=== PATIENT | male | born 1980 | race African-American/Black ===

== ENCOUNTER 2025-01-15 00:24 | Emergency (ER) | payer MEDICAID, SELFPAY ==
[2025-01-15 00:44] VITALS: BP 124/82; PULSE 100; RESP 18; TEMP 36.6; O2SAT 99; BMI 20.9
[2025-01-15 01:39] LABS: Basophils % (Auto) 0 % (0-2.5); Eosinophils # (Auto) 0.1 Thou/mm3 (0.0-0.5); Eosinophils % (Auto) 1 % (0-10); Hematocrit 41.4 % (41.0-53.0); Hemoglobin 13.4 g/dL (13.5-16.0); Immature Granulocytes % (Auto) 0 % (0-0); Immature Granulocytes Auto 0.01 Thou/mm3 (0.00-0.00); Lymphocytes # (Auto) 1.4 Thou/mm3 (1.0-4.8); Lymphocytes % (Auto) 20 % (10-50); Mean Corpuscular HGB Conc 32.4 g/dl (31.0-37.0); Mean Corpuscular Volume 83 fL (80-100); Monocytes # (Auto) 0.5 Thou/mm3 (0.0-0.8); Monocytes % (Auto) 8 % (0-12); Neutrophils % (Auto) 71 % (37-80); Nucleated Red Blood Cell % 0 /100 WBC (0); Platelet Count 203 Thou/mm3 (140-440); RDW Standard Deviation 45.8 fL (35.1-43.9); Red Blood Count 4.97 Miln/mm3 (4.50-5.90)
[2025-01-15 01:52] LABS: Alanine Aminotransferase 36 U/L (10-49); Albumin, Serum 4.1 gm/dL (3.5-5.0); Albumin/Globulin Ratio 1.4 (1.2-2.2); Alkaline Phosphatase 96 U/L (46-116); Anion Gap 6 (7-16); Aspartate Amino Transferase 84 U/L (0-34); BUN/Creatinine Ratio 6 Ratio (12-20); Bilirubin,Total 0.4 mg/dL (0.3-1.2); Blood Urea Nitrogen 7 mg/dL (9-23); Calcium 9.1 mg/dL (8.3-10.6); Calcium (Corrected) 9.1 mg/dL (8.5-10.1); Carbon Dioxide 28.6 mMol/L (20.0-31.0); Chloride 105 mMol/L (98-107); Creatinine (Component) 1.1 mg/dL (0.6-1.3); Estimated Creatinine Clearance 76.7 mL/min (>60); Globulin 2.9 gm/dL (2.3-3.5); Glucose 116 mg/dL (74-106); Osmolality,Calculated 278 (275-295); Potassium 3.6 mMol/L (3.4-5.1); Sodium 140 mMol/L (136-145); eGFR > 60 See Note
--- NOTE | 2025-01-15 05:37 | EDNOTE_ITS ---
ED GI Bleed RME/HPI General Chief complaint: GI Bleed Stated complaint: Abdominal Pain/ Bloody stools Time Seen by Provider: 01/15/25 00:55 Arrival date/time: 01/15/25 00:24 44M with history of seizures, drug use, and recently diagnosed stage 2 colon cancer 5 months ago here presents to ED with wanting to start treatment for his colon cancer. Patient didn't want treatment after initial diagnosis but now changed his mind due to wanting to live for his daughter. Limitations: no limitations Related Data Home Medications ?Medication ?Instructions ?Recorded ?Confirmed fluoxetine 20 mg capsule (Prozac) 10 mg PO QAM #0 caps 12/20/14 07/20/24 trazodone 50 mg tablet 50 mg PO HS PRN Sleep #0 tab s 12/20/14 07/20/24 levetiracetam 500 mg tablet 500 mg PO BID 07/20/24 (Keppra) Allergies Allergy/AdvReac Type Severity Reaction Status Date / Time coconut Allergy Severe Anaphylaxis Verified 07/20/24 21:10 Review of Systems Review of Systems Systems Reviewed: All systems reviewed, normal except as documented Constitutional Constitutional: Reports system reviewed and no additional complaints, except as documented, Denies fever(s) and Denies headache(s) ENT Ears, Nose, Mouth, and Throat: Denies disequilibrium and Denies headache(s) Cardiovascular Cardiovascular: Reports system reviewed and no additional complaints, except as documented, Denies chest pain and Denies dyspnea Respiratory Respiratory: Reports system reviewed and no additional complaints, except as documented, Denies cough and Denies dyspnea Gastrointestinal Gastrointestinal: Reports system reviewed and no additional complaints, except as documented, Denies abdominal pain, Denies nausea and Denies vomiting Neurologic Neurologic: Reports system reviewed and no additional complaints, except as documented, Denies confusion, Denies disequilibrium and Denies headache(s) Psychiatric Psychiatric: Denies confusion Past Medical History Past Medical History NEUROLOGIC: Positive Seizures (LAST SEIZURE 4 MONTHS AGO) and Epilepsy; Negative Neurological Disorders, Cerebrovascular Accident, Transient Ischemic Attacks (TIA), Dementia, Alzheimer's Disease, Parkinson's Disease, Brain Tumor, Meningitis, Multiple Sclerosis, Amyotrophic Lateral Sclerosis (ALS/Tabby Gehrig's), Guillain-[place] Syndrome, Spina Bifida, Paralysis, Peripheral Neuropathy, Bermudez's Palsy, Subdural Hematoma, Migraine, Head Trauma or Spinal Cord Injury CARDIAC: Negative Cardiac Disorders, Myocardial Infarction, Cardiac Arrhythmia, Atrial Fibrillation, Angina, Heart Murmur, Coronary Artery Disease, Atherosclerotic Heart Disease, Peripheral Vascular Disease, Hypercholesterolemia, Aneurysm, Congestive Heart Failure, Congenital Heart Disease, Valvular Heart Disease, Rheumatic Fever, Cardiomyopathy, Edema, Pericarditis, Cellulitis, Deep Vein Thrombosis, Hypertension, Hypotension or Varicose Veins RESPIRATORY: Positive Asthma; Negative Chronic Obstructive Pulmonary Disease (COPD), Emphysema, Pneumonia, Pulmonary Fibrosis, Cystic Fibrosis, Tuberculosis, Pulmonary Embolism, Pulmonary Edema or Sleep Apnea GASTROINTESTINAL: Positive Gastrointestinal Bleed; Negative Gastrointestinal Disorders, Hepatitis, Cirrhosis, Pancreatitis, Gall Bladder Disease, Esophageal Varices, Howard's Esophagus, Colitis, Ulcerative Colitis, Diverticulitis, Diverticulosis, Ulcer, Colorectal Cancer, Irritable Bowel, Crohn's Disease, Obstructive Bowel, Hiatal Hernia, Hemorrhoids or Gastroesophageal Reflux Disease GENITOURINARY: Negative Genitourinary Disorders, Renal Disease, Kidney Stones, Polycystic Kidney Disease, Neurogenic Bladder, Inguinal Hernia, Dialysis, Prostate Cancer or Benign Prostatic Hyperplasia REPRODUCTIVE: Positive Gonorrhea; Negative Breast Cancer, Fibroids, Genital Herpes, Syphilis or Testicular Cancer MUSCULOSKELETAL: Negative Musculoskeletal Disorders, Muscular Dystrophy, Myasthenia Gravis, Marfan's Syndrome, Bone Cancer, Arthritis, Rheumatoid Arthritis, Osteoporosis, Degenerative Disk Disease, Gout, Scoliosis, Carpal Tunnel Syndrome, Fibromyalgia, Fractures, Degenerative Joint Disease, Osteomyelitis or Poliovirus ENT: Negative Cataracts, Glaucoma, Blind, Retinal Detachment, Macular Degeneration, Ear Infection, Deafness, Head Trauma or Eye Prosthesis ENDOCRINE: Negative Endocrine Disorders, Diabetes Mellitus Type 1, Diabetes Mellitus Type 2, Hypoglycemia, Ismael's Syndrome, Tulio's Disease, Hyperthyroidism, Hypothyroidism, Parathyroid Disease, Pituitary Disease, Syndrome of Inappropriate Antidiuretic Hormone (SIADH) or Adrenal Disease HEMATOLOGIC: Negative Blood Disorders, Anemia, Leukemia, Hemophilia, Thalassemia, Sickle Cell Disease or Clotting Problems PSYCHO/SOCIAL: Positive Recreational Drug Use, Bipolar Disorder, Depression and Anxiety; Negative Psychiatric Problems, Schizophrenia, Behavior Problems, Self- Mutilation, Attention Deficit Disorder, Attention Deficit Hyperactivity Disorder, Depression, Post Traumatic Stress Disorder or Eating Disorder OTHER HISTORY: Negative Hospitalization, Autoimmune Disease, Down Syndrome, Autism, Developmental Delay, Shingles, Falls, Blood Transfusions, Blood Tra nsfusion Reaction, Anesthesia Reactions, Organ Transplant, Chemotherapy, Radiation Therapy, Hyperbaric Therapy, MRSA, VRSA, Vancomycin-Resistant Enterococci, Human Immunodeficiency Virus (HIV), Chicken Pox, Measles, Mumps, Rubella ([place]vian Measles), Pertussis, Clostridium Difficile, Cancer, Breast Cancer, Cervical Cancer, Colorectal Cancer, Lung Cancer, Ovarian Cancer, Prostate Cancer or Testicular Cancer Family History FAMILY HISTORY: Positive Family Psychiatric Problems and Family Respiratory Disorders; Negative Family Cardiac Disorders, Family Gastrointestinal Problems, Family Cancer, Family Surgery or Family Anesthesia Reaction Surgical History SURGICAL: Negative Cardiac Surgery, Open Heart Surgery, Coronary Artery Bypass Graft, Vascular Surgery, Coronary Stent, Cardiac Catheterization, Pacemaker, Angiogram, Auto Implanted Cardiovert Defib, Carotid Endarterectomy, Endocrine Surgery, Thyroidectomy, Ear Surgery, Tympanostomy Tube, Eye Surgery, Nose Surgery, Oral Surgery, Tonsillectomy, Adenoidectomy, Cochlear Implant, Corneal Transplant, Throat Surgery, Abdominal Surgery, Tracheostomy, Gastric Bypass Surgery, Gastrostomy, Bowel Surgery, Joint Replacement, Amputation, Open Reduction Internal Fixation, Arthroscopy, Neurologic Surgery, Brain Shunt, Mastectomy, Lumpectomy, Hysterectomy, Tubal Ligation, Section, Vasectomy or Organ Transplant Social History SMOKING STATUS: Never smoker SECOND HAND EXPOSURE: Yes ED Exam General Limitations: Present no limitations General appearance: Present alert and in no apparent distress Head Head exam: Present atraumatic Eye Eye exam: Present normal appearance, PERRL and EOMI ENT ENT exam: Present normal exam, normal oropharynx and mucous membranes moist Neck Neck exam: Present normal inspection, full ROM and trachea midline Chest Chest inspection: Present normal inspection and symmetric chest wall rise Respiratory Respiratory exam: Present normal lung sounds bilaterally Cardiovascular Cardiovascular exam: Present regular rate, normal rhythm and normal heart sounds Abdominal Exam Abdominal exam: Present soft and normal bowel sounds Extremities Exam Extremities exam: Present normal inspection and full ROM Back Exam Back exam: Present normal inspection and full ROM Neurological Exam Neurological exam: Present alert, oriented X3 and CN II-XII intact Psychiatric Psychiatric exam: Present normal affect and normal mood Skin Skin exam: Present warm, dry, intact and normal color Course Quality Measures none Orders Category Date Time Status CBC Stat Lab 01/15/25 01:15 Completed CMP [Comprehensive Metabolic Panel] Stat Lab 01/15/25 01:15 Completed Vital Signs Vital signs: Vital Signs Temperature 98 F 01/15/25 00:44 Pulse Rate 100 01/15/25 00:44 Respiratory Rate 18 01/15/25 00:44 Blood Pressure 124/82 01/15/25 00:44 Pulse Oximetry (%) 99 01/15/25 00:44 Oxygen Delivery Method Room Air 01/15/25 00:44 O2 at 99% on RA and WNLs GI Bleed MDM Narrative MDM Narrative:: 44M with history of seizures, drug use, and recently diagnosed stage 2 colon cancer 5 months ago here presents to ED with wanting to start treatment for his colon cancer. Patient didn't want treatment after initial diagnosis but now changed his mind due to wanting to live for his daughter. Physical exam reveals no ab tenderness. Patient is afebrile, calm, and alert. No anemia. CMP unremarkable. Dust Box Worker given including to call [facility] in AM. Patient data External records reviewed:: [facility] previous records Clinical information provided by:: patient Social determinants that could affect healthcare access:: substance use Patient has the following chronic illnesses:: seizures, drug use, and recently diagnosed stage 2 colon cancer How is presenting disease/condition affected by chronic disease/condition?: caused by Evaluation data The following diagnostics were reviewed and interpreted by me:: lab results Lab and/or radiology exams considered but not ordered:: ordered Interpretation Summary: above Medications / Prescriptions Medications or Prescriptions considered but not ordered:: not ordered Medication administrations:: n/a Consultations Consultation(s) initiated? (list below): No Diagnosis GI bleed differential diagnosis: hemorrhoids, infectious diarrhea, esophageal varices, gastritis, Ni-Bazan syndrome, Upper gastrointestinal hemorrhage, Lower gastrointestinal hemorrhage, hematochezia, melena, anal fissure and other (colon cancer) Most likely diagnosis given after review of the tests above:: colon cancer Admission Indicated Admission indicated?: not indicated Admission Request Was there a request for admission?: No Disposition Plan Disposition Plan: Discharge Discharge Attestation Discharge Attestation: The patient and all family members were given an opportunity to ask questions and understood the discharge instructions. Discharge instructions specifically effects, indications for sooner follow up or return to the emergency department, and the expected course of current diagnosis. Patient condition: Stable Discharge Plan Plan Patient Disposition: HOME (Self Care) Disposition Comment: Stable Prescriptions/Referrals Prescriptions/Med Rec: No Action trazodone 50 mg Tablet 50 mg PO HS PRN (Reason: Sleep) Qty: 0 fluoxetine [Prozac] 20 MG capsule 10 mg PO QAM Qty: 0 levetiracetam [Keppra] 500 mg Tablet 500 mg PO BID Referrals: [facility] [Outside] - In 1 week (call in AM) No Primary/Family,Physician [Primary Care Provider] - In 1 week Problem List Clinical Impression: Colon cancer Patient/Caregiver Discharge Instructions Education Materials: Colorectal Cancer Additional Instructions: Please follow-up with PCP within 24-48 hours and return immediately if symptoms worsen. Call Cancer Center in the morning! Print Language: Syriac Stand Alone Forms: Patient Portal Info Letter PA/BASE WAD OPERATOR ADJUSTER Supervising Physician BENITA/BASE WAD OPERATOR ADJUSTER Supervising Physician: Dr. Irvin
== END 2025-01-15 02:34 | disposition home or self-care (01) ==
PROVIDERS: Physician Assistant; Emergency Provider Emergency Medicine
DX: C18.9 Malignant neoplasm of colon, unspecified (principal)
CPT/HCPCS: 36415; 80053; 85025; 99283

== ENCOUNTER 2025-01-15 22:03 | Emergency (ER) | payer MEDICAID, SELFPAY ==
[2025-01-15 22:04] VITALS: BMI 21.1
--- NOTE | 2025-01-15 22:42 | PC.NURSE ---
CALLED FOR PT FROM [facility]/OUTSIDE, NO ANSWERx1@ [phone]
--- NOTE | 2025-01-15 22:57 | PC.NURSE ---
PT CALLED FROM [facility] NO ANSWER
--- NOTE | 2025-01-15 23:13 | PC.NURSE ---
NO ANSWER FOR VITALS
--- NOTE | 2025-01-15 23:14 | PC.NURSE ---
PT CALLED FROM [facility] NO ANSWER
== END 2025-01-15 23:14 | disposition left against medical advice (07) ==
LOC: SERX 23:22
PROVIDERS: Emergency Provider Emergency Medicine
DX: Z53.21 Procedure and treatment not carried out due to patient leaving prior to being seen by health care provider (principal)

== ENCOUNTER 2025-02-18 01:12 | Emergency (ER) | payer MEDICAID, SELFPAY ==
[2025-02-18 01:13] VITALS: BMI 21.9
[2025-02-18 01:22] VITALS: BP 122/77; PULSE 91; RESP 18; TEMP 36.6; O2SAT 98
[2025-02-18] MEDS: MORPHINE SULF INJ 10 MG/ML VIAL 5 MG IM (01:42)
--- NOTE | 2025-02-18 04:39 | PD.EDABDPN ---
ED Abdominal Pain RME/HPI General Chief Complaint: General Adult/Misc Complain Stated complaint: RECTAL BLOODING Time seen by provider: 02/18/25 01:31 Arrival date/time: 02/18/25 01:12 44M with history of seizures, drug use, and recently diagnosed stage 2 colon cancer 6 months ago here presents to ED with worsening ab pain. Patient still hasn't called Cancer Center because he doesn't want to start chemo. Patient states his neighbor told him there's some eye drop that can treat colon cancer, and wants to try it. Limitations: no limitations Related Data Home Medications ?Medication ?Instructions ?Recorded ?Confirmed fluoxetine 20 mg capsule (Prozac) 10 mg PO QAM #0 caps 12/20/14 07/20/24 trazodone 50 mg tablet 50 mg PO HS PRN Sleep #0 tabs 12/20/14 07/20/24 levetiracetam 500 mg tablet 500 mg PO BID 07/20/24 07/20/24 (Keppra) Allergies Allergy/AdvReac Type Severity Reaction Status Date / Time coconut Allergy Severe Anaphylaxis Verified 07/20/24 21:10 Review of Systems Review of Systems Systems Reviewed: All systems reviewed, normal except as documented Constitutional Constitutional: Reports system reviewed and no additional complaints, except as documented, Denies fever(s) and Denies headache(s) ENT Ears, Nose, Mouth, and Throat: Denies disequilibrium and Denies headache(s) Cardiovascular Cardiovascular: Reports system reviewed and no additional complaints, except as documented, Denies chest pain and Denies dyspnea Respiratory Respiratory: Reports system reviewed and no additional complaints, except as documented, Denies cough and Denies dyspnea Gastrointestinal Gastrointestinal: Reports system reviewed and no additional complaints, except as documented, Reports as per HPI, Reports abdominal pain, Denies nausea and Denies vomiting Neurologic Neurologic: Reports system reviewed and no additional complaints, except as documented, Denies confusion, Denies disequilibrium and Denies headache(s) Psychiatric Psychiatric: Denies confusion Past Medical History Past Medical History NEUROLOGIC: Positive Seizures (LAST SEIZURE 4 MONTHS AGO) and Epilepsy; Negative Neurological Disorders, Cerebrovascular Accident, Transient Ischemic Attacks (TIA), Dementia, Alzheimer's Disease, Parkinson's Disease, Brain Tumor, Meningitis, Multiple Sclerosis, Amyotrophic Lateral Sclerosis (ALS/Tabby Gehrig's), Guillain-[place] Syndrome, Spina Bifida, Paralysis, Peripheral Neuropathy, Bermudez's Palsy, Subdural Hematoma, Migraine, Head Trauma or Spinal Cord Injury CARDIAC: Negative Cardiac Disorders, Myocardial Infarction, Cardiac Arrhythmia, Atrial Fibrillation, Angina, Heart Murmur, Coronary Artery Disease, Atherosclerotic Heart Disease, Peripheral Vascular Disease, Hypercholesterolemia, Aneurysm, Congestive Heart Failure, Congenital Heart Disease, Valvular Heart Disease, Rheumatic Fever, Cardiomyopathy, Edema, Pericarditis, Cellulitis, Deep Vein Thrombosis, Hypertension, Hypotension or Varicose Veins RESPIRATORY: Positive Asthma; Negative Chronic Obstructive Pulmonary Disease (COPD), Emphysema, Pneumonia, Pulmonary Fibrosis, Cystic Fibrosis, Tuberculosis, Pulmonary Embolism, Pulmonary Edema or Sleep Apnea GASTROINTESTINAL: Positive Gastrointestinal Bleed; Negative Gastrointestinal Disorders, Hepatitis, Cirrhosis, Pancreatitis, Gall Bladder Disease, Esophageal Varices, Howard's Esophagus, Colitis, Ulcerative Colitis, Diverticulitis, Diverticulosis, Ulcer, Colorectal Cancer, Irritable Bowel, Crohn's Disease, Obstructive Bowel, Hiatal Hernia, Hemorrhoids or Gastroesophageal Reflux Disease GENITOURINARY: Negative Genitourinary Disorders, Renal Disease, Kidney Stones, Polycystic Kidney Disease, Neurogenic Bladder, Inguinal Hernia, Dialysis, Prostate Cancer or Benign Prostatic Hyperplasia REPRODUCTIVE: Positive Gonorrhea; Negative Breast Cancer, Fibroids, Genital Herpes, Syphilis or Testicular Cancer MUSCULOSKELETAL: Negative Musculoskeletal Disorders, Muscular Dystrophy, Myasthenia Gravis, Marfan's Syndrome, Bone Cancer, Arthritis, Rheumatoid Arthritis, Osteoporosis, Degenerative Disk Disease, Gout, Scoliosis, Carpal Tunnel Syndrome, Fibromyalgia, Fractures, Degenerative Joint Disease, Osteomyelitis or Poliovirus ENT: Negative Cataracts, Glaucoma, Blind, Retinal Detachment, Macular Degeneration, Ear Infection, Deafness, Head Trauma or Eye Prosthesis ENDOCRINE: Negative Endocrine Disorders, Diabetes Mellitus Type 1, Diabetes Mellitus Type 2, Hypoglycemia, Ismael's Syndrome, [place]'s Disease, Hyperthyroidism, Hypothyroidism, Parathyroid Disease, Pituitary Disease, Syndrome of Inappropriate Antidiuretic Hormone (SIADH) or Adrenal Disease HEMATOLOGIC: Negative Blood Disorders, Anemia, Leukemia, Hemophilia, Thalassemia, Sickle Cell Disease or Clotting Problems PSYCHO/SOCIAL: Positive Recreational Drug Use, Bipolar Disorder, Depression and Anxiety; Negative Psychiatric Problems, Schizophrenia, Behavior Problems, Self-Mutilation, Attention Deficit Disorder, Attention Deficit Hyperactivity Disorder, Depression, Post Traumatic Stress Disorder or Eating Disorder OTHER HISTORY: Negative Hospitalization, Autoimmune Disease, Down Syndrome, Autism, Developmental Delay, Shingles, Falls, Blood Transfusions, Blood Transfusion Reaction, Anesthesia Reactions, Organ Transplant, Chemotherapy, Radiation Therapy, Hyperbaric Therapy, MRSA, VRSA, Vancomycin-Resistant Enterococci, Human Immunodeficiency Virus (HIV), Chicken Pox, Measles, Mumps, Rubella (Ind[place]ian Measles), Pertussis, Clostridium Difficile, Cancer, Breast Cancer, Cervical Cancer, Colorectal Cancer, Lung Cancer, Ovarian Cancer, Prostate Cancer or Testicular Cancer Family History FAMILY HISTORY: Positive Family Psychiatric Problems and Family Respiratory Disorders; Negative Family Cardiac Disorders, Family Gastrointestinal Problems, Family Cancer, Family Surgery or Family Anesthesia Reaction Surgical History SURGICAL: Negative Cardiac Surgery, Open Heart Surgery, Coronary Artery Bypass Graft, Vascular Surgery, Coronary Stent, Cardiac Catheterization, Pacemaker, Angiogram, Auto Implanted Cardiovert Defib, Carotid Endarterectomy, Endocrine Surgery, Thyroidectomy, Ear Surgery, Tympanostomy Tube, Eye Surgery, Nose Surgery, Oral Surgery, Tonsillectomy, Adenoidectomy, Cochlear Implant, Corneal Transplant, Throat Surgery, Abdominal Surgery, Tracheostomy, Gastric Bypass Surgery, Gastrostomy, Bowel Surgery, Joint Replacement, Amputation, Open Reduction Internal Fixation, Arthroscopy, Neurologic Surgery, Brain Shunt, Mastectomy, Lumpectomy, Hysterectomy, Tubal Ligation, Section, Vasectomy or Organ Transplant Social History SMOKING STATUS: Never smoker SECOND HAND EXPOSURE: Yes ED Exam General Limitations: Present no limitations General appearance: Present alert and in no apparent distress Head Head exam: Present atraumatic Eye Eye exam: Present normal appearance, PERRL and EOMI ENT ENT exam: Present normal exam, normal oropharynx and mucous membranes moist Neck Neck exam: Present normal inspection, full ROM and trachea midline Chest Chest inspection: Present normal inspection and symmetric chest wall rise Respiratory Respiratory exam: Present normal lung sounds bilaterally Cardiovascular Cardiovascular exam: Present regular rate, normal rhythm and normal heart sounds Abdominal Exam Abdominal exam: Present soft and normal bowel sounds Extremities Exam Extremities exam: Present normal inspection and full ROM Back Exam Back exam: Present normal inspection and full ROM Neurological Exam Neurological exam: Present alert, oriented X3 and CN II-XII intact Psychiatric Psychiatric exam: Present normal affect and normal mood Skin Skin exam: Present warm, dry, intact and normal color Course Quality Measures none Orders Category Date Time Status Morphine Inj Med 02/18/25 01:32 Discontinued 5 mg IM X1 ONE Vital Signs Vital signs: Vital Signs Temperature 97.8 F 02/18/25 01:22 Pulse Rate 91 02/18/25 01:22 Respiratory Rate 18 02/18/25 01:22 Blood Pressure 122/77 05/29/25 01:22 Pulse Oximetry (%) 98 02/18/25 01:22 Oxygen Delivery Method Room Air 02/18/25 01:22 O2 at 98% on RA and WNLs Abdominal Pain MDM MDM Narrative MDM Narrative:: 44M with history of seizures, drug use, and recently diagnosed stage 2 colon cancer 6 months ago here presents to ED with worsening ab pain. Patient still hasn't called Cancer Center because he doesn't want to start chemo. Patient states his neighbor told him there's some eye drop that can treat colon cancer, and wants to try it. Physical exam reveals well-appearing male. Patient is afebrile, calm, and alert. Meds and crisis intervention counselor given, including to call [facility] in AM. Patient data External records reviewed:: [facility] previous records Clinical information provided by:: patient Social determinants that could affect healthcare access:: substance use Patient has the following chronic illnesses:: seizures, drug use, and recently diagnosed stage 2 colon cancer How is presenting disease/condition affected by chronic disease/condition?: caused by Evaluation data The following diagnostics were reviewed and interpreted by me:: other (specify) (none) Lab and/or radiology exams considered but not ordered:: not ordered Interpretation Summary: n/a Medications / Prescriptions Medications or Prescriptions considered but not ordered:: ordered Medication administrations:: Medication Administration History Discontinued Medications Morphine Sulfate (Morphine Sulf Inj 10 Mg/Ml Vial) 5 mg IM X1 ONE Stop: 02/18/25 01:33 Last Admin: 02/18/25 01:42 Dose: 5 mg Documented By: CB above Consultations Consultation(s) initiated? (list below): No Diagnosis Differential diagnosis abdominal pain: abdominal pain, acute appendicitis, calculus of kidney, constipation, diverticulitis, gastroenteritis, pancreatitis, small bowel obstruction and other (colon cancer) Most likely diagnosis given after review of the tests above:: colon cancer Admission Indicated Admission indicated?: not indicated Admission Request Was there a request for admission?: No Disposition Plan Disposition Plan: Discharge Discharge Attestation Discharge Attestation: The patient and all family members were given an opportunity to ask questions and understood the discharge instructions. Discharge instructions specifically effects, indications for sooner follow up or return to the emergency department, and the expected course of current diagnosis. Patient condition: Stable Discharge Plan Plan Patient Disposition: HOME (Self Care) Discharge Disposition comment: Stable Prescriptions/Referrals Prescriptions/Med Rec: No Action trazodone 50 mg Tablet 50 mg PO HS PRN (Reason: Sleep) Qty: 0 fluoxetine [Prozac] 20 MG capsule 10 mg PO QAM Qty: 0 levetiracetam [Keppra] 500 mg Tablet 500 mg PO BID Referrals: Temporary Provider,ED [Primary Care Provider] - In 1 week Problem List Clinical Impression: Colon cancer Patient/Caregiver Discharge Instructions Education Materials: Colorectal Cancer Additional Instructions: Please follow-up with PCP within 24-48 hours and return immediately if symptoms worsen. Call Cancer Center in the morning!! Print Language: Serbian Stand Alone Forms: Patient Portal Info Letter BENITA/JEFFERSON Supervising Physician CANID Supervising Physician: Dr. Damico
== END 2025-02-18 01:46 | disposition home or self-care (01) ==
LOC: SERX 06:26
PROVIDERS: Emergency Provider Emergency Medicine
DX: C18.9 Malignant neoplasm of colon, unspecified (principal)
CPT/HCPCS: 96372; 99283; J2270

== ENCOUNTER 2025-03-09 07:43 | Emergency (ER) | payer OTHER, SELFPAY ==
[2025-03-09 07:44] VITALS: BP 148/96; PULSE 107; RESP 18; TEMP 37.2; O2SAT 97
[2025-03-09 07:49] VITALS: PULSE 104; RESP 18; O2SAT 97; BMI 20.8
--- NOTE | 2025-03-09 08:12 | XR_ITS ---
Examination: AP chest single view Technique : AP portable upright chest single view Date and time: March 09, 2025 0832 hours INDICATIONS: Coughing today. FINDINGS: Normal heart size. Lungs are clear. Osseous structures are intact IMPRESSION: No active disease
--- NOTE | 2025-03-09 08:17 | EDNOTE_ITS ---
ED Seizures RME/HPI General Chief Complaint: Seizure Stated Complaint: SEIZURE Time Seen by Provider: 03/09/25 08:11 Arrival date/time: 03/09/25 07:43 Limitations: no limitations RME / HPI RME / HPI Narrative: 44 year old male with history of seizures x 13 years on Keppra, recently diagnosed stage 2 colon cancer presents to the ED [facility] from [facility] for evaluation of seizure today. Per medics, staff at the facility reported a tonic-clonic seizure lasting a few minutes. Patient does not recall event. No injuries or complaints reported. Patient mentioned he is compliant with his medications. Related Data Home Medications ?Medication ?Instructions ?Recorded ?Confirmed fluoxetine 20 mg capsule (Prozac) 10 mg PO QAM #0 caps 12/20/14 07/20/24 trazodone 50 mg tablet 50 mg PO HS PRN Sleep #0 tab s 12/20/14 07/20/24 levetiracetam 500 mg tablet 500 mg PO BID 07/20/24 (Keppra) Previous Rx's ?Medication ?Instructions ?Recorded levetiracetam 750 mg tablet 750 mg PO BID Seizures #60 tabs 03/09/25 (Keppra) Allergies Allergy/AdvReac Type Severity Reaction Status Date / Time coconut Allergy Severe Anaphylaxis Verified 03/09/25 08:08 Review of Systems Review of Systems Systems Reviewed: All systems reviewed, normal except as documented Past Medical History Past Medical History NEUROLOGIC: Positive Seizures and Epilepsy RESPIRATORY: Positive Asthma GASTROINTESTINAL: Positive Gastrointestinal Bleed and Colorectal Cancer REPRODUCTIVE: Positive Gonorrhea PSYCHO/SOCIAL: Positive Recreational Drug Use, Bipolar Disorder, Depression and Anxiety OTHER HISTORY: Positive Colorectal Cancer Family History FAMILY HISTORY: Positive Family Psychiatric Problems and Family Respiratory Disorders Social History SMOKING STATUS: Never smoker SECOND HAND EXPOSURE: Yes ED Exam General Limitations: Present no limitations General appearance: Present other (Patient is drowsy, able to answer all questions appropriately, facial tattoos noted ) Head Head exam: Present atraumatic Eye Eye exam: Present PERRL, EOMI and other (There is a form of palsy to the right eye and is turned abut 30 degrees ) ENT ENT exam: Present normal exam, normal oropharynx and mucous membranes moist Neck Neck exam: Present normal inspection, full ROM and trachea midline Chest Chest inspection: Present normal inspection and symmetric chest wall rise Respiratory Respiratory exam: Present normal lung sounds bilaterally Cardiovascular Cardiovascular exam: Present regular rate, normal rhythm and normal heart sounds Abdominal Exam Abdominal exam: Present soft and normal bowel sounds Extremities Exam Extremities exam: Present normal inspection and full ROM Back Exam Back exam: Present normal inspection and full ROM Neurological Exam Neurological exam: Present oriented X3, CN II-XII intact and other (Drowsy, answering all questions appropriately ) Psychiatric Psychiatric exam: Present normal affect and normal mood Skin Skin exam: Present warm, dry, intact and normal color Course Quality Measures none Orders Category Date Time Status Tire Maintenance Technician NOW Care 03/09/25 08:12 Active Continuous Pulse Oximetry NOW Care 03/09/25 08:12 Active Insert IV NOW Care 03/09/25 08:[address] head/brain wo con Stat Exams 03/09/25 08:19 Completed XR chest 1V portable Stat Exams 03/09/25 08:12 Completed CBC Stat Lab 03/09/25 08:25 Completed Comprehensive Metabolic Panel Stat Lab 03/09/25 08:25 Completed Magnesium Stat Lab 03/09/25 08:25 Completed Prothrombin Time with INR Stat Lab 03/09/25 08:25 Completed Sodium Chloride 0.9% 1000 ml [Ns] 1,000 ml Med 03/09/25 08:12 Discontinued IV 999 mls/hr levETIRAcetam INJ [Keppra Inj] Med 03/09/25 08:12 Discontinued 1,000 mg IVP X1 ONE Oxygen Delivery NOW RT 03/09/25 08:12 Active Vital Signs Vital signs: Vital Signs Temperature 98.9 F 03/09/25 07:44 Pulse Rate 107 H 03/09/25 07:44 Respiratory Rate 18 03/09/25 07:44 Blood Pressure 148/96 H 03/09/25 07:44 Pulse Oximetry (%) 97 03/09/25 07:44 Oxygen Delivery Method Room Air 03/09/25 07:44 Pulse ox is 97% on room air which is adequate. Seizure MDM Narrative MDM Narrative:: Lisbeth Donahue am scribing for and in the presence of Dr. Merlos. 44 year old male with a history of seizures for the past 13 years, currently on Keppra, and recently diagnosed with stage 2 colon cancer, presents to the ED from [facility] following a reported tonic-clonic seizure earlier today. Per [facility] staff, the seizure lasted a few minutes. The patient has no recollection of the event, which is consistent with his prior seizure episodes. The patient states he has been compliant with his Keppra regimen. Laboratory studies were unremarkable, and head CT was negative for acute intracranial pathology. The patient has remained hemodynamically stable and neurologically intact throughout the ED stay. Given the recurrence of seizure activity, patients Keppra was increased from 500 to 750mg BID. Patient data External records reviewed:: [facility] previous records (I reviewed ED Visit on 02/18/2025 ) and EMS form Clinical information provided by:: patient, EMS and law enforcement Social determinants that could affect healthcare access:: housing (Patient is currently incarcerated ) Patient has the following chronic illnesses:: seizures x 13 years on Keppra, recently diagnosed stage 2 colon cancer How is presenting disease/condition affected by chronic disease/condition?: exacerbated by Evaluation data The following diagnostics were reviewed and interpreted by me:: lab results, radiology exam(s) and EKG tracing(s) (03/09/2025 @ 08:02. Sinus tachycardia, rate 104, no STEMI. CO 124 ms, QRS 81 ms, QT/QTc 316/376 ms. ) Lab and/or radiology exams considered but not ordered:: None Interpretation Summary: Ordering Physician: Graham Merlos MD Date of Service: 03/09/25 Procedure(s): XR chest 1V portable Accession Number(s): [id number] cc: Graham Merlos MD; Tanvir Banks MD; NO PRIMARY/FAMILY,PHYSICIAN~ Examination: AP chest single view Technique : AP portable upright chest single view Date and time: March 09, 2025 0832 hours INDICATIONS: Coughing today. FINDINGS: Normal heart size. Lungs are clear. Osseous structures are intact IMPRESSION: No active disease Dictated By: Tanvir Banks MD Signed By: <Electronically signed by Tanvir Banks MD in OV> 03/09/25 1000 Ordering Physician: Graham Merlos MD Date of Service: 03/09/25 Procedure(s): CT head/brain wo con Accession Number(s): [id number] cc: Graham Merlos MD; Tanvir Banks MD; NO PRIMARY/FAMILY,PHYSICIAN~ Examination: CT brain head without contrast. 2-D sagittal coronal reconstructions Date and time of exam:March 09, 2025 0849 hours INDICATIONS: Onset seizures today CTDI: vol (mGy):56.3 DLP: (mGycm):1152 Technique: Multiple CT axial sections of the brain have been obtained, 5 mm slice thickness. Contrast has not been administered. 2-D sagittal, coronal reconstructions have been obtained Low dose protocols were performed. One or more of the following dose reduction techniques were used; automated exposure control, adjustment of the mA and/or KV according to patient size, use of iterative reconstruction technique. Findings: No significant ventricular enlargement. Intra-axial or extra-axial hemorrhage density is not seen. No mass effect or midline shift Basal cisterns are not remarkable. Fourth ventricle is midline. Cranial vault intact. Impression: Negative for acute hemorrhage, mass effect or midline shift Consider elective brain MRI follow-up pre and postcontrast, seizure protocol Dictated By: Tanvir Banks MD Signed By: <Electronically signed by Tanvir Banks MD in OV> 03/09/25 1000 Medications / Prescriptions Medications or Prescriptions considered but not ordered:: None Medication administrations:: Medication Administration History Discontinued Medications Sodium Chloride (Ns) 1,000 mls @ 999 mls/hr IV .Q1H1M ONE Stop: 03/09/25 09:12 Last Admin: 03/09/25 08:25 Dose: 999 mls/hr Documented By: MATHIEU Levetiracetam (Levetiracetam Inj 100 Mg/Ml Vial 5ml) 1,000 mg IVP X1 ONE Stop: 03/09/25 08:13 Last Admin: 03/09/25 08:26 Dose: 1,000 mg Documented By: MATHIEU See above Consultations Consultation(s) initiated? (list below): No Diagnosis Seizure Differential Diagnosis: intractable seizure disorder, focal seizure, generalized seizure and epileptic seizure Most likely diagnosis given after review of the tests above:: epileptic seizure Admission Indicated Admission indicated?: not indicated Admission Request Was there a request for admission?: No Disposition Plan Disposition Plan: Discharge (to [facility] ) Discharge Attestation Discharge Attestation: The patient and all family members were given an opportunity to ask questions and understood the discharge instructions. Discharge instructions specifically effects, indications for sooner follow up or return to the emergency department, and the expected course of current diagnosis. Patient condition: Stable Discharge Plan Plan Patient Disposition: Group Home/Court/Law Prescriptions/Referrals Prescriptions/Med Rec: New levetiracetam [Keppra] 750 mg tablet 750 mg PO BID MDD 2 Qty: 60 0RF No Action trazodone 50 mg Tablet 50 mg PO HS PRN (Reason: Sleep) Qty: 0 fluoxetine [Prozac] 20 MG capsule 10 mg PO QAM Qty: 0 levetiracetam [Keppra] 500 mg Tablet 500 mg PO BID Referrals: No Primary/Family,Physician [Primary Care Provider] - In 1 week Problem List Clinical Impression: Epileptic seizure Patient/Caregiver Discharge Instructions Education Materials: ED Seizure, Recurrent (Adult) Additional Instructions: Increase your medication Keppra to 750 mg twice a day. New prescription has been written. Please stop taking the Keppra 500 mg twice a day. Follow-up with your primary doctor and consider referral to neurology. Print Language: Guyanese Stand Alone Forms: Tere Award Info., Patient Portal Info Letter
[2025-03-09] MEDS: SODIUM CHLORIDE 0.9% 1000 ML 1,000 ML 999 ML IV (08:25)
[2025-03-09] MEDS: levETIRAcetam INJ 100 MG/ML VIAL 5ML 1000 MG IVP (08:26)
[2025-03-09 08:41] LABS: Basophils % (Auto) 0 % (0-2.5); Eosinophils # (Auto) 0.1 Thou/mm3 (0.0-0.5); Eosinophils % (Auto) 0 % (0-10); Hematocrit 39.8 % (41.0-53.0); Immature Granulocytes % (Auto) 0 % (0-0); Immature Granulocytes Auto 0.03 Thou/mm3 (0.00-0.00); Lymphocytes # (Auto) 0.7 Thou/mm3 (1.0-4.8); Lymphocytes % (Auto) 6 % (10-50); Mean Corpuscular HGB Conc 32.7 g/dl (31.0-37.0); Mean Corpuscular Hemoglobin 26.7 pg (25.0-35.0); Mean Corpuscular Volume 82 fL (80-100); Monocytes # (Auto) 0.7 Thou/mm3 (0.0-0.8); Monocytes % (Auto) 6 % (0-12); Neutrophils # (Auto) 10.1 Thou/mm3 (1.8-7.7); Neutrophils % (Auto) 87 % (37-80); Nucleated Red Blood Cell % 0 /100 WBC (0); Platelet Count 249 Thou/mm3 (140-440); RDW Standard Deviation 43.5 fL (35.1-43.9); Red Blood Count 4.86 Miln/mm3 (4.50-5.90); White Blood Count 11.7 Thou/mm3 (3.8-10.6)
[2025-03-09 08:48] LABS: INR 1.1 (0.9-1.3); Prothrombin Time 12.2 Seconds (9.0-12.2)
[2025-03-09 08:57] LABS: Alanine Aminotransferase 21 U/L (10-49); Albumin/Globulin Ratio 1.3 (1.2-2.2); Alkaline Phosphatase 75 U/L (46-116); Anion Gap 6 (7-16); Aspartate Amino Transferase 33 U/L (0-34); BUN/Creatinine Ratio 9 Ratio (12-20); Bilirubin,Total 0.6 mg/dL (0.3-1.2); Blood Urea Nitrogen 9 mg/dL (9-23); Calcium 9.1 mg/dL (8.3-10.6); Calcium (Corrected) 9.1 mg/dL (8.5-10.1); Carbon Dioxide 29.9 mMol/L (20.0-31.0); Chloride 102 mMol/L (98-107); Estimated Creatinine Clearance 83.7 mL/min (>60); Glucose 100 mg/dL (74-106); Magnesium 2.1 mg/dL (1.6-2.6); Osmolality,Calculated 274 (275-295); Potassium 4.3 mMol/L (3.4-5.1); Sodium 138 mMol/L (136-145); eGFR > 60 See Note
[2025-03-09 10:05] VITALS: BP 128/80; PULSE 99; RESP 17; TEMP 37.2; O2SAT 98
== END 2025-03-09 10:58 ==
PROVIDERS: Emergency Provider Family Medicine
DX: G40.909 Epilepsy, unspecified, not intractable, without status epilepticus (principal); R05.9 Cough, unspecified
CPT/HCPCS: 36415; 70450; 71045; 80053; 83735; 85025; 85610; 96361; 96374; 99284; J1953; J7030

== ENCOUNTER 2025-03-13 02:48 | Emergency (ER) | payer MEDICAID, SELFPAY ==
[2025-03-13 02:50] VITALS: BMI 21.9
[2025-03-13 03:01] VITALS: BP 102/71; PULSE 93; RESP 17; TEMP 36.9; O2SAT 97
[2025-03-13 03:59] LABS: Basophils % (Auto) 0 % (0-2.5); Eosinophils # (Auto) 0.2 Thou/mm3 (0.0-0.5); Eosinophils % (Auto) 2 % (0-10); Hematocrit 37.8 % (41.0-53.0); Hemoglobin 12.4 g/dL (13.5-16.0); Immature Granulocytes % (Auto) 0 % (0-0); Immature Granulocytes Auto 0.03 Thou/mm3 (0.00-0.00); Lymphocytes # (Auto) 1.8 Thou/mm3 (1.0-4.8); Lymphocytes % (Auto) 19 % (10-50); Mean Corpuscular HGB Conc 32.8 g/dl (31.0-37.0); Mean Corpuscular Hemoglobin 26.6 pg (25.0-35.0); Mean Corpuscular Volume 81 fL (80-100); Monocytes # (Auto) 1.1 Thou/mm3 (0.0-0.8); Monocytes % (Auto) 12 % (0-12); Neutrophils # (Auto) 6.4 Thou/mm3 (1.8-7.7); Neutrophils % (Auto) 67 % (37-80); Nucleated Red Blood Cell % 0 /100 WBC (0); Platelet Count 322 Thou/mm3 (140-440); RDW Standard Deviation 42.1 fL (35.1-43.9); Red Blood Count 4.67 Miln/mm3 (4.50-5.90); White Blood Count 9.6 Thou/mm3 (3.8-10.6)
[2025-03-13 04:22] LABS: Alanine Aminotransferase 34 U/L (10-49); Albumin, Serum 4.2 gm/dL (3.5-5.0); Albumin/Globulin Ratio 1.4 (1.2-2.2); Alcohol, Blood Medical < 3.0 mg/dL (0-10.0); Alkaline Phosphatase 96 U/L (46-116); Anion Gap 7 (7-16); Aspartate Amino Transferase 62 U/L (0-34); BUN/Creatinine Ratio 14 Ratio (12-20); Bilirubin,Total 0.3 mg/dL (0.3-1.2); Blood Urea Nitrogen 14 mg/dL (9-23); Calcium 9.6 mg/dL (8.3-10.6); Calcium (Corrected) 9.6 mg/dL (8.5-10.1); Carbon Dioxide 31.9 mMol/L (20.0-31.0); Chloride 101 mMol/L (98-107); Globulin 3.1 gm/dL (2.3-3.5); Glucose 88 mg/dL (74-106); Lipase 25 U/L (12-53); Osmolality,Calculated 278 (275-295); Potassium 5.4 mMol/L (3.4-5.1); Sodium 140 mMol/L (136-145); Total Protein 7.3 gm/dL (5.7-8.2); eGFR > 60 See Note
[2025-03-13 04:33] LABS: Collection Type, Urine Clean Catch; Squamous Epithelial Cell,Urine 0 /hpf (0-5); WBC,Urine 0 /hpf (0-5)
[2025-03-13 04:39] LABS: Amorphous Crystals,Urine Present (Absent); Bilirubin,Urine Negative (Negative); Blood,Urine Negative (Negative); Clarity,Urine Turbid (Clear/Hazy); Color,Urine Lt-Yellow (Lt Yel-Yel); Glucose, Urine Negative (Negative); Ketones,Urine Negative (Negative); Leukocyte Esterase,Urine Negative (Negative); Nitrite,Urine Negative (Negative); Protein,Urine Negative (Neg - Trace); RBC,Urine 3 /hpf (0-3); Urobilinogen,Urine Negative mg/dL (0.0-1.0)
[2025-03-13 04:59] LABS: Amphetamine/Methamp Scrn,U Negative (Negative); Barbiturate Screen,Urine Negative (Negative); Benzodiazepines Screen,Urine Negative (Negative); Benzoylecgonine Screen, Ur Negative (Negative); Fentanyl Screen,Urine Negative (Negative); Opiate Screen,Urine Negative (Negative); THC Screen,Urine Positive (Negative)
--- NOTE | 2025-03-13 05:38 | PD.EDRME ---
Rapid Medical Screening Exam RME Arrival date/time: 03/13/25 02:48 44M with history of seizures and stage 2 colon cancer presents to ED with several weeks of RLQ/pelvic pain. Chief Complaint: Abdominal Pain Time Seen by Provider: 03/13/25 03:33 Vital signs: Vital Signs Temperature 98.5 F 03/13/25 03:01 Pulse Rate 93 03/13/25 03:01 Respiratory Rate 17 03/13/25 03:01 Blood Pressure 102/71 03/13/25 03:01 Pulse Oximetry (%) 97 03/13/25 03:01 Oxygen Delivery Method Room Air 03/13/25 03:01
[2025-03-13 08:17] VITALS: BP 125/77; PULSE 87; RESP 16; TEMP 36.8; O2SAT 100
--- NOTE | 2025-03-13 08:58 | EDNOTE_ITS ---
ED General RME/HPI General Chief complaint: Abdominal Pain Stated complaint: ABD PAIN HX COLON CA Time Seen by Provider: 03/13/25 03:33 Arrival date/time: 03/13/25 02:48 RME / HPI RME / HPI narrative: 03/13/25 02:48 44M with history of seizures and stage 2 colon cancer presents to ED with several weeks of RLQ/pelvic pain. DR. COLE MAIN ED EVALUATION: 44 year old male with past medical history significant for seizures x 13 years on Keppra, recently diagnosed stage 2 colon cancer presents to the Emergency Department with complaint of abdominal pressure from belly button to spine onset 1 month. He also mentions he has blood in the stools. He states he just got out of care home yesterday. He states he never followed up with chemo. Information above provided by [facility]. Patient comes in with abdominal pain and states he has colon cancer that was diagnosed 7 months ago here at this hospital where he had colonoscopy. Review of those reports reveals adenocarcinoma by biopsy. Patient was referred to the cancer center but evidently was unable to secure an appointment and no further follow-up was done. He was recently in care home for 10 days and just got out yesterday and at the care home they were unable to get an appointment during that time and he comes the emergency room because he is having more belly pain symptoms. He is passing stool is bloody. He also complains of some urinary symptoms as if he cannot pee. Despite this he is still urinating. He has no other injury medical problem no fever vomiting. He thinks he is losing weight but does not have any objective weight measurements to compare to. He is able to eat and swallow without difficulty. He has no shortness of breath no chest pain and no other complaints at this time. Related Data Home Medications ?Medication ?Instructions ?Recorded ?Confirmed fluoxetine 20 mg capsule (Prozac) 10 mg PO QAM #0 caps 12/20/14 07/20/24 trazodone 50 mg tablet 50 mg PO HS PRN Sleep #0 tab s 12/20/14 07/20/24 levetiracetam 500 mg tablet 500 mg PO BID 07/20/24 (Keppra) Previous Rx's ?Medication ?Instructions ?Recorded levetiracetam 750 mg tablet 750 mg PO BID Seizures #60 tabs 03/09/25 ([facility]) Allergies Allergy/AdvReac Type Severity Reaction Status Date / Time coconut Allergy Severe Anaphylaxis Verified 03/13/25 02:58 Review of Systems Review of Systems Systems Reviewed: All systems reviewed, normal except as documented Past Medical History Past Medical History NEUROLOGIC: Positive Seizures and Epilepsy RESPIRATORY: Positive Asthma GASTROINTESTINAL: Positive Gastrointestinal Disorders (colon cancer), Gastrointestinal Bleed and Colorectal Cancer REPRODUCTIVE: Positive Gonorrhea PSYCHO/SOCIAL: Positive Recreational Drug Use, Bipolar Disorder, Depression and Anxiety OTHER HISTORY: Positive Colorectal Cancer Family History FAMILY HISTORY: Positive Family Psychiatric Problems and Family Respiratory Disorders Social History SMOKING STATUS: Never smoker SECOND HAND EXPOSURE: Yes SUBSTANCE USE: marijuana ALCOHOL: Never ED Exam Narrative Physical exam: Physical Exam: General: The vital signs were reviewed. The patient is non-toxic, in no apparent distress and appears healthy with a patent airway, no respiratory distress and has no apparent circulatory problems. Head & Scalp: Normocephalic, atraumatic. Face: Appears normal and is without lesions, deformity. Ears: Left external pinna appears normal. Right external pinna appears normal. Eyes: The sclera is anicteric. No obvious photophobia. The Left and Right Orbit/Lid/Conjunctiva appears normal without swelling, discoloration or injection. Nose: The nose is without deformity, discharge or tenderness; Throat: Appears normal. The mucous membranes are pink and moist without exudates, redness or mass seen. The tongue appears normal. Neck: The neck is supple and no apparent mass or adenopathy. Chest: The chest wall is normal in size and symmetry and has no chest wall tenderne ss or crepitus. The patient displays normal ventilator effort without retractions, accessory muscle use and has adequate air movement bilaterally with no wheezes and no rales. Cardiovascular: Regular rate and rhythm; No murmurs, rubs, or gallops; Gastrointestinal: The abdomen appears flat muscular no adipose tissue. No obvious hernias or mass. The abdomen has some vague discomfort in the right lower area. Is soft and benign, non-distended, with no pain, no guarding and no rebound tenderness. Bowel sounds are present and normal sounding. No CVA tenderness. Genitourinary: Testicles are nontender. Normal inspection of . Rectal exam was done with a firm mass at the tip of my finger I cannot feel the whole mass prostate seems to be normal. It is nontender there is bloody stool on my finger after the rectal exam. Back/Spine: Normal inspection Extremities/Musculoskeletal/lymphatic: The bilateral upper and lower extremities are warm. There is no evidence of arterial insufficiency. There is no evidence of venous insufficiency/edema. The patient spontaneously moves bilateral upper and lower extremities with no pain and no limitation of movement. There is no apparent, injury or trauma. Skin: The skin is warm, dry and intact. No rashes. No petechia. No purpura. No abnormal bruising. The color is appropriate with no cyanosis. Mental status/Psychiatric: Mental status is appropriate for age. The patient has no apparent delusions, visual hallucinations, no apparent audible hallucinations. The patient has no apparent suicidal thoughts/ideation and no apparent homicidal thoughts/ideation. Neurological: The patient is awake, alert, interactive, cordial, cooperative and is oriented to name and situation. The patient follows commands and answers historical question with no impairment. There is no visual disturbance apparent. The pupils are equal and reactive bilaterally with normal eye movements and no diplopia The bilateral upper and lower extremities have normal strength, normal range of motion and normal functioning. The gait, station and balance appear to be baseline with no acute change Course Quality Measures none Orders Category Date Time Status CT Screening NOW Care 03/13/25 09:[address] chest abdomen pelvis w Stat Exams 03/13/25 09:39 Completed Alcohol, Blood Medical Stat Lab 03/13/25 03:40 Completed BMP [Basic Metabolic Panel] Stat Lab 03/13/25 11:15 Completed CBC Stat Lab 03/13/25 03:40 Completed CMP [Comprehensive Metabolic Panel] Stat Lab 03/13/25 03:40 Completed Drug Screen,Urine Stat Lab 03/13/25 04:12 Completed Lipase Stat Lab 03/13/25 03:40 Completed UA [Urinalysis] Stat Lab 03/13/25 04:12 Completed Urine Culture Stat Lab 03/13/25 04:12 Received Sodium Chloride 0.9% 1000 ml [Ns] 1,000 ml Med 03/13/25 09:39 Active IV 150 mls/hr Sodium Chloride 0.9% 1000 ml [Ns] 1,000 ml Med 03/13/25 09:39 Discontinued IV 999 mls/hr Vital Signs Vital signs: Vital Signs Temperature 98.5 F 03/13/25 03:01 Pulse Rate 93 03/13/25 03:01 Respiratory Rate 17 03/13/25 03:01 Blood Pressure 102/71 03/13/25 03:01 Pulse Oximetry (%) 97 03/13/25 03:01 Oxygen Delivery Method Room Air 03/13/25 03:01 Discharge Plan Plan Patient Disposition: HOME (Self Care) Prescriptions/Referrals Prescriptions/Med Rec: No Action trazodone 50 mg Tablet 50 mg PO HS PRN (Reason: Sleep) Qty: 0 fluoxetine [Prozac] 20 MG capsule 10 mg PO QAM Qty: 0 levetiracetam [Keppra] 500 mg Tablet 500 mg PO BID levetiracetam [Keppra] 750 mg tablet 750 mg PO BID MDD 2 Qty: 60 0RF Referrals: [facility] [Outside] - 03/15/25 (Inform them you have colon cancer with mets to the lungs and liver that you need immediate referral.) No Primary/Family,Physician [Primary Care Provider] - In 1 week Problem List Clinical Impression: Adenocarcinoma of rectum, Liver mass, Pulmonary nodule, Hematochezia Impression comment: 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 Patient/Caregiver Discharge Instructions Additional Instructions: The blood coming from your rectum is related to the cancer. Your blood counts were good today. If you are bleeding excessively please return for reevaluation. It is most important that you ingest the tumor in your rectum with your cancer doctors as soon as possible. As we discussed your colon cancer that was diagnosed 7 months ago was biopsied and found to be adenocarcinoma. CT scan of your chest abdomen pelvis today reveal mass in your liver and nodules in your lungs concerning for metastatic cancer. As we discussed call the cancer center this Saturday and get seen as soon as possible. See your primary care doctor in case they need to refer you. Please do not delay. Print Language: Setswana MDM Narrative MDM hospital course: Patient has an interval worsening of his recently diagnosed evidently stage II rectal cancer. Biopsy report reveals adenocarcinoma and unfortunate patient has unable to secure oncology services since he was referred. Since patient is worse in the interval and when to scan his chest and pelvis to look for any mets in help staging further. Dr. Hines was in the department and he and I both agree there is no obvious clinical obstruction that would require admission or surgery at this time. But the CT hopefully refine things and also rule out acute appendicitis or some other process. White count 9.6 hemoglobin 12.4 last hemoglobin 7 months ago was 13.0. Electrolytes show sodium 140 potassium 5.4 chloride 101 CO2 31.9 BUN 14 creatinine 1.0. Transaminases are 62 and 34 with a total bilirubin of 0.3. Urinalysis came back specific gravity of 1020 with 3 red cells and 0 white cells. Urine drug screen is positive for marijuana. There is no alcohol in the system Patient is fairly comfortable he understands he needs to follow-up with the cancer center. CT is pending at 0940 hrs. Also his potassium is 5.4 uncertain if that a false positive since his renal function is good. We will just recheck that and we will give him's after some fluids. Nadia Donaheu, am scribing for and in the presence of Dr. Cole. Clinical Information Provided by patient Medical Records Reviewed [facility] Meds/Rx Considered, not Ordered None Labs/Rad/Tests considered, not Ordered None Chronic Illness/Social Conditions Add or document further as needed: seizures x 13 years on Keppra, recently diagnosed stage 2 colon cancer EKG EKG not done Lab Interpretation Labs: see narrative above Imaging Imaging interpretation: none Radiology reports / interpretation(s): Procedure(s): CT chest abdomen pelvis w Accession Number(s): [id number] cc: Mark Cole MD; Tanvir Banks MD; NO PRIMARY/FAMILY,PHYSICIAN~ Examination: CT chest with intravenous contrast CT abdomen with intravenous contrast CT pelvis with intravenous contrast 2-D coronal and sagittal reconstructions Time of exam: March 13, 2025, 1005 hrs. Indications: Diagnosis malignant neoplasm colon, chest abdominal pain blood in the stool one month CTDI: vol (mGy) : 10.7 DLP: (mGycm): 518 Technique: Multiple axial images of the chest, abdomen and pelvis with intravenous contrast, 3.0 mm slice thickness. Images obtained post intravenous injection Isovue 370 60 cc. 2-D sagittal and coronal reconstructions. Low dose protocols were performed. One or more of the following dose reduction techniques were used; automated exposure control, adjustment of the mA and/or KV according to patient size, use of iterative reconstruction technique. Findings: No thoracic aortic aneurysmal dilatation No pulmonary artery filling defects on this non-CTA study No paratracheal tracheobronchial or bronchopulmonary adenopathy No pulmonary edema or lobar pneumonia 10 mm soft pulmonary nodule right lower lobe axial image 263 6 mm pulmonary nodule lingular segment left upper lobe axial image 267 16 mm right lobe liver lesion with nodular peripheral enhancement likely meningioma axial image 160 Anterior right lobe liver lesion more suspicious, 27 mm, consistent with hepatic metastasis No gallstones Spleen not enlarged No pancreatic mass No hydronephrosis Aorta is not enlarged Moderate stool throughout the colon No bowel obstruction Abnormal thickening of the kate of the sigmoid colon, 273, wall thickness on the right side laterally measuring up to 19 mm, which may represent tumor Urinary bladder wall thickening up to 14 mm Moderate osteopenia Impression: No mediastinal lymphadenopathy Soft pulmonary nodules as above suspicious for pulmonary nodular metastatic disease Anterior right lobe liver lesion 27 mm, suspicious for hepatic metastasis, recommend elective MRI abdomen follow-up pre and post intravenous contrast Markedly abnormal sigmoid colon, marked wall thickening over a proximal distal distance of at least 6 cm consistent with malignant neoplasm of the colon Cystitis pattern Dictated By: Tanvir Banks MD Medication Administration(s) Medication Administration History Sodium Chloride (Ns) 1,000 mls @ 150 mls/hr IV .Q6H40M ONE Stop: 03/13/25 16:18 Discontinued Medications Sodium Chloride (Ns) 1,000 mls @ 999 mls/hr IV .Q1H1M ONE Stop: 03/13/25 10:39 Last Infusion: 03/13/25 11:08 Dose: Infused Documented By: Admin: 03/13/25 10:22 Dose: 999 mls/hr Documented By: ROCHELLE Diagnosis Differential diagnosis: cancer, appendicitis, gastritis, diverticulitis Most likely dx, and/or detailed dx discussion: Adenocarcinoma of rectum Liver mass Pulmonary nodule Hematochezia Dispositon Disposition: Discharge Home
--- NOTE | 2025-03-13 09:39 | XR_ITS ---
Examination: CT chest with intravenous contrast CT abdomen with intravenous contrast CT pelvis with intravenous contrast 2-D coronal and sagittal reconstructions Time of exam: March 13, 2025, 1005 hrs. Indications: Diagnosis malignant neoplasm colon, chest abdominal pain blood in the stool one month CTDI: vol (mGy) : 10.7 DLP: (mGycm): 518 Technique: Multiple axial images of the chest, abdomen and pelvis with intravenous contrast, 3.0 mm slice thickness. Images obtained post intravenous injection Isovue 370 60 cc. 2-D sagittal and coronal reconstructions. Low dose protocols were performed. One or more of the following dose reduction techniques were used; automated exposure control, adjustment of the mA and/or KV according to patient size, use of iterative reconstruction technique. Findings: No thoracic aortic aneurysmal dilatation No pulmonary artery filling defects on this non-CTA study No paratracheal tracheobronchial or bronchopulmonary adenopathy No pulmonary edema or lobar pneumonia 10 mm soft pulmonary nodule right lower lobe axial image 263 6 mm pulmonary nodule lingular segment left upper lobe axial image 267 16 mm right lobe liver lesion with nodular peripheral enhancement likely meningioma axial image 160 Anterior right lobe liver lesion more suspicious, 27 mm, consistent with hepatic metastasis No gallstones Spleen not enlarged No pancreatic mass No hydronephrosis Aorta is not enlarged Moderate stool throughout the colon No bowel obstruction Abnormal thickening of the kate of the sigmoid colon, 273, wall thickness on the right side laterally measuring up to 19 mm, which may represent tumor Urinary bladder wall thickening up to 14 mm Moderate osteopenia Impression: No mediastinal lymphadenopathy Soft pulmonary nodules as above suspicious for pulmonary nodular metastatic disease Anterior right lobe liver lesion 27 mm, suspicious for hepatic metastasis, recommend elective MRI abdomen follow-up pre and post intravenous contrast Markedly abnormal sigmoid colon, marked wall thickening over a proximal distal distance of at least 6 cm consistent with malignant neoplasm of the colon Cystitis pattern
--- NOTE | 2025-03-13 09:56 | PC.NURSE ---
Patient in to ED for abdominal pain. [facility] Patient has history of colon cancer and has not followed up with oncology due to being incarcerated. Patient alert and oriented X4; vital signs are stable. Patient states his abdominal pain has been getting worse over the last couple of days. Per Dr. Cole patient to have CT of abdomen/pelvis with contrast, 1Liter fluids given then recheck CMP to recheck patient's potassium. Patient in agreement with plan. Patient taken to CT by tech ed teacher Hodan. Plan of care ongoing.
[2025-03-13 10:10] VITALS: BP 115/70; PULSE 80; RESP 15; TEMP 36.6; O2SAT 100
[2025-03-13] MEDS: SODIUM CHLORIDE 0.9% 1000 ML 1,000 ML 999 ML IV (10:22)
--- NOTE | 2025-03-13 11:15 | PC.NURSE ---
Called lab to have patient's BMP redrawn.
[2025-03-13 11:40] LABS: Anion Gap 7 (7-16); BUN/Creatinine Ratio 18 Ratio (12-20); Blood Urea Nitrogen 14 mg/dL (9-23); Calcium 8.7 mg/dL (8.3-10.6); Carbon Dioxide 29.1 mMol/L (20.0-31.0); Chloride 104 mMol/L (98-107); Creatinine (Component) 0.8 mg/dL (0.6-1.3); Glucose 87 mg/dL (74-106); Osmolality,Calculated 278 (275-295); Potassium 5.2 mMol/L (3.4-5.1); Sodium 140 mMol/L (136-145); eGFR > 60 See Note
--- NOTE | 2025-03-13 11:42 | PC.NURSE ---
Informed Dr. Cole all results are back for CT and lab redraw.
[2025-03-13 11:50] VITALS: BP 111/76; PULSE 81; RESP 16; TEMP 36.7; O2SAT 98
--- NOTE | 2025-03-13 12:59 | PC.NURSE ---
Patient ambulated to restroom independently.
[2025-03-13 14:55] VITALS: BP 120/78; PULSE 67; RESP 19; TEMP 36.9; O2SAT 98
== END 2025-03-13 14:58 | disposition home or self-care (01) ==
PROVIDERS: Physician Assistant; Emergency Provider Emergency Medicine
DX: C20 Malignant neoplasm of rectum (principal); R91.8 Other nonspecific abnormal finding of lung field; K76.9 Liver disease, unspecified
CPT/HCPCS: 36415; 71260; 74177; 80048; 80053; 80307; 80320; 81001; 83690; 85025; 87086; 96360; 99285; A4649; J7030; Q9967; G0480

== ENCOUNTER 2025-08-19 05:13 | Inpatient (IN) | payer MEDICAID, SELFPAY ==
[2025-08-19] VITALS (8 sets, daily range): BP systolic 97–119; BP diastolic 64–79; PULSE 85–106; RESP 14–17; TEMP 36.4–37; O2SAT 97–100; BMI 25.0; BMI 17.4
--- NOTE | 2025-08-19 | XR_ITS ---
Examination: Abdomen AP single view Technique: AP portable supine abdomen, single view Exam date and time: August 19, 2025, 1842 hours, comparison August 19, 2025 1427 hours INDICATIONS: 4-hour delayed film for small bowel series. FINDINGS: Much of the contrast currently is in the colon IMPRESSION: Negative for small bowel obstruction. No further films are needed
--- NOTE | 2025-08-19 | XR_ITS ---
EXAMINATION: MRI brain with intravenous contrast TECHNIQUE: Axial sagittal coronal brain MRI images post intravenous administration 15 cc gadolinium INDICATIONS: Rectal carcinoma diagnosis, staging for brain metastases FINDINGS: Ventricles are normal in size and configuration. No mass effect upon the ventricular system. No effacement cortical sulcal markings Mild enhancement anterior cerebral falx, sagittal image 11, axial image 19, coronal image 8 No enhancing cerebellar or cerebral lesions IMPRESSION: No mass effect or midline shift No enhancing cerebellar or cerebral lesions There is mild enhancement 2 mm in thickness anterior cerebral falx, sagittal image 11 axial image 19, coronal image 8, this appearance can be seen with early extra-axial tumor, recommend 3-month follow-up brain MRI postcontrast
--- NOTE | 2025-08-19 05:44 | EKG_ITS ---
[facility] Test Date: 2025-08-19 Pat Name: CAIT ARMANDO Department: Room: - Gender: Male Polysomnography Technologist: : 1980 Requested By: Deondre Varma Order Number: [id number] Reading MD: Deondre Varma Measurements Intervals [place] Rate: 96 P: 64 NH: 100 QRS: 75 QRSD: 81 T: 63 QT: 339 QTc: 430 Interpretive Statements SINUS RHYTHM WITH SHORT NH INTERVAL Compared to ECG 07/20/2024 18:45:44 Short NH interval now present /store/S0/[id number].pdf
--- NOTE | 2025-08-19 05:47 | XR_ITS ---
Examination: CT brain head without contrast. 2-D sagittal coronal reconstructions Date and time of exam: August 19, 2025, 0733 hours, comparison March 09, 2025 INDICATIONS: Onset seizure today CTDI: vol (mGy): 47.7 DLP: (mGycm): 921 Technique: Multiple CT axial sections of the brain have been obtained, 5 mm slice thickness. Contrast has not been administered. 2-D sagittal, coronal reconstructions have been obtained Low dose protocols were performed. One or more of the following dose reduction techniques were used; automated exposure control, adjustment of the mA and/or KV according to patient size, use of iterative reconstruction technique. Findings: No significant ventricular enlargement. Intra-axial or extra-axial hemorrhage density is not seen. No mass effect or midline shift Basal cisterns are not remarkable. Fourth ventricle is midline. Cranial vault intact. Impression: Negative for acute hemorrhage, mass effect or midline shift Consider elective brain MRI follow-up, pre and post contrast, seizure protocol
--- NOTE | 2025-08-19 05:48 | XR_ITS ---
EXAMINATION: AP chest single view TECHNIQUE: AP portable upright chest single view Date and time: August 19, 2025, 0551 hours, comparison March 09, 2025 INDICATIONS: Shortness of breath today. FINDINGS: Normal heart size Jono structures are intact Lungs are clear IMPRESSION: No active disease
[2025-08-19] MEDS: SODIUM CHLORIDE 0.9% 1000 ML 1,000 ML 999 ML IV (05:51)
[2025-08-19] MEDS: ONDANSETRON INJ 2 MG/ML INJ 2 ML 4 MG IVP ×3 (05:52→11:38)
[2025-08-19] MEDS: levETIRAcetam INJ 100 MG/ML VIAL 5ML 1000 MG IVP (05:52)
[2025-08-19 06:14] LABS: Basophils # (Auto) 0.0 Thou/mm3 (0.0-0.2); Basophils % (Auto) 0 % (0-2.5); Eosinophils # (Auto) 0.1 Thou/mm3 (0.0-0.5); Eosinophils % (Auto) 1 % (0-10); Hematocrit 29.8 % (41.0-53.0); Hemoglobin 9.3 g/dL (13.5-16.0); Immature Granulocytes Auto 0.07 Thou/mm3 (0.00-0.00); Lymphocytes # (Auto) 1.2 Thou/mm3 (1.0-4.8); Lymphocytes % (Auto) 9 % (10-50); Mean Corpuscular HGB Conc 31.2 g/dl (31.0-37.0); Mean Corpuscular Hemoglobin 22.6 pg (25.0-35.0); Mean Corpuscular Volume 72 fL (80-100); Monocytes # (Auto) 1.7 Thou/mm3 (0.0-0.8); Monocytes % (Auto) 12 % (0-12); Neutrophils # (Auto) 10.6 Thou/mm3 (1.8-7.7); Neutrophils % (Auto) 77 % (37-80); Nucleated Red Blood Cell # 0.00 Thou/mm3 (0.00-0.00); Nucleated Red Blood Cell % 0 /100 WBC (0); Platelet Count 430 Thou/mm3 (140-440); RDW Standard Deviation 42.5 fL (35.1-43.9); Red Blood Count 4.12 Miln/mm3 (4.50-5.90); White Blood Count 13.7 Thou/mm3 (3.8-10.6)
[2025-08-19 06:39] LABS: Alanine Aminotransferase 18 U/L (10-49); Albumin, Serum 3.4 gm/dL (3.5-5.0); Albumin/Globulin Ratio 0.9 (1.2-2.2); Alcohol, Blood Medical < 3.0 mg/dL (0-10.0); Alkaline Phosphatase 83 U/L (46-116); Anion Gap 10 (7-16); Aspartate Amino Transferase 24 U/L (0-34); BUN/Creatinine Ratio 14 Ratio (12-20); Bilirubin,Direct < 0.1 mg/dL (0.0-0.3); Bilirubin,Total 0.2 mg/dL (0.3-1.2); Blood Urea Nitrogen 10 mg/dL (9-23); Calcium 8.3 mg/dL (8.3-10.6); Calcium (Corrected) 8.8 mg/dL (8.5-10.1); Carbon Dioxide 25.5 mMol/L (20.0-31.0); Chloride 100 mMol/L (98-107); Creatinine (Component) 0.7 mg/dL (0.6-1.3); Estimated Creatinine Clearance 130.3 mL/min (>60); Globulin 3.6 gm/dL (2.3-3.5); Glucose 97 mg/dL (74-106); Magnesium 2.1 mg/dL (1.6-2.6); Osmolality,Calculated 269 (275-295); Potassium 3.9 mMol/L (3.4-5.1); Sodium 135 mMol/L (136-145); Thyroid Stimulating Hormone 2.47 uIU/mL (0.55-4.78); Total Protein 7.0 gm/dL (5.7-8.2); Troponin I < 0.002 ng/mL (0.0-0.045); eGFR > 60 See Note
[2025-08-19 06:48] LABS: Base Excess, Venous 3 (-3-3); O2 Saturation, Venous 43 % (96-97); PCO2, Venous 42 mmHg (36-56); PO2, Venous 26 mmHg (15-58); pH, Venous 7.42 (7.33-7.66)
--- NOTE | 2025-08-19 06:52 | XR_ITS ---
Examination: CT abdomen and pelvis without contrast. Coronal 3-D reconstructions. Sagittal 2-D reconstructions. Date and time of exam: August 19, 2025, 0734 hours, comparison March 13, 2025 INDICATIONS: Diagnosis malignant neoplasm of the colon, abdominal pain several days CTDI: vol (mGy): 4.49 DLP: (mGycm): 244 Technique: Axial images of the abdomen have been obtained, 3 mm slice thickness Intravenous contrast material has not been administered. Low dose protocols were performed. One or more of the following dose reduction techniques were used; automated exposure control, adjustment of the mA and/or KV according to patient size, use of iterative reconstruction technique. Findings: No liver lesions on this noncontrast study Contracted gallbladder No pancreatic or splenic mass No renal or ureteral calculi. No hydronephrosis Large amounts of stool throughout the colon Huge mass in the pelvis on this noncontrast study, 8 x 7.6 by at least 10 cm which may all be malignant neoplasm of the rectosigmoid Intact urinary bladder Moderate osteopenia IMPRESSION: Colonic obstruction secondary to 8 x 7.6 x 10 cm mass in the pelvis which may all be malignant neoplasm of the rectosigmoid colon on this limited noncontrast study, recommend surgical consultation Consider repeat CT scan abdomen pelvis post intravenous and oral Gastrografin follow-up
--- NOTE | 2025-08-19 07:24 | PC.NURSE ---
PT TAKEN TO CT.
[2025-08-19] MEDS: MORPHINE SULF INJ 4 MG/ML VIAL IVP (07:53)
[2025-08-19 08:22] LABS: Collection Type, Urine Clean Catch; Squamous Epithelial Cell,Urine 0 /hpf (0-5)
[2025-08-19 08:47] LABS: Amphetamine/Methamp Scrn,U Negative (Negative); Barbiturate Screen,Urine Negative (Negative); Benzodiazepines Screen,Urine Negative (Negative); Benzoylecgonine Screen, Ur Negative (Negative); Fentanyl Screen,Urine Negative (Negative); Opiate Screen,Urine Positive (Negative); THC Screen,Urine Positive (Negative)
[2025-08-19 08:50] LABS: Amorphous Crystals,Urine Present (Absent); Bilirubin,Urine Negative (Negative); Blood,Urine Negative (Negative); Clarity,Urine Turbid (Clear/Hazy); Color,Urine Yellow (Lt Yel-Yel); Culture Indicated,Urine Not Indicated; Glucose, Urine Negative (Negative); Ketones,Urine Negative (Negative); Leukocyte Esterase,Urine Negative (Negative); Nitrite,Urine Negative (Negative); PH,Urine 6.5 (5.0-7.0); Protein,Urine Negative (Neg - Trace); RBC,Urine < 1 /hpf (0-3); Specific Gravity,Urine 1.015 (1.001-1.035); Urobilinogen,Urine Negative mg/dL (0.0-1.0); WBC,Urine 1 /hpf (0-5)
--- NOTE | 2025-08-19 10:02 | PD.EDSEIZ ---
ED Seizures RME/HPI General Chief Complaint: Seizure Stated Complaint: SEIZURE Time Seen by Provider: 08/19/25 06:25 Arrival date/time: 08/19/25 05:13 Limitations: no limitations RME / HPI RME / HPI Narrative: 45 year old male with history of seizures on Keppra, stage 2 colon cancer presents to the ED BIBA from [facility] for evaluation after seizure today. Per medics, alf staff witnessed the patient having a full body seizure, lasting 10 minutes. State the staff did not medicate the patient due to tracking with his eyes . On their arrival, patient found sitting upright, awake, alert, answering questions. On arrival to ED, the patient complains of his bowels feeling blocked up . No other associated symptoms or complaints. Denies fevers, chills, sweats, chest pain, cough, shortness of breath. Related Data Home Medications ?Medication ?Instructions ?Recorded ?Confirmed fluoxetine 20 mg capsule (Prozac) 10 mg PO QAM #0 caps 12/20/14 07/20/24 trazodone 50 mg tablet 50 mg PO HS PRN Sleep #0 tabs 12/20/14 07/20/24 levetiracetam 500 mg tablet 500 mg PO BID 07/20/24 07/20/24 (Keppra) Previous Rx's ?Medication ?Instructions ?Recorded levetiracetam 750 mg tablet 750 mg PO BID Seizures #60 tabs 03/09/25 (Keppra) Allergies Allergy/AdvReac Type Severity Reaction Status Date / Time coconut Allergy Severe Anaphylaxis Verified 03/13/25 02:58 Review of Systems Review of Systems Systems Reviewed: All systems reviewed, normal except as documented Past Medical History Past Medical History NEUROLOGIC: Positive Seizures and Epilepsy RESPIRATORY: Positive Asthma GASTROINTESTINAL: Positive Gastrointestinal Disorders, Gastrointestinal Bleed and Colorectal Cancer REPRODUCTIVE: Positive Gonorrhea PSYCHO/SOCIAL: Positive Recreational Drug Use, Bipolar Disorder, Depression and Anxiety OTHER HISTORY: Positive Colorectal Cancer Family History FAMILY HISTORY: Positive Family Psychiatric Problems and Family Respiratory Disorders Social History SMOKING STATUS: Unknown if ever smoked SECOND HAND EXPOSURE: Yes SUBSTANCE USE: marijuana ED Exam General Limitations: Present no limitations General appearance: Present alert and in no apparent distress Head Head exam: Present atraumatic, normocephalic and normal inspection Eye Eye exam: Present normal appearance, PERRL and EOMI ENT ENT exam: Present normal exam, normal oropharynx and mucous membranes moist Neck Neck exam: Present normal inspection, full ROM and trachea midline Chest Chest inspection: Present normal inspection and symmetric chest wall rise Respiratory Respiratory exam: Present normal lung sounds bilaterally Cardiovascular Cardiovascular exam: Present regular rate, normal rhythm and normal heart sounds Abdominal Exam Abdominal exam: Present soft, tenderness (very mild tenderness to the mid abdomen) and normal bowel sounds; Absent distention, guarding, rebound or rigidity Extremities Exam Extremities exam: Present normal inspection and full ROM Back Exam Back exam: Present normal inspection and full ROM Neurological Exam Neurological exam: Present alert, oriented X3 and CN II-XII intact Psychiatric Psychiatric exam: Present normal affect and normal mood Skin Skin exam: Present warm, dry, intact and normal color Course Quality Measures none Orders Category Date Time Status Admit to Inpatient Status Routine Admission 08/19/25 12:17 Active Patient Condition Routine Admission 08/19/25 12:17 Ordered Activity as Tolerated Routine Care 08/19/25 12:21 Ordered COVID-19 Screening Questionnaire NOW Care 08/19/25 11:[address] Screening NOW Care 08/19/25 12:33 Active Decision to Admit X1 Care 08/19/25 11:34 Completed EKG (ED ONLY) *Do not use* NOW Care 08/19/25 05:44 Completed MRI Screening NOW Care 08/19/25 12:30 Active May take PO meds w/sips of H2O NEEDED Care 08/19/25 12:37 Active Miscellaneous Nursing Order X1 Care 08/19/25 12:36 Active Miscellaneous Nursing Order X1 Care 08/19/25 12:36 Active NPO NOW Care 08/19/25 12:22 Active Notify provider NEEDED Care 08/19/25 12:17 Active Saline [Insert IV] NOW Care 08/19/25 05:47 Active Seizure precautions NOW Care 08/19/25 05:44 Active Urinary Catheter QS Care 08/19/25 12:17 Active Consult to General Surgery Routine Cons 08/19/25 12:40 Ordered Diet NPO (NOW) Diet 08/19/25 12:[address] abdomen pelvis wo con Stat Exams 08/19/25 06:[address] chest abdomen pelvis w Routine Exams 08/19/25 12:[address] head/brain wo con Stat Exams 08/19/25 05:47 Completed EKG (ED Only) Stat Exams 08/19/25 05:44 Draft MR head/brain w con Routine Exams 08/19/25 Taken XR chest 1V portable Stat Exams 08/19/25 05:48 Completed XR small bowel single contrast Routine Exams 08/19/25 12:35 Ordered Alcohol, Blood Medical Stat Lab 08/19/25 06:05 Completed Bilirubin,Direct Stat Lab 08/19/25 06:05 Completed CBC AM DRAW Lab 08/20/25 05:00 Ordered CBC AM DRAW Lab 08/21/25 05:00 Ordered CBC AM DRAW Lab 08/22/25 05:00 Ordered CBC AM DRAW Lab 08/23/25 05:00 Ordered CBC AM DRAW Lab 08/24/25 05:00 Ordered CBC AM DRAW Lab 08/25/25 05:00 Ordered CBC AM DRAW Lab 08/26/25 05:00 Ordered CBC AM DRAW Lab 08/27/25 05:00 Ordered CBC AM DRAW Lab 08/28/25 05:00 Ordered CBC AM DRAW Lab 08/29/25 05:00 Ordered CBC Stat Lab 08/19/25 06:05 Completed CMP [Comprehensive Metabolic Panel] Stat Lab 08/19/25 06:05 Completed Comprehensive Metabolic Panel AM DRAW Lab 08/20/25 05:00 Ordered Comprehensive Metabolic Panel AM DRAW Lab 08/21/25 05:00 Ordered Comprehensive Metabolic Panel AM DRAW Lab 08/22/25 05:00 Ordered Comprehensive Metabolic Panel AM DRAW Lab 08/23/25 05:00 Ordered Comprehensive Metabolic Panel AM DRAW Lab 08/24/25 05:00 Ordered Comprehensive Metabolic Panel AM DRAW Lab 08/25/25 05:00 Ordered Comprehensive Metabolic Panel AM DRAW Lab 08/26/25 05:00 Ordered Comprehensive Metabolic Panel AM DRAW Lab 08/27/25 05:00 Ordered Comprehensive Metabolic Panel AM DRAW Lab 08/28/25 05:00 Ordered Comprehensive Metabolic Panel AM DRAW Lab 08/29/25 05:00 Ordered Drug Screen,Urine Stat Lab 08/19/25 08:15 Completed Magnesium AM DRAW Lab 08/20/25 05:00 Ordered Magnesium Stat Lab 08/19/25 06:05 Completed Phosphorous AM DRAW Lab 08/20/25 05:00 Ordered TSH [Thyroid Stimulating Hormone] Stat Lab 08/19/25 06:05 Completed Troponin I Stat Lab 08/19/25 06:05 Completed UA, C/S IF [Urinalysis, C/S if Indicated] Stat Lab 08/19/25 08:15 Completed VBG [Venous Blood Gas] Stat Lab 08/19/25 06:05 Completed Fluoxetine HCl [PROzac] Med 08/19/25 12:45 Active 10 mg PO QDAY HYDROmorphone INJ [Dilaudid Inj] Med 08/19/25 12:22 Active 0.5 mg IVP Q4HR PRN HYDROmorphone INJ [Dilaudid Inj] Med 08/19/25 11:25 Discontinued 0.5 mg IVP X1 ONE Heparin Inj Med 08/19/25 21:00 Active 5,000 unit SC Q12HR Morphine* Inj Med 08/19/25 06:52 Discontinued 4 mg IVP X1 ONE Ondansetron Inj [Zofran Inj] Med 08/19/25 12:22 Active 4 mg IVP Q6H PRN Ondansetron Inj [Zofran Inj] Med 08/19/25 05:47 Discontinued 4 mg IVP X1 ONE Ondansetron Inj [Zofran Inj] Med 08/19/25 06:52 Discontinued 4 mg IVP X1 ONE Ondansetron Inj [Zofran Inj] Med 08/19/25 11:25 Discontinued 4 mg IVP X1 ONE Sodium Chloride 0.9% 1000 ml [Ns] 1,000 ml Med 08/19/25 05:47 Discontinued IV 999 mls/hr levETIRAcetam INJ [Keppra Inj] Med 08/19/25 05:47 Discontinued 1,000 mg IVP X1 ONE levETIRAcetam INJ [Keppra Inj] Med 08/19/25 18:00 Active 750 mg IVP BID traZODone HCL [Desyrel] Med 08/19/25 12:37 Active 50 mg PO HS PRN Code Status Routine Oth 08/19/25 12:17 Ordered Vital Signs Vital signs: Vital Signs Temperature 98.6 F 08/19/25 05:14 Pulse Rate 98 08/19/25 05:14 Respiratory Rate 17 08/19/25 05:14 Blood Pressure 107/75 08/19/25 05:14 Pulse Oximetry (%) 98 08/19/25 05:14 Oxygen Delivery Method Room Air 08/19/25 05:14 Pulse ox is 98% on room air which is adequate. Seizure MDM Narrative MDM Narrative:: I, Lisbeth Mcclure, am scribing for and in the presence of Dr. Merlos. I spoke with our general surgeon Dr. Hines. Discussed patients PMHx, HPI, ED course, exam findings, labs, and radiology results. He agrees to consult. I spoke with our hospitalist team for admission. Discussed patients PMHx, HPI, ED course, exam findings, labs, and radiology results. The hospitalist agree to accept the patient for admission. Patient data External records reviewed:: [facility] [place] previous records and EMS form Clinical information provided by:: patient, EMS and law enforcement Social determinants that could affect healthcare access:: housing (Patient is currently incarcerated ) Patient has the following chronic illnesses:: Seizures, colon cancer How is presenting disease/condition affected by chronic disease/condition?: exacerbated by Evaluation data The following diagnostics were reviewed and interpreted by me:: lab results, radiology exam(s) and EKG tracing(s) (EKG @ 05:44 AM, interpreted by me, normal sinus rhythm with short UT inverval, rate 96, no STEMI. ) Lab and/or radiology exams considered but not ordered:: None Interpretation Summary: Ordering Physician: Deondre Damico MD Date of Service: 08/19/25 Procedure(s): CT head/brain wo con Accession Number(s): [id number] cc: Deondre Damico MD; Tanvir Banks MD; NO PRIMARY/FAMILY,PHYSICIAN~ Examination: CT brain head without contrast. 2-D sagittal coronal reconstructions Date and time of exam: August 19, 2025, 0733 hours, comparison March 09, 2025 INDICATIONS: Onset seizure today CTDI: vol (mGy): 47.7 DLP: (mGycm): 921 Technique: Multiple CT axial sections of the brain have been obtained, 5 mm slice thickness. Contrast has not been administered. 2-D sagittal, coronal reconstructions have been obtained Low dose protocols were performed. One or more of the following dose reduction techniques were used; automated exposure control, adjustment of the mA and/or KV according to patient size, use of iterative reconstruction technique. Findings: No significant ventricular enlargement. Intra-axial or extra-axial hemorrhage density is not seen. No mass effect or midline shift Basal cisterns are not remarkable. Fourth ventricle is midline. Cranial vault intact. Impression: Negative for acute hemorrhage, mass effect or midline shift Consider elective brain MRI follow-up, pre and post contrast, seizure protocol Dictated By: Tanvir Banks MD Signed By: <Electronically signed by Tanvir Banks MD in OV> 08/19/25 0814 Ordering Physician: Deondre Damico MD Date of Service: 08/19/25 Procedure(s): XR chest 1V portable Accession Number(s): [id number] cc: Deondre Damico MD; Tanvir Banks MD~ EXAMINATION: AP chest single view TECHNIQUE: AP portable upright chest single view Date and time: August 19, 2025, 0551 hours, comparison March 09, 2025 INDICATIONS: Shortness of breath today. FINDINGS: Normal heart size Jono structures are intact Lungs are clear IMPRESSION: No active disease Dictated By: Tanvir Banks MD Signed By: <Electronically signed by Tanvir Banks MD in OV> 08/19/25 0734 Ordering Physician: Graham Merlos MD Date of Service: 08/19/25 Procedure(s): CT abdomen pelvis wo con Accession Number(s): [id number] cc: Graham Merlos MD; Tanvir Banks MD; NO PRIMARY/FAMILY,PHYSICIAN~ Examination: CT abdomen and pelvis without contrast. Coronal 3-D reconstructions. Sagittal 2-D reconstructions. Date and time of exam: August 19, 2025, 0734 hours, comparison March 13, 2025 INDICATIONS: Diagnosis malignant neoplasm of the colon, abdominal pain several days CTDI: vol (mGy): 4.49 DLP: (mGycm): 244 Technique: Axial images of the abdomen have been obtained, 3 mm slice thickness Intravenous contrast material has not been administered. Low dose protocols were performed. One or more of the following dose reduction techniques were used; automated exposure control, adjustment of the mA and/or KV according to patient size, use of iterative reconstruction technique. Findings: No liver lesions on this noncontrast study Contracted gallbladder No pancreatic or splenic mass No renal or ureteral calculi. No hydronephrosis Large amounts of stool throughout the colon Huge mass in the pelvis on this noncontrast study, 8 x 7.6 by at least 10 cm which may all be malignant neoplasm of the rectosigmoid Intact urinary bladder Moderate osteopenia IMPRESSION: Colonic obstruction secondary to 8 x 7.6 x 10 cm mass in the pelvis which may all be malignant neoplasm of the rectosigmoid colon on this limited noncontrast study, recommend surgical consultation Consider repeat CT scan abdomen pelvis post intravenous and oral Gastrografin follow-up Dictated By: Tanvir Banks MD Signed By: <Electronically signed by Tanvir Banks MD in OV> 08/19/25 0812 Medications / Prescriptions Medications or Prescriptions considered but not ordered:: None Medication administrations:: Medication Administration History Fluoxetine HCl (Fluoxetine Hcl 10 Mg Capsule) 10 mg PO QDAY [facility] Stop: 09/18/25 12:44 Last Admin: 08/19/25 13:56 Dose: 10 mg Documented By: VG Heparin Sodium (Porcine) (Heparin Sod Inj 5000 Unit/Ml Vial) 5,000 unit SC Q12HR [facility] Stop: 09/02/25 20:59 Hydromorphone HCl (Hydromorphone Inj 2 Mg/Ml Vial) 0.5 mg IVP Q4HR PRN PRN Reason: Severe Pain (7-10) Stop: 08/24/25 12:21 Levetiracetam (Levetiracetam Inj 100 Mg/Ml Vial 5ml) 750 mg IVP BID [facility] Stop: 09/18/25 17:59 Ondansetron HCl (Ondansetron Inj 2 Mg/Ml Inj 2 Ml) 4 mg IVP Q6H PRN; Protocol PRN Reason: NAUSEA OR VOMITING Stop: 09/18/25 12:21 Trazodone HCl (Trazodone Hcl 50 Mg Tablet) 50 mg PO HS PRN PRN Reason: Insomnia Stop: 09/18/25 20:59 Discontinued Medications Hydromorphone HCl (Hydromorphone Inj 2 Mg/Ml Vial) 0.5 mg IVP X1 ONE Stop: 08/19/25 11:26 Last Admin: 08/19/25 11:38 Dose: 0.5 mg Documented By: MATHIEU Sodium Chloride (Ns) 1,000 mls @ 999 mls/hr IV .Q1H1M ONE Stop: 08/19/25 06:47 Last Infusion: 08/19/25 08:04 Dose: Infused Documented By: Admin: 08/19/25 05:51 Dose: 999 mls/hr Documented By: HUMBERTO Levetiracetam (Levetiracetam Inj 100 Mg/Ml Vial 5ml) 1,000 mg IVP X1 ONE Stop: 08/19/25 05:48 Last Admin: 08/19/25 05:52 Dose: 1,000 mg Documented By: HUMBERTO Morphine Sulfate (Morphine Sulf Inj 4 Mg/Ml Vial) 4 mg IVP X1 ONE Stop: 08/19/25 06:53 Last Admin: 08/19/25 07:53 Dose: 4 mg Documented By: MATHIEU Ondansetron HCl (Ondansetron Inj 2 Mg/Ml Inj 2 Ml) 4 mg IVP X1 ONE; Protocol Stop: 08/19/25 05:48 Last Admin: 08/19/25 05:52 Dose: 4 mg Documented By: HUMBERTO Ondansetron HCl (Ondansetron Inj 2 Mg/Ml Inj 2 Ml) 4 mg IVP X1 ONE; Protocol Stop: 08/19/25 06:53 Last Admin: 08/19/25 07:53 Dose: 4 mg Documented By: MATHIEU Ondansetron HCl (Ondansetron Inj 2 Mg/Ml Inj 2 Ml) 4 mg IVP X1 ONE; Protocol Stop: 08/19/25 11:26 Last Admin: 08/19/25 11:38 Dose: 4 mg Documented By: MATHIEU See above Consultations Consultation(s) initiated? (list below): Yes Consultation #1 (Physician, Specialty, Details): See MDM Diagnosis Seizure Differential Diagnosis: intractable seizure disorder, focal seizure, generalized seizure and epileptic seizure Most likely diagnosis given after review of the tests above:: Breakthrough seizure Colon Cancer Large bowel obstruction Obstipation Admission Indicated Admission indicated?: indicated Admission Request Was there a request for admission?: Yes Admission Attestation Admission request attestation: Discussed case with [] from Hospitalist service regarding admission. Discussed patients ED course, exam findings, labs, and radiology results. The Hospitalist [agrees,declines] to accept the patient for admission. Disposition Plan Disposition Plan: Admit Discharge Plan Plan Patient Disposition: Admit Acute Care w/in Hospital Prescriptions/Referrals Prescriptions/Med Rec: No Action trazodone 50 mg Tablet 50 mg PO HS PRN (Reason: Sleep) Qty: 0 fluoxetine [Prozac] 20 MG capsule 10 mg PO QAM Qty: 0 levetiracetam [Keppra] 500 mg Tablet 500 mg PO BID levetiracetam [Keppra] 750 mg tablet 750 mg PO BID MDD 2 Qty: 60 0RF Referrals: No Primary/Family,Physician [Primary Care Provider] - In 1 week Problem List Clinical Impression: Breakthrough seizure, Colon cancer, Large bowel obstruction, Obstipation Patient/Caregiver Discharge Instructions Print Language: Tamazight Stand Alone Forms: Tere Award Info., Patient Portal Info Letter
[2025-08-19] MEDS: HYDROmorphone INJ 2 MG/ML VIAL 0.5 MG IVP (11:38)
--- NOTE | 2025-08-19 11:56 | PD.SURCONS ---
HPI Consult details Consult date: 08/19/25 Reason for consultation narrative: The patient was seen in consultation for large bowel obstruction History of present illness: History of present was revealed that the patient was treated in the emergency room for seizures and he was complaining of abdominal pain and a CT scan was obtained. It showed the entire large bowel with full of stools and dilated. Therefore surgical consultation was obtained. Patient states that he has not had a BM for more than 3 weeks but he is eating he is not vomiting Meds Home Medications and Allergies Home Medications ?Medication ?Instructions ?Recorded ?Confirmed ?Type fluoxetine 20 mg capsule (Prozac) 10 mg PO QAM #0 caps 12/20/14 07/20/24 History trazodone 50 mg tablet 50 mg PO HS PRN Sleep #0 tabs 12/20/14 07/20/24 History levetiracetam 500 mg tablet 500 mg PO BID 07/20/24 07/20/24 History (Ketraceyra) Allergies Allergy/AdvReac Type Severity Reaction Status Date / Time coconut Allergy Severe Anaphylaxis Verified 03/13/25 02:58 Exam Vital Signs Temp Pulse Resp BP Pulse Ox O2 Del Method 98.5 F 98 16 105/76 97 Room Air 08/19/25 10:21 08/19/25 10:21 08/19/25 10:21 08/19/25 10:21 08/19/25 10:21 08/19/25 10:21 Narrative Exam Sickle examination revealed a thin built white male who is 5 foot 8 inches tall weighing 165 pounds. 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 I would admit him and give him some laxative including GoLytely to see if can clean it up and induce bowel movement. If not he will require a diverting colostomy.
--- NOTE | 2025-08-19 12:33 | XR_ITS ---
Examination: CT chest with intravenous contrast CT abdomen with intravenous contrast CT pelvis with intravenous contrast 2-D coronal and sagittal reconstructions Time of exam: August 19, 2025, 1829 hours, August 19, 2024, noncontrast CT abdomen pelvis August 19, 2025 INDICATIONS: Colorectal diagnosis of carcinoma 1 year ago, abdominal pain 1 day, 8 x 7.6 x 10.0 cm mass in the pelvis on CT abdomen pelvis August 19, 2025 CTDI: vol (mGy) : 4.63 DLP: (mGycm): 333 Technique: Multiple axial images of the chest, abdomen and pelvis with intravenous contrast, 3.0 mm slice thickness. Images obtained post intravenous injection Isovue 370 60 cc. 2-D sagittal and coronal reconstructions. Low dose protocols were performed. One or more of the following dose reduction techniques were used; automated exposure control, adjustment of the mA and/or KV according to patient size, use of iterative reconstruction technique. Findings: No thoracic aortic aneurysm dilatation No pulmonary artery emboli No paratracheal tracheobronchial or bronchopulmonary adenopathy No pneumonia or pulmonary edema or pleural disease Minor bullous change in the right upper lobe Numerous hepatic metastases, the largest in the right lobe of the liver 6.7 cm Spleen is not enlarged No pancreatic mass No hydronephrosis Abundant stool throughout the entire colon Larger tumor mass in the pelvis in the rectosigmoid, 9.1 x 8.5 cm., This tumor mass compresses the urinary bladder Moderate osteopenia IMPRESSION: No mediastinal lymphadenopathy No pulmonary metastatic nodules No pneumonia or pulmonary edema Numerous hepatic metastases Large tumor mass in the pelvis, rectosigmoid, 9.1 x 8.5 cm producing colonic obstruction, recommend surgical consultation
--- NOTE | 2025-08-19 12:35 | XR_ITS ---
EXAMINATION: Small bowel series AP abdomen supine 3 views Date and time: August 19, 2025, 1427 hours INDICATIONS: Abdominal pain and distention this week TECHNIQUE AND FINDINGS: Patient received 120 cc Gastrografin, AP semiupright immediate, 1 hour, 2-hour films obtained Contrast in mildly distended small bowel loops No contrast in the colon IMPRESSION: Mildly fluid contrast distended small bowel loops, recommend follow-up abdomen films 6:00 p.m. 8:00 p.m.
--- NOTE | 2025-08-19 15:47 | PD.RESHP ---
Documentation for date of: 08/19/25 HPI History of Present Illness History of present illness: Patient is a 45-year-old male with a PMH of invasive, well-differentiated rectal adenocarcinoma first discovered by [facility] via colonoscopy on 07/20/24 (and confirmed by Pathology on 07/22/24), epilepsy on Keppra and Depakote, bipolar disorder type I on Depakote, and methamphetamine use disorder who presented on 08/19/25 after being brought in for witnessed seizure-like activity from the local [facility]. He reports that he did not remember the episode of seizure but had been told about it after the fact. He apparently had been at the [facility] for about 1 week and 2 days after he violated his probation before suffering an earlier seizure event 2 days ago due to not being able to receive his Keppra for some unclear reason. He had been started on his home Keppra from that point onwards but had another seizure which brought him into the ED today. Patient's recount seemed to suggest that his non-compliance with his seizure medications was due to difficulties imposed by his incarceration but later in the interview he endorsed not being on Keppra for about a month now. At the time of interview, patient did not have any additional witnessed episodes of seizure nor did he seem to be in any post-ictal confusion. Patient also complained of abdominal pain and constipation, saying that he hadn't had a BM in over 6 weeks . Some associated symptoms he endorsed at the time included a sensation of pressure from his belly button to his spine, non-stop hematochezia that soaked through his pants which has forced him to wear a diaper, and the inability to pass any flatus since arriving in the ED. He also endorsed fatigue, urinary retention, and nausea but not vomiting. Patient states that he was aware that he had been diagnosed with colorectal cancer last year but denied making attempts to follow-up in the outpatient setting with an oncologist or other specialist (Dr. Damico apparently tried multiple times to contact him on 07/31/24 but had been unsuccessful in reaching him). Of note, previous 03/13/25 CT CAP also showed findings suspicious for metastatic pulmonary nodules and hepatic metastasis. PMH: As above PSH: None Medications: Pending medication reconciliation but possibly includes Keppra, Depakote, Prozac, and Trazodone Allergies: NKDA but has an anaphylactic reaction to coconuts FH: Unknown SH: Been at the [facility] for 1 week and 2 days after he violated his probation, lived at his home in [place] with 2 roommates prior to his recent incarceration, social drinker (3 shots of alcohol per month when he went out to nightclubs), smokes weed but not cigarettes In the ED, vitals showed: BP 107/75 HR 98 RR 17 Temp 98.6 SpO2 98% on room air CBC showed WBC 13.7, Hgb 9.3, otherwise WNL. VBG was unremarkable. CMP WNL. TSH WNL at 2.47. UA bland. UDS positive for opiates (received morphine IV in the ED) and marijuana only. Imagin/27 brain MRI showed mild 2 mm thick enhancement in anterior falx cerebri possibly suggestive of early extra-axial tumor. 08/19 EKG showed sinus rhythm 96 with shortened IA 100 and normal QTc 430. 08/[address] w/o contrast unremarkable. 08/19 CXR unremarkable. 08/19 CTAP w/o contrast showed colonic obstruction by 8 x 7.6 x 10 cm mass in the pelvis by likely malignant neoplasm of the rectosigmoid colon. In the ED, patient was given Keppra IV, Zofran IV, Morphine IV, Dilaudid IV, and 1 L NS fluid bolus. Patient was admitted for the work-up and management of breakthrough seizure-like activity and obstipation + abdominal pain concerning for possible SBO 2/2 obstructing rectal adenocarcinoma. General Surgery (Dr. Hines) was consulted and is closely following the case. Review of Systems Review of Systems Systems Reviewed: All systems reviewed, normal except as documented Exam Vital Signs Temp Pulse Resp BP Pulse Ox O2 Del Method 97.5 F 87 16 97/73 100 Room Air 08/19/25 15:19 08/19/25 15:19 08/19/25 15:19 08/19/25 15:19 08/19/25 15:19 08/19/25 15:19 Narrative Exam General: Thin, -Cambodian, tattooed male in handcuffs and in NAD. Skin: Heavily tattooed. Warm, dry, intact, no obvious rash. Head: Normocephalic, atraumatic. Eyes: Right eye esotropia with deficient leftward movement of right eye. Left eye EOMI. Anicteric, vision grossly intact. Ears: No ear pain, no ear discharge, Hearing grossly intact. Nose: No nasal discharge. Mouth/Throat: Small wound noted at the lower lip. Edentulous. Oral mucosa moist. No obvious lesions in oropharynx. Cardiovascular: Regular rate and normal rhythm, no murmur, no JVD or carotid bruits. +S1/S2. Respiratory: Bilateral lungs are clear to auscultation, respirations unlabored, no crackles, no wheezing. No accessory muscle use. Gastrointestinal: Tense, distended abdomen with generalized TTP, but especially tender at the umbilicus. Guarding. Hypoactive bowel sounds. No palpable masses. No rebound tenderness. Extremities: Symmetrical, no significant deformities. No edema, no cyanosis, no clubbing. 2+ radial pulse bilaterally, 2+ posterior tibial pulse bilaterally. Neuro: A&O x 3. No focal deficits observed. Conversant, moving all extremities. No overt cerebellar signs/incoordination. Psychiatric: Cooperative, appropriate affect. Results: Labs 08/20/25 05:00 08/20/25 05:00 Labs: Short CBC 08/19/25 Range/Units 06:05 WBC 13.7 H (3.8-10.6) Thou/mm3 Hgb 9.3 L (13.5-16.0) g/dL Hct 29.8 L (41.0-53.0) % Plt Count 430 (140-440) Thou/mm3 [facility] 08/19/25 06:05 Sodium 135 L Potassium 3.9 Chloride 100 Carbon Dioxide 25.5 BUN 10 Creatinine 0.7 Glucose 97 Calcium 8.3 Cardiac Enzymes 08/19/25 Range/Units 06:05 Troponin I < 0.002 (0.0-0.045) ng/mL Liver Function 08/19/25 Range/Units 06:05 Total Bilirubin 0.2 L (0.3-1.2) mg/dL Direct Bilirubin < 0.1 (0.0-0.3) mg/dL AST 24 (0-34) U/L ALT 18 (10-49) U/L Alkaline Phosphatase 83 (46-116) U/L Albumin 3.4 L (3.5-5.0) gm/dL Urine 08/19/25 Range/Units 08:15 Urine Color Yellow (Lt Yel-Yel) Urine Clarity Turbid A (Clear/Hazy) Urine pH 6.5 (5.0-7.0) Ur Specific [place] 1.015 (1.001-1.035) Urine Protein Negative (Neg - Trace) Urine Glucose (UA) Negative (Negative) ABG Interpretation ABG results: 08/19/25 06:05 VBG pH 7.42 VBG pCO2 42 VBG pO2 26 VBG Base Excess 3 Quality Measures Quality Measures none Medications Home Medications and Allergies Home Medications ?Medication ?Instructions ?Recorded ?Confirmed ?Type fluoxetine 20 mg capsule (Prozac) 10 mg PO QAM #0 caps 12/20/14 08/19/25 History trazodone 50 mg tablet 50 mg PO HS PRN Sleep #0 tabs 12/20/14 08/19/25 History levetiracetam 500 mg tablet 500 mg PO BID 07/20/24 08/19/25 History (Keppra) Allergies Allergy/AdvReac Type Severity Reaction Status Date / Time coconut Allergy Severe Anaphylaxis Verified 03/13/25 02:58 Visit Medications Fluoxetine HCl (Fluoxetine Hcl 10 Mg Capsule) 10 mg PO QDAY [facility] Stop: 09/18/25 12:44 Last Admin: 08/19/25 13:56 Dose: 10 mg Heparin Sodium (Porcine) (Heparin Sod Inj 5000 Unit/Ml Vial) 5,000 unit SC Q12HR [facility] Stop: 09/02/25 20:59 Hydromorphone HCl (Hydromorphone Inj 2 Mg/Ml Vial) 0.5 mg IVP Q4HR PRN PRN Reason: Severe Pain (7-10) Stop: 08/24/25 12:21 Levetiracetam (Levetiracetam Inj 100 Mg/Ml Vial 5ml) 750 mg IVP BID [facility] Stop: 09/18/25 17:59 Ondansetron HCl (Ondansetron Inj 2 Mg/Ml Inj 2 Ml) 4 mg IVP Q6H PRN; Protocol PRN Reason: NAUSEA OR VOMITING Stop: 09/18/25 12:21 Trazodone HCl (Trazodone Hcl 50 Mg Tablet) 50 mg PO HS PRN PRN Reason: Insomnia Stop: 09/18/25 20:59 Discontinued Medications Hydromorphone HCl (Hydromorphone Inj 2 Mg/Ml Vial) 0.5 mg IVP X1 ONE Stop: 08/19/25 11:26 Last Admin: 08/19/25 11:38 Dose: 0.5 mg Sodium Chloride (Ns) 1,000 mls @ 999 mls/hr IV .Q1H1M ONE Stop: 08/19/25 06:47 Last Infusion: 08/19/25 08:04 Dose: Infused Levetiracetam (Levetiracetam Inj 100 Mg/Ml Vial 5ml) 1,000 mg IVP X1 ONE Stop: 08/19/25 05:48 Last Admin: 08/19/25 05:52 Dose: 1,000 mg Morphine Sulfate (Morphine Sulf Inj 4 Mg/Ml Vial) 4 mg IVP X1 ONE Stop: 08/19/25 06:53 Last Admin: 08/19/25 07:53 Dose: 4 mg Ondansetron HCl (Ondansetron Inj 2 Mg/Ml Inj 2 Ml) 4 mg IVP X1 ONE; Protocol Stop: 08/19/25 05:48 Last Admin: 08/19/25 05:52 Dose: 4 mg Ondansetron HCl (Ondansetron Inj 2 Mg/Ml Inj 2 Ml) 4 mg IVP X1 ONE; Protocol Stop: 08/19/25 06:53 Last Admin: 08/19/25 07:53 Dose: 4 mg Ondansetron HCl (Ondansetron Inj 2 Mg/Ml Inj 2 Ml) 4 mg IVP X1 ONE; Protocol Stop: 08/19/25 11:26 Last Admin: 08/19/25 11:38 Dose: 4 mg Assessment & Plan Plan Patient is a 45-year-old male with a PMH of invasive, well-differentiated rectal adenocarcinoma first discovered by [facility] via colonoscopy on 07/20/24 (and confirmed by Pathology on 07/22/24), epilepsy on Keppra and Depakote, bipolar disorder type I on Depakote, and methamphetamine use disorder who presented on 08/19/25 after being brought in for witnessed seizure-like activity from the local [facility]. Patient was admitted for the work-up and management of breakthrough seizure-like activity and obstipation + abdominal pain concerning for possible SBO 2/2 obstructing rectal adenocarcinoma. #Obstipation, concerning for small bowel obstruction, likely 2/2 #Obstructing rectal adenocarcinoma, invasive and well-differentiated, likely stage IVb and metastatic #Hematochezia Initial 08/19 presentation: complaints of nausea, abdominal pain, lack of BMs in over 6 weeks , pressure from belly button to spine, non-stop hematochezia (admission Hgb 9.3), and inability to pass flatus Physical exam notable at that time for tense, distended abdomen with abdominal TTP especially at the umbilicus, abdominal guarding, and hypoactive bowel sounds 08/19 CTAP w/o contrast showed colonic obstruction by 8 x 7.6 x 10 cm mass in the pelvis by likely malignant neoplasm of the rectosigmoid colon. Was found to have invasive, well-differentiated rectal adenocarcinoma by [facility] via colonoscopy on 07/20/24 (and confirmed by Pathology on 07/22/24) Patient states that he was aware that he had been diagnosed with colorectal cancer last year but denied making attempts to follow-up in the outpatient setting with an oncologist or other specialist (Dr. Damico apparently tried multiple times to contact him on 07/31/24 but had been unsuccessful in reaching him). Of note, previous 03/13/25 CT CAP also showed findings suspicious for metastatic pulmonary nodules and hepatic metastasis. Dx: -08/19 small bowel XR series ordered, showed ___ -08/19 CT CAP w/ contrast ordered, showed ___ Rx: -Small bowel XR series (diagnostic and therapeutic) -Avoiding laxatives until SBO is ruled out -NPO -Supportive treatment of pain and nausea as needed: Dilaudid 0.5 mg IV Q4HR PRN for severe pain 7-10 + Zofran 4 mg IV Q6HR PRN for nausea/vomiting -General Surgery (Dr. Hines) consulted, recommended a diverting colostomy should patient be confirmed to have non-resolving SBO -Radiation Oncology (Dr. Damico) consulted, appreciate recommendations #Seizure-like episodes, likely 2/2 medication non-compliance #Hx of epilepsy, reportedly on Keppra and Depakote Brought in on 08/19 for witnessed seizure-like activity from the local [facility] with an earlier event occurring 2 days before that but no further events witnessed in the ED by time of intake interview Reported difficulties adhering to his home regimen of Keppra and Depakote due to his incarceration that had been ongoing for 1 week and 2 days but later endorsed that the last time he took Keppra was about a month before his admission Rx: -Keppra 750 mg IV BID -Pending medication reconciliation #Depression/anxiety #Insomnia Assumed based on home medications Rx: -Fluoxetine 10 mg PO QD -Trazodone 50 mg PO HS prn Hospital Management: Disposition: Med Tele Diet: NPO GI Prophylaxis: Not Indicated Bowel Prophylaxis: Contraindicated (until SBO r/o) DVT Prophylaxis: Heparin CODE STATUS: Full Code I have examined the patient and conferred with my attending, Dr. Doshi, and my senior resident, Dr. Baez, regarding them. Calderon Christian, DO PGY-1 Internal Medicine Attending Provider Attestation/Addendum I have examined the patient, reviewed labs and imaging findings, discussed the case with the resident(s), and reviewed entered orders. I agree with the plan of care as outlined in this note, with these additional summaries/recommendations: After examination of the patient and review of the clinical data, I feel that this patient needs admission to the hospital for further treatment and evaluation. Patient is a 45-year-old male with a medical history of asthma, bipolar disorder, and well-differentiated invasive adenocarcinoma of the colon presents to [facility] emergency department on 08/19/2025 with chief complaint of seizure. Patient seen at bedside. Per chart review, patient apparently had approximately 10-minute seizure [facility] at the prison facility. Seizure reportedly terminated before IV medicine was given. CT head in the emergency room was negative for acute hemorrhage, mass effect or midline shift. Resume home antiepileptics. As needed IV Ativan for breakthrough seizure. Order EEG and seizure precautions. Consult in-house neurology, recommendations appreciated. Patient endorsed severe abdominal pain in the emergency room and reports he has not had a bowel movement for weeks. Patient underwent CT scan of abdomen pelvis which revealed a colonic obstruction secondary to 8X7.6X 10 cm mass in the colon. Patient was diagnosed with well-differentiated adenocarcinoma on 07/20/2024. Multiple attempts were made by oncology for follow-up although patient was not available. General surgery was consulted in the emergency room who recommends laxative including GoLytely and monitor for BM. If patient is unable to have bowel movement he may require diverting colostomy. FOBT was positive likely related to colon cancer and hemoglobin relatively stable at 9.3. Avoid chemical anticoagulation. Patient updated on the plan and in agreement. All questions answered to satisfaction. Please see residents note for additional details and management. Dr. Tico MD
--- NOTE | 2025-08-19 16:09 | PC.NURSE ---
Addendum entered by Skylar Hare RN 08/19/25 16:15: correction of typo: Patient arrived @ 1500 Original Note: Pt arrived to unit via gurney @ 1550 with officer at bedside. A&Ox4 orientation provided regarding room, unit, staff and plan of care. Patient verbalized usn
--- NOTE | 2025-08-19 16:11 | PC.NURSE ---
Pt arrived on unit @ 1550 via gurney with officer at bedside. A&O x4. Orientation provided regarding room, unit, staff and plan of care. Verbalized understanding. Patient remains in [facility] clothing per officer request.
--- NOTE | 2025-08-19 16:34 | PC.NURSE ---
Dr. Hines in to see patient
--- NOTE | 2025-08-19 17:10 | PC.NURSE ---
Pt does not recall names/dose of home meds
[2025-08-19] MEDS: levETIRAcetam INJ 100 MG/ML VIAL 5ML 750 MG IVP (21:01)
[2025-08-20] VITALS: BP 115/71; PULSE 92; PULSE 99; RESP 16; TEMP 36.9; O2SAT 97
[2025-08-20 04:00] VITALS: BP 104/69; PULSE 105; PULSE 97; RESP 17; TEMP 36.8; O2SAT 93
[2025-08-20 05:56] LABS: Basophils # (Auto) 0.0 Thou/mm3 (0.0-0.2); Basophils % (Auto) 0 % (0-2.5); Eosinophils # (Auto) 0.0 Thou/mm3 (0.0-0.5); Eosinophils % (Auto) 0 % (0-10); Hematocrit 31.9 % (41.0-53.0); Hemoglobin 9.9 g/dL (13.5-16.0); Immature Granulocytes Auto 0.05 Thou/mm3 (0.00-0.00); Lymphocytes # (Auto) 1.0 Thou/mm3 (1.0-4.8); Lymphocytes % (Auto) 8 % (10-50); Mean Corpuscular HGB Conc 31.0 g/dl (31.0-37.0); Mean Corpuscular Hemoglobin 22.3 pg (25.0-35.0); Mean Corpuscular Volume 72 fL (80-100); Monocytes # (Auto) 1.3 Thou/mm3 (0.0-0.8); Monocytes % (Auto) 10 % (0-12); Neutrophils # (Auto) 11.0 Thou/mm3 (1.8-7.7); Neutrophils % (Auto) 82 % (37-80); Nucleated Red Blood Cell # 0.00 Thou/mm3 (0.00-0.00); Nucleated Red Blood Cell % 0 /100 WBC (0); Platelet Count 500 Thou/mm3 (140-440); RDW Standard Deviation 42.2 fL (35.1-43.9); Red Blood Count 4.44 Miln/mm3 (4.50-5.90); White Blood Count 13.5 Thou/mm3 (3.8-10.6)
[2025-08-20 06:21] LABS: Alanine Aminotransferase 15 U/L (10-49); Albumin, Serum 3.5 gm/dL (3.5-5.0); Albumin/Globulin Ratio 0.9 (1.2-2.2); Alkaline Phosphatase 85 U/L (46-116); Anion Gap 8 (7-16); Aspartate Amino Transferase 20 U/L (0-34); BUN/Creatinine Ratio 13 Ratio (12-20); Bilirubin,Total 0.4 mg/dL (0.3-1.2); Blood Urea Nitrogen 10 mg/dL (9-23); Calcium 8.7 mg/dL (8.3-10.6); Calcium (Corrected) 9.1 mg/dL (8.5-10.1); Carbon Dioxide 28.5 mMol/L (20.0-31.0); Chloride 100 mMol/L (98-107); Creatinine (Component) 0.8 mg/dL (0.6-1.3); Estimated Creatinine Clearance 89.3 mL/min (>60); Globulin 3.9 gm/dL (2.3-3.5); Glucose 82 mg/dL (74-106); Magnesium 2.2 mg/dL (1.6-2.6); Osmolality,Calculated 269 (275-295); Phosphorous 4.1 mg/dL (2.4-5.1); Potassium 4.5 mMol/L (3.4-5.1); Sodium 136 mMol/L (136-145); Total Protein 7.4 gm/dL (5.7-8.2); eGFR > 60 See Note
[2025-08-20 08:00] VITALS: BP 122/74; PULSE 87; PULSE 94; RESP 18; TEMP 36.4; O2SAT 95
[2025-08-20] MEDS: levETIRAcetam INJ 100 MG/ML VIAL 5ML 750 MG IVP ×2 (08:30→21:49)
[2025-08-20] MEDS: MAGNESIUM CITRATE 300 ML BTL PO (08:30)
[2025-08-20] MEDS: NA SU/NAHCO3/KC/PEG (Golytely) 4,000 ML BTL 4000 ML PO (09:09)
--- NOTE | 2025-08-20 09:15 | PC.SS ---
Patient Roman Avery is a 45 Year old male admitted for Seizure. SS met with patient at bedside. [facility] from [facility] at bedside at well. [facility] informed SS patient is under their custody. Patient reports his surrogate decision maker is his daughter, Benjamin Avery who he reports is his surrogate decision maker, [phone]. Patient reports he is able to perform all ADL's independently and does not utilize any source of DME. [facility] informed SS patient will be returning back to [facility]. Discharge plan: [facility]
--- NOTE | 2025-08-20 11:04 | PC.SS ---
SS follow up note; Patient had Small bowl series. Patient will discharge back to [facility] when medically cleared.
[2025-08-20] MEDS: ONDANSETRON INJ 2 MG/ML INJ 2 ML 4 MG IVP ×2 (11:06→18:34)
[2025-08-20 11:36] VITALS: BMI 17.4
[2025-08-20 12:00] VITALS: BP 94/59; PULSE 100; PULSE 104; RESP 17; TEMP 37.2; O2SAT 98
[2025-08-20] MEDS: HYDROmorphone INJ 2 MG/ML VIAL 0.5 MG IVP (13:15)
--- NOTE | 2025-08-20 13:49 | ESPR_ITS ---
Documentation for date of: 08/20/25 Subjective Subjective Interval history: No overnight events. Patient was examined at bedside; they appear A&Ox3 and in NAD. Vitals/labs today significant for WBC 13.5, RBC 9.3->9.9. Physical exam notable for continued abdominal tenseness and distention. 08/19 small bowel XR series came back negative for SBO/LBO. 08/19 CT CAP w/ contrast came back showing large tumor mass in the rectosigmoid pelvis compressing the urinary bladder and abundant stool throughout the entire colon and numerous hepatic metastases. Patient was started on magnesium citrate, GoLytely, and Senna and was eventually able to have a bloody bowel movement later in the day. Will follow up with General Surgery regarding their recommendations. Exam Vital Signs Temp Pulse Resp BP Pulse Ox O2 Del Method 97.5 F 87 18 122/74 95 Room Air 08/20/25 08:00 08/20/25 08:00 08/20/25 08:00 08/20/25 08:00 08/20/25 08:00 08/20/25 08:00 Narrative Exam General: Thin, -Malagasy, tattooed male in handcuffs and in NAD. Skin: Heavily tattooed. Warm, dry, intact, no obvious rash. Head: Normocephalic, atraumatic. Eyes: Right eye esotropia with deficient leftward movement of right eye. Left eye EOMI. Anicteric, vision grossly intact. Ears: No ear pain, no ear discharge, Hearing grossly intact. Nose: No nasal discharge. Mouth/Throat: Small wound noted at the lower lip. Edentulous. Oral mucosa moist. No obvious lesions in oropharynx. Cardiovascular: Regular rate and normal rhythm, no murmur, no JVD or carotid bruits. +S1/S2. Respiratory: Bilateral lungs are clear to auscultation, respirations unlabored, no crackles, no wheezing. No accessory muscle use. Gastrointestinal: Tense, distended abdomen with generalized TTP, but especially tender at the umbilicus. Guarding. Hypoactive bowel sounds. No palpable masses. No rebound tenderness. Extremities: Symmetrical, no significant deformities. No edema, no cyanosis, no clubbing. 2+ radial pulse bilaterally, 2+ posterior tibial pulse bilaterally. Neuro: A&O x 3. No focal deficits observed. Conversant, moving all extremities. No overt cerebellar signs/incoordination. Psychiatric: Cooperative, appropriate affect. Objective Labs 08/21/25 04:46 08/21/25 04:46 Labs: Laboratory Results - last 24 hr 08/20/25 05:00 WBC 13.5 H RBC 4.44 L Hgb 9.9 L Hct 31.9 L MCV 72 L MCH 22.3 L MCHC 31.0 RDW Std Deviation 42.2 Plt Count 500 H D Neut % (Auto) 82 H Lymph % (Auto) 8 L [place] % (Auto) 10 Eos % (Auto) 0 Baso % (Auto) 0 Neut # (Auto) 11.0 H Lymph # (Auto) 1.0 [place] # (Auto) 1.3 H Eos # (Auto) 0.0 Baso # (Auto) 0.0 Immature Gran # (Auto) 0.05 H Absolute Nucleated RBC 0.00 Immature Gran % 0 Nucleated RBC % 0 Sodium 136 Potassium 4.5 D Chloride 100 Carbon Dioxide 28.5 Anion Gap 8 BUN 10 Creatinine 0.8 Estim Creat Clear Calc 89.3 eGFR > 60 BUN/Creatinine Ratio 13 Glucose 82 Calculated Osmolality 269 L Calcium 8.7 Corrected Calcium 9.1 Phosphorus 4.1 Magnesium 2.2 Total Bilirubin 0.4 AST 20 ALT 15 Alkaline Phosphatase 85 Total Protein 7.4 Albumin 3.5 Globulin 3.9 H Albumin/Globulin Ratio 0.9 L ABG Interpretation ABG results: 08/19/25 06:05 VBG pH 7.42 VBG pCO2 42 VBG pO2 26 VBG Base Excess 3 Quality Measures Quality Measures none Assessment & Plan Assessment Current Active Medications: Generic Name Dose Route Start Last Admin Trade Name Mae PRN Reason Stop Dose Admin Fluoxetine HCl 10 mg 08/19/25 12:45 08/20/25 08:39 Fluoxetine Hcl 10 Mg Capsule PO 09/18/25 12:44 10 mg QDAY DEEPA Administration Heparin Sodium (Porcine) 5,000 unit 08/19/25 21:00 08/20/25 08:40 Heparin Sod Inj 5000 Unit/Ml Vial SC 09/02/25 20:59 Not Given Q12HR DEEPA Hydromorphone HCl 0.5 mg 08/19/25 12:22 08/20/25 13:15 Hydromorphone Inj 2 Mg/Ml Vial IVP 08/24/25 12:21 0.5 mg Q4HR PRN Administration Severe Pain (7-10) Levetiracetam 750 mg 08/19/25 18:00 08/20/25 08:30 Levetiracetam Inj 100 Mg/Ml Vial 5ml IVP 09/18/25 17:59 750 mg BID DEEPA Administration Ondansetron HCl 4 mg 08/19/25 12:22 08/20/25 11:06 Ondansetron Inj 2 Mg/Ml Inj 2 Ml IVP 09/18/25 12:21 4 mg Q6H PRN Administration NAUSEA OR VOMITING Protocol Sennosides 1 tab 08/20/25 09:00 08/20/25 08:32 Senna Tablet PO 09/19/25 08:59 1 tab QDAY DEEPA Administration Protocol Trazodone HCl 50 mg 08/19/25 12:37 08/19/25 21:09 Trazodone Hcl 50 Mg Tablet PO 09/18/25 20:59 50 mg HS PRN Administration Insomnia Plan Patient is a 45-year-old male with a PMH of invasive, well-differentiated rectal adenocarcinoma first discovered by [facility] via colonoscopy on 07/20/24 (and confirmed by Pathology on 07/22/24), epilepsy on Keppra and Depakote, bipolar disorder type I on Depakote, and methamphetamine use disorder who presented on 08/19/25 after being brought in for witnessed seizure-like activity from the local [facility] senior care. Patient was admitted for the work-up and management of breakthrough seizure-like activity and obstipation + abdominal pain concerning for possible SBO 2/2 obstructing rectal adenocarcinoma. #Obstipation, concerning for small bowel obstruction, likely 2/2 #Obstructing rectal adenocarcinoma, invasive and well-differentiated, likely stage IVb and metastatic #Hematochezia Initial 08/19 presentation: complaints of nausea, abdominal pain, lack of BMs in over 6 weeks , pressure from belly button to spine, non-stop hematochezia (admission Hgb 9.3), and inability to pass flatus Physical exam notable at that time for tense, distended abdomen with abdominal TTP especially at the umbilicus, abdominal guarding, and hypoactive bowel sounds 08/19 CTAP w/o contrast showed colonic obstruction by 8 x 7.6 x 10 cm mass in the pelvis by likely malignant neoplasm of the rectosigmoid colon. Was found to have invasive, well-differentiated rectal adenocarcinoma by [facility] via colonoscopy on 07/20/24 (and confirmed by Pathology on 07/22/24) Patient states that he was aware that he had been diagnosed with colorectal cancer last year but denied making attempts to follow-up in the outpatient setting with an oncologist or other specialist (Dr. Damico apparently tried multiple times to contact him on 07/31/24 but had been unsuccessful in reaching him). Of note, previous 03/13/25 CT CAP also showed findings suspicious for metastatic pulmonary nodules and hepatic metastasis. Dx: -08/19 small bowel XR series ordered, negative for SBO/LBO. -08/19 CT CAP w/ contrast ordered, showed large tumor mass in the rectosigmoid pelvis compressing the urinary bladder and abundant stool throughout the entire colon and numerous hepatic metastases. Rx: -Bowel regimen: magnesium citrate 300 mL PO x 1, GoLytely 4,000 mL PO x 1, Senna 1 tab PO QD -Supportive treatment of pain and nausea as needed: Morphine 4 mg IV Q4HR PRN for severe pain 7-10 + Zofran 4 mg IV Q6HR PRN for nausea/vomiting -General Surgery (Dr. Hines) consulted, appreciate recommendations -Radiation Oncology (Dr. Damico) consulted, appreciate recommendations #Seizure-like episodes, likely 2/2 medication non-compliance, resolved #Hx of epilepsy, on Keppra Brought in on 08/19 for witnessed seizure-like activity from the [facility] senior care with an earlier event occurring 2 days before that but no further events witnessed in the ED by time of intake interview Reported difficulties adhering to his home regimen of Keppra and Depakote due to his incarceration that had been ongoing for 1 week and 2 days but later endorsed that the last time he took Keppra was about a month before his admission Rx: -Keppra 750 mg IV BID #Depression/anxiety #Insomnia Assumed based on home medications Rx: -Fluoxetine 10 mg PO QD -Trazodone 50 mg PO HS prn Hospital Management: Disposition: Med Tele Diet: Clear Liquids GI Prophylaxis: Not Indicated Bowel Prophylaxis: Senna DVT Prophylaxis: Heparin CODE STATUS: Full Code I have examined the patient and conferred with my attending, Dr. Doshi, and my senior resident, Dr. Baez, regarding them. Calderon Christian, DO PGY-1 Internal Medicine Attending Provider Attestation/Addendum I have examined the patient, reviewed labs and imaging findings, discussed the case with the resident(s), and reviewed entered orders. I agree with the plan of care as outlined in this note, with these additional summaries/recommendations: Patient is a 45-year-old male with a medical history of asthma, bipolar disorder, and well-differentiated invasive adenocarcinoma of the colon presents to [facility] emergency department on 08/19/2025 with chief complaint of seizure and abdominal pain. Patient seen at bedside. No acute overnight events. Patient seen drinking GoLytely and reports she had a small bowel movement. He is still endorsing significant abdominal pain, distention, and poor oral intake. Patient underwent CT scan of abdomen pelvis which revealed a colonic obstruction secondary to 8X7.6X 10 cm mass in the colon. Patient was diagnosed with well-differentiated adenocarcinoma on 07/20/2024. Multiple attempts were made by oncology for follow-up although patient was not available. Consult in-house oncology, recommendations appreciated. Patient was seen by general surgery and given patient's intractable symptoms, he will go for diverting loop colostomy tomorrow with general surgery. N.p.o. after midnight. Patient was also found to have a breakthrough seizure prior to admission although no further seizure-like activity noted. Continue seizure precautions and home antiepileptics. Patient updated on the plan and in agreement. All questions answered to satisfaction. Please see residents note for additional details and management. Dr. Tico MD
--- NOTE | 2025-08-20 15:33 | PD.SURCONS ---
HPI Consult details History of present illness: 45M with seizures disorder, anxiety and known rectal CA who initially presented to ER with a seizure, additionally noted to have abdominal distention with radiographic signs of large bowel obstruction. Pt states he hadn't had a BM for 3 weeks before admission, and for the last 2 months had noticed decreased appetite as well as unintentional weight loss of >20 lbs. Pt had been diagnosed with rectal CA last year but was unable to follow up. Unfortunately on this admission he underwent CT AP showing the rectal mass as well as liver lesions. Since admission pt has taken golytely and Mag Citrate, and has had three BMs however is having severe cramps which are not relieved with medications. He is still feeling very bloated and unable to eat much PMH: Seizures, anxiety, bipolar disorder PSHx: None Meds: Keppra, depakote, trazodone, prozac Allergies: NKDA Family hx: No known CRC Review of Systems Review of Systems ROS Unobtainable: All systems reviewed & no additional complaints except as documented Meds Home Medications and Allergies Home Medications ?Medication ?Instructions ?Recorded ?Confirmed ?Type fluoxetine 20 mg capsule (Prozac) 10 mg PO QAM #0 caps 12/20/14 08/19/25 History trazodone 50 mg tablet 50 mg PO HS PRN Sleep #0 tabs 12/20/14 08/19/25 History levetiracetam 500 mg tablet 500 mg PO BID 07/20/24 08/19/25 History (Keppra) Allergies Allergy/AdvReac Type Severity Reaction Status Date / Time coconut Allergy Severe Anaphylaxis Verified 03/13/25 02:58 Exam Vital Signs Temp Pulse Resp BP Pulse Ox O2 Del Method 98.9 F 100 17 94/59 L 98 Room Air 08/20/25 12:00 08/20/25 12:00 08/20/25 12:00 08/20/25 12:00 08/20/25 12:00 08/20/25 12:00 Constitutional Constitutional: thin and chronically ill appearing Routine Respiratory Exam Respiratory: Present no resp distress Routine Abdominal Exam Abdominal: Present distended and firm; Absent rebound Results Results: Laboratory Laboratory results: results reviewed Results: Imaging CT scan - abdomen: report reviewed and image reviewed Assessment & Plan Plan 45M with seizures, metastatic rectal IV with radiographic and clinical signs of large bowel obstruction. Although pt was able to have multiple BMs with golytely he is still feeling very bloated and is very distended on exam. I explained that while I unfortunately cannot perform a curative surgery, a diverting colostomy can at least relieve his bloating and hopefully allow him to eat more easily. I explained benefits/risks including ongoing pain from the rectal mass itself as well as from the incision, and risks of wound infection and colostomy pouching difficulties. All questions were answered and pt is agreeable to proceeding NPO after MN for diverting loop colostomy tomorrow 08/21
[2025-08-20] MEDS: ACETAMINOPHEN IVPB 1,000 MG/100 ML VIAL 250 MG IV ×2 (15:56→21:50)
[2025-08-20 16:00] VITALS: BP 115/69; PULSE 86; PULSE 98; RESP 18; TEMP 37.1; O2SAT 98
[2025-08-20] MEDS: MORPHINE SULF INJ 4 MG/ML VIAL IVP (16:50)
[2025-08-20 20:00] VITALS: BP 139/83; PULSE 76; PULSE 91; RESP 17; TEMP 36.2; O2SAT 96
[2025-08-20] MEDS: METOCLOPRAMIDE INJ 5 MG/ML VIAL 2 ML 10 MG IVP (20:59)
[2025-08-21] VITALS (14 sets, daily range): BP systolic 109–140; BP diastolic 74–95; PULSE 70–89; RESP 12–20; TEMP 36.1–36.6; O2SAT 96–100
[2025-08-21] MEDS: RINGERS LACTATED 1000 ML 1,000 ML 125 ML IV ×3 (01:00→16:11)
[2025-08-21] MEDS: MORPHINE SULF INJ 4 MG/ML VIAL IVP ×4 (01:55→16:09)
[2025-08-21] MEDS: ACETAMINOPHEN IVPB 1,000 MG/100 ML VIAL 250 MG IV ×3 (03:55→19:58)
--- NOTE | 2025-08-21 03:58 | PC.NURSE ---
MD Dr. becker notified regarding patient's request to have a higher dose of his morphine. Patient is currently receiving 4mg of morphine. Patient is also become more agitated and anxious.
[2025-08-21 06:27] LABS: Basophils # (Auto) 0.0 Thou/mm3 (0.0-0.2); Basophils % (Auto) 0 % (0-2.5); Eosinophils # (Auto) 0.0 Thou/mm3 (0.0-0.5); Eosinophils % (Auto) 0 % (0-10); Hematocrit 31.4 % (41.0-53.0); Hemoglobin 9.7 g/dL (13.5-16.0); Immature Granulocytes Auto 0.08 Thou/mm3 (0.00-0.00); Lymphocytes # (Auto) 0.9 Thou/mm3 (1.0-4.8); Lymphocytes % (Auto) 6 % (10-50); Mean Corpuscular HGB Conc 30.9 g/dl (31.0-37.0); Mean Corpuscular Hemoglobin 22.1 pg (25.0-35.0); Mean Corpuscular Volume 72 fL (80-100); Monocytes # (Auto) 1.1 Thou/mm3 (0.0-0.8); Monocytes % (Auto) 8 % (0-12); Neutrophils # (Auto) 12.4 Thou/mm3 (1.8-7.7); Neutrophils % (Auto) 85 % (37-80); Nucleated Red Blood Cell # 0.00 Thou/mm3 (0.00-0.00); Nucleated Red Blood Cell % 0 /100 WBC (0); Platelet Count 497 Thou/mm3 (140-440); RDW Standard Deviation 41.4 fL (35.1-43.9); Red Blood Count 4.38 Miln/mm3 (4.50-5.90); White Blood Count 14.5 Thou/mm3 (3.8-10.6)
[2025-08-21 06:54] LABS: Alanine Aminotransferase 10 U/L (10-49); Albumin, Serum 3.3 gm/dL (3.5-5.0); Albumin/Globulin Ratio 1.0 (1.2-2.2); Alkaline Phosphatase 81 U/L (46-116); Anion Gap 10 (7-16); Aspartate Amino Transferase 17 U/L (0-34); BUN/Creatinine Ratio 10 Ratio (12-20); Bilirubin,Total 0.2 mg/dL (0.3-1.2); Blood Urea Nitrogen 7 mg/dL (9-23); Calcium 8.9 mg/dL (8.3-10.6); Calcium (Corrected) 9.5 mg/dL (8.5-10.1); Carbon Dioxide 31.6 mMol/L (20.0-31.0); Chloride 93 mMol/L (98-107); Creatinine (Component) 0.7 mg/dL (0.6-1.3); Estimated Creatinine Clearance 102.1 mL/min (>60); Globulin 3.4 gm/dL (2.3-3.5); Glucose 108 mg/dL (74-106); Osmolality,Calculated 269 (275-295); Potassium 3.4 mMol/L (3.4-5.1); Sodium 135 mMol/L (136-145); Total Protein 6.7 gm/dL (5.7-8.2); eGFR > 60 See Note
[2025-08-21] MEDS: levETIRAcetam INJ 100 MG/ML VIAL 5ML 750 MG IVP ×2 (09:17→21:55)
[2025-08-21] MEDS: POTASSIUM CHLORIDE 10% 20 MEQ/15 ML UDC 40 MEQ PO (11:03)
[2025-08-21] MEDS: KETOROLAC INJ 30 MG/ML VIAL IVP (13:34)
[2025-08-21] MEDS: ONDANSETRON INJ 2 MG/ML INJ 2 ML 4 MG IVP (13:36)
--- NOTE | 2025-08-21 14:44 | PD.RESPRO ---
Documentation for date of: 08/21/25 Subjective Subjective Interval history: No overnight events. Patient was examined at bedside; they appear A&Ox3 and in NAD. Vitals/labs today significant for WBC 13.5->14.5, potassium 3.4, bicarbonate 31.6. Physical exam was non-contributory. Today, patient complains of 10/10 abdominal pain despite being on morphine 4 mg IV Q4HR PRN (was given Toradol 30 mg IV x 1 today). He continues to have bloody bowel movements but seems to not be completely obstructed. He is scheduled to undergo diverting colostomy with General Surgery (Dr. Weldon) today. Exam Vital Signs Temp Pulse Resp BP Pulse Ox O2 Del Method 96.9 F 78 14 109/79 98 Room Air 08/21/25 12:00 08/21/25 12:00 08/21/25 12:00 08/21/25 12:00 08/21/25 12:00 08/21/25 12:00 Narrative Exam General: Thin, -[place], tattooed male in handcuffs and in NAD. Skin: Heavily tattooed. Warm, dry, intact, no obvious rash. Head: Normocephalic, atraumatic. Eyes: Right eye esotropia with deficient leftward movement of right eye. Left eye EOMI. Anicteric, vision grossly intact. Ears: No ear pain, no ear discharge, Hearing grossly intact. Nose: No nasal discharge. Mouth/Throat: Small wound noted at the lower lip. Edentulous. Oral mucosa moist. No obvious lesions in oropharynx. Cardiovascular: Regular rate and normal rhythm, no murmur, no JVD or carotid bruits. +S1/S2. Respiratory: Bilateral lungs are clear to auscultation, respirations unlabored, no crackles, no wheezing. No accessory muscle use. Gastrointestinal: Tense, distended abdomen with generalized TTP, but especially tender at the umbilicus (improving). Guarding. Hypoactive bowel sounds. No palpable masses. No rebound tenderness. Extremities: Symmetrical, no significant deformities. No edema, no cyanosis, no clubbing. 2+ radial pulse bilaterally, 2+ posterior tibial pulse bilaterally. Neuro: A&O x 3. No focal deficits observed. Conversant, moving all extremities. No overt cerebellar signs/incoordination. Psychiatric: Cooperative, appropriate affect. Objective Labs 08/22/25 04:30 08/22/25 04:30 Labs: Laboratory Results - last 24 hr 08/21/25 04:46 WBC 14.5 H RBC 4.38 L Hgb 9.7 L Hct 31.4 L MCV 72 L MCH 22.1 L MCHC 30.9 L RDW Std Deviation 41.4 Plt Count 497 H Neut % (Auto) 85 H Lymph % (Auto) 6 L [place] % (Auto) 8 Eos % (Auto) 0 Baso % (Auto) 0 Neut # (Auto) 12.4 H Lymph # (Auto) 0.9 L [place] # (Auto) 1.1 H Eos # (Auto) 0.0 Baso # (Auto) 0.0 Immature Gran # (Auto) 0.08 H Absolute Nucleated RBC 0.00 Immature Gran % 1 H Nucleated RBC % 0 Sodium 135 L Potassium 3.4 D Chloride 93 L Carbon Dioxide 31.6 H Anion Gap 10 BUN 7 L Creatinine 0.7 Estim Creat Clear Calc 102.1 eGFR > 60 BUN/Creatinine Ratio 10 L Glucose 108 H Calculated Osmolality 269 L Calcium 8.9 Corrected Calcium 9.5 Total Bilirubin 0.2 L AST 17 ALT 10 Alkaline Phosphatase 81 Total Protein 6.7 Albumin 3.3 L Globulin 3.4 Albumin/Globulin Ratio 1.0 L ABG Interpretation ABG results: 08/19/25 06:05 VBG pH 7.42 VBG pCO2 42 VBG pO2 26 VBG Base Excess 3 Quality Measures Quality Measures none Assessment & Plan Assessment Current Active Medications: Generic Name Dose Route Start Last Admin Trade Name Freq PRN Reason Stop Dose Admin Fluoxetine HCl 10 mg 08/19/25 12:45 08/21/25 09:10 Fluoxetine Hcl 10 Mg Capsule PO 09/18/25 12:44 10 mg QDAY DEEPA Administration Heparin Sodium (Porcine) 5,000 unit 08/19/25 21:00 08/21/25 09:22 Heparin Sod Inj 5000 Unit/Ml Vial SC 09/02/25 20:59 Not Given Q12HR DEEPA Lactated Ringer's 1,000 mls @ 125 mls/hr 08/21/25 00:05 08/21/25 09:16 Lactated Ringers IV 09/20/25 00:04 125 mls/hr .Q8H DEEPA Administration Levetiracetam 750 mg 08/19/25 18:00 08/21/25 09:17 Levetiracetam Inj 100 Mg/Ml Vial 5ml IVP 09/18/25 17:59 750 mg BID DEEPA Administration Morphine Sulfate 4 mg 08/20/25 14:25 08/21/25 11:05 Morphine Sulf Inj 4 Mg/Ml Vial IVP 08/25/25 14:24 4 mg Q4HR PRN Administration PAIN SCALE 7-10 (Severe Ondansetron HCl 4 mg 08/19/25 12:22 08/21/25 13:36 Ondansetron Inj 2 Mg/Ml Inj 2 Ml IVP 09/18/25 12:21 4 mg Q6H PRN Administration NAUSEA OR VOMITING Protocol Sennosides 1 tab 08/20/25 09:00 08/21/25 09:10 Senna Tablet PO 09/19/25 08:59 1 tab QDAY DEEPA Administration Protocol Trazodone HCl 50 mg 08/19/25 12:37 08/19/25 21:09 Trazodone Hcl 50 Mg Tablet PO 09/18/25 20:59 50 mg HS PRN Administration Insomnia Plan Patient is a 45-year-old male with a PMH of invasive, well-differentiated rectal adenocarcinoma first discovered by [facility] via colonoscopy on 07/20/24 (and confirmed by Pathology on 07/22/24), epilepsy on Keppra and Depakote, bipolar disorder type I on Depakote, and methamphetamine use disorder who presented on 08/19/25 after being brought in for witnessed seizure-like activity from the local [facility]. Patient was admitted for the work-up and management of breakthrough seizure-like activity and obstipation + abdominal pain concerning for possible SBO 2/2 obstructing rectal adenocarcinoma. #Obstipation, concerning for small bowel obstruction, likely 2/2 #Obstructing rectal adenocarcinoma, invasive and well-differentiated, likely stage IVb and metastatic #Hematochezia Initial 08/19 presentation: complaints of nausea, abdominal pain, lack of BMs in over 6 weeks , pressure from belly button to spine, non-stop hematochezia (admission Hgb 9.3), and inability to pass flatus Physical exam notable at that time for tense, distended abdomen with abdominal TTP especially at the umbilicus, abdominal guarding, and hypoactive bowel sounds 08/19 CTAP w/o contrast showed colonic obstruction by 8 x 7.6 x 10 cm mass in the pelvis by likely malignant neoplasm of the rectosigmoid colon. Was found to have invasive, well-differentiated rectal adenocarcinoma by [facility] via colonoscopy on 07/20/24 (and confirmed by Pathology on 07/22/24) Patient states that he was aware that he had been diagnosed with colorectal cancer last year but denied making attempts to follow-up in the outpatient setting with an oncologist or other specialist (Dr. Damico apparently tried multiple times to contact him on 07/31/24 but had been unsuccessful in reaching him). Of note, previous 03/13/25 CT CAP also showed findings suspicious for metastatic pulmonary nodules and hepatic metastasis. Dx: -08/19 small bowel XR series ordered, negative for SBO/LBO. -08/19 CT CAP w/ contrast ordered, showed large tumor mass in the rectosigmoid pelvis compressing the urinary bladder and abundant stool throughout the entire colon and numerous hepatic metastases. Rx: -Planned for 08/21 diverting colostomy by General Surgery (Dr. Weldon) -Bowel regimen: Senna 1 tab PO QD -Supportive treatment of pain and nausea as needed: Morphine 4 mg IV Q4HR PRN for severe pain 7-10 + Zofran 4 mg IV Q6HR PRN for nausea/vomiting -General Surgery (Dr. Hines) consulted, appreciate recommendations -Radiation Oncology (Dr. Damico) consulted, appreciate recommendations #Seizure-like episodes, likely 2/2 medication non-compliance, resolved #Hx of epilepsy, on Keppra Brought in on 08/19 for witnessed seizure-like activity from the local [facility] with an earlier event occurring 2 days before that but no further events witnessed in the ED by time of intake interview Reported difficulties adhering to his home regimen of Keppra and Depakote due to his incarceration that had been ongoing for 1 week and 2 days but later endorsed that the last time he took Keppra was about a month before his admission Rx: -Keppra 750 mg IV BID #Depression/anxiety #Insomnia Assumed based on home medications Rx: -Fluoxetine 10 mg PO QD -Trazodone 50 mg PO HS prn Hospital Management: Disposition: Med Tele Diet: NPO GI Prophylaxis: Not Indicated Bowel Prophylaxis: Senna DVT Prophylaxis: Heparin CODE STATUS: Full Code I have examined the patient and conferred with my attending, Dr. Doshi, and my senior resident, Dr. Ontiveros, regarding them. Calderon Christian DO PGY-1 Internal Medicine Attending Provider Attestation/Addendum I have examined the patient, reviewed labs and imaging findings, discussed the case with the resident(s), and reviewed entered orders. I agree with the plan of care as outlined in this note, with these additional summaries/recommendations: Patient is a 45-year-old male with a medical history of asthma, bipolar disorder, and well-differentiated invasive adenocarcinoma of the colon presents to [facility] emergency department on 08/19/2025 with chief complaint of seizure and abdominal pain. Patient seen at bedside. No acute overnight events. Patient continues to endorse abdominal pain, discomfort, distention, and nausea. Patient underwent CT scan of abdomen pelvis which revealed a colonic obstruction secondary to 8X7.6X 10 cm mass in the colon. Patient was diagnosed with well-differentiated adenocarcinoma on 07/20/2024. Multiple attempts were made by oncology for follow-up although patient was not available. Consult in-house oncology, recommendations appreciated. Patient was seen by general surgery and given patient's intractable symptoms, he will go for diverting loop colostomy today 08/21/25. Continue NPO. Patient was also found to have a breakthrough seizure prior to admission although no further seizure-like activity noted. Continue seizure precautions and home antiepileptics. Patient updated on the plan and in agreement. All questions answered to satisfaction. Please see residents note for additional details and management. Dr. Tico MD
--- NOTE | 2025-08-21 17:51 | SUR.OPER ---
Pt to OR holding area with Deputy Arnold at bedside with pt. Pt was taken into OR-1 accompanied by . Once pt was asleep, ankle cuffs were removed by the [place].
--- NOTE | 2025-08-21 19:15 | PD.SUROPNT ---
Date of Procedure 08/21/25 Pre Op Diagnosis Obstructing rectal cancer Post Op Diagnosis Same Procedure Exploratory laparotomy, decompression of colon and diverting loop sigmoid colostomy Findings Large rectal tumor causing significant dilation of colon, >1L of stool suctioned for decompression Procedure Description After discussion of risks and benefits, patient was brought to the operating room, SCDs were placed and general anesthesia was induced. A Vargas was placed and he received preoperative antibiotics. He was prepped and draped in usual sterile fashion. After timeout a midline incision was made with a #10 blade. The tissues were dissected with electrocautery until the peritoneum was reached. The peritoneum was then elevated with tonsil clamps and incised with Metzenbaum scissors. Upon entering the abdomen the transverse colon was noted to be significantly dilated. The descending colon was mobilized by dividing the white line of Toldt and the sigmoid was noted to be somewhat redundant. The planned colostomy site was chosen as a portion of the sigmoid colon that would reach the marked ostomy site. The stoma site was created by incising the pre-marked area of skin overlying the rectus muscle, lateral to the umbilicus, with electrocautery. The subcutaneous tissues were divided with electrocautery until the rectus muscle was reached. The muscle was then split with a Garcia clamp and the peritoneum was incised with electrocautery until the opening could accommodate 2 fingers. Because the colon was so significantly dilated, it could not be introduced through the new stoma opening until it was decompressed. At the site of the planned colostomy on the sigmoid colon I placed a pursestring suture with a 2-0 Vicryl and then made a colotomy in the center of this pursestring with a #15 blade. Using a pool suction the colon proximal to the planned colostomy site was decompressed, which took a significant amount of time and returned greater than 1 L of green liquidy stool. The colon distal to the colotomy site was also decompressed. The pursestring suture was then tied and to prevent spillage until stoma maturation it was oversewn with a running 2-0 Vicryl. A rent was made in the mesocolon at the planned colostomy site and a red rubber was placed through it to act as a colostomy bridge. A Adiel was placed through the stoma opening at the skin and the red rubber was grasped with the Babock so that the sigmoid colon could be brought up through the ostomy site. It was noted to reach this area easily with no tension and was noted to be in proper orientation with no twisting. We took care to change gloves and remove all dirty instruments from the field. The abdomen was irrigated with warm saline. A TAP block was performed for a total of 20 cc of half percent Marcaine and an additional 10 cc of half percent Marcaine was injected into the subcutaneous tissues. Counts were confirmed correct. The fascia was closed with #1 PDS and the wound was irrigated before the skin was reapproximated with camilo. The midline incision was covered with Telfa, gauze and Tegaderm. This incision was covered with a blue towel while the colostomy was matured in a loop fashion using 2-0 chromic sutures. The red rubber catheter was sutured to itself using a 2-0 nylon and cut to length. A colostomy appliance was placed over the stoma. Patient was extubated and brought to PACU in stable condition Pathology / specimen None Estimated Blood Loss 50 Surgeon Letha Weldon MD Surgical Staff Operation Date: 08/21/25 10:00 Case Staff APARTMENT COORDINATOR: Davey Ulrich RN First Assistant: Ajay Lawler
--- NOTE | 2025-08-21 19:19 | SUR.PHASEI ---
pt received from OR in recovery bay 1. pt obtunded, breathing unlabored on oxymask 8l, oral airway in place. v/s stable. pt dressing to abd cdi. report received from Efraín DIAMOND and Davey FUCHS.
[2025-08-21] MEDS: HYDROmorphone INJ 2 MG/ML VIAL 0.5 MG IVP (19:52)
[2025-08-21] MEDS: fentaNYL CIT INJ 50 mCg/ML AMP 2ML IVP (20:02)
--- NOTE | 2025-08-21 20:19 | SUR.PHASEI ---
pt awake and alert, breathing unlabored on room air. v/s stable. pt dressing to abd cdi. colostomy and hurst cath in place. report called to Nya DIAMOND. pt will be transferred to room at this time.
[2025-08-21] MEDS: CEFOXITIN 2 GM in SODIUM CHLORIDE 0.9% (Popper) 50 ML IV (21:55)
[2025-08-22] VITALS: BP 101/65; PULSE 91; PULSE 96; RESP 20; TEMP 36.3; O2SAT 97
[2025-08-22] MEDS: ACETAMINOPHEN IVPB 1,000 MG/100 ML VIAL 250 MG IV ×3 (00:06→11:54)
[2025-08-22] MEDS: oxyCODONE HCL 5 MG IR TAB PO ×3 (02:39→16:03)
[2025-08-22] MEDS: MORPHINE SULF INJ 4 MG/ML VIAL IVP ×4 (03:23→19:18)
[2025-08-22 04:00] VITALS: BP 99/63; PULSE 84; PULSE 94; RESP 18; TEMP 36.2; O2SAT 98
[2025-08-22 05:40] LABS: Basophils # (Auto) 0.0 Thou/mm3 (0.0-0.2); Basophils % (Auto) 0 % (0-2.5); Eosinophils # (Auto) 0.0 Thou/mm3 (0.0-0.5); Eosinophils % (Auto) 0 % (0-10); Hematocrit 31.5 % (41.0-53.0); Hemoglobin 9.8 g/dL (13.5-16.0); Immature Granulocytes Auto 0.04 Thou/mm3 (0.00-0.00); Lymphocytes # (Auto) 0.3 Thou/mm3 (1.0-4.8); Lymphocytes % (Auto) 4 % (10-50); Mean Corpuscular HGB Conc 31.1 g/dl (31.0-37.0); Mean Corpuscular Hemoglobin 22.5 pg (25.0-35.0); Mean Corpuscular Volume 72 fL (80-100); Monocytes # (Auto) 0.4 Thou/mm3 (0.0-0.8); Monocytes % (Auto) 4 % (0-12); Neutrophils # (Auto) 8.7 Thou/mm3 (1.8-7.7); Neutrophils % (Auto) 92 % (37-80); Nucleated Red Blood Cell # 0.00 Thou/mm3 (0.00-0.00); Nucleated Red Blood Cell % 0 /100 WBC (0); Platelet Count 492 Thou/mm3 (140-440); RDW Standard Deviation 42.1 fL (35.1-43.9); Red Blood Count 4.36 Miln/mm3 (4.50-5.90); White Blood Count 9.4 Thou/mm3 (3.8-10.6)
[2025-08-22] MEDS: CEFOXITIN 2 GM in SODIUM CHLORIDE 0.9% (Popper) 50 ML IV ×3 (05:46→21:15)
[2025-08-22 06:02] LABS: Alanine Aminotransferase 10 U/L (10-49); Albumin, Serum 2.7 gm/dL (3.5-5.0); Albumin/Globulin Ratio 1.0 (1.2-2.2); Alkaline Phosphatase 58 U/L (46-116); Anion Gap 8 (7-16); Aspartate Amino Transferase 22 U/L (0-34); BUN/Creatinine Ratio 20 Ratio (12-20); Bilirubin,Total 0.2 mg/dL (0.3-1.2); Blood Urea Nitrogen 14 mg/dL (9-23); Calcium 8.2 mg/dL (8.3-10.6); Calcium (Corrected) 9.2 mg/dL (8.5-10.1); Carbon Dioxide 30.2 mMol/L (20.0-31.0); Chloride 98 mMol/L (98-107); Creatinine (Component) 0.7 mg/dL (0.6-1.3); Estimated Creatinine Clearance 102.1 mL/min (>60); Globulin 2.8 gm/dL (2.3-3.5); Glucose 113 mg/dL (74-106); Osmolality,Calculated 273 (275-295); Potassium 4.6 mMol/L (3.4-5.1); Sodium 136 mMol/L (136-145); Total Protein 5.5 gm/dL (5.7-8.2); eGFR > 60 See Note
[2025-08-22 08:00] VITALS: BP 93/64; PULSE 84; PULSE 94; RESP 18; TEMP 36.2; O2SAT 95
[2025-08-22] MEDS: levETIRAcetam INJ 100 MG/ML VIAL 5ML 750 MG IVP ×2 (09:13→21:15)
--- NOTE | 2025-08-22 09:30 | PC.NURSE ---
pt refusing heparin subq injection, Md Baez made aware
[2025-08-22 12:00] VITALS: BP 105/54; PULSE 80; PULSE 88; RESP 16; TEMP 36.1; O2SAT 96
--- NOTE | 2025-08-22 14:34 | PD.RESPRO ---
Documentation for date of: 08/22/25 Subjective Subjective Interval history: No acute events overnight.?Patient seen and examined at bedside this AM.?Patient is post-op day #1 after diverting colostomy placed by Dr. Weldon. Patient reports significant pain in the lower abdomen post-op. He states that he wishes he could be sedated and finds the pain makes it difficult to sleep. He does however report it is a different type of pain and he feels relieved of the obstructive and bloated pain that he had previously. Per nursing, colostomy is having output although there is some leakage from the gauze. Patient is tolerating clear liquids well, pending Dr. Weldon's assessment to advance diet later. Labs and vitals were reviewed.?No further complaints at this time. Of note the patient is refusing heparin prophylaxis despite education. Will try to switch to Lovenox once a day injection, if patient continues to refuse could consider Xarelto for DVT prophylaxis. Review of systems otherwise negative except what is mentioned above. Exam Vital Signs Temp Pulse Resp BP Pulse Ox O2 Del Method O2 Flow Rate 97.0 F 88 16 105/54 L 96 Room Air 4 08/22/25 12:00 08/22/25 12:00 08/22/25 12:00 08/22/25 12:00 08/22/25 12:00 08/22/25 12:00 08/21/25 19:35 Narrative Exam General: Thin, -Slovak, tattooed male in handcuffs and in NAD. Skin: Heavily tattooed. Warm, dry, intact, no obvious rash. Head: Normocephalic, atraumatic. Eyes: Right eye esotropia with deficient leftward movement of right eye. Left eye EOMI. Anicteric, vision grossly intact. Ears: No ear pain, no ear discharge, Hearing grossly intact. Nose: No nasal discharge. Mouth/Throat: Small wound noted at the lower lip. Edentulous. Oral mucosa moist. No obvious lesions in oropharynx. Cardiovascular: Regular rate and normal rhythm, no murmur, no JVD or carotid bruits. +S1/S2. Respiratory: Bilateral lungs are clear to auscultation, respirations unlabored, no crackles, no wheezing. No accessory muscle use. Gastrointestinal: Tense, distended abdomen with generalized TTP, but especially tender at the umbilicus (improving). Guarding. Hypoactive bowel sounds. No palpable masses. No rebound tenderness. Extremities: Symmetrical, no significant deformities. No edema, no cyanosis, no clubbing. 2+ radial pulse bilaterally, 2+ posterior tibial pulse bilaterally. Neuro: A&O x 3. No focal deficits observed. Conversant, moving all extremities. No overt cerebellar signs/incoordination. Psychiatric: Cooperative, appropriate affect. Objective Labs 08/23/25 04:46 08/23/25 04:46 Labs: Laboratory Results - last 24 hr 08/22/25 04:30 WBC 9.4 D RBC 4.36 L Hgb 9.8 L Hct 31.5 L MCV 72 L MCH 22.5 L MCHC 31.1 RDW Std Deviation 42.1 Plt Count 492 H Neut % (Auto) 92 H Lymph % (Auto) 4 L Tarrant % (Auto) 4 Eos % (Auto) 0 Baso % (Auto) 0 Neut # (Auto) 8.7 H Lymph # (Auto) 0.3 L Tarrant # (Auto) 0.4 Eos # (Auto) 0.0 Baso # (Auto) 0.0 Immature Gran # (Auto) 0.04 H Absolute Nucleated RBC 0.00 Immature Gran % 0 Nucleated RBC % 0 Sodium 136 Potassium 4.6 D Chloride 98 Carbon Dioxide 30.2 Anion Gap 8 BUN 14 Creatinine 0.7 Estim Creat Clear Calc 102.1 eGFR > 60 BUN/Creatinine Ratio 20 Glucose 113 H Calculated Osmolality 273 L Calcium 8.2 L Corrected Calcium 9.2 Total Bilirubin 0.2 L AST 22 ALT 10 Alkaline Phosphatase 58 D Total Protein 5.5 L Albumin 2.7 L D Globulin 2.8 Albumin/Globulin Ratio 1.0 L ABG Interpretation ABG results: 08/19/25 06:05 VBG pH 7.42 VBG pCO2 42 VBG pO2 26 VBG Base Excess 3 Quality Measures Quality Measures none Assessment & Plan Assessment Current Active Medications: Generic Name Dose Route Start Last Admin Trade Name Freq PRN Reason Stop Dose Admin Fluoxetine HCl 10 mg 08/19/25 12:45 08/22/25 09:13 Fluoxetine Hcl 10 Mg Capsule PO 09/18/25 12:44 10 mg QDAY DEEPA Administration Heparin Sodium (Porcine) 5,000 unit 08/19/25 21:00 08/22/25 09:22 Heparin Sod Inj 5000 Unit/Ml Vial SC 09/02/25 20:59 Not Given Q12HR DEEPA Cefoxitin Sodium 2 gm/ Sodium 50 mls @ 100 mls/hr 08/21/25 22:00 08/22/25 05:46 Chloride IV 08/22/25 23:00 100 mls/hr Q8HR DEEPA Administration Levetiracetam 750 mg 08/19/25 18:00 08/22/25 09:13 Levetiracetam Inj 100 Mg/Ml Vial 5ml IVP 09/18/25 17:59 750 mg BID DEEPA Administration Morphine Sulfate 4 mg 08/21/25 23:01 08/22/25 10:38 Morphine Sulf Inj 4 Mg/Ml Vial IVP 08/25/25 14:24 4 mg Q4HR PRN Administration breakthrough pain Protocol Ondansetron HCl 4 mg 08/19/25 12:22 08/21/25 13:36 Ondansetron Inj 2 Mg/Ml Inj 2 Ml IVP 09/18/25 12:21 4 mg Q6H PRN Administration NAUSEA OR VOMITING Protocol Oxycodone HCl 5 mg 08/21/25 19:43 08/22/25 09:13 Oxycodone Hcl 5 Mg Ir Tab PO 08/26/25 19:42 5 mg Q6HR PRN Administration PAIN SCALE 4-10(Mod-Sev Sennosides 1 tab 08/20/25 09:00 08/22/25 09:13 Senna Tablet PO 09/19/25 08:59 1 tab QDAY DEEPA Administration Protocol Trazodone HCl 50 mg 08/19/25 12:37 08/19/25 21:09 Trazodone Hcl 50 Mg Tablet PO 09/18/25 20:59 50 mg HS PRN Administration Insomnia Plan Patient is a 45-year-old male with a PMH of invasive, well-differentiated rectal adenocarcinoma first discovered by [facility] via colonoscopy on 07/20/24 (and confirmed by Pathology on 07/22/24), epilepsy on Keppra and Depakote, bipolar disorder type I on Depakote, and methamphetamine use disorder who presented on 08/19/25 after being brought in for witnessed seizure-like activity from the local [facility] long-term. Patient was admitted for the work-up and management of breakthrough seizure-like activity and obstipation + abdominal pain concerning for possible SBO 2/2 obstructing rectal adenocarcinoma. #Obstructing rectal adenocarcinoma, invasive and well-differentiated, likely stage IVb and metastatic #S/p diverting colostomy 08/21/2025 #Hematochezia #Obstipation, resolved Initial 08/19 presentation: complaints of nausea, abdominal pain, lack of BMs in over 6 weeks , pressure from belly button to spine, non-stop hematochezia (admission Hgb 9.3), and inability to pass flatus Physical exam notable at that time for tense, distended abdomen with abdominal TTP especially at the umbilicus, abdominal guarding, and hypoactive bowel sounds 08/19 CTAP w/o contrast showed colonic obstruction by 8 x 7.6 x 10 cm mass in the pelvis by likely malignant neoplasm of the rectosigmoid colon. Was found to have invasive, well-differentiated rectal adenocarcinoma by [facility] via colonoscopy on 07/20/24 (and confirmed by Pathology on 07/22/24) Patient states that he was aware that he had been diagnosed with colorectal cancer last year but denied making attempts to follow-up in the outpatient setting with an oncologist or other specialist (Dr. Damico apparently tried multiple times to contact him on 07/31/24 but had been unsuccessful in reaching him). Of note, previous 03/13/25 CT CAP also showed findings suspicious for metastatic pulmonary nodules and hepatic metastasis. Dx: -08/19 small bowel XR series ordered, negative for SBO/LBO. -08/19 CT CAP w/ contrast ordered, showed large tumor mass in the rectosigmoid pelvis compressing the urinary bladder and abundant stool throughout the entire colon and numerous hepatic metastases. -08/21 diverting colostomy completed by General Surgery (Dr. Weldon) Rx: -Discontinued bowel regimen: Senna 1 tab PO QD -Advance diet per surgery and as tolerated -Continue cefoxitin 2 gm IV q8h per general surgery for prophylaxis 08/21-08/22 -Supportive treatment of pain and nausea as needed -Morphine 4 mg IV q4h prn for breakthrough pain -Oxycodone IR 5 mg q6h prn moderate to severe pain -Zofran 4 mg IV q6h prn for nausea/vomiting -General Surgery (Dr. Hines) initially consulted, was then covered by Dr. Weldon -Radiation Oncology (Dr. Damico) consulted, appreciate recommendations #Seizure-like episodes, likely 2/2 medication non-compliance, resolved #Hx of epilepsy, on Keppra Brought in on 08/19 for witnessed seizure-like activity from the local [facility] long-term with an earlier event occurring 2 days before that but no further events witnessed in the ED by time of intake interview Reported difficulties adhering to his home regimen of Keppra and Depakote due to his incarceration that had been ongoing for 1 week and 2 days but later endorsed that the last time he took Keppra was about a month before his admission Rx: -Keppra 750 mg IV BID #Depression/anxiety #Insomnia Assumed based on home medications Rx: -Fluoxetine 10 mg PO QD -Trazodone 50 mg PO HS prn Hospital Management: Disposition: Med Tele Diet: NPO GI Prophylaxis: Not Indicated Bowel Prophylaxis: Senna DVT Prophylaxis: Lovenox CODE STATUS: Full Code Patient plan of care was discussed with the attending physician, Dr. Doshi. Kassandra Baez, PGY-3 Attending Provider Attestation/Addendum I have examined the patient, reviewed labs and imaging findings, discussed the case with the resident(s), and reviewed entered orders. I agree with the plan of care as outlined in this note, with these additional summaries/recommendations: Patient is a 45-year-old male with a medical history of asthma, bipolar disorder, and well-differentiated invasive adenocarcinoma of the colon presents to [facility] emergency department on 08/19/2025 with chief complaint of seizure and abdominal pain. Patient seen at bedside. No acute overnight events. Today patient is endorsing some abdominal pain but overall reports significant improvement in symptoms. Patient underwent CT scan of abdomen pelvis which revealed a colonic obstruction secondary to 8X7.6X 10 cm mass in the colon. Patient was diagnosed with well-differentiated adenocarcinoma on 07/20/2024. Multiple attempts were made by oncology for follow-up although patient was not available. Consult in-house oncology, recommendations appreciated. Patient was seen by general surgery and is POD #1 status post exploratory laparotomy with decompression of colon and diverting loop sigmoid colostomy. During ex lap colon was noted to be significantly dilated and over 1 L of stool was suctioned. Continue pain management and IV fluids. General surgery advancing diet. Patient was also found to have a breakthrough seizure prior to admission although no further seizure-like activity noted. Continue seizure precautions and home antiepileptics. Patient updated on the plan and in agreement. All questions answered to satisfaction. Please see residents note for additional details and management. Dr. Tico MD
[2025-08-22 16:00] VITALS: BP 100/57; PULSE 80; PULSE 84; RESP 16; TEMP 36.1; O2SAT 95
--- NOTE | 2025-08-22 16:27 | PD.ONCCONS ---
HPI Data of Consult Requesting Physician: Leonel Doshi MD Primary Care Provider: Physician No Primary/Family Consult Narrative Reason for consult: Colorectal cancer status post surgery performed for obstruction History of present illness: Patient was initially seen after being diagnosed with colorectal cancer a year ago, 07/20/2024, when he had lower GI bleeding and colonoscopy revealed rectal mass with biopsy revealing invasive adenocarcinoma. He was lost to follow-up and have learned since then he has been incarcerated. Admitted abdominal distention and seizures with lower GI bleeding and obstructive symptoms and CT scan 08/19/2025 revealed large tumor in the pelvis rectosigmoid 9.1 x 8.5 cm causing colonic obstruction. On 08/21/2025 patient underwent explorative laparotomy decompression of colon and diverting loop sigmoid colostomy performed by Dr. Weldon. 1 day postop patient is recovering from his surgery. A.m. labs 9.4 WBC 9.8 hemoglobin platelets 4 92,000. LFTs are RFTs not elevated. CEA 1 year ago 1 07/21/2024 was not elevated at 1.5. Patient referred for oncological consultation. cc:: cc: Leonel Doshi MD Past Medical History Past Medical History Comments PMH COMMENT: History of epilepsy bipolar disorder. History of methamphetamine use disorder. Meds Home Medications and Allergies Home Medications ?Medication ?Instructions ?Recorded ?Confirmed ?Type fluoxetine 20 mg capsule (Prozac) 10 mg PO QAM #0 caps 12/20/14 08/19/25 History trazodone 50 mg tablet 50 mg PO HS PRN Sleep #0 tabs 12/20/14 08/19/25 History levetiracetam 500 mg tablet 500 mg PO BID 07/20/24 08/19/25 History (Keppra) Allergies Allergy/AdvReac Type Severity Reaction Status Date / Time coconut Allergy Severe Anaphylaxis Verified 03/13/25 02:58 Exam Vital Signs Temp Pulse Resp BP Pulse Ox O2 Del Method O2 Flow Rate 97.0 F 80 16 105/54 L 96 Room Air 4 08/22/25 12:00 08/22/25 16:00 08/22/25 12:00 08/22/25 12:00 08/22/25 12:00 08/22/25 12:00 08/21/25 19:35 Narrative Exam Appearing comfortable postop day 1 with colostomy functioning well. Results Labs 08/22/25 04:30 08/22/25 04:30 Labs: Short CBC 08/22/25 Range/Units 04:30 WBC 9.4 D (3.8-10.6) Thou/mm3 Hgb 9.8 L (13.5-16.0) g/dL Hct 31.5 L (41.0-53.0) % Plt Count 492 H (140-440) Thou/mm3 BMP 08/22/25 04:30 Sodium 136 Potassium 4.6 D Chloride 98 Carbon Dioxide 30.2 BUN 14 Creatinine 0.7 Glucose 113 H Calcium 8.2 L Liver Function 08/22/25 Range/Units 04:30 Total Bilirubin 0.2 L (0.3-1.2) mg/dL AST 22 (0-34) U/L ALT 10 (10-49) U/L Alkaline Phosphatase 58 D (46-116) U/L Albumin 2.7 L D (3.5-5.0) gm/dL ABG Interpretation ABG results: 08/19/25 06:05 VBG pH 7.42 VBG pCO2 42 VBG pO2 26 VBG Base Excess 3 Assessment and Plan Additional Assessment & Plan Additional Plan: 1. Colorectal cancer diagnosed a year ago but lost to follow-up due to noncompliance and being incarcerated 2. Diverting loop colostomy performed due to obstruction Dr. Weldon 08/21/2025. 3. Suspected liver mets noted on CT. 4. Recommend serum CEA ( was normal 1 year ago) and liver biopsy prior to discharge as this may change treatment options. 5. Spoke with patient and officer present regarding the need for adjuvant therapy. Being an incarcerated, patient may need to be treated at a place which has the contract. [facility] is not contracted to treat incarcerated patients, other than [facility] according to my understanding. I will check.
--- NOTE | 2025-08-22 16:34 | PD.SURPROG ---
Documentation for date of: 08/22/25 Subjective Subjective Brief History: 45M with seizures disorder, anxiety and known rectal CA who initially presented to ER with a seizure, additionally noted to have abdominal distention with radiographic signs of large bowel obstruction. Pt states he hadn't had a BM for 3 weeks before admission, and for the last 2 months had noticed decreased appetite as well as unintentional weight loss of >20 lbs. Pt had been diagnosed with rectal CA last year but was unable to follow up. Unfortunately on this admission he underwent CT AP showing the rectal mass as well as liver lesions. Since admission pt has taken golytely and Mag Citrate, and has had three BMs however is having severe cramps which are not relieved with medications. He is still feeling very bloated and unable to eat much PMH: Seizures, anxiety, bipolar disorder PSHx: None Meds: Keppra, depakote, trazodone, prozac Allergies: NKDA Family hx: No known CRC Narrative: Pt was having severe pain this morning but after IV was fixed he feels much better, no nausea, tolerating clears and as of this afternoon is having stool output from the colostomy Exam Vital Signs Temp Pulse Resp BP Pulse Ox O2 Del Method O2 Flow Rate 97.0 F 80 16 105/54 L 96 Room Air 4 08/22/25 12:00 08/22/25 16:00 08/22/25 12:00 08/22/25 12:00 08/22/25 12:00 08/22/25 12:00 08/21/25 19:35 Constitutional Constitutional: no acute distress Routine Respiratory Exam Respiratory: Present no resp distress Routine Abdominal Exam Abdominal: Present soft and ostomy (pink with brown liquid stool in appliance); Absent tenderness or distended Results Results: Laboratory Laboratory results: results reviewed Assessment & Plan Plan 45M with seizures, metastatic rectal CA with radiographic and clinical signs of large bowel obstruction now s/p diverting loop colostomy 08/21, recovering well Advance to regular diet Pain control prn Will book for chemoport insertion Tu08/24 PROCEDURES: Procedures Exploratory laparotomy, decompression of colon and diverting loop sigmoid colostomy
[2025-08-22 20:00] VITALS: BP 116/72; PULSE 87; PULSE 98; RESP 16; TEMP 36.5; O2SAT 98
[2025-08-22] MEDS: MELATONIN 3 MG TABLET PO (21:15)
[2025-08-23] VITALS: BP 95/67; PULSE 109; PULSE 94; RESP 18; TEMP 37.1; O2SAT 95
[2025-08-23] MEDS: oxyCODONE HCL 5 MG IR TAB PO ×3 (00:27→15:51)
[2025-08-23] MEDS: MORPHINE SULF INJ 4 MG/ML VIAL IVP ×5 (01:14→22:40)
[2025-08-23 04:00] VITALS: BP 112/68; PULSE 106; PULSE 107; RESP 17; TEMP 36.8; O2SAT 96
[2025-08-23 05:57] LABS: Basophils # (Auto) 0.0 Thou/mm3 (0.0-0.2); Basophils % (Auto) 0 % (0-2.5); Eosinophils # (Auto) 0.0 Thou/mm3 (0.0-0.5); Eosinophils % (Auto) 0 % (0-10); Hematocrit 26.1 % (41.0-53.0); Immature Granulocytes Auto 0.07 Thou/mm3 (0.00-0.00); Lymphocytes # (Auto) 0.6 Thou/mm3 (1.0-4.8); Lymphocytes % (Auto) 4 % (10-50); Mean Corpuscular HGB Conc 31.4 g/dl (31.0-37.0); Mean Corpuscular Hemoglobin 22.2 pg (25.0-35.0); Mean Corpuscular Volume 71 fL (80-100); Monocytes # (Auto) 0.6 Thou/mm3 (0.0-0.8); Monocytes % (Auto) 4 % (0-12); Neutrophils # (Auto) 12.7 Thou/mm3 (1.8-7.7); Neutrophils % (Auto) 91 % (37-80); Nucleated Red Blood Cell # 0.00 Thou/mm3 (0.00-0.00); Nucleated Red Blood Cell % 0 /100 WBC (0); Platelet Count 446 Thou/mm3 (140-440); RDW Standard Deviation 41.5 fL (35.1-43.9); Red Blood Count 3.70 Miln/mm3 (4.50-5.90); White Blood Count 14.1 Thou/mm3 (3.8-10.6)
[2025-08-23 06:06] LABS: Hemoglobin 8.2 g/dL (13.5-16.0)
[2025-08-23 06:29] LABS: Alanine Aminotransferase 17 U/L (10-49); Albumin, Serum 2.8 gm/dL (3.5-5.0); Albumin/Globulin Ratio 0.9 (1.2-2.2); Alkaline Phosphatase 75 U/L (46-116); Anion Gap 8 (7-16); Aspartate Amino Transferase 39 U/L (0-34); BUN/Creatinine Ratio 20 Ratio (12-20); Bilirubin,Total 0.2 mg/dL (0.3-1.2); Blood Urea Nitrogen 14 mg/dL (9-23); Calcium 8.3 mg/dL (8.3-10.6); Calcium (Corrected) 9.3 mg/dL (8.5-10.1); Carbon Dioxide 29.5 mMol/L (20.0-31.0); Chloride 96 mMol/L (98-107); Creatinine (Component) 0.7 mg/dL (0.6-1.3); Estimated Creatinine Clearance 102.1 mL/min (>60); Globulin 3.0 gm/dL (2.3-3.5); Glucose 100 mg/dL (74-106); Osmolality,Calculated 266 (275-295); Potassium 4.2 mMol/L (3.4-5.1); Sodium 133 mMol/L (136-145); Total Protein 5.8 gm/dL (5.7-8.2); eGFR > 60 See Note
[2025-08-23 08:00] VITALS: BP 99/58; PULSE 110; PULSE 113; RESP 18; TEMP 37.1; O2SAT 95
[2025-08-23] MEDS: levETIRAcetam INJ 100 MG/ML VIAL 5ML 750 MG IVP ×2 (08:48→20:31)
--- NOTE | 2025-08-23 10:31 | PC.SS ---
Rounding: Plan to increase diet, pt will DC back to [facility] upon medical clearance.
[2025-08-23 11:29] LABS: Carcinoembryonic Antigen 36.7 ng/mL (0.0-5.0)
--- NOTE | 2025-08-23 11:50 | XR_ITS ---
EXAMINATION: AP chest single view TECHNIQUE: AP portable semiupright chest single view Date and time: August 23, 2025, 1234 hours, comparison August 19, 2025 INDICATIONS: Choking shortness of breath today. FINDINGS: Normal heart size Lungs are clear. The osseous structures are intact IMPRESSION: No active disease
[2025-08-23 12:00] VITALS: BP 101/55; PULSE 100; PULSE 111; RESP 19; TEMP 36.4; O2SAT 94
--- NOTE | 2025-08-23 13:01 | ESPR_ITS ---
<Statement entered by Vlad Mina MD - 08/23/25 14:50> Patient was examined and case was reviewed with team including attending physician. Note reviewed, I agree with most of its contents and agree with the patient's care. Patient seen today at the bedside found awake, alert, orientedx3. No overnight events reported. Vital signs stable at this time. No new episodes of seizures likely seizure activity was secondary to medication non-compliance. Pending Liver biopsy and port-a-cath placement. Ordered CEA per Oncology reccommendations will follow up. Anticipate discharge in the next 24-48 hours. Case discussed with my attending Dr. Tico Mina MD PGY-2 Documentation for date of: 08/23/25 Subjective Subjective Interval history: No overnight events reported. Patient was seen at the bedside this morning. Patient is post-op day #2 after diverting colostomy placed by Dr. Weldon. Patient is advancing diet as tolerated with appropriate colostomy output. Patient reports a worsening of hiccups since his abdominal surgery. Patient endorsed hiccups prior to the surgery but notes that they have intensified postoperatively, causing shortness of breath and abdominal pain. Oxygen saturation was measured and is 97% on room air. Baclofen 10 mg three times a day was initially started for the hiccups, which resolved but then returned. Chlorpromazine 25 mg three times a day was added, and the Baclofen dose was reduced to 5 mg three times a day. Plan to be NPO after midnight for chemoport placement tomorrow (08/24). Radiology oncology was consulted regarding suspected liver metastases noted on the CT scan. Per oncology recommendations, serum CEA testing and a liver biopsy have been ordered. Exam Vital Signs Temp Pulse Resp BP Pulse Ox O2 Del Method O2 Flow Rate 97.6 F 111 H 19 101/55 L 94 L Room Air 4 08/23/25 12:00 08/23/25 12:00 08/23/25 12:00 08/23/25 12:08/23/25 12:08/23/25 12:08/21/25 19:35 Narrative Exam Physical Exam General: Awake and in no acute distress. Conversational and non-toxic appearing. Thin habitus. HEENT: Normocephalic, atraumatic, mucous membranes moist. Right eye esotropia with deficient leftward movement of right eye. Left eye EOMI. Anicteric, vision grossly intact. Heart: Regular rate and rhythm, no murmurs. Non-labored respirations, symmetric chest rise, no use of accessory muscles. Lungs: Clear to auscultation with no wheezing or crackles. No accessory muscle use. Respiration unlabored. Abdomen: Colostomy (pink with brown liquid stool in appliance), clean bandage in place. Neurologic: Alert and oriented x3, no gross neurological deficit, and patient able to move all 4 extremities. Extremities: No edema. Handcuffs present on lower extremities. Skin: No rash or ecchymoses. Tattoos. Psychiatric: Cooperative, appropriate mood and affect. Objective Labs 08/25/25 05:28 08/25/25 05:28 Labs: Laboratory Results - last 24 hr 08/23/25 04:46 WBC 14.1 H D RBC 3.70 L Hgb 8.2 L Hct 26.1 L MCV 71 L MCH 22.2 L MCHC 31.4 RDW Std Deviation 41.5 Plt Count 446 H D Neut % (Auto) 91 H Lymph % (Auto) 4 L [place] % (Auto) 4 Eos % (Auto) 0 Baso % (Auto) 0 Neut # (Auto) 12.7 H Lymph # (Auto) 0.6 L [place] # (Auto) 0.6 Eos # (Auto) 0.0 Baso # (Auto) 0.0 Immature Gran # (Auto) 0.07 H Absolute Nucleated RBC 0.00 Immature Gran % 1 H Nucleated RBC % 0 Sodium 133 L Potassium 4.2 Chloride 96 L Carbon Dioxide 29.5 Anion Gap 8 BUN 14 Creatinine 0.7 Estim Creat Clear Calc 102.1 eGFR > 60 BUN/Creatinine Ratio 20 Glucose 100 Calculated Osmolality 266 L Calcium 8.3 Corrected Calcium 9.3 Total Bilirubin 0.2 L AST 39 H ALT 17 Alkaline Phosphatase 75 D Total Protein 5.8 Albumin 2.8 L Globulin 3.0 Albumin/Globulin Ratio 0.9 L Carcinoembryonic Ag 36.7 H ABG Interpretation ABG results: 08/19/25 06:05 VBG pH 7.42 VBG pCO2 42 VBG pO2 26 VBG Base Excess 3 Quality Measures Quality Measures none Assessment & Plan Assessment Current Active Medications: Generic Name Dose Route Start Last Admin Trade Name Freq PRN Reason Stop Dose Admin Baclofen 10 mg 12/01/25 14:00 Baclofen 10 Mg Tablet PO 09/22/25 13:59 TID DEEPA Enoxaparin Sodium 40 mg 08/23/25 09:00 08/23/25 08:56 Enoxaparin Sod Inj 40 Mg/0.4 Ml Syringe SC 09/06/25 08:59 Not Given QDAY DEEPA Fluoxetine HCl 10 mg 08/19/25 12:45 08/23/25 08:49 Fluoxetine Hcl 10 Mg Capsule PO 09/18/25 12:44 10 mg QDAY DEEPA Administration Levetiracetam 750 mg 08/19/25 18:00 08/23/25 08:48 Levetiracetam Inj 100 Mg/Ml Vial 5ml IVP 09/18/25 17:59 750 mg BID DEEPA Administration Melatonin 3 mg 08/22/25 21:00 08/22/25 21:15 Melatonin 3 Mg Tablet PO 09/21/25 20:59 3 mg HS DEEPA Administration Morphine Sulfate 4 mg 08/21/25 23:01 08/23/25 12:05 Morphine Sulf Inj 4 Mg/Ml Vial IVP 08/25/25 14:24 4 mg Q4HR PRN Administration breakthrough pain Protocol Ondansetron HCl 4 mg 08/19/25 12:22 08/21/25 13:36 Ondansetron Inj 2 Mg/Ml Inj 2 Ml IVP 09/18/25 12:21 4 mg Q6H PRN Administration NAUSEA OR VOMITING Protocol Oxycodone HCl 5 mg 08/21/25 19:43 08/23/25 08:50 Oxycodone Hcl 5 Mg Ir Tab PO 08/26/25 19:42 5 mg Q6HR PRN Administration PAIN SCALE 4-10(Mod-Sev Trazodone HCl 50 mg 08/19/25 12:37 08/19/25 21:09 Trazodone Hcl 50 Mg Tablet PO 09/18/25 20:59 50 mg HS PRN Administration Insomnia Plan 45-year-old male with invasive, well-differentiated rectal adenocarcinoma, epilepsy, and bipolar disorder admitted for breakthrough seizures, obstipation, and abdominal pain, found to have a large bowel obstruction from rectosigmoid mass, now status post diverting loop sigmoid colostomy, now post op day 2. #Obstructing rectal adenocarcinoma, invasive and well-differentiated, likely stage IVb and metastatic #S/p diverting colostomy 08/21/2025 #Hematochezia (resolved) #Obstipation (resolved) Initial 08/19 presentation: complaints of nausea, abdominal pain, lack of BMs in over 6 weeks , pressure from belly button to spine, non-stop hematochezia (admission Hgb 9.3), and inability to pass flatus. Physical exam notable at that time for tense, distended abdomen with abdominal TTP especially at the umbilicus, abdominal guarding, and hypoactive bowel sounds. 08/19 CTAP w/o contrast showed colonic obstruction by 8 x 7.6 x 10 cm mass in the pelvis by likely malignant neoplasm of the rectosigmoid colon. Was found to have invasive, well-differentiated rectal adenocarcinoma by [facility] via colonoscopy on 07/20/24 (and confirmed by Pathology on 07/22/24). Patient states that he was aware that he had been diagnosed with colorectal cancer last year but denied making attempts to follow-up in the outpatient setting with an oncologist or other specialist (Dr. Damico apparently tried multiple times to contact him on 07/31/24 but had been unsuccessful in reaching him). Of note, previous 03/13/25 CT CAP also showed findings suspicious for metastatic pulmonary nodules and hepatic metastasis. 08/19 small bowel XR series ordered, negative for SBO/LBO. 08/19 CT CAP w/ contrast ordered, showed large tumor mass in the rectosigmoid pelvis compressing the urinary bladder and abundant stool throughout the entire colon and numerous hepatic metastases. 08/21 diverting colostomy completed by General Surgery (Dr. Weldon). Completed Cefoxitin 2 gm IV q8h per general surgery for prophylaxis 08/21-08/22. Plan: * Supportive treatment of pain and nausea as needed. * Morphine 4 mg IV q4h prn for breakthrough pain. * Oxycodone IR 5 mg q6h prn moderate to severe pain. * Zofran 4 mg IV q6h prn for nausea/vomiting. * Radiation Oncology (Dr. Damico) consulted, appreciate recommendations: check serum CEA and liver biopsy prior to discharge for suspected liver mets noted on CT. * Plan for chemo port placement on 08/24. #Singultus (Hiccups), worsening post-abdominal surgery Patient reports that while he had hiccups prior to surgery, they have become more intense postoperatively, contributing to shortness of breath and abdominal discomfort. CXR ordered on 08/23 for shortness of breath - negative. Initial treatment with Baclofen 10mg led to temporary resolution, but the hiccups recurred. Plan: * Add Chlorpromazine 25 mg three times a day. * Decrease Baclofen 10mg to 5mg three times a day. * Monitor for further resolution of hiccups and reassess if symptoms persist or worsen. #Seizure-like episodes, likely 2/2 medication non-compliance (resolved) #History of epilepsy, on Keppra Brought in on 08/19 for witnessed seizure-like activity from the [facility] with an earlier event occurring 2 days before that but no further events witnessed in the ED by time of intake interview. Reported difficulties adhering to medication and last took Keppra about a month before admission. Plan: * Keppra 750 mg IV BID. #Bipolar disorder type I Per chart review, patient has a documented history of taking Depakote for bipolar disorder. Contacted nurse at the fdc for a current medication list and it appears the patient is no longer taking Depakote. #Depression/anxiety - Resume home Fluoxetine 10 mg PO QD. #Insomnia - Resume home Trazodone 50 mg PO HS PRN. Hospital Management: Disposition: Med Tele Diet: NPO GI Prophylaxis: Not Indicated DVT Prophylaxis: Lovenox CODE STATUS: Full Code Patient plan of care was discussed with the senior resident, Dr. Jim Mina, and attending physician, Dr. Tico Conklin, PGY-1 Attending Provider Attestation/Addendum I have examined the patient, reviewed labs and imaging findings, discussed the case with the resident(s), and reviewed entered orders. I agree with the plan of care as outlined in this note, with these additional summaries/recommendations: Patient is a 45-year-old male with a medical history of asthma, bipolar disorder, and well-differentiated invasive adenocarcinoma of the colon presents to [facility] emergency department on 08/19/2025 with chief complaint of seizure and abdominal pain. Patient seen at bedside. No acute overnight events. This morning patient developed intractable hiccups that are distressing. We will start Rx and monitor for improvement. On admission patient underwent CT scan of abdomen pelvis which revealed a colonic obstruction secondary to 8X7.6X 10 cm mass in the colon. Patient was diagnosed with well-differentiated adenocarcinoma on 07/20/2024. Patient was seen by general surgery and is POD #2 status post exploratory laparotomy with decompression of colon and diverting loop sigmoid colostomy. During ex lap colon was noted to be significantly dilated and over 1 L of stool was suctioned. Continue pain management and IV fluids. General surgery advancing diet. Patient was seen by oncology who recommends liver biopsy prior to discharge given suspected liver mets noted on CT and obtaining CEA level which was ordered. Oncology will help arrange outpatient adjuvant therapy. No seizure-like activity noted since admission. Continue seizure precautions and home antiepileptics. Patient updated on the plan and in agreement. All questions answered to satisfaction. Please see residents note for additional details and management. Dr. Tico MD
--- NOTE | 2025-08-23 13:15 | PC.NURSE ---
Update given to DARA Arreola at [facility].
[2025-08-23] MEDS: BACLOFEN 10 MG TABLET PO (13:30)
[2025-08-23 13:56] LABS: INR 1.3 (0.9-1.3); Partial Thromboplastin Time 40.5 Seconds (22.0-36.0); Prothrombin Time 13.8 Seconds (9.0-12.2)
--- NOTE | 2025-08-23 15:57 | PC.NURSE ---
Call and spoke to DARA Arreola at [facility] to request medication records be faxed at the request of DR. Conklin and Natali Joshi, fax number provided and Elba agreed to fax over requested documents.
[2025-08-23 16:00] VITALS: BP 107/63; PULSE 103; PULSE 105; RESP 18; TEMP 36.6; O2SAT 96
--- NOTE | 2025-08-23 16:00 | ESPR_ITS ---
Documentation for date of: 08/23/25 Subjective Subjective Brief History: 45M with seizures disorder, anxiety and known rectal CA who initially presented to ER with a seizure, additionally noted to have abdominal distention with radiographic signs of large bowel obstruction. Pt states he hadn't had a BM for 3 weeks before admission, and for the last 2 months had noticed decreased appetite as well as unintentional weight loss of >20 lbs. Pt had been diagnosed with rectal CA last year but was unable to follow up. Unfortunately on this admission he underwent CT AP showing the rectal mass as well as liver lesions. Since admission pt has taken golytely and Mag Citrate, and has had three BMs however is having severe cramps which are not relieved with medications. He is still feeling very bloated and unable to eat much PMH: Seizures, anxiety, bipolar disorder PSHx: None Meds: Keppra, depakote, trazodone, prozac Allergies: NKDA Family hx: No known CRC Narrative: Pt having bothersome hiccups today as well as shortness of breath, but he denies any nausea and is tolerating diet with appropriate colostomy output Exam Vital Signs Temp Pulse Resp BP Pulse Ox O2 Del Method O2 Flow Rate 97.6 F 111 H 19 101/55 L 94 L Room Air 4 08/23/25 12:00 08/23/25 12:00 08/23/25 12:00 08/23/25 12:00 08/23/25 12:00 08/23/25 12:00 08/21/25 19:35 Constitutional Constitutional: no acute distress Routine Respiratory Exam Respiratory: Present no resp distress Routine Abdominal Exam Abdominal: Present soft, distended (mild distention) and ostomy (colostomy pink with brown stool in appliance); Absent tenderness Results Results: Laboratory Laboratory results: results reviewed Assessment & Plan Plan 45M with seizures, metastatic rectal CA with radiographic and clinical signs of large bowel obstruction now s/p diverting loop colostomy 08/21, recovering well overall. I explained benefits/risks of chemoport insertion including infection, pneumothorax, and difficulty placing the catheter potentially requiring IR intervention. All questions were answered and pt is agreeable to proceeding NPO after MN for chemoport placement tomorrow around noon Spoke to Dr Rosenbaum from [facility] where pt is incarcerated, confirmed that pain medications can be sent to [facility] pharmacy in [place] and that they will be prepared with colostomy supplies. She requested a callback before pt is dc at [phone] PROCEDURES: Procedures Exploratory laparotomy, decompression of colon and diverting loop sigmoid colostomy
[2025-08-23 20:00] VITALS: BP 105/69; PULSE 104; PULSE 107; RESP 20; TEMP 36.6; O2SAT 96
[2025-08-23] MEDS: MELATONIN 3 MG TABLET PO (20:30)
[2025-08-23] MEDS: BACLOFEN 10 MG TABLET 5 MG PO (21:17)
[2025-08-24] VITALS (17 sets, daily range): BP systolic 99–138; BP diastolic 57–94; PULSE 90–110; RESP 13–20; TEMP 36–37.1; O2SAT 95–100; BMI 17.4
[2025-08-24] MEDS: oxyCODONE HCL 5 MG IR TAB PO ×3 (00:33→22:22)
--- NOTE | 2025-08-24 04:00 | PC.NURSE ---
pt hiccups on and off all night. Pt complain of cannot breathe. 96% O2 sat on room air- Applied O2 inh on at 1L/min/nc for comfort.
[2025-08-24] MEDS: MORPHINE SULF INJ 4 MG/ML VIAL IVP ×3 (04:01→20:01)
[2025-08-24 06:28] LABS: Basophils # (Auto) 0.0 Thou/mm3 (0.0-0.2); Basophils % (Auto) 0 % (0-2.5); Eosinophils # (Auto) 0.1 Thou/mm3 (0.0-0.5); Eosinophils % (Auto) 1 % (0-10); Hematocrit 27.0 % (41.0-53.0); Immature Granulocytes Auto 0.10 Thou/mm3 (0.00-0.00); Lymphocytes # (Auto) 0.8 Thou/mm3 (1.0-4.8); Lymphocytes % (Auto) 6 % (10-50); Mean Corpuscular HGB Conc 31.1 g/dl (31.0-37.0); Mean Corpuscular Hemoglobin 22.8 pg (25.0-35.0); Mean Corpuscular Volume 73 fL (80-100); Monocytes # (Auto) 0.5 Thou/mm3 (0.0-0.8); Monocytes % (Auto) 4 % (0-12); Neutrophils # (Auto) 10.8 Thou/mm3 (1.8-7.7); Neutrophils % (Auto) 88 % (37-80); Nucleated Red Blood Cell # 0.00 Thou/mm3 (0.00-0.00); Nucleated Red Blood Cell % 0 /100 WBC (0); Platelet Count 392 Thou/mm3 (140-440); RDW Standard Deviation 44.2 fL (35.1-43.9); Red Blood Count 3.69 Miln/mm3 (4.50-5.90); White Blood Count 12.2 Thou/mm3 (3.8-10.6)
[2025-08-24 07:47] LABS: Alanine Aminotransferase 14 U/L (10-49); Albumin, Serum 2.9 gm/dL (3.5-5.0); Alkaline Phosphatase 84 U/L (46-116); Anion Gap 8 (7-16); Aspartate Amino Transferase 29 U/L (0-34); BUN/Creatinine Ratio 14 Ratio (12-20); Bilirubin,Total < 0.2 mg/dL (0.3-1.2); Blood Urea Nitrogen 10 mg/dL (9-23); Calcium 8.3 mg/dL (8.3-10.6); Calcium (Corrected) 9.2 mg/dL (8.5-10.1); Carbon Dioxide 30.3 mMol/L (20.0-31.0); Chloride 96 mMol/L (98-107); Creatinine (Component) 0.7 mg/dL (0.6-1.3); Estimated Creatinine Clearance 102.1 mL/min (>60); Glucose 89 mg/dL (74-106); Magnesium 1.8 mg/dL (1.6-2.6); Osmolality,Calculated 266 (275-295); Potassium 3.9 mMol/L (3.4-5.1); Sodium 134 mMol/L (136-145); eGFR > 60 See Note
[2025-08-24 08:00] LABS: Hemoglobin 8.4 g/dL (13.5-16.0)
[2025-08-24] MEDS: levETIRAcetam INJ 100 MG/ML VIAL 5ML 750 MG IVP ×2 (08:09→20:23)
[2025-08-24] MEDS: Magnesium Sulfate 2 GM Ivpb 2 GM/50 ML BAG IV (09:27)
--- NOTE | 2025-08-24 10:46 | PC.NURSE ---
Notified Dr Fernandez and Beata RN patient liver biopsy to be done tomorrow due to scheduled port placement.
--- NOTE | 2025-08-24 11:30 | XR_ITS ---
EXAMINATION: AP chest single view TECHNIQUE: AP portable supine chest single view Date and time: August 24, 2025, 12:53 p.m. INDICATION: Port-A-Cath placement FINDINGS: Right internal jugular Port-A-Cath tip SVC No pneumothorax Normal heart size IMPRESSION: Right internal jugular Port-A-Cath tip satisfactory position
--- NOTE | 2025-08-24 11:54 | ESPR_ITS ---
<Statement entered by Emani Gilmore MD - 09/06/25 09:16> I reviewed above note and agree with findings and plans. I have also personally examined the patient with medicine team and went over assessment and plan with medical team including biology intern and resident physician. <Statement entered by Vlad Mina MD - 08/24/25 16:45> Patient was examined and case was reviewed with team including attending physician. Note reviewed, I agree with most of its contents and agree with the patient's care as documented by Dr. Conklin Patient seen today at the bedside found awake, alert, orientedx3. No overnight events reported. Vital signs and labs reviewed. Patient pending Liver biopsy and port-cath placement likely in the am. Possible discharge within the next 24-48 hours. Case discussed with my attending Dr. Deirdre Mina MD PGY-2 Disclaimer: Despite multiple revisions, due to the dictation software being used, the document bellow may not be free of grammatical errors including phonetic/typographic errors. However, this does not deter from our commitment to providing health care in the patient's best interest in mind. Documentation for date of: 08/24/25 Subjective Subjective Interval history: No overnight events reported. Patient was seen at the bedside this morning. Patient is post-op day #3 after diverting colostomy placed by Dr. Weldon. Patient is advancing diet as tolerated with appropriate colostomy output. Patient was placed on NPO after midnight by Dr. Win for chemoport placement today. Liver biopsy with Dr. Cleaning (IR) scheduled for tomorrow. Patient may resume regular diet until midnight, then liquid diet until 6AM tomorrow (08/25) morning then NPO for liver biospy. May continue Chlorpromazine 25 mg three times a day and Baclofen 10 mg three times a day for hiccups. Exam Vital Signs Temp Pulse Resp BP Pulse Ox O2 Del Method O2 Flow Rate 97.6 F 100 17 106/84 96 Room Air 4 08/24/25 07:59 08/24/25 07:59 08/24/25 07:59 08/24/25 07:59 08/24/25 07:59 08/24/25 07:59 08/21/25 19:35 Narrative Exam Physical Exam General: Awake and in no acute distress. Conversational and non-toxic appearing. Thin habitus. HEENT: Normocephalic, atraumatic, mucous membranes moist. Right eye esotropia with deficient leftward movement of right eye. Left eye EOMI. Anicteric, vision grossly intact. Heart: Regular rate and rhythm, no murmurs. Non-labored respirations, symmetric chest rise, no use of accessory muscles. Lungs: Clear to auscultation with no wheezing or crackles. No accessory muscle use. Respiration unlabored. Abdomen: Colostomy (pink with brown liquid stool in appliance), clean bandage in place. Neurologic: Alert and oriented x3, no gross neurological deficit, and patient able to move all 4 extremities. Extremities: No edema. Handcuffs present on lower extremities. Skin: No rash or ecchymoses. Tattoos. Psychiatric: Cooperative, appropriate mood and affect. Objective Labs 08/24/25 05:34 08/24/25 05:34 Labs: Laboratory Results - last 24 hr 08/23/25 08/24/25 04:40 05:34 WBC 12.2 H RBC 3.69 L Hgb 8.4 L Hct 27.0 L MCV 73 L MCH 22.8 L MCHC 31.1 RDW Std Deviation 44.2 H Plt Count 392 D Neut % (Auto) 88 H Lymph % (Auto) 6 L York % (Auto) 4 Eos % (Auto) 1 Baso % (Auto) 0 Neut # (Auto) 10.8 H Lymph # (Auto) 0.8 L York # (Auto) 0.5 Eos # (Auto) 0.1 Baso # (Auto) 0.0 Immature Gran # (Auto) 0.10 H Absolute Nucleated RBC 0.00 Immature Gran % 1 H Nucleated RBC % 0 PT 13.8 H INR 1.3 APTT 40.5 H Sodium 134 L Potassium 3.9 Chloride 96 L Carbon Dioxide 30.3 Anion Gap 8 BUN 10 Creatinine 0.7 Estim Creat Clear Calc 102.1 eGFR > 60 BUN/Creatinine Ratio 14 Glucose 89 Calculated Osmolality 266 L Calcium 8.3 Corrected Calcium 9.2 Magnesium 1.8 Total Bilirubin < 0.2 L AST 29 ALT 14 Alkaline Phosphatase 84 Albumin 2.9 L ABG Interpretation ABG results: 08/19/25 06:05 VBG pH 7.42 VBG pCO2 42 VBG pO2 26 VBG Base Excess 3 Quality Measures Quality Measures none Assessment & Plan Assessment Current Active Medications: Generic Name Dose Route Start Last Admin Trade Name Freq PRN Reason Stop Dose Admin Baclofen 5 mg 08/23/25 22:00 08/24/25 05:55 Baclofen 10 Mg Tablet PO 09/22/25 21:59 Not Given TID DEEPA Chlorpromazine HCl 25 mg 08/24/25 06:00 08/24/25 05:55 Chlorpromazine 25 Mg Tablet PO 09/23/25 05:59 Not Given TID DEEPA Enoxaparin Sodium 40 mg 08/23/25 09:00 08/24/25 08:12 Enoxaparin Sod Inj 40 Mg/0.4 Ml Syringe SC 09/06/25 08:59 Not Given QDAY DEEPA Fluoxetine HCl 10 mg 08/19/25 12:45 08/24/25 09:26 Fluoxetine Hcl 10 Mg Capsule PO 09/18/25 12:44 10 mg QDAY DEEPA Administration Levetiracetam 750 mg 08/19/25 18:00 08/24/25 08:09 Levetiracetam Inj 100 Mg/Ml Vial 5ml IVP 09/18/25 17:59 750 mg BID DEEPA Administration Melatonin 3 mg 08/22/25 21:00 08/23/25 20:30 Melatonin 3 Mg Tablet PO 09/21/25 20:59 3 mg HS DEEPA Administration Morphine Sulfate 4 mg 08/21/25 23:01 08/24/25 08:10 Morphine Sulf Inj 4 Mg/Ml Vial IVP 08/25/25 14:24 4 mg Q4HR PRN Administration breakthrough pain Protocol Ondansetron HCl 4 mg 08/19/25 12:22 08/21/25 13:36 Ondansetron Inj 2 Mg/Ml Inj 2 Ml IVP 09/18/25 12:21 4 mg Q6H PRN Administration NAUSEA OR VOMITING Protocol Oxycodone HCl 5 mg 08/21/25 19:43 08/24/25 09:26 Oxycodone Hcl 5 Mg Ir Tab PO 08/26/25 19:42 5 mg Q6HR PRN Administration PAIN SCALE 4-10(Mod-Sev Trazodone HCl 50 mg 08/19/25 12:37 08/19/25 21:09 Trazodone Hcl 50 Mg Tablet PO 09/18/25 20:59 50 mg HS PRN Administration Insomnia Plan 45-year-old male with invasive, well-differentiated rectal adenocarcinoma, epilepsy, and bipolar disorder admitted for breakthrough seizures, obstipation, and abdominal pain, found to have a large bowel obstruction from rectosigmoid mass, now status post diverting loop sigmoid colostomy, now post op day 3. #Obstructing rectal adenocarcinoma, invasive and well-differentiated, likely stage IVb and metastatic #S/p diverting colostomy 08/21/2025 #Hematochezia (resolved) #Obstipation (resolved) Initial 08/19 presentation: complaints of nausea, abdominal pain, lack of BMs in over 6 weeks , pressure from belly button to spine, non-stop hematochezia (admission Hgb 9.3), and inability to pass flatus. Physical exam notable at that time for tense, distended abdomen with abdominal TTP especially at the umbilicus, abdominal guarding, and hypoactive bowel sounds. 08/19 CTAP w/o contrast showed colonic obstruction by 8 x 7.6 x 10 cm mass in the pelvis by likely malignant neoplasm of the rectosigmoid colon. Was found to have invasive, well-differentiated rectal adenocarcinoma by [facility] via colonoscopy on 07/20/24 (and confirmed by Pathology on 07/22/24). Patient states that he was aware that he had been diagnosed with colorectal cancer last year but denied making attempts to follow-up in the outpatient setting with an oncologist or other specialist (Dr. Damico apparently tried multiple times to contact him on 07/31/24 but had been unsuccessful in reaching him). Of note, previous 03/13/25 CT CAP also showed findings suspicious for metastatic pulmonary nodules and hepatic metastasis. 08/19 small bowel XR series ordered, negative for SBO/LBO. 08/19 CT CAP w/ contrast ordered, showed large tumor mass in the rectosigmoid pelvis compressing the urinary bladder and abundant stool throughout the entire colon and numerous hepatic metastases. 08/21 diverting colostomy completed by General Surgery (Dr. Weldon). Completed Cefoxitin 2 gm IV q8h per general surgery for prophylaxis 08/21-08/22. Serum CEA 08/23: 36.7. S/p chemo port placement on 08/24. Plan: * Supportive treatment of pain and nausea as needed. * Morphine 4 mg IV q4h prn for breakthrough pain. * Oxycodone IR 5 mg q6h prn moderate to severe pain. * Zofran 4 mg IV q6h prn for nausea/vomiting. * Plan for liver biospy with IR on 08/25. #Singultus (Hiccups), worsening post-abdominal surgery Patient reports that while he had hiccups prior to surgery, they have become more intense postoperatively, contributing to shortness of breath and abdominal discomfort. CXR ordered on 08/23 for shortness of breath - negative. Initial treatment with Baclofen 10mg led to temporary resolution, but the hiccups recurred. Plan: * Chlorpromazine 25 mg three times a day. * Decrease Baclofen 10mg to 5mg three times a day. * Monitor for further resolution of hiccups and reassess if symptoms persist or worsen. #Seizure-like episodes, likely 2/2 medication non-compliance (resolved) #History of epilepsy, on Keppra Brought in on 08/19 for witnessed seizure-like activity from the [facility] senior living with an earlier event occurring 2 days before that but no further events witnessed in the ED by time of intake interview. Reported difficulties adhering to medication and last took Keppra about a month before admission. Plan: * Keppra 750 mg IV BID. #Bipolar disorder type I Per chart review, patient has a documented history of taking Depakote for bipolar disorder. Contacted nurse at the senior living for a current medication list and it appears the patient is no longer taking Depakote. #Depression/anxiety - Resume home Fluoxetine 10 mg PO QD. #Insomnia - Resume home Trazodone 50 mg PO HS PRN. Hospital Management: Disposition: Med Tele Diet: Regular diet until midnight on 08/25, then transition to liquid diet until 6AM, then NPO for liver biopsy GI Prophylaxis: Not Indicated DVT Prophylaxis: Lovenox CODE STATUS: Full Code Patient plan of care was discussed with the senior resident, Dr. Jim Mina, and attending physician, . Tuan Conklin, PGY-1
--- NOTE | 2025-08-24 13:13 | PD.SUROPNT ---
Date of Procedure 08/24/25 Pre Op Diagnosis Metastatic rectal cancer Post Op Diagnosis Same Procedure Exploratory laparotomy, decompression of colon and diverting loop sigmoid colostomy Findings Chemoport inserted into right internal jugular vein under ultrasound guidance Procedure Description After discussion of risks and benefits, pt was brought to OR, SCDs were placed and general anesthesia with LMA was induced. Pt received antibiotics and was prepped and draped in the usual sterile fashion. After timeout the right internal jugular vein was visualized using the ultrasound. The skin overlying the vein was infiltrated with half percent Marcaine and then the right IJ was accessed with the access needle. Appropriate blood return was observed and the wire was placed through the needle. No PVCs were observed. Proper positioning of the wire was confirmed with x-ray. I then made a subcutaneous pocket approximately 3 fingerbreadths inferior to the clavicle. The skin was infiltrated with half percent Marcaine and then incised with a #15 blade. The subcutaneous tissue was divided with electrocautery and a pocket was made with a hemostat, making sure that it was large enough to accommodate the port while keeping it snug. A dermatotomy was made on the neck at the site of the wire insertion site so that the catheter could be accommodated. The skin overlying the tunnel between the port and the wire insertion site was infiltrated with half percent Marcaine and then the catheter was tunneled from the port site to the wire insertion site. The dilator with the sheath was placed over the wire, taking care to keep a hold of the wire at all times. The wire and sheath were both removed. The catheter was inserted into the dilator and the dilator was removed. Proper positioning of the catheter was confirmed again on x-ray. The distal end of the catheter was then cut to length and attached to the port itself. The port was aspirated with proper blood return and flushed easily. The port was secured into the pocket using two interrupted 3-0 Prolene sutures. The port was again accessed showing proper blood return and flushing. The port pocket was irrigated and closed in 2 layers, with 2-0 Vicryl interrupted sutures followed by 4-0 running Monocryl. The small incision at the neck was closed with a single 4-0 Monocryl buried suture. Both incisions were cleaned and reinforced with Dermabond. Patient was extubated and brought to PACU in stable condition Pathology / specimen None Estimated Blood Loss 10 Surgeon Letha Weldon MD Surgical Staff Operation Date: 08/24/25 11:45 <No data on this case meets the specified criteria>
[2025-08-24 13:19] LABS: Albumin/Globulin Ratio 0.9 (1.2-2.2); Globulin 3.4 gm/dL (2.3-3.5); Total Protein 6.3 gm/dL (5.7-8.2)
--- NOTE | 2025-08-24 13:23 | SUR.PHASEI ---
1326 Patient arrived to recovery resting comfortably on oxygen 8L via oxy mask with an airway in place, breathing unlabored, vital signs stable, dressing intact to upper right chest; dermabond, no bleeding noted, report received from Adalid FUCHS and Ronal DIAMOND
--- NOTE | 2025-08-24 14:33 | SUR.PHASEI ---
1433 patient transported via gurney to room 377 without incident
[2025-08-24] MEDS: MELATONIN 3 MG TABLET PO (20:23)
[2025-08-24] MEDS: BACLOFEN 10 MG TABLET 5 MG PO (22:03)
[2025-08-25] VITALS (10 sets, daily range): BP systolic 100–127; BP diastolic 55–74; PULSE 90–108; RESP 16–25; TEMP 36.2–36.8; O2SAT 96–100; BMI 17.4
[2025-08-25] MEDS: MORPHINE SULF INJ 4 MG/ML VIAL IVP ×5 (03:35→22:09)
--- NOTE | 2025-08-25 04:02 | PC.NURSE ---
[facility] 08[facility]/25 from 02:00am to 03:48am.
[2025-08-25 06:40] LABS: Basophils # (Auto) 0.0 Thou/mm3 (0.0-0.2); Basophils % (Auto) 0 % (0-2.5); Eosinophils # (Auto) 0.0 Thou/mm3 (0.0-0.5); Eosinophils % (Auto) 0 % (0-10); Hematocrit 24.2 % (41.0-53.0); Immature Granulocytes Auto 0.10 Thou/mm3 (0.00-0.00); Lymphocytes # (Auto) 0.6 Thou/mm3 (1.0-4.8); Lymphocytes % (Auto) 7 % (10-50); Mean Corpuscular HGB Conc 31.8 g/dl (31.0-37.0); Mean Corpuscular Hemoglobin 22.7 pg (25.0-35.0); Mean Corpuscular Volume 71 fL (80-100); Monocytes # (Auto) 0.7 Thou/mm3 (0.0-0.8); Monocytes % (Auto) 8 % (0-12); Neutrophils # (Auto) 7.9 Thou/mm3 (1.8-7.7); Neutrophils % (Auto) 84 % (37-80); Nucleated Red Blood Cell # 0.00 Thou/mm3 (0.00-0.00); Nucleated Red Blood Cell % 0 /100 WBC (0); Platelet Count 286 Thou/mm3 (140-440); RDW Standard Deviation 43.1 fL (35.1-43.9); Red Blood Count 3.39 Miln/mm3 (4.50-5.90); White Blood Count 9.4 Thou/mm3 (3.8-10.6)
[2025-08-25 06:48] LABS: Hemoglobin 7.7 g/dL (13.5-16.0)
[2025-08-25 07:12] LABS: Alanine Aminotransferase 9 U/L (10-49); Albumin, Serum 2.7 gm/dL (3.5-5.0); Albumin/Globulin Ratio 0.8 (1.2-2.2); Alkaline Phosphatase 74 U/L (46-116); Anion Gap 10 (7-16); Aspartate Amino Transferase 19 U/L (0-34); BUN/Creatinine Ratio 13 Ratio (12-20); Bilirubin,Total 0.2 mg/dL (0.3-1.2); Blood Urea Nitrogen 8 mg/dL (9-23); Calcium 7.9 mg/dL (8.3-10.6); Calcium (Corrected) 8.9 mg/dL (8.5-10.1); Carbon Dioxide 28.4 mMol/L (20.0-31.0); Chloride 99 mMol/L (98-107); Creatinine (Component) 0.6 mg/dL (0.6-1.3); Estimated Creatinine Clearance 119.1 mL/min (>60); Globulin 3.2 gm/dL (2.3-3.5); Glucose 145 mg/dL (74-106); Magnesium 1.8 mg/dL (1.6-2.6); Osmolality,Calculated 275 (275-295); Phosphorous 2.9 mg/dL (2.4-5.1); Potassium 3.9 mMol/L (3.4-5.1); Sodium 137 mMol/L (136-145); Total Protein 5.9 gm/dL (5.7-8.2); eGFR > 60 See Note
[2025-08-25] MEDS: levETIRAcetam INJ 100 MG/ML VIAL 5ML 750 MG IVP ×2 (08:42→21:32)
--- NOTE | 2025-08-25 09:14 | XR_ITS ---
EXAMINATION: AP chest single view TECHNIQUE: AP portable supine chest single view Date and time: August 25, 2025, 0928 hours, comparison August 24, 2025 INDICATIONS: Dyspnea today. FINDINGS: Left apical pleural-parenchymal disease right Right lung clear Normal heart size Right internal jugular Port-A-Cath tip satisfactory position IMPRESSION: Recommend AP lordotic chest follow-up to exclude parenchymal disease left apex
--- NOTE | 2025-08-25 09:16 | PD.SURPROG ---
Documentation for date of: 08/25/25 Subjective Subjective Brief History: 45M with seizures disorder, anxiety and known rectal CA who initially presented to ER with a seizure, additionally noted to have abdominal distention with radiographic signs of large bowel obstruction. Pt states he hadn't had a BM for 3 weeks before admission, and for the last 2 months had noticed decreased appetite as well as unintentional weight loss of >20 lbs. Pt had been diagnosed with rectal CA last year but was unable to follow up. Unfortunately on this admission he underwent CT AP showing the rectal mass as well as liver lesions. Since admission pt has taken golytely and Mag Citrate, and has had three BMs however is having severe cramps which are not relieved with medications. He is still feeling very bloated and unable to eat much PMH: Seizures, anxiety, bipolar disorder PSHx: None Meds: Keppra, depakote, trazodone, prozac Allergies: NKDA Family hx: No known CRC Narrative: Pain controlled, colostomy functioning, NPO for liver biopsy today Exam Vital Signs Temp Pulse Resp BP Pulse Ox O2 Del Method O2 Flow Rate 97.2 F 91 18 103/69 98 Room Air 3 08/25/25 08:00 08/25/25 08:00 08/25/25 08:00 08/25/25 08:00 08/25/25 08:00 08/25/25 08:00 08/25/25 04:00 Constitutional Constitutional: no acute distress Routine Respiratory Exam Respiratory: Absent respiratory distress Routine Abdominal Exam Abdominal: Present soft and ostomy (colostomy pink with brown stool in appliance); Absent tenderness or distended Results Results: Laboratory Laboratory results: results reviewed Assessment & Plan Plan 45M with seizures, metastatic rectal CA with radiographic and clinical signs of large bowel obstruction now s/p diverting loop colostomy 08/21, and chemoport insertion 08/24 recovering well overall Fu CXR as pt is on nasal cannula OK for dc from my standpoint, red rubber catheter removed PROCEDURES: Procedures Exploratory laparotomy, decompression of colon and diverting loop sigmoid colostomy
--- NOTE | 2025-08-25 09:48 | PC.SS ---
Rounding: Pending Liver BX today, DC plan [facility]
--- NOTE | 2025-08-25 11:31 | ESPR_ITS ---
<Statement entered by Emani Gilmore MD - 09/06/25 09:17> I reviewed above note and agree with findings and plans. I have also personally examined the patient with medicine team and went over assessment and plan with medical team including manager internal and resident physician. Documentation for date of: 08/25/25 Subjective Subjective Interval history: In summary, 45-year-old male with invasive, well-differentiated rectal adenocarcinoma, epilepsy and bipolar disorder who was admitted for breakthrough seizure which have resolved, obstipation, and abdominal pain and underwent decompression of colon and diverging loop sigmoid colostomy. Currently doing well postop. Pending liver biopsy for possible metastatic mass seen on CT. I?ve reviewed the note and agree with this assessment and plan, with the exceptions outlined above. I personally went over the labs, imaging, home medications, and prior records, and examined the patient. The case was also reviewed with the attending physician. Please note: this document was transcribed using voice recognition technology; minor inaccuracies may be present. Teetee Bassett DO PGY II No overnight events were reported. Patient was seen at the bedside this morning and is post-op day 4 following a diverting colostomy placement performed by Dr. Weldon. Chemoport was successfully inserted into the right internal jugular vein on 08/[address] Weldon. General surgery has cleared the patient for discharge. A liver biopsy was performed today by IR, and the pathology report is pending. Exam Vital Signs Temp Pulse Resp BP Pulse Ox O2 Del Method O2 Flow Rate 97.2 F 91 18 103/69 98 Room Air 3 08/25/25 08:00 08/25/25 08:00 08/25/25 08:00 08/25/25 08:00 08/25/25 08:00 08/25/25 08:00 08/25/25 04:00 Narrative Exam Physical Exam General: Awake and in no acute distress. Conversational and non-toxic appearing. Thin habitus. HEENT: Normocephalic, atraumatic, mucous membranes moist. Right eye esotropia with deficient leftward movement of right eye. Left eye EOMI. Anicteric, vision grossly intact. Heart: Regular rate and rhythm, no murmurs. Non-labored respirations, symmetric chest rise, no use of accessory muscles. Lungs: Clear to auscultation with no wheezing or crackles. No accessory muscle use. Respiration unlabored. Abdomen: Colostomy (pink with brown liquid stool in appliance), clean bandage in place. Neurologic: Alert and oriented x3, no gross neurological deficit, and patient able to move all 4 extremities. Extremities: No edema. Handcuffs present on lower extremities. Skin: No rash or ecchymoses. Tattoos. Psychiatric: Cooperative, appropriate mood and affect. Objective Labs 08/25/25 05:28 08/25/25 05:28 Labs: Laboratory Results - last 24 hr 08/24/25 08/25/25 05:34 05:28 WBC 9.4 RBC 3.39 L Hgb 7.7 L Hct 24.2 L MCV 71 L MCH 22.7 L MCHC 31.8 RDW Std Deviation 43.1 Plt Count 286 D Neut % (Auto) 84 H Lymph % (Auto) 7 L [place] % (Auto) 8 Eos % (Auto) 0 Baso % (Auto) 0 Neut # (Auto) 7.9 H Lymph # (Auto) 0.6 L [place] # (Auto) 0.7 Eos # (Auto) 0.0 Baso # (Auto) 0.0 Immature Gran # (Auto) 0.10 H Absolute Nucleated RBC 0.00 Immature Gran % 1 H Nucleated RBC % 0 Sodium 137 Potassium 3.9 Chloride 99 Carbon Dioxide 28.4 Anion Gap 10 BUN 8 L Creatinine 0.6 Estim Creat Clear Calc 119.1 eGFR > 60 BUN/Creatinine Ratio 13 Glucose 145 H D Calculated Osmolality 275 Calcium 7.9 L Corrected Calcium 8.9 Phosphorus 2.9 Magnesium 1.8 Total Bilirubin 0.2 L AST 19 ALT 9 L Alkaline Phosphatase 74 Total Protein 6.3 5.9 Albumin 2.7 L Globulin 3.4 3.2 Albumin/Globulin Ratio 0.9 L 0.8 L ABG Interpretation ABG results: 08/19/25 06:05 VBG pH 7.42 VBG pCO2 42 VBG pO2 26 VBG Base Excess 3 Quality Measures Quality Measures none Assessment & Plan Assessment Current Active Medications: Generic Name Dose Route Start Last Admin Trade Name Freq PRN Reason Stop Dose Admin Baclofen 5 mg 08/23/25 22:00 08/25/25 05:23 Baclofen 10 Mg Tablet PO 09/22/25 21:59 Not Given TID DEEPA Chlorpromazine HCl 25 mg 08/24/25 06:00 08/25/25 05:23 Chlorpromazine 25 Mg Tablet PO 09/23/25 05:59 Not Given TID DEEPA Enoxaparin Sodium 40 mg 08/23/25 09:00 08/25/25 07:41 Enoxaparin Sod Inj 40 Mg/0.4 Ml Syringe SC 09/06/25 08:59 Not Given QDAY DEEPA Fluoxetine HCl 10 mg 08/19/25 12:45 08/25/25 08:45 Fluoxetine Hcl 10 Mg Capsule PO 09/18/25 12:44 Not Given QDAY DEEPA Levetiracetam 750 mg 08/19/25 18:00 08/25/25 08:42 Levetiracetam Inj 100 Mg/Ml Vial 5ml IVP 09/18/25 17:59 750 mg BID DEEPA Administration Melatonin 3 mg 08/22/25 21:00 08/24/25 20:23 Melatonin 3 Mg Tablet PO 09/21/25 20:59 3 mg HS DEEPA Administration Morphine Sulfate 4 mg 08/21/25 23:01 08/25/25 11:06 Morphine Sulf Inj 4 Mg/Ml Vial IVP 08/25/25 14:24 4 mg Q4HR PRN Administration breakthrough pain Protocol Ondansetron HCl 4 mg 08/19/25 12:22 08/21/25 13:36 Ondansetron Inj 2 Mg/Ml Inj 2 Ml IVP 09/18/25 12:21 4 mg Q6H PRN Administration NAUSEA OR VOMITING Protocol Oxycodone HCl 5 mg 08/21/25 19:43 08/24/25 22:22 Oxycodone Hcl 5 Mg Ir Tab PO 08/26/25 19:42 5 mg Q6HR PRN Administration PAIN SCALE 4-10(Mod-Sev Trazodone HCl 50 mg 08/19/25 12:37 08/19/25 21:09 Trazodone Hcl 50 Mg Tablet PO 09/18/25 20:59 50 mg HS PRN Administration Insomnia Plan 45-year-old male with invasive, well-differentiated rectal adenocarcinoma, epilepsy, and bipolar disorder admitted for breakthrough seizures, obstipation, and abdominal pain, found to have a large bowel obstruction from rectosigmoid mass, now status post diverting loop sigmoid colostomy, now post op day 4. #Obstructing rectal adenocarcinoma, invasive and well-differentiated, likely stage IVb and metastatic #S/p diverting colostomy 08/21/2025 #Hematochezia (resolved) #Obstipation (resolved) - Initial 08/19 presentation: complaints of nausea, abdominal pain, lack of BMs in over 6 weeks , pressure from belly button to spine, non-stop hematochezia (admission Hgb 9.3), and inability to pass flatus. - Physical exam notable at that time for tense, distended abdomen with abdominal TTP especially at the umbilicus, abdominal guarding, and hypoactive bowel sounds. - Invasive, well-differentiated rectal adenocarcinoma by [facility] via colonoscopy on 07/20/24 (and confirmed by Pathology on 07/22/24). - Patient states that he was aware that he had been diagnosed with colorectal cancer last year but denied making attempts to follow-up in the outpatient setting with an oncologist or other specialist (Dr. Damico apparently tried multiple times to contact him on 07/31/24 but had been unsuccessful in reaching him). - Of note, previous 03/13/25 CT CAP also showed findings suspicious for metastatic pulmonary nodules and hepatic metastasis. - 08/19 small bowel XR series ordered, negative for SBO/LBO. - 08/19 CT CAP w/ contrast ordered, showed large tumor mass in the rectosigmoid pelvis compressing the urinary bladder and abundant stool throughout the entire colon and numerous hepatic metastases. - 08/21 diverting colostomy completed by General Surgery (Dr. Weldon). - Completed Cefoxitin 2 gm IV q8h per general surgery for prophylaxis 08/21- 08/22. - Serum CEA 08/23: 36.7. - Chemo port placement on 08/24. - Liver biopsy done on 08/25, pathology report pending. Plan: * Supportive treatment of pain and nausea as needed. * Morphine 4 mg IV q4h prn for breakthrough pain. * Oxycodone IR 5 mg q6h prn moderate to severe pain. * Zofran 4 mg IV q6h prn for nausea/vomiting. #Singultus (Hiccups), worsening post-abdominal surgery - Patient reports that while he had hiccups prior to surgery, they have become more intense postoperatively, contributing to shortness of breath and abdominal discomfort. CXR ordered on 08/23 for shortness of breath - negative. - Initial treatment with Baclofen 10mg led to temporary resolution, but the hiccups recurred. Plan: * Chlorpromazine 25 mg three times a day. * Baclofen 5mg three times a day. * Monitor for further resolution of hiccups and reassess if symptoms persist or worsen. #Seizure-like episodes, likely 2/2 medication non-compliance (resolved) #History of epilepsy, on Keppra Brought in on 08/19 for witnessed seizure-like activity from the [facility] long-term with an earlier event occurring 2 days before that but no further events witnessed in the ED by time of intake interview. Reported difficulties adhering to medication and last took Keppra about a month before admission. Plan: * Keppra 750 mg IV BID. #Bipolar disorder type I Per chart review, patient has a documented history of taking Depakote for bipolar disorder. Contacted nurse at the long-term for a current medication list and it appears the patient is no longer taking Depakote. #Depression/anxiety - Resume home Fluoxetine 10 mg PO QD. #Insomnia - Resume home Trazodone 50 mg PO HS PRN. Hospital Management: Disposition: Med Tele Diet: Regular diet until midnight on 08/25, then transition to liquid diet until 6AM, then NPO for liver biopsy GI Prophylaxis: Not Indicated DVT Prophylaxis: Lovenox CODE STATUS: Full Code Patient plan of care was discussed with the senior resident, Dr. Bassett, and attending physician, . Tuan Conklin, PGY-1
[2025-08-25] MEDS: ONDANSETRON INJ 2 MG/ML INJ 2 ML 4 MG IVP (12:26)
--- NOTE | 2025-08-25 13:41 | XR_ITS ---
Examination: CT guided percutaneous biopsy right lobe liver lesion CT abdomen without intravenous contrast Date and time of procedure: August 25, 2025, 1423 hours INDICATIONS: Multiple right lobe liver lesions on CT examination abdomen August 19, 2025 Informed consent provided. A timeout was completed verifying correct patient, procedure, site and positioning. Technique: Axial 3 mm sections were obtained for localization of a right lobe liver lesion. Appropriate area is marked. The patient's site was prepped and draped in sterile fashion Maximal sterile barrier technique utilized, including hand hygiene Local anesthesia was obtained with 1% lidocaine. Low dose protocols were performed. One or more of the following dose reduction techniques were used; automated exposure control, adjustment of the mA and/or KV according to patient size, use of iterative reconstruction technique. Utilizing CT fluoroscopic guidance 2 core biopsies obtained of a right lobe liver lesion Patient appears in stable condition during this procedure. At completion of the procedure, the patient is in satisfactory condition. Estimated blood loss 0 cc Complete pathology report to follow. Impression: Successful CT-guided percutaneous biopsy right lobe liver lesion
[2025-08-25] MEDS: fentaNYL CIT INJ 50 mCg/ML AMP 2ML IVP (14:39)
--- NOTE | 2025-08-25 15:30 | PC.NURSE ---
Patient returned from procedure at this time. Biopsy site CDI. Patient is complaining of generalized pain.
[2025-08-25] MEDS: oxyCODONE HCL 5 MG IR TAB PO (19:33)
[2025-08-25] MEDS: BACLOFEN 10 MG TABLET 5 MG PO (21:29)
[2025-08-25] MEDS: MELATONIN 3 MG TABLET PO (22:09)
[2025-08-26] VITALS: BP 111/69; PULSE 110; PULSE 116; RESP 18; TEMP 37.2; O2SAT 94
[2025-08-26] MEDS: MORPHINE SULF INJ 4 MG/ML VIAL IVP ×2 (02:29→08:38)
[2025-08-26 04:00] VITALS: BP 112/61; PULSE 118; PULSE 126; RESP 17; TEMP 37.6; O2SAT 94
[2025-08-26] MEDS: oxyCODONE HCL 5 MG IR TAB PO (04:02)
[2025-08-26] MEDS: BACLOFEN 10 MG TABLET 5 MG PO (05:02)
[2025-08-26 06:00] VITALS: BMI 17.7
[2025-08-26 06:01] LABS: Basophils # (Auto) 0.0 Thou/mm3 (0.0-0.2); Basophils % (Auto) 0 % (0-2.5); Eosinophils # (Auto) 0.0 Thou/mm3 (0.0-0.5); Eosinophils % (Auto) 0 % (0-10); Hematocrit 24.7 % (41.0-53.0); Immature Granulocytes Auto 0.07 Thou/mm3 (0.00-0.00); Lymphocytes # (Auto) 0.9 Thou/mm3 (1.0-4.8); Lymphocytes % (Auto) 9 % (10-50); Mean Corpuscular HGB Conc 31.2 g/dl (31.0-37.0); Mean Corpuscular Hemoglobin 22.4 pg (25.0-35.0); Mean Corpuscular Volume 72 fL (80-100); Monocytes # (Auto) 1.0 Thou/mm3 (0.0-0.8); Monocytes % (Auto) 11 % (0-12); Neutrophils # (Auto) 7.8 Thou/mm3 (1.8-7.7); Neutrophils % (Auto) 79 % (37-80); Nucleated Red Blood Cell # 0.02 Thou/mm3 (0.00-0.00); Nucleated Red Blood Cell % 0 /100 WBC (0); Platelet Count 430 Thou/mm3 (140-440); RDW Standard Deviation 42.6 fL (35.1-43.9); Red Blood Count 3.43 Miln/mm3 (4.50-5.90); White Blood Count 9.8 Thou/mm3 (3.8-10.6)
[2025-08-26 06:41] LABS: Alanine Aminotransferase 8 U/L (10-49); Albumin, Serum 2.8 gm/dL (3.5-5.0); Albumin/Globulin Ratio 0.9 (1.2-2.2); Alkaline Phosphatase 87 U/L (46-116); Anion Gap 8 (7-16); Aspartate Amino Transferase 18 U/L (0-34); BUN/Creatinine Ratio 12 Ratio (12-20); Bilirubin,Total 0.2 mg/dL (0.3-1.2); Blood Urea Nitrogen 7 mg/dL (9-23); Calcium 8.1 mg/dL (8.3-10.6); Calcium (Corrected) 9.1 mg/dL (8.5-10.1); Carbon Dioxide 27.9 mMol/L (20.0-31.0); Chloride 99 mMol/L (98-107); Creatinine (Component) 0.6 mg/dL (0.6-1.3); Estimated Creatinine Clearance 121.0 mL/min (>60); Globulin 3.2 gm/dL (2.3-3.5); Glucose 113 mg/dL (74-106); Magnesium 1.7 mg/dL (1.6-2.6); Osmolality,Calculated 269 (275-295); Phosphorous 3.0 mg/dL (2.4-5.1); Potassium 4.2 mMol/L (3.4-5.1); Sodium 135 mMol/L (136-145); Total Protein 6.0 gm/dL (5.7-8.2); eGFR > 60 See Note
[2025-08-26 07:54] LABS: Hemoglobin 7.7 g/dL (13.5-16.0)
[2025-08-26 08:00] VITALS: BP 92/65; PULSE 122; RESP 17; TEMP 36.1; O2SAT 92
[2025-08-26] MEDS: levETIRAcetam INJ 100 MG/ML VIAL 5ML 750 MG IVP (08:07)
[2025-08-26] MEDS: ENOXAPARIN SOD INJ 40 MG/0.4 ML SYRINGE SC (08:07)
[2025-08-26 12:00] VITALS: BP 119/67; PULSE 116; RESP 18; TEMP 36.4; O2SAT 94
--- NOTE | 2025-08-26 13:06 | PC.SS ---
SS gave RN, Cheryl number to call report [place] [employer] ? [phone]
--- NOTE | 2025-08-26 18:30 | ESDS_ITS ---
<Statement entered by Emani Gilmore MD - 09/06/25 09:18> I reviewed above note and agree with findings and plans. I have also personally examined the patient with medicine team and went over assessment and plan with medical team including university intern and resident physician. Planned Discharge Date 08/26/25 DS: Providers Provider Date of admission: 08/19/25 14:45 Primary care physician: Physician No Primary/Family Admitting Provider: Leonel Doshi MD Attending Provider on Admission: Nagi Brody DO Consults: 08/19/25 12:40 Consult to General Surgery Routine Comment: c/f SBO 2/2 obstructive rectal adenocarcinoma Consulting Provider: Sindy Amaya 08/19/25 15:31 Health Equity Referral - Nutrition Routine Comment: Positive screening for nutrition needs. Health Equity Referral - Transportation Routine Comment: Positive screening for transportation needs. Health Equity Referral - Utilities Routine Comment: Positive screening for utility assistance needs. 08/19/25 18:01 Consult to Oncology Routine Comment: obstructing rectal adenocarcinoma, likely stage IV Consulting Provider: Marquis Damico 08/23/25 13:09 Referral Nutritional Services Routine Comment: New colostomy Referral Wound Care Routine Comment: New colostomy care Attending Provider on DC: Emani Gilmore MD Discharging Provider: Tuan Conlkin DO DS: Diagnosis Problem List Completed Was Problem List Reviewed/Reconciled?: Yes Hospital Course Hospital Course Hospital course: 45-year-old male with invasive, well-differentiated rectal adenocarcinoma, was admitted on 08/19/2025 for the evaluation and management of breakthrough seizure-like activity, abdominal pain, and obstipation. He presented with a history of ongoing issues including constipation, and abdominal pain, along with a lack of bowel movements. Imaging on 08/19 revealed a significant 8 x 7.6 x 10 cm mass in the pelvis likely representing obstructing rectosigmoid carcinoma, which was causing a colonic obstruction. Additionally, the patient had a history of known colorectal cancer diagnosed in June 2024, but he had not followed up with oncology for ongoing care, and a CT scan in February 2025 showed findings suggestive of metastatic pulmonary and hepatic lesions. Upon admission, the patient was started on IV Keppra to manage breakthrough seizures, and was managed conservatively for the obstipation. He was made NPO, and a bowel regimen was initiated, including magnesium citrate, GoLytely, and Senna. After some delay, the patient was able to pass a bloody bowel movement. However, his obstructive symptoms were not resolving, and the patient underwent a diverting colostomy performed by General Surgery on 08/21/2025. This procedure was done to relieve the obstruction caused by the malignant neoplasm and to prevent further bowel perforation or complications. The patient had worsening hiccups (singultus) after surgery, causing significant discomfort. Baclofen was initially prescribed, but the hiccups recurred, and chlorpromazine was added to his regimen for better control. The patient also experienced breakthrough pain, which was managed with morphine and oxycodone, as needed. On 08/24/2025, a chemoport was successfully placed by Dr. Weldon to facilitate chemotherapy. The patient tolerated the procedure well. A liver biopsy was performed on 08/25/2025 to assess for metastatic disease to the liver, as indicated by prior imaging findings. The pathology results for the liver biopsy are still pending. Throughout his hospitalization, the patient was closely monitored by the oncology and general surgery teams. His colostomy was functioning appropriately, and he was managed for any post-operative complications, including hiccups and pain. His seizure-like episodes, initially attributed to medication non- compliance, resolved with the re-initiation of Keppra. The patient's psychiatric symptoms, including depression and anxiety, were managed with his home medications, fluoxetine and trazodone. His hospitalization included ongoing supportive care for pain management, nausea control, and colostomy care. The patient was cleared for discharge by General Surgery, with follow-up appointments scheduled for oncology and general surgery. The liver biopsy results will help guide further treatment decisions. Diagnosis during admission: #Obstructing rectal adenocarcinoma, invasive and well-differentiated, likely stage IVb and metastatic #S/p diverting colostomy 08/21/2025 #Hematochezia (resolved) #Obstipation (resolved) #Singultus (Hiccups), worsening post-abdominal surgery #Seizure-like episodes, likely 2/2 medication non-compliance (resolved) #History of epilepsy, on Keppra #Bipolar disorder type I #Depression/anxiety #Insomnia DC instructions: Follow up with primary care physician within 1 week of discharge Follow up with Dr. Damico who is radiation/oncology in regards to your cancer Should your symptoms recur or worsen patient is instructed to return to the ED. Patient plan of care was discussed with attending physician, . Tuan Conklin DO PGY-1 Time Spent with Patient Time attestation: Total time spent providing and/or coordinating discharge services: Time spent: Greater than 30 minutes Exam Vital Signs Temp Pulse Resp BP Pulse Ox O2 Del Method O2 Flow Rate 97.6 F 116 H 18 119/67 94 L Room Air 2 08/26/25 12:00 08/26/25 12:08/26/25 12:08/26/25 12:08/26/25 12:08/26/25 12:08/25/25 15:06 Narrative Exam Physical Exam General: Awake and in no acute distress. Conversational and non-toxic appearing. Thin habitus. HEENT: Normocephalic, atraumatic, mucous membranes moist. Right eye esotropia with deficient leftward movement of right eye. Left eye EOMI. Anicteric, vision grossly intact. Heart: Regular rate and rhythm, no murmurs. Non-labored respirations, symmetric chest rise, no use of accessory muscles. Lungs: Clear to auscultation with no wheezing or crackles. No accessory muscle use. Respiration unlabored. Abdomen: Colostomy (pink with brown liquid stool in appliance), clean bandage in place. Neurologic: Alert and oriented x3, no gross neurological deficit, and patient able to move all 4 extremities. Extremities: No edema. Handcuffs present on lower extremities. Skin: No rash or ecchymoses. Tattoos. Psychiatric: Cooperative, appropriate mood and affect. Discharge Plan Plan Patient Disposition: Usp/Court/Law Care Plan Goals: Follow up with primary care physician within 1 week of discharge Follow up with Dr. Damico who is radiation/oncology in regards to your cancer Should your symptoms recur or worsen patient is instructed to return to the ED. Prescriptions/Referrals Prescriptions/Med Rec: New hydrocodone-acetaminophen 7.5-325 mg tablet 1 tab PO Q8H MDD 3 PRN (Reason: pain) Qty: 10 0RF Continued trazodone 50 mg Tablet 50 mg PO HS PRN (Reason: Sleep) Qty: 0 fluoxetine [Prozac] 20 MG capsule 10 mg PO QAM Qty: 0 levetiracetam [Keppra] 500 mg Tablet 500 mg PO BID levetiracetam [Keppra] 750 mg tablet 750 mg PO BID MDD 2 Qty: 60 0RF Referrals: Letha Weldon MD [Physician, General Surgery] No Primary/Family,Physician [Primary Care Provider] Patient/Caregiver Discharge Instructions Other Discharge Activity Instructions:: Avoid lifting objects >10lbs for 6 weeks Your camilo may be removed as early as 09/04/25 Colostomy/Stoma care: Change every 3-5 days or any time wafer appears soiled Have towel at hand Measure out put Peel off the wafer and discard Clean stoma with warm water and mild soap, pat dry Assess skin around stoma for skin breakdown Cut wafer to fit stoma Prepare skin by applying skin barrier and paste Apply wafer by removing backing from wafer and attaching to skin, smooth down to skin and make sure it?s firmly adhere to skin Snap on bag and make sure the bag is sealed Education Materials: Preventing Surgical Site Infections Print Language: Gu[place]ese Discharge Order Discharge Orders: Discharge (Routine); Ordered 08/26/25 Ordered By: Vlad Mina Quality Discharge Quality Measures VTE prophylaxis
== END 2025-08-26 13:47 | DRG 231 ==
LOC: SERX 14:43 → SERHOLD 14:47 → S3SX 15:08
PROVIDERS: Emergency Medicine; Internal Medicine; Radiology Diagnostic Radiology; Surgery; Admitting Provider Student in an Organized Health Care Education/Training Program; Emergency Provider Family Medicine; Visit Provider Student in an Organized Health Care Education/Training Program
PROC: (CPT 44320; principal; 2025-08-21 10:00)
PROC: (CPT 49000; 2025-08-21 10:00)
DX: C19 Malignant neoplasm of rectosigmoid junction (principal); C78.7 Secondary malignant neoplasm of liver and intrahepatic bile duct; K56.609 Unspecified intestinal obstruction, unspecified as to partial versus complete obstruction; K92.1 Melena; G40.909 Epilepsy, unspecified, not intractable, without status epilepticus; F31.9 Bipolar disorder, unspecified; Z91.148 Patient's other noncompliance with medication regimen for other reason; G47.00 Insomnia, unspecified; F41.9 Anxiety disorder, unspecified; Z79.899 Other long term (current) drug therapy
CPT/HCPCS: 36415; 70450; 70552; 71045; 71046; 71260; 74018; 74176; 74177; 74250; 77012; 80053; 80307; 80320; 81001; 82248; 82378; 82803; 83735; 84100; 84443; 84484; 85025; 85610; 85730; 93005; 93225; 96361; 96374; 96375; 96376; 99284; A4649; A9577; C1788; J0131; J0690; J0694; J1100; J1171; J1200; J1644; J1650; J1885; J1953; J2250; J2270; J2405; J2704; J2765; J3010; J3475; J3490; J7030; J7050; J7120; Q0161; Q9963; Q9967; A9270; G0480; J1596

== ENCOUNTER 2025-09-02 19:46 | Inpatient (IN) | payer MEDICAID, SELFPAY ==
--- NOTE | 2025-09-02 19:51 | PD.EDAMS ---
Altered Mental Status RME/HPI General Chief Complaint: Altered Mental Status Stated Complaint: AMS Time Seen by Provider: 09/02/25 19:55 Arrival date/time: 09/02/25 19:46 RME / HPI RME / HPI narrative: See [facility] for Dr. Damico's HPI documentation. Related Data Home Medications ?Medication ?Instructions ?Recorded ?Confirmed fluoxetine 20 mg capsule (Prozac) 10 mg PO QAM #0 caps 12/20/14 08/19/25 trazodone 50 mg tablet 50 mg PO HS PRN Sleep #0 tabs 12/20/14 08/19/25 levetiracetam 500 mg tablet 500 mg PO BID 07/20/24 08/19/25 (Keppra) Previous Rx's ?Medication ?Instructions ?Recorded levetiracetam 750 mg tablet 750 mg PO BID Seizures #60 tabs 03/09/25 (Keppra) hydrocodone 7.5 mg-acetaminophen 1 tab PO Q8H PRN pain #10 tabs 08/26/25 325 mg tablet Allergies Allergy/AdvReac Type Severity Reaction Status Date / Time coconut Allergy Severe Anaphylaxis Verified 09/02/25 20:15 Review of Systems Review of Systems ROS Unobtainable: unobtainable due to mental status ED Exam Narrative Physical exam: See MDM for Dr. Damico's physical exam documentation. Course Course Course Narrative: 1954: Stroke alert initiated. TNK not given due to the patient's active GI malignancy with recent GI bleeding. Quality Measures none Orders Category Date Time Status 4 HR Behavioral Restraints Q15M Care 09/02/25 21:58 Completed Bedside Blood Glucose NOW Care 09/02/25 19:56 Active Bedside COVID-19 Antigen Test NOW Care 09/02/25 19:57 Active Bedside Influenza A&B Antigen Test NOW Care 09/02/25 19:57 Completed COVID-19 Screening Questionnaire NOW Care 09/02/25 22:27 Active COVID-19 Screening Questionnaire NOW Care 09/02/25 22:28 Active COVID-19 Screening Questionnaire NOW Care 09/02/25 23:10 Active Termite Control Service Representative NOW Care 09/02/25 19:56 Active Continuous Pulse Oximetry NOW Care 09/02/25 19:56 Completed Decision to Admit X1 Care 09/02/25 23:10 Completed EKG (ED ONLY) *Do not use* NOW Care 09/02/25 19:56 Completed Insert IV NOW Care 09/02/25 19:56 Active NIH Stroke Scale now Care 09/02/25 19:56 Active NPO NOW Care 09/02/25 19:56 Active Nurse Swallow Screen x1 Care 09/02/25 19:56 Active Straight [In and Out Catheter] X1 Care 09/02/25 19:57 Completed Consult to Neurology / Tele-Neurology Routine Cons 09/02/25 19:[address] angio stroke protocol Stat Exams 09/02/25 19:[address] chest abdomen pelvis w Stat Exams 09/02/25 19:[address] stroke protocol Stat Exams 09/02/25 19:56 Completed EKG (ED Only) Stat Exams 09/02/25 19:56 Draft XR chest 1V portable Stat Exams 09/02/25 19:56 Completed Alcohol, Blood Medical Stat Lab 09/02/25 21:36 Completed Ammonia Stat Lab 09/02/25 20:01 Completed Arterial Blood Gas Stat Lab 09/02/25 19:56 Ordered B-Type Natriuretic Peptide Stat Lab 09/02/25 21:36 Completed Beta Hydroxybutyrate Stat Lab 09/02/25 21:36 Completed Bilirubin,Direct Stat Lab 09/02/25 21:36 Completed Blood Culture (Lab) Stat Lab 09/02/25 21:36 Received CBC Stat Lab 09/02/25 21:36 Completed CK [Creatine Kinase] Stat Lab 09/02/25 21:36 Completed CRP [C-Reactive Protein] Stat Lab 09/02/25 21:36 Completed Comprehensive Metabolic Panel Stat Lab 09/02/25 21:36 Completed Drug Screen,Urine Stat Lab 09/02/25 20:44 Completed ESR [Sed Rate (ESR)] Stat Lab 09/02/25 21:36 Completed Hemoglobin A1C [Glycohemoglobin w (eAG)] Stat Lab 09/02/25 20:01 Completed Lactate (Lactic Acid) Stat Lab 09/02/25 20:01 Completed Lipase Stat Lab 09/02/25 21:36 Completed Magnesium Stat Lab 09/02/25 21:36 Completed Partial Thromboplastin Time Stat Lab 09/02/25 21:36 Completed Procalcitonin Stat Lab 09/02/25 21:36 Completed Prothrombin Time with INR Stat Lab 09/02/25 21:36 Completed TSH [Thyroid Stimulating Hormone] Stat Lab 09/02/25 21:36 Completed Troponin I Stat Lab 09/02/25 21:36 Completed Urinalysis, C/S if Indicated Stat Lab 09/02/25 20:44 Completed DiphenhydrAMINE INJ [Benadryl Inj] Med 09/02/25 21:50 Discontinued 50 mg IVP X1 STA Haloperidol Lactate [Haldol Inj] Med 09/02/25 21:50 Discontinued 7.5 mg IV X1 ONE Midazolam Inj [Versed Inj] Med 09/02/25 20:46 Discontinued 2 mg IVP X1 ONE NALOXONE INJ (Vial) [Narcan Inj (Vial)] Med 09/02/25 20:01 Discontinued 2 mg IV X1 ONE Ondansetron Inj [Zofran Inj] Med 09/02/25 19:57 Discontinued 4 mg IVP X1 ONE Ringers Lactated 1000 ml [Lactated Ringers] 1,000 ml Med 09/02/25 19:57 Discontinued IV 1,000 mls/hr levETIRAcetam INJ [Keppra Inj] Med 09/02/25 20:46 Discontinued 3,000 mg IVP X1 ONE Oxygen Delivery NOW RT 09/02/25 19:56 Active Vital Signs Vital signs: Vital Signs Pulse Rate 102 H 09/02/25 20:37 Respiratory Rate 17 09/02/25 20:37 Blood Pressure 118/74 09/02/25 20:37 Pulse Oximetry (%) 98 09/02/25 20:37 Oxygen Delivery Method Room Air 09/02/25 20:37 Altered Mental Status MDM Narrative MDM Narrative:: This section includes all my notes and documentations, including HPI, PE, and ED course. 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 EMS noted GCS of 3 and complete unresponsiveness. No obvious seizure activity noted. Unable to obtain history from the patient due to current clinical condition. He was admitted here recently with metastatic rectal cancer. Dr. Weldon, our surgeon, performed exploratory laparotomy with colostomy. ROS: Unable to obtain due from the patient due to current clinical condition. Physical Exam: General: Patient is unresponsive, even with inducing severe pain. Eyes: Conjunctivae and lids clear. EOMI. PERRL. ENT: No signs of head trauma. Neck: Supple. Heart: RRR. Lungs: No respiratory distress. Decreased air movement. No severe rhonchi, wheezing, rales. Abdomen: Soft with colostomy. Legs: No clubbing, cyanosis, edema. Skin: Warm and dry. Neuro: GCS 3. I reviewed EMS notes. I reviewed all diagnostic test results. My interpretation of the EKG is sinus rhythm with nonspecific ST-T changes. My interpretation of the chest x-ray is NAD. My review of the CT head report is NAD. My review of the CTA head/neck is NAD. My review of the CT chest abdomen pelvis report is NAD. Blood/urine tests unremarkable except UDS positive for methamphetamine and marijuana. COVID/Influenza negative. At this point, diagnoses include: AMS possibly due to seizure Methamphetamine use Treatment here included: Narcan 2 mg IV given prior to diagnostic tests (no improvement noted) IVF Versed 2 mg IV Keppra 3 g IV Benadryl 50 mg IV Haldol 7.5 mg IV I discussed the case with our telehealth neurologist. About the presentation and exam and diagnostics and treatments here. Suspects seizure. Recommended Versed 2 mg IV and Keppra 3 g IV. If improvement noted, recommended admission for further care. If no improvement noted, recommended transfer for stat EEG. With Versed 2 mg IV and Keppra 3 g IV, significant improvement noted. He got out of bed on his own and became agitated and aggressive. Benadryl 50 mg IV and Haldol 7.5 mg IV given (significant improvement noted, patient back in bed resting). I discussed the case with our hospitalist.? About the presentation and exam and diagnostics and treatments here.? And need of further care in the hospital.? Agreed to accept the patient. Deondre Damico MD Patient data External records reviewed:: [facility] previous records (Per chart review, patient was admitted here on 08/19/25 for breakthrough seizure. Patient had a colostomy placed by Dr. Weldon on 08/21/25 and a chemoport placed on 08/24/25.) and EMS form Clinical information provided by:: EMS Social determinants that could affect healthcare access:: none Patient has the following chronic illnesses:: invasive, well-differentiated rectal adenocarcinoma How is presenting disease/condition affected by chronic disease/condition?: exacerbated by Evaluation data The following diagnostics were reviewed and interpreted by me:: lab results, radiology exam(s) and EKG tracing(s) (My interpretation of the EKG is: Sinus rhythm (104 bpm) with nonspecific ST-T changes. Deondre Damico MD) Lab and/or radiology exams considered but not ordered:: none Interpretation Summary: I reviewed all diagnostic test results. My interpretation of the EKG is sinus rhythm with nonspecific ST-T changes. My interpretation of the chest x-ray is NAD. My review of the CT head report is NAD. My review of the CTA head/neck is NAD. My review of the CT chest abdomen pelvis report is NAD. Blood/urine tests unremarkable except UDS positive for methamphetamine and marijuana. COVID/Influenza negative. Medications / Prescriptions Medications or Prescriptions considered but not ordered:: none Medication administrations:: Medication Administration History Acetaminophen (Acetaminophen 325 Mg Tablet) 650 mg PO Q6H PRN PRN Reason: Fever >101.5 or pain 1-3 Stop: 10/02/25 23:24 Heparin Sodium (Porcine) (Heparin Sod Inj 5000 Unit/Ml Vial) 5,000 unit SC Q12H DEEPA Stop: 09/16/25 23:29 Levetiracetam (Levetiracetam Inj 100 Mg/Ml Vial 5ml) 750 mg IVP Q12HR DEEPA Stop: 10/03/25 08:59 Lorazepam (Lorazepam 2 Mg/Ml Vial) 2 mg IVP Q4H PRN PRN Reason: AGITATION Stop: 09/07/25 23:29 Morphine Sulfate (Morphine Sulf Inj 4 Mg/Ml Vial) 4 mg IVP Q4HR PRN PRN Reason: BREAKTHROUGH PAIN Stop: 09/07/25 23:29 Ondansetron HCl (Ondansetron Inj 2 Mg/Ml Inj 2 Ml) 4 mg IVP Q6H PRN; Protocol PRN Reason: NAUSEA OR VOMITING Stop: 10/02/25 23:24 Discontinued Medications Diphenhydramine HCl (Diphenhydramine Inj 50 Mg/Ml Vial) 50 mg IVP X1 STA Stop: 09/02/25 21:51 Last Admin: 09/02/25 22:05 Dose: 50 mg Documented By: SR Haloperidol Lactate (Haloperidol Lact Inj 5 Mg/Ml Vial) 7.5 mg IV X1 ONE Stop: 09/02/25 21:51 Last Admin: 09/02/25 22:04 Dose: 7.5 mg Documented By: SR Comments: 2 Lactated Ringer's (Lactated Ringers) 1,000 mls @ 1,000 mls/hr IV .Q1H ONE Stop: 09/02/25 20:56 Last Infusion: 09/02/25 22:56 Dose: Infused Documented By: Admin: 09/02/25 20:32 Dose: 1,000 mls/hr Documented By: VIKAS Levetiracetam (Levetiracetam Inj 100 Mg/Ml Vial 5ml) 3,000 mg IVP X1 ONE Stop: 09/02/25 20:47 Last Admin: 09/02/25 21:01 Dose: 3,000 mg Documented By: Midazolam HCl (Midazolam Inj 1 Mg/Ml Vial 2 Ml) 2 mg IVP X1 ONE Stop: 09/02/25 20:47 Last Admin: 09/02/25 21:05 Dose: 2 mg Documented By: Naloxone HCl (Naloxone Inj 0.4 Mg/Ml Vial) 2 mg IV X1 ONE Stop: 09/02/25 20:02 Last Admin: 09/02/25 20:32 Dose: 2 mg Documented By: VIKAS Co-signed By: Ondansetron HCl (Ondansetron Inj 2 Mg/Ml Inj 2 Ml) 4 mg IVP X1 ONE; Protocol Stop: 09/02/25 19:58 Last Admin: 09/02/25 21:25 Dose: Not Given Documented By: Non-Admin Reason: Held for Procedure Treatment here FROM ME included: Narcan 2 mg IV given prior to diagnostic tests (no improvement noted) IVF Versed 2 mg IV Keppra 3 g IV Benadryl 50 mg IV Haldol 7.5 mg IV Consultations Consultation(s) initiated? (list below): Yes Consultation #1 (Physician, Specialty, Details): I discussed the case with our telehealth neurologist. About the presentation and exam and diagnostics and treatments here. Suspects seizure. Recommended Versed 2 mg IV and Keppra 3 g IV. If improvement noted, recommended admission for further care. If no improvement noted, recommended transfer for stat EEG. With Versed 2 mg IV and Keppra 3 g IV, significant improvement noted. He got out of bed on his own and became agitated and aggressive. Benadryl 50 mg IV and Haldol 7.5 mg IV given (significant improvement noted, patient back in bed resting). I discussed the case with our hospitalist.? About the presentation and exam and diagnostics and treatments here.? And need of further care in the hospital.? Agreed to accept the patient. Diagnosis Differential diagnosis altered mental status: alcoholic intoxication, altered mental status, delirium, dementia, hypoglycemia, hyponatremia, subarachnoid hemorrhage and sepsis Most likely diagnosis given after review of the tests above:: AMS possibly due to seizure Methamphetamine use Admission Indicated Admission indicated?: indicated Explain why admission is indicated or not indicated:: AMS possibly due to seizure Methamphetamine use Admission Request Was there a request for admission?: Yes Admission Attestation Admission request attestation: Discussed case with Hospitalist service regarding admission. Discussed patients ED course, exam findings, labs, and radiology results. Agreed to accept the patient for admission. Disposition Plan Disposition Plan: Admit Critical Care Time Critical Care Time Critical Care Time: Yes Total Critical Care Time (min.): 40 Attestation: Due to a high probability of clinically significant, life threatening deterioration, the patient required my highest level of preparedness to intervene emergently and I personally spent this critical care time directly and personally managing the patient. This critical care time included obtaining a history; examining the patient; ordering and review of studies; arranging urgent treatment with development of a management plan; evaluation of patient's response to treatment; frequent reassessment; and discussions with family and other providers. It was exclusive of separately billable procedures and treating other patients and teaching time. Deondre Damico MD Discharge Plan Plan Patient Disposition: Admit Acute Care w/in Hospital Problem List Clinical Impression: AMS (altered mental status)
--- NOTE | 2025-09-02 19:56 | XR_ITS ---
Examination: CTA carotids with intravenous contrast CTA brain, head with intravenous contrast. 2-D sagittal, coronal reconstructions. 3-D reconstructions. Exam date and time: September 02, 20252007 hours INDICATIONS: Stroke alert, onset focal neurologic deficit today CTDI: vol (mGy) 33.18 DLP: (mGycm) 516 Technique: Multiple CTA axial brain, head carotid images post intravenous contrast injection 100 cc, Isovue-370. 2-D sagittal, coronal reconstructions. 3-D reconstructions, 3-D post processing including vascular maximum intensity projection images. Low dose protocols were performed. One or more of the following dose reduction techniques were used; automated exposure control, adjustment of the mA and/or KV according to patient size, use of iterative reconstruction technique. Findings: No significant common carotid carotid bifurcation or internal carotid artery stenoses Dominant right vertebral artery in the neck with no critical stenoses Intracranial vertebral arteries basilar artery posterior cerebral arteries fill with no large vessel occlusions Petrous juxtasellar portions internal carotid arteries, M1 segments middle cerebral arteries middle cerebral artery trifurcation vessels anterior cerebral arteries fill with no large vessel occlusions IMPRESSION: No significant neck arterial stenoses No cerebral large vessel arterial occlusions or thrombus
--- NOTE | 2025-09-02 19:56 | XR_ITS ---
Examination: CT brain head without contrast. 2-D sagittal coronal reconstructions Date and time of exam: September 02, 20252007 hours INDICATIONS: Stroke alert, onset focal neurologic deficit today CTDI: vol (mGy): 47.8 DLP: (mGycm): 950 Technique: Multiple CT axial sections of the brain have been obtained, 5 mm slice thickness. Contrast has not been administered. 2-D sagittal, coronal reconstructions have been obtained Low dose protocols were performed. One or more of the following dose reduction techniques were used; automated exposure control, adjustment of the mA and/or KV according to patient size, use of iterative reconstruction technique. Findings: No significant ventricular enlargement. Intra-axial or extra-axial hemorrhage density is not seen. No mass effect or midline shift Basal cisterns are not remarkable. Fourth ventricle is midline. Cranial vault intact. Impression: Negative for acute hemorrhage, mass effect or midline shift
--- NOTE | 2025-09-02 19:56 | XR_ITS ---
EXAMINATION: AP chest single view TECHNIQUE: AP portable semiupright chest single view Date and time: September 02, 2025, 2112 hours, comparison August 25, 2025 INDICATIONS: Stroke alert today FINDINGS: Normal heart size No aspiration pneumonia Right internal jugular Port-A-Cath tip satisfactory position Mild osteopenia IMPRESSION: Negative for aspiration pneumonia
--- NOTE | 2025-09-02 19:56 | EKG_ITS ---
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
--- NOTE | 2025-09-02 19:57 | XR_ITS ---
Examination: CT chest with intravenous contrast CT abdomen with intravenous contrast CT pelvis with intravenous contrast 2-D coronal and sagittal reconstructions Time of exam: September 02, 2025, 2022 hours INDICATIONS: Onset chest and abdominal pain today CTDI: vol (mGy) : 7.29 DLP: (mGycm): 531 Technique: Multiple axial images of the chest, abdomen and pelvis with intravenous contrast, 3.0 mm slice thickness. Images obtained post intravenous injection Isovue 370 60 cc. 2-D sagittal and coronal reconstructions. Low dose protocols were performed. One or more of the following dose reduction techniques were used; automated exposure control, adjustment of the mA and/or KV according to patient size, use of iterative reconstruction technique. Findings: No thoracic aortic aneurysmal dilatation No pulmonary artery filling defects on this 9 CTA study No paratracheal tracheobronchial or bronchopulmonary adenopathy. Small blebs in the right upper lobe No pneumonia, pulmonary edema or pleural disease 5.4 cm and adjacent 2.0 cm right lobe liver lesions Contracted gallbladder Absence of retroperitoneal fat which severely limits this study Spleen is not enlarged No hydronephrosis Abdominal aorta is normal in size No hydronephrosis No bowel obstruction Large mass in the pelvis, at least 12 x 10 cm which may be colonic in origin The rectal wall is thickened The bladder is contracted Moderate osteopenia IMPRESSION: Lack of intravenous fat severely limits the study 5.4 cm, 2.0 cm right lobe liver lesions, differential would include primary hepatocellular carcinoma, hepatic metastases Very large mass in the pelvis, at least 12 x 10 cm which may be colonic in origin Recommend MRI abdomen liver pelvis follow-up pre and postcontrast for further assessment and staging
[2025-09-02 20:12] LABS: Lactate (Lactic Acid) 1.9 mMol/L (0.4-2.0)
[2025-09-02 20:31] LABS: Ammonia 13 uMol/L (11-32)
[2025-09-02] MEDS: RINGERS LACTATED 1000 ML 1,000 ML IV (20:32)
[2025-09-02 20:37] VITALS: BP 118/74; PULSE 102; RESP 17; O2SAT 98
[2025-09-02 20:40] VITALS: PULSE 95; RESP 20; RESP 87; O2SAT 98
--- NOTE | 2025-09-02 20:40 | PRELIM_ITS ---
CT scan of the head without intravenous contrast (axial sections with sagittal and coronal reformats) September 02, 2025 2008 hours Clinical History: Focal neuro deficit, stroke suspected No prior examination is available for comparison. Findings: No evidence of intracranial hemorrhage, mass effect or midline shift. The ventricles and CSF spaces are unremarkable. The calvarium is unremarkable. The mastoid air cells and the visualized paranasal sinuses are clear. Impression: No evidence of intracranial hemorrhage, mass effect or midline shift. Discussion Details: Results verbally communicated to : Dr. Damico at 08:24 PM 09/02/2025 Report Electronically Signed By: Aidan Coe 09/02/2025 8:40:14 PM [EST]
--- NOTE | 2025-09-02 20:48 | PD.TNEURO ---
Tele Neuro Consultation Consultation Date 09/02/25 Most Recent Vital Signs Last Vital Signs Pulse 95 09/02/25 20:40 Resp 20 09/02/25 20:40 BP 118/74 09/02/25 20:37 Pulse Ox 98 09/02/25 20:40 O2 Del Method Room Air 09/02/25 20:37 O2 Flow Rate 10 09/02/25 20:40 Consultation Narrative [facility] Tele[facility]urology Consult [facility] Patient Name:???joann mead Date of :???1980 Identification Number:??? Date of Service:???09/02/2025 19:58:00 Diagnosis:?R41.89 - Unresponsive Impression: ?45yo man with history of metastatic rectal adenocarcinoma, ?epilepsy presenting with confusion. Not a candidate for thrombolytics due to active GI malignancy with recent GI bleeding seen within the past 3 weeks. He may have had unwitnessed seizure versus encephalopathy from metabolic derangements. CTA pending, if no LVO recommend broad toxic metabolic screening, admission for further work up with MRI brain w/wo, can give 60mg/kg keppra IV now and do benzodiazepine trial. If no explanation on CTA or labs and no improvement with medications he may require stat EEG tonight. Our recommendations are outlined below. Recommendations: ? Stroke/Telemetry Floor ? Neuro Checks (Q2) ? Bedside Swallow Eval ? DVT Prophylaxis ? IV Fluids, Normal Saline ? Head of Bed 30 Degrees ? Euglycemia and Avoid Hyperthermia (PRN Acetaminophen) ?no antiplatelet due to GI bleeding history with active malignancy ?keppra 60mg/kg ?benzodiazepine trial ?May need stat EEG if CTA negative, labs do not explain encephalopathy, and not improving in the ED. Sign Out: ? Discussed with Emergency Department Provider Advanced Imaging: Advanced imaging has been ordered. Results pending. Metrics: Last Known Well: 09/02/2025 15:00:00 Arrival Time: 09/02/2025 19:46:00 Activation Time: 09/02/2025 19:58:00 Initial Response Time: 09/02/2025 20:09:41Symptoms: confusion. Initial patient interaction: 09/02/2025 20:28:23 NIHSS Assessment Completed: 09/02/2025 20:32:55Patient is not a candidate for Thrombolytic. Thrombolytic Medical Decision: 09/02/2025 20:32:56Patient was not deemed candidate for Thrombolytic because of following reasons: Recent gastrointestinal or urinary tract hemorrhage (within previous 21 days) . GI malignancy . CT Head: I personally reviewed all the CT images that were available to me and it showed: no ICH or acute core infarct Primary Provider Notified of Diagnostic Impression and Management Plan on: 09/02/2025 20:43:21 History of Present Illness:Patient is a 45 year old Male. Patient was brought by EMS for symptoms of confusion. 45yo man with history of metastatic rectal adenocarcinoma, ?epilepsy, mood d/o, methamphetamine abuse presenting with confusion. His roommates reportedly found him confused after they left to go to the store and returned with last known well between 4 to 5 hours prior to presentation to the ED for EMS but is unclear when exactly- I do not have contact information for the roommates at this time. Patient on my evaluation is mute and does not follow any commands, slightly dysconjugate gaze, essentially stuporous appearing. He was admitted then for large obstructing sigmoid mass, passed a bloody bowel movement and required resection and colostomy placement. This mass had originally been diagnosed a year ago without follow-up since then per records. He has pulmonary and liver metastases per chart from this, but no brain mets on recent MRI brain w/wo done 2 weeks ago. Per chart unrelated history of epilepsy on keppra- unknown if compliant with keppra supposed to be on 750mg BID. He did have seizure-like episodes on that prior admission that were not described in detail. Past Medical History: Other PMH:? metastatic rectal adenocarcinoma, ?epilepsy, mood d/o, methamphetamine abuse Medications: No Anticoagulant use? No Antiplatelet use Reviewed EMR for current medications Allergies:? Reviewed Social History: Unable To Obtain Due To Patient Status :?Patient Cannot Speak Family History: There is no family history of premature cerebrovascular disease pertinent to this consultation ROS :?ROS Cannot Be Obtained Because:? Patient Cannot Speak Past Surgical History: There Is No Surgical History Contributory To Today?s Visit Examination: BP(118/74),?Pulse(104), 1A: Level of Consciousness - Postures or Unresponsive?+ 3 1B: Ask Month and Age - Could Not Answer Either Question Correctly?+ 2 1C: Blink Eyes & Squeeze Hands - Performs 0 Tasks?+ 2 2: Test Horizontal Extraocular Movements - Partial Gaze Palsy: Can Be Overcome?+ 1 3: Test Visual Mata - No Visual Loss?+ 0 4: Test Facial Palsy (Use Grimace if Obtunded) - Normal symmetry?+ 0 5A: Test Left Arm Motor Drift - No Movement?+ 4 5B: Test Right Arm Motor Drift - No Movement?+ 4 6A: Test Left Leg Motor Drift - No Movement?+ 4 6B: Test Right Leg Motor Drift - No Movement?+ 4 7: Test Limb Ataxia (FNF/Heel-Billingsley) - Does Not Understand?+ 0 8: Test Sensation - Normal; No sensory loss?+ 0 9: Test Language/Aphasia - Mute/Global Aphasia: No Usable Speech/Auditory Comprehension?+ 3 10: Test Dysarthria - Mute/Anarthric?+ 2 11: Test Extinction/Inattention - No abnormality?+ 0 NIHSS Score:?29 NIHSS Free Text :?mute, eyes open with dysconjugate gaze, minimal eye movement with occulocephalics suggests some degree of wakefulness, blinks to threat bilaterally, does not follow any commands, no movement in extremities including no movement to pain, no improvement with narcan Pre-Morbid Modified Charles Scale: Unable to assess Spoke with :?Dr. Damico Consent could not be obtained due to patient status and family not available. Patient is being evaluated for possible acute neurologic impairment and high probability of imminent or life-threatening deterioration. I spent total of 40 minutes providing care to this patient, including time for face to face visit via telemedicine, review of medical records, imaging studies and discussion of findings with providers, the patient and/or family. Dr Kem Lopez [facility] For Inpatient follow-up with [facility] physician please call [facility] at . As we are not an outpatient service for any post hospital discharge needs please contact the hospital for assistance. If you have any questions for the [facility] physicians or need to reconsult for clinical or diagnostic changes please contact us via [facility] at . Non-radiologist review of imaging performed to assist with emergent clinical decision-making. Remote physician workstations do not possess the same resolution, calibration, or diagnostic capabilities as hospital-based radiology reading stations, and formal radiologist read is necessary. Signature :Tariq Lopez
[2025-09-02] MEDS: levETIRAcetam INJ 100 MG/ML VIAL 5ML 3000 MG IVP (21:01)
[2025-09-02] MEDS: MIDAZOLAM INJ 1 MG/ML VIAL 2 ML 2 MG IVP (21:05)
[2025-09-02 21:07] LABS: Collection Type, Urine Clean Catch
[2025-09-02 21:16] LABS: Bacteria,Urine Rare; Bilirubin,Urine Negative (Negative); Blood,Urine Negative (Negative); Budding Yeast,Urine Present; Clarity,Urine Clear (Clear/Hazy); Color,Urine Yellow (Lt Yel-Yel); Culture Indicated,Urine Not Indicated; Glucose, Urine Negative (Negative); Hyaline Casts,Urine < 1 /hpf (0-1); Ketones,Urine Negative (Negative); Leukocyte Esterase,Urine Negative (Negative); Nitrite,Urine Negative (Negative); PH,Urine 6.5 (5.0-7.0); Protein,Urine Trace (Neg - Trace); RBC,Urine 6 /hpf (0-3); Specific Gravity,Urine 1.023 (1.001-1.035); Squamous Epithelial Cell,Urine 1 /hpf (0-5); Urobilinogen,Urine 4.0 mg/dL (0.0-1.0); WBC,Urine 8 /hpf (0-5)
[2025-09-02 21:26] VITALS: BP 118/73; PULSE 112; RESP 17; TEMP 37.5; O2SAT 100
[2025-09-02 22:01] LABS: Sed Rate (ESR) 82 mm/hr (0-15)
[2025-09-02 22:04] LABS: Basophils # (Auto) 0.0 Thou/mm3 (0.0-0.2); Basophils % (Auto) 0 % (0-2.5); Eosinophils # (Auto) 0.0 Thou/mm3 (0.0-0.5); Eosinophils % (Auto) 0 % (0-10); Hematocrit 26.5 % (41.0-53.0); Immature Granulocytes Auto 0.07 Thou/mm3 (0.00-0.00); Lymphocytes # (Auto) 0.7 Thou/mm3 (1.0-4.8); Lymphocytes % (Auto) 7 % (10-50); Mean Corpuscular HGB Conc 30.9 g/dl (31.0-37.0); Mean Corpuscular Hemoglobin 22.0 pg (25.0-35.0); Mean Corpuscular Volume 71 fL (80-100); Monocytes # (Auto) 0.6 Thou/mm3 (0.0-0.8); Monocytes % (Auto) 5 % (0-12); Neutrophils # (Auto) 8.9 Thou/mm3 (1.8-7.7); Neutrophils % (Auto) 87 % (37-80); Nucleated Red Blood Cell # 0.00 Thou/mm3 (0.00-0.00); Nucleated Red Blood Cell % 0 /100 WBC (0); Platelet Count 669 Thou/mm3 (140-440); RDW Standard Deviation 43.2 fL (35.1-43.9); Red Blood Count 3.72 Miln/mm3 (4.50-5.90); White Blood Count 10.3 Thou/mm3 (3.8-10.6)
[2025-09-02] MEDS: HALOPERIDOL LACT INJ 5 MG/ML VIAL 7.5 MG IV (22:04)
[2025-09-02 22:07] LABS: Amphetamine/Methamp Scrn,U Positive (Negative); Barbiturate Screen,Urine Negative (Negative); Benzodiazepines Screen,Urine Negative (Negative); Benzoylecgonine Screen, Ur Negative (Negative); Fentanyl Screen,Urine Negative (Negative); Opiate Screen,Urine Negative (Negative); THC Screen,Urine Positive (Negative)
[2025-09-02 22:10] LABS: Hemoglobin 8.2 g/dL (13.5-16.0)
[2025-09-02 22:16] LABS: B-Type Natriuretic Peptide 25 pg/mL (0-100); INR 1.1 (0.9-1.3); Partial Thromboplastin Time 32.6 Seconds (22.0-36.0); Prothrombin Time 12.0 Seconds (9.0-12.2)
[2025-09-02 22:19] VITALS: BP 122/88; PULSE 98; RESP 18; TEMP 37.3; O2SAT 99
[2025-09-02 22:22] LABS: Alanine Aminotransferase 15 U/L (10-49); Albumin, Serum 3.2 gm/dL (3.5-5.0); Albumin/Globulin Ratio 0.8 (1.2-2.2); Alkaline Phosphatase 86 U/L (46-116); Anion Gap 10 (7-16); Aspartate Amino Transferase 20 U/L (0-34); BUN/Creatinine Ratio 9 Ratio (12-20); Bilirubin,Direct 0.1 mg/dL (0.0-0.3); Bilirubin,Total 0.3 mg/dL (0.3-1.2); Blood Urea Nitrogen 6 mg/dL (9-23); Calcium 8.3 mg/dL (8.3-10.6); Calcium (Corrected) 8.9 mg/dL (8.5-10.1); Carbon Dioxide 24.2 mMol/L (20.0-31.0); Chloride 98 mMol/L (98-107); Creatinine (Component) 0.7 mg/dL (0.6-1.3); Globulin 3.9 gm/dL (2.3-3.5); Glucose 90 mg/dL (74-106); Lipase 31 U/L (12-53); Magnesium 2.0 mg/dL (1.6-2.6); Osmolality,Calculated 262 (275-295); Potassium 3.6 mMol/L (3.4-5.1); Sodium 132 mMol/L (136-145); Thyroid Stimulating Hormone 1.05 uIU/mL (0.55-4.78); Total Protein 7.1 gm/dL (5.7-8.2); Troponin I < 0.002 ng/mL (0.0-0.045); eGFR > 60 See Note
[2025-09-02 22:23] LABS: Alcohol, Blood Medical < 3.0 mg/dL (0-10.0)
[2025-09-02 22:24] LABS: Beta Hydroxybutyrate 0.2 mmol/L (<0.6)
[2025-09-02 22:47] LABS: Procalcitonin 0.19 ng/ml (0.0-0.49)
--- NOTE | 2025-09-02 22:59 | PC.NURSE ---
CT screening discontinued as patient already had CT scan of the head done secondary to code stroke initiated for patient.
[2025-09-02 23:00] VITALS: BP 116/80; PULSE 94; RESP 20; O2SAT 96
[2025-09-02 23:04] LABS: C-Reactive Protein > 10.0 mg/dL (0.0-0.9); Creatine Kinase 99 U/L (34-171)
[2025-09-02 23:10] LABS: Glucose Estimated Average 123 mg/dL (80-131); Hemoglobin A1C 5.9 % Hgb (4.8-6.0)
--- NOTE | 2025-09-02 23:36 | PD.RESHP ---
Documentation for date of: 09/02/25 HPI History of Present Illness Chief complaint: Altered mental status History of present illness: This patient is a 45-year-old male with history of metastatic rectal carcinoma (known spread to liver) status post diverting colostomy (08/21/2025), depression, anxiety, bipolar disorder type I, and seizure-like activity who presented to [facility] ED on 09/02 for altered mental status. The patient was admitted for management of acute encephalopathy. No significant history could be obtained from the patient as the patient was unresponsive to questioning. The patient was able to react to voice, but did not respond after repeated questioning. The patient was brought by ambulance from home due to sudden onset of altered mental status, however no further history was obtainable for the patient. Per chart review, EMS arrival found the patient to have a GCS of 7, and when the patient was brought to the ED, the patient was protecting his airways but completely unresponsive to all forms of stimuli, including noxious stimuli. Patient was given naloxone in the ED, which was unsuccessful at reversing the patient's altered mental status. Stroke alert was called, with CT head and CTA head/neck largely unremarkable. Teleneurology consult recommended a loading dose of Keppra and a trial of a benzodiazepine, both of which were given to the patient. Shortly thereafter, the patient became significantly alert, became significantly agitated, stood up and tore off his gown. At this point, [facility] was called and security had to restrain the patient as he started to lr towards security personnel. The patient was given diphenhydramine 50 mg and haloperidol 0.5 mg, which calmed the patient down, but patient was found to be uncooperative to interview afterwards. The patient's daughter Benjamin, who is the patient's person to notify on the EMR, was called several times without success. Considering that the patient was just recently discharged on 08/26/25, this is highly unlikely that this is the patient's baseline. During that visit, the patient had placement of a Chemo-Port to facilitate chemotherapy for his metastatic rectal carcinoma as well as a diverting colostomy. Will resume the patient's home Keppra 750 mg twice daily as the patient was recently discharged on that and admit the patient for further workup of his acute encephalopathy. CODE STATUS was also taken from this hospitalization as the patient did not cooperate with identified CODE STATUS and the patient's family member could not be reached. Per chart review: SH: Local [facility] residential for 1 week and 2 days after he violated his probation, lived at his home in [place] with 2 roommates prior to his recent incarceration, social drinker (3 shots of alcohol per month when he went out to nightclubs), smokes weed but not cigarettes Review of Systems Review of Systems ROS Unobtainable: unobtainable due to mental status Exam Vital Signs Temp Pulse Resp BP Pulse Ox O2 Del Method O2 Flow Rate 99.1 F 94 20 116/80 96 Room Air 2 09/02/25 22:19 09/02/25 23:00 09/02/25 23:00 09/02/25 23:00 09/02/25 23:00 09/02/25 23:00 09/02/25 22:19 Narrative Exam Physical Exam: General: Alert, no acute distress. Uncooperative with interview. Significantly cachectic. Skin: Warm, dry, intact. Head: Normocephalic, atraumatic. Eye: Normal conjunctiva, PERRL. Cardiovascular: Tachycardic rate and regular rhythm, no murmur, +S1/S2. Respiratory: Lungs are clear to auscultation, respirations unlabored, no crackles, no wheezing. Gastrointestinal: Concaved. Colostomy present with visible camilo midline of colostomy. Extremities: No edema, no cyanosis, no clubbing. Neuro: No focal deficits observed. No overt cerebellar signs/incoordination. Psychiatric: Unable to assess Results: Labs 09/04/25 06:22 09/04/25 06:22 Labs: Short CBC 09/02/25 Range/Units 21:36 WBC 10.3 (3.8-10.6) Thou/mm3 Hgb 8.2 L (13.5-16.0) g/dL Hct 26.5 L (41.0-53.0) % Plt Count 669 H D (140-440) Thou/mm3 BMP 09/02/25 21:36 Sodium 132 L Potassium 3.6 Chloride 98 Carbon Dioxide 24.2 BUN 6 L Creatinine 0.7 Glucose 90 Calcium 8.3 Cardiac Enzymes 09/02/25 Range/Units 21:36 Total Creatine Kinase 99 (34-171) U/L Troponin I < 0.002 (0.0-0.045) ng/mL Liver Function 09/02/25 Range/Units 21:36 Total Bilirubin 0.3 (0.3-1.2) mg/dL Direct Bilirubin 0.1 (0.0-0.3) mg/dL AST 20 (0-34) U/L ALT 15 (10-49) U/L Alkaline Phosphatase 86 (46-116) U/L Albumin 3.2 L (3.5-5.0) gm/dL Urine 09/02/25 Range/Units 20:44 Urine Color Yellow (Lt Yel-Yel) Urine Clarity Clear (Clear/Hazy) Urine pH 6.5 (5.0-7.0) Ur Specific [place] 1.023 (1.001-1.035) Urine Protein Trace (Neg - Trace) Urine Glucose (UA) Negative (Negative) Quality Measures Quality Measures VTE prophylaxis Medications Home Medications and Allergies Home Medications ?Medication ?Instructions ?Recorded ?Confirmed ?Type fluoxetine 20 mg capsule (Prozac) 10 mg PO QAM #0 caps 12/20/14 09/03/25 History trazodone 50 mg tablet 50 mg PO HS PRN Sleep #0 tabs 12/20/14 09/03/25 History levetiracetam 500 mg tablet 500 mg PO BID 07/20/24 09/03/25 History (Keppra) Allergies Allergy/AdvReac Type Severity Reaction Status Date / Time coconut Allergy Severe Anaphylaxis Verified 09/02/25 20:15 Visit Medications Acetaminophen (Acetaminophen 325 Mg Tablet) 650 mg PO Q6H PRN PRN Reason: Fever >101.5 or pain 1-3 Stop: 10/02/25 23:24 Heparin Sodium (Porcine) (Heparin Sod Inj 5000 Unit/Ml Vial) 5,000 unit SC Q12H DEEPA Stop: 09/16/25 23:29 Levetiracetam (Levetiracetam Inj 100 Mg/Ml Vial 5ml) 750 mg IVP Q12HR DEEPA Stop: 10/03/25 08:59 Lorazepam (Lorazepam 2 Mg/Ml Vial) 2 mg IVP Q4H PRN PRN Reason: AGITATION Stop: 09/07/25 23:29 Morphine Sulfate (Morphine Sulf Inj 4 Mg/Ml Vial) 4 mg IVP Q4HR PRN PRN Reason: BREAKTHROUGH PAIN Stop: 09/07/25 23:29 Ondansetron HCl (Ondansetron Inj 2 Mg/Ml Inj 2 Ml) 4 mg IVP Q6H PRN; Protocol PRN Reason: NAUSEA OR VOMITING Stop: 10/02/25 23:24 Discontinued Medications Diphenhydramine HCl (Diphenhydramine Inj 50 Mg/Ml Vial) 50 mg IVP X1 STA Stop: 09/02/25 21:51 Last Admin: 09/02/25 22:05 Dose: 50 mg Haloperidol Lactate (Haloperidol Lact Inj 5 Mg/Ml Vial) 7.5 mg IV X1 ONE Stop: 09/02/25 21:51 Last Admin: 09/02/25 22:04 Dose: 7.5 mg Lactated Ringer's (Lactated Ringers) 1,000 mls @ 1,000 mls/hr IV .Q1H ONE Stop: 09/02/25 20:56 Last Infusion: 09/02/25 22:56 Dose: Infused Levetiracetam (Levetiracetam Inj 100 Mg/Ml Vial 5ml) 3,000 mg IVP X1 ONE Stop: 09/02/25 20:47 Last Admin: 09/02/25 21:01 Dose: 3,000 mg Midazolam HCl (Midazolam Inj 1 Mg/Ml Vial 2 Ml) 2 mg IVP X1 ONE Stop: 09/02/25 20:47 Last Admin: 09/02/25 21:05 Dose: 2 mg Naloxone HCl (Naloxone Inj 0.4 Mg/Ml Vial) 2 mg IV X1 ONE Stop: 09/02/25 20:02 Last Admin: 09/02/25 20:32 Dose: 2 mg Ondansetron HCl (Ondansetron Inj 2 Mg/Ml Inj 2 Ml) 4 mg IVP X1 ONE; Protocol Stop: 09/02/25 19:58 Last Admin: 09/02/25 21:25 Dose: Not Given Assessment & Plan Plan This patient is a 45-year-old male with history of metastatic rectal carcinoma (known spread to liver) status post diverting colostomy (08/16/2025), depression, anxiety, bipolar disorder type I, and seizure-like activity who presented to [facility] ED on 09/02 for altered mental status. The patient was admitted for management of acute encephalopathy. #Acute encephalopathy #Obstructing metastatic rectal adenocarcinoma, invasive and well-differentiated, likely stage IVb #Status post diverting colostomy 08/21/2025 #Seizure-like activity Patient was found to be acutely altered, resulting in the patient being brought to [facility] ED. GCS was initially 7 upon EMS arrival, and when patient was brought to the ED, patient was completely unresponsive to all forms of stimuli. Patient became violent upon administration of Keppra 3 g and midazolam, resulting in a code bridges and administration of Haldol 7.5 mg and diphenhydramine 50 mg. Patient was recently discharged without any history of this behavior, so will assume that this is not the patient's baseline. Diagnostic: CT head and CTA head/neck unremarkable CRP over 10, likely secondary to his metastatic rectal adenocarcinoma Pathology report 07/19/2024 of rectal mass biopsied via colonoscopy shows well-differentiated invasive adenocarcinoma Pathology report 08/19/[address]-guided liver needle biopsy shows metastatic adenocarcinoma, consistent with colorectal primary CT chest/abdomen/pelvis shows 5.4 x 2.0 cm right lobe liver lesion and very large mass in the pelvis, at least 12 x 10 cm MRI brain with contrast on 08/19/2025 shows mild enhancement 2 mm in thickness in the anterior cerebral falx Treatment: Neurology consulted, appreciate recommendations MRI head with and without contrast ordered to rule out CVA and assess for metastasis to the brain, pending Patient made n.p.o. with aspiration precautions 24-hour medical restraints until patient is compliant with safety instructions Lorazepam 2 mg every 4 hours as needed for agitation Morphine 4 mg every 4 hours as needed for breakthrough pain Resumed patient's home Keppra 750 mg IV push every 12 hours Neurochecks every 4 hours Seizure precautions #Bipolar disorder type I #Depression and anxiety #Insomnia As per most recent discharge summary, will resume the patient's home Prozac and trazodone once patient has been cleared for p.o. intake #Methamphetamine positive U tox Urine toxicology 09/02 noted to be positive for methamphetamine. [place] patient once alert and oriented. DVT Prophylaxis: Heparin GI Prophylaxis: Protonix Bowel: N/A Diet: NPO Vargas: N/A Lines: PIV Antibiotics: N/A Code Status: FULL Reason for Hospitalization: Acute encephalopathy Other Barriers to Discharge: MRI w/wo contrast, neurology consultation Patient plan of care was discussed attending physician Dr. Shama Demarco, PGY1 Attending Provider Attestation/Addendum After examination of the patient and review of the clinical data I feel that this patient needs admission to the hospital for further treatment/evaluation. Plan of care discussed with patient and is in agreement. I Jama Sesay MD, attest that I was physically present for messina portions of evaluation, and examined patient, labs and imagings and plan of care were discussed with IM residents team, and I agree with the findings and plans documented above.
--- NOTE | 2025-09-02 23:57 | PC.NURSE ---
This Nurse not able to complete NIH, MRI questionnaire, or swallowing test as patient is not cooperative. Patient not communicating with this Nurse and not willing to participate in his medical care.
[2025-09-03] VITALS (9 sets, daily range): BP systolic 95–121; BP diastolic 61–75; PULSE 72–132; RESP 12–21; TEMP 36.1–38.7; O2SAT 98–100
[2025-09-03] MEDS: HEPARIN SOD INJ 5000 UNIT/ML VIAL SC (01:50)
[2025-09-03 05:21] LABS: Basophils # (Auto) 0.0 Thou/mm3 (0.0-0.2); Basophils % (Auto) 0 % (0-2.5); Eosinophils # (Auto) 0.0 Thou/mm3 (0.0-0.5); Eosinophils % (Auto) 0 % (0-10); Hematocrit 26.5 % (41.0-53.0); Hemoglobin 8.4 g/dL (13.5-16.0); Immature Granulocytes Auto 0.06 Thou/mm3 (0.00-0.00); Lymphocytes # (Auto) 1.1 Thou/mm3 (1.0-4.8); Lymphocytes % (Auto) 9 % (10-50); Mean Corpuscular HGB Conc 31.7 g/dl (31.0-37.0); Mean Corpuscular Hemoglobin 22.6 pg (25.0-35.0); Mean Corpuscular Volume 71 fL (80-100); Monocytes # (Auto) 1.3 Thou/mm3 (0.0-0.8); Monocytes % (Auto) 11 % (0-12); Neutrophils # (Auto) 9.8 Thou/mm3 (1.8-7.7); Neutrophils % (Auto) 80 % (37-80); Nucleated Red Blood Cell # 0.00 Thou/mm3 (0.00-0.00); Nucleated Red Blood Cell % 0 /100 WBC (0); Platelet Count 631 Thou/mm3 (140-440); RDW Standard Deviation 43.1 fL (35.1-43.9); Red Blood Count 3.71 Miln/mm3 (4.50-5.90); White Blood Count 12.3 Thou/mm3 (3.8-10.6)
[2025-09-03 05:43] LABS: Alanine Aminotransferase 13 U/L (10-49); Albumin, Serum 3.0 gm/dL (3.5-5.0); Albumin/Globulin Ratio 0.8 (1.2-2.2); Alkaline Phosphatase 76 U/L (46-116); Anion Gap 11 (7-16); Aspartate Amino Transferase 21 U/L (0-34); BUN/Creatinine Ratio 12 Ratio (12-20); Bilirubin,Total 0.3 mg/dL (0.3-1.2); Blood Urea Nitrogen 7 mg/dL (9-23); Calcium 8.3 mg/dL (8.3-10.6); Calcium (Corrected) 9.1 mg/dL (8.5-10.1); Carbon Dioxide 27.1 mMol/L (20.0-31.0); Chloride 98 mMol/L (98-107); Creatinine (Component) 0.6 mg/dL (0.6-1.3); Globulin 3.7 gm/dL (2.3-3.5); Glucose 89 mg/dL (74-106); Magnesium 2.0 mg/dL (1.6-2.6); Osmolality,Calculated 268 (275-295); Phosphorous 3.9 mg/dL (2.4-5.1); Potassium 3.5 mMol/L (3.4-5.1); Sodium 136 mMol/L (136-145); Total Protein 6.7 gm/dL (5.7-8.2); eGFR > 60 See Note
[2025-09-03] MEDS: levETIRAcetam INJ 100 MG/ML VIAL 5ML 750 MG IVP (08:43)
--- NOTE | 2025-09-03 10:59 | PC.NURSE ---
Patient uncooperative and refusing to participate NIHSS assessment stating, I don't want to
--- NOTE | 2025-09-03 12:28 | ESPR_ITS ---
Documentation for date of: 09/03/25 Subjective - Hospitalist Subjective Interval history: Patient seen at bedside. Patient noted to have excessive blinking while at bedside. His speech is soft and does follow simple commands. He appears to have intermittent confusion at times. Patient is a poor historian at this time and providing little to no history. Blood pressure stable. Afebrile. Pulse 98. O2 saturation appropriate on room air. Review of Systems Review of Systems ROS Unobtainable: unobtainable due to mental status Exam Vital Signs Temp Pulse Resp BP Pulse Ox O2 Del Method O2 Flow Rate 98.6 F 98 18 109/61 100 Room Air 2 09/03/25 08:00 09/03/25 08:00 09/03/25 08:00 09/03/25 08:00 09/03/25 08:00 09/03/25 08:00 09/02/25 22:19 Narrative General: Calm, no acute distress, excessively blinking Skin: Warm, dry, intact. Head: Normocephalic, atraumatic. MMM Eye: Normal conjunctiva, PERRL. Cardiovascular: Tachycardic rate and regular rhythm, no murmur, +S1/S2. Respiratory: Lungs are clear to auscultation, respirations unlabored, no crackles, no wheezing. Gastrointestinal: Colostomy present with visible camilo midline of colostomy, no tenderness to palpation. Positive bowel sounds Extremities: No edema, no cyanosis, no clubbing. Neuro: No focal deficits observed. Psychiatric: Unable to assess Objective - Hospitalist Labs Diagram: 09/03/25 04:35 09/03/25 04:35 Labs: Laboratory Results - last 24 hr 09/02/25 09/02/25 09/02/25 20:01 20:44 21:36 WBC 10.3 RBC 3.72 L Hgb 8.2 L Hct 26.5 L MCV 71 L MCH 22.0 L MCHC 30.9 L RDW Std Deviation 43.2 Plt Count 669 H D Neut % (Auto) 87 H Lymph % (Auto) 7 L [place] % (Auto) 5 Eos % (Auto) 0 Baso % (Auto) 0 Neut # (Auto) 8.9 H Lymph # (Auto) 0.7 L [place] # (Auto) 0.6 Eos # (Auto) 0.0 Baso # (Auto) 0.0 Immature Gran # (Auto) 0.07 H Absolute Nucleated RBC 0.00 Immature Gran % 1 H Nucleated RBC % 0 ESR 82 H PT 12.0 INR 1.1 APTT 32.6 Sodium 132 L Potassium 3.6 Chloride 98 Carbon Dioxide 24.2 Anion Gap 10 BUN 6 L Creatinine 0.7 Estim Creat Clear Calc Not Performed. eGFR > 60 BUN/Creatinine Ratio 9 L Glucose [address] Glu mg/dL 123 Hemoglobin A1c 5.9 Calculated Osmolality 262 L Lactic Acid 1.9 Calcium 8.3 Corrected Calcium 8.9 Phosphorus Magnesium 2.0 Total Bilirubin 0.3 Direct Bilirubin 0.1 AST 20 ALT 15 Alkaline Phosphatase 86 Ammonia 13 Total Creatine Kinase 99 Troponin I < 0.002 C-Reactive Prot, Quant > 10.0 H B-Natriuretic Peptide 25 Total Protein 7.1 Albumin 3.2 L Globulin 3.9 H Albumin/Globulin Ratio 0.8 L Lipase 31 Beta-Hydroxybutyrate/Acetoacetate 0.2 Procalcitonin 0.19 TSH 1.05 Ur Collection Type Clean Catch Urine Color Yellow Urine Clarity Clear Urine pH 6.5 Ur Specific [place] 1.023 Urine Protein Trace Urine Glucose (UA) Negative Urine Ketones Negative Urine Blood Negative Urine Nitrite Negative Urine Bilirubin Negative Urine Urobilinogen (Auto) 4.0 Ur Leukocyte Esterase Negative Urine RBC 6 H Urine WBC 8 H Ur Squamous Epith Cells 1 Urine Bacteria Rare Hyaline Casts < 1 Urine Yeast (Budding) Present A Ur Culture Indicated? Not Indicated Urine Opiates Screen Negative Urine Fentanyl Screen Negative Ur Barbiturates Screen Negative U Amphetamin/Meth Scrn Positive A U Benzodiazepines Scrn Negative U Cocaine Metab Screen Negative U Marijuana (THC) Screen Positive A Ethyl Alcohol < 3.0 09/03/25 04:35 WBC 12.3 H RBC 3.71 L Hgb 8.4 L Hct 26.5 L MCV 71 L MCH 22.6 L MCHC 31.7 RDW Std Deviation 43.1 Plt Count 631 H D Neut % (Auto) 80 Lymph % (Auto) 9 L [place] % (Auto) 11 Eos % (Auto) 0 Baso % (Auto) 0 Neut # (Auto) 9.8 H Lymph # (Auto) 1.1 [place] # (Auto) 1.3 H Eos # (Auto) 0.0 Baso # (Auto) 0.0 Immature Gran # (Auto) 0.06 H Absolute Nucleated RBC 0.00 Immature Gran % 1 H Nucleated RBC % 0 ESR PT INR APTT Sodium 136 Potassium 3.5 Chloride 98 Carbon Dioxide 27.1 Anion Gap 11 BUN 7 L Creatinine 0.6 Estim Creat Clear Calc Not Performed. eGFR > 60 BUN/Creatinine Ratio [address] Glu mg/dL Hemoglobin A1c Calculated Osmolality 268 L Lactic Acid Calcium 8.3 Corrected Calcium 9.1 Phosphorus 3.9 Magnesium 2.0 Total Bilirubin 0.3 Direct Bilirubin AST 21 ALT 13 Alkaline Phosphatase 76 [place] Total Creatine Kinase Troponin I C-Reactive Prot, Quant B-Natriuretic Peptide Total Protein 6.7 Albumin 3.0 L Globulin 3.7 H Albumin/Globulin Ratio 0.8 L Lipase Beta-Hydroxybutyrate/Acetoacetate Procalcitonin TSH Ur Collection Type Urine Color Urine Clarity Urine pH Ur Specific [place] Urine Protein Urine Glucose (UA) Urine Ketones Urine Blood Urine Nitrite Urine Bilirubin Urine Urobilinogen (Auto) Ur Leukocyte Esterase Urine RBC Urine WBC Ur Squamous Epith Cells Urine Bacteria Hyaline Casts Urine Yeast (Budding) Ur Culture Indicated? Urine Opiates Screen Urine Fentanyl Screen Ur Barbiturates Screen U Amphetamin/Meth Scrn U Benzodiazepines Scrn U Cocaine Metab Screen U Marijuana (THC) Screen Ethyl Alcohol Assessment & Plan Plan: This patient is a 45-year-old male with history of metastatic rectal carcinoma (known spread to liver) status post diverting colostomy (08/16/2025), depression, anxiety, bipolar disorder type I, and seizure-like activity who presented to [facility] ED on 09/02 for altered mental status. The patient was admitted for management of acute encephalopathy. #Acute encephalopathy #Seizure Disorder Patient was found to be acutely altered, resulting in the patient being brought to [facility] ED. GCS was initially 7 upon EMS arrival, and when patient was brought to the ED, patient was completely unresponsive to all forms of stimuli. Patient became violent & administration of Keppra 3 g and midazolam, resulting in a code bridges and administration of Haldol 7.5 mg and diphenhydramine 50 mg. MRI brain with contrast on 08/19/2025 shows mild enhancement 2 mm in thickness in the anterior cerebral falx Treatment: Neurology consulted, appreciate recommendations MRI head with and without contrast ordered to rule out CVA and assess for metastasis to the brain, pending Patient made n.p.o. with aspiration precautions Lorazepam 2 mg every 4 hours as needed for agitation Resumed patient's home Keppra 750 mg IV push every 12 hours Neurochecks every 4 hours Seizure precautions - Plan: Most likely etiology for patient's acute encephalopathy is toxic from methamphetamine intoxication. We will head counselor patient once more improved. Lower suspicion for seizure although possible patient has focal seizures with retained awareness. We will order EEG and continue antiepileptics. Low suspicion for metabolic or infectious etiology for encephalopathy. Low suspicion for CVA although we will obtain MRI brain to rule out CVA and brain mets. Continue frequent reorientation. Limit sedating medications. Swallow screen. #Obstructing metastatic rectal adenocarcinoma, invasive and well-differentiated, likely stage IVb #Status post diverting colostomy 08/21/2025 CRP over 10, likely secondary to his metastatic rectal adenocarcinoma Pathology report 07/19/2024 of rectal mass biopsied via colonoscopy shows well- differentiated invasive adenocarcinoma Pathology report 08/19/[address]-guided liver needle biopsy shows metastatic adenocarcinoma, consistent with colorectal primary CT chest/abdomen/pelvis shows 5.4 x 2.0 cm right lobe liver lesion and very large mass in the pelvis, at least 12 x 10 cm Plan: Pain management as needed. Patient will need to follow-up outpatient with oncology for metastatic adenocarcinoma. #bipolar disorder type I #depression and anxiety #insomnia - Plan: Continue home trazodone at night and fluoxetine. Will evaluate mental status once more improved. #Methamphetamine positive U tox Urine toxicology 09/02 noted to be positive for methamphetamine. [place] patient once alert and oriented. DVT Prophylaxis: Heparin GI Prophylaxis: Protonix Diet: NPO CODE STATUS: Full code Reason for Hospitalization: Acute encephalopathy Dr. Tico MD Time Spent with Patient Time: Total time spent is greater than 50% in coordination of care (as documented) at patient's floor/unit and/or counseling patient: Time with patient: 25 - 35 minutes Reason for Continued Stay Reason for continued stay: further dx testing Quality Measures Quality Measures VTE prophylaxis
[2025-09-03] MEDS: MORPHINE SULF INJ 4 MG/ML VIAL 2 MG IVP ×2 (13:23→18:10)
--- NOTE | 2025-09-03 15:35 | PC.SS ---
Patient altered. SS spoke to patient's daughter, Benjamin, who states patient was recently released from [facility]. Prior to this he was homeless. Daughter was very vague with history. Patient has hx: rectal carcinoma and has a colostomy bag. SS will follow up with patient when more alert. Alt medical decision maker: Benjamin Avery, daughter,
[2025-09-03] MEDS: DIVALPROEX SOD EC 125 MG TABEC 750 MG PO (20:45)
[2025-09-03] MEDS: ACETAMINOPHEN 325 MG TABLET 650 MG PO (21:00)
[2025-09-04] VITALS (10 sets, daily range): BP systolic 77–109; BP diastolic 34–81; PULSE 88–115; RESP 14–18; TEMP 36.7–37.7; O2SAT 95–99
--- NOTE | 2025-09-04 | XR_ITS ---
Examination: MRI of brain without intravenous contrast. MRI brain with intravenous contrast. Date and time of exam: September 04, 2025, 1438 hours, comparison August 19, 2025 INDICATIONS: Rectal cancer diagnosis, staging, MRI brain with contrast 08/19/2025 mild enhancement 2 mm in thickness anterior cerebral falx Technique: Multiple axial and sagittal images of the brain to been obtained. Siemens high-resolution 1.52 Agnes short bore scanner utilized. Sagittal sections, T1 weighted images, TR 500, TE 14, are performed. Axial sections proton-density and T2-weighted images have been obtained. Inversion recovery axial images, TR 9260, TE 111, TR 2500. Diffusion weighted images, axial sections, TR 4800, TE 128, B value 1000. Axial sections, ADC map, TR 4800, TE 128. Axial and coronal images were also obtained post 9 cc gadolinium administered intravenously. Findings:: Enlargement of the sella turcica is not present. The optic chiasm and infundibular stalk are not remarkable. There is no localized enlargement of the medulla or kenroy. Fourth ventricle and cerebellar tonsils appear normal in position. No subacute area of hemorrhage density is seen. Fourth ventricle is midline. Mass in the cerebellopontine angle region is not evident. 7th and 8th nerve complexes exhibit symmetry Globes are symmetrical Orbital musculature including medial lateral rectus muscles do not exhibit abnormality Increased white matter signal is evident, scattered punctate foci increased signal in the left parietal white matter, FLAIR image 15, right parietal white matter FLAIR image 16 Effacement of the cortical sulcal markings is not identified. Mass effect upon the ventricular system is not identified. Diffusion-weighted images demonstrate no focus of restricted diffusion Contrast images demonstrate stable minimal parafalcine enhancement anterior cerebral falx, 2 mm Impression: Negative for acute hemorrhage mass effect or midline shift No acute infarct Scattered punctate foci increased signal in the white matter on the FLAIR images, demyelinating disease, recommend neurology consultation and correlation with clinical findings No abnormal enhancing cerebellar or cerebral lesions
[2025-09-04 07:06] LABS: Basophils # (Auto) 0.0 Thou/mm3 (0.0-0.2); Basophils % (Auto) 0 % (0-2.5); Eosinophils # (Auto) 0.1 Thou/mm3 (0.0-0.5); Eosinophils % (Auto) 1 % (0-10); Hematocrit 23.0 % (41.0-53.0); Immature Granulocytes Auto 0.05 Thou/mm3 (0.00-0.00); Lymphocytes # (Auto) 1.2 Thou/mm3 (1.0-4.8); Lymphocytes % (Auto) 12 % (10-50); Mean Corpuscular HGB Conc 31.3 g/dl (31.0-37.0); Mean Corpuscular Hemoglobin 22.4 pg (25.0-35.0); Mean Corpuscular Volume 71 fL (80-100); Monocytes # (Auto) 1.2 Thou/mm3 (0.0-0.8); Monocytes % (Auto) 11 % (0-12); Neutrophils # (Auto) 8.0 Thou/mm3 (1.8-7.7); Neutrophils % (Auto) 76 % (37-80); Nucleated Red Blood Cell # 0.00 Thou/mm3 (0.00-0.00); Nucleated Red Blood Cell % 0 /100 WBC (0); Platelet Count 534 Thou/mm3 (140-440); RDW Standard Deviation 43.3 fL (35.1-43.9); Red Blood Count 3.22 Miln/mm3 (4.50-5.90); White Blood Count 10.6 Thou/mm3 (3.8-10.6)
[2025-09-04 07:11] LABS: Hemoglobin 7.2 g/dL (13.5-16.0)
[2025-09-04 07:28] LABS: Alanine Aminotransferase 11 U/L (10-49); Albumin, Serum 2.7 gm/dL (3.5-5.0); Albumin/Globulin Ratio 0.8 (1.2-2.2); Alkaline Phosphatase 69 U/L (46-116); Anion Gap 10 (7-16); Aspartate Amino Transferase 15 U/L (0-34); BUN/Creatinine Ratio 11 Ratio (12-20); Bilirubin,Total 0.2 mg/dL (0.3-1.2); Blood Urea Nitrogen 8 mg/dL (9-23); Calcium 8.1 mg/dL (8.3-10.6); Calcium (Corrected) 9.1 mg/dL (8.5-10.1); Carbon Dioxide 27.1 mMol/L (20.0-31.0); Chloride 102 mMol/L (98-107); Creatinine (Component) 0.7 mg/dL (0.6-1.3); Globulin 3.4 gm/dL (2.3-3.5); Glucose 100 mg/dL (74-106); Magnesium 2.0 mg/dL (1.6-2.6); Osmolality,Calculated 275 (275-295); Phosphorous 2.9 mg/dL (2.4-5.1); Potassium 3.7 mMol/L (3.4-5.1); Sodium 139 mMol/L (136-145); Total Protein 6.1 gm/dL (5.7-8.2); eGFR > 60 See Note
[2025-09-04] MEDS: RINGERS LACTATED 500 ML 500 ML 999 ML IV (07:52)
[2025-09-04 08:12] LABS: Lactate (Lactic Acid) 1.9 mMol/L (0.4-2.0)
[2025-09-04] MEDS: DIVALPROEX SOD EC 125 MG TABEC 750 MG PO ×2 (09:36→20:42)
--- NOTE | 2025-09-04 10:00 | PD.RESEVENT ---
Documentation for date of: 09/04/25 Event Note Event Note: This morning around rapid response called for patient having MAP of 57, repeat at 69. Patient's other vitals were stable, saturating well on room air. Patient denied having any chest pain, shortness of breath or abdominal pain. Patient appeared tired, states he feels weak. Patient was given 500 ml Bolus LR x1. Lactic acid was also ordered. Patient plan of care was discussed with the attending physician, Dr. Doshi & senior resident Dr. Dk Calvert MD PGY-1
--- NOTE | 2025-09-04 11:21 | PC.NURSE ---
Notified by lab, pt refusing blood draw. Dr. Calvert notified.
[2025-09-04 12:52] LABS: INR 1.2 (0.9-1.3); Partial Thromboplastin Time 34.8 Seconds (22.0-36.0); Prothrombin Time 12.6 Seconds (9.0-12.2)
--- NOTE | 2025-09-04 13:29 | ESPR_ITS ---
<Statement entered by Caden Root MD - 09/04/25 15:33> No acute overnight events reported. Seen and examined at bedside patient appears to be fatigued. Had rapid response in the morning for low blood pressure illness found to be tachycardic. See event note for details but was given 500 cc bolus of LR. Hemoglobin also noted to be low and ordered 1 unit of pRBC to be given but patient noted to have refused. Given that he appears significantly cachectic, placed referral to registered dietitian and started on multivitamins and thiamine. Vitals show BP 93/53 with pulse of 112 but is breathing on room air. CBC showed resolved leukocytosis, hemoglobin dropped from 8.4 to 7.2. CHEM panel largely unremarkable. Pending MRI and EEG for further evaluation of encephalopathy as well as neurology recommendations. Keppra changed to divalproex 750 mg twice daily will continue to monitor with as needed lorazepam for breakthrough seizures. ----- Note reviewed and agree with care plan as documented. Please refer to the note below for further details. Plan discussed with attending physician Dr. Tico Root MD PGY-2 Internal Medicine Documentation for date of: 09/04/25 Subjective Subjective Interval history: Patient this morning had a rapid for low BP (MAP 57), fluids given, BP improved Patient was noted to have had a blood tinged bowel movement. Hgb this morning was 7.2. PRBc transfusion of 1 unit was ordered with post-transfusion H&H ordered, patient refused. Patient was counseled on the need for rbc transfusion, the risk of refusing transfusion and that acute blood loss is suspected in him with blood noted on bowel movement. Sister called ([phone]) for update, left a voicemail to call back. Sister called back, had a conversation about patient's clinical status, encouraged her to talk with patient to get rbc transfusion. Answered all of her questions. Exam Vital Signs Temp Pulse Resp BP Pulse Ox O2 Del Method O2 Flow Rate 98.3 F 88 16 86/81 L 98 Room Air 2 09/04/25 08:00 09/04/25 08:00 09/04/25 08:00 09/04/25 08:00 09/04/25 08:00 09/04/25 08:00 09/02/25 22:19 Narrative Exam General: No acute distress; A&Ox3, lethargic Skin: Warm, dry, intact, no obvious rash. HENT: NCAT, EOMI/PERRL, not icteric. External ears normal. No rhinorrhea. Moist mucous membranes Cardiovascular: Regular rate and rhythm, no murmur, +S1/S2. Respiratory: Lungs CTAB GI: Colostomy present with visible camilo midline of colostomy; Soft, nontender, non-distended. No guarding or rebound tenderness. : No suprapubic tenderness. No flank tenderness bilaterally. Extremities: no edema, no cyanosis, no clubbing. Extremity pulses present Neuro: Grossly nonfocal. Moving all 4 extremities. CN not formally tested but appear grossly intact. Psychiatric: Cooperative, appropriate affect. Objective Labs 09/05/25 05:09 09/05/25 05:09 Labs: Laboratory Results - last 24 hr 09/04/25 09/04/25 06:22 07:53 WBC 10.6 RBC 3.22 L Hgb 7.2 L Hct 23.0 L MCV 71 L MCH 22.4 L MCHC 31.3 RDW Std Deviation 43.3 Plt Count 534 H D Neut % (Auto) 76 Lymph % (Auto) 12 [place] % (Auto) 11 Eos % (Auto) 1 Baso % (Auto) 0 Neut # (Auto) 8.0 H Lymph # (Auto) 1.2 [place] # (Auto) 1.2 H Eos # (Auto) 0.1 Baso # (Auto) 0.0 Immature Gran # (Auto) 0.05 H Absolute Nucleated RBC 0.00 Immature Gran % 1 H Nucleated RBC % 0 PT 12.6 H INR 1.2 APTT 34.8 Sodium 139 Potassium 3.7 Chloride 102 Carbon Dioxide 27.1 Anion Gap 10 BUN 8 L Creatinine 0.7 Estim Creat Clear Calc Not Performed. eGFR > 60 BUN/Creatinine Ratio 11 L Glucose 100 Calculated Osmolality 275 Lactic Acid 1.9 Calcium 8.1 L Corrected Calcium 9.1 Phosphorus 2.9 Magnesium 2.0 Total Bilirubin 0.2 L AST 15 ALT 11 Alkaline Phosphatase 69 Total Protein 6.1 Albumin 2.7 L Globulin 3.4 Albumin/Globulin Ratio 0.8 L Quality Measures Quality Measures VTE prophylaxis Assessment & Plan Assessment Current Active Medications: Generic Name Dose Route Start Last Admin Trade Name Freq PRN Reason Stop Dose Admin Acetaminophen 650 mg 09/02/25 23:25 09/03/25 21:00 Acetaminophen 325 Mg Tablet PO 10/02/25 23:24 650 mg Q6H PRN Administration Fever >101.5 or pain 1-3 Divalproex Sodium 750 mg 09/03/25 21:00 09/04/25 09:36 Divalproex Sod Ec 125 Mg Tabec PO 10/03/25 20:59 750 mg BID DEEPA Administration Fluoxetine HCl 10 mg 09/04/25 09:00 09/04/25 08:49 Fluoxetine Hcl 10 Mg Capsule PO 10/04/25 08:59 10 mg QDAY DEEPA Administration Heparin Sodium (Porcine) 5,000 unit 09/02/25 23:30 09/04/25 01:54 Heparin Sod Inj 5000 Unit/Ml Vial SC 09/16/25 23:29 Not Given Q12H DEEPA Lorazepam 2 mg 09/02/25 23:30 Lorazepam 2 Mg/Ml Vial IVP 09/07/25 23:29 Q4H PRN AGITATION Morphine Sulfate 2 mg 09/03/25 13:13 09/03/25 18:10 Morphine Sulf Inj 4 Mg/Ml Vial IVP 09/07/25 23:29 2 mg Q4HR PRN Administration BREAKTHROUGH PAIN Ondansetron HCl 4 mg 09/02/25 23:25 Ondansetron Inj 2 Mg/Ml Inj 2 Ml IVP 10/02/25 23:24 Q6H PRN NAUSEA OR VOMITING Protocol Pantoprazole Sodium 40 mg 09/03/25 09:00 09/04/25 08:49 Pantoprazole Inj 40 Mg Vial IVP 10/03/25 08:59 40 mg QDAY DEEPA Administration Trazodone HCl 50 mg 09/03/25 21:00 09/03/25 20:45 Trazodone Hcl 50 Mg Tablet PO 10/03/25 20:59 50 mg HS DEEPA Administration Plan This patient is a 45-year-old male with history of metastatic rectal carcinoma (known spread to liver) status post diverting colostomy (08/16/2025), depression, anxiety, bipolar disorder type I, and seizure-like activity who presented to [facility] ED on 09/02 for altered mental status. The patient was admitted for management of acute encephalopathy. #Acute encephalopathy #Seizure Disorder Patient was found to be acutely altered, resulting in the patient being brought to [facility] ED. GCS was initially 7 upon EMS arrival, and when patient was brought to the ED, patient was completely unresponsive to all forms of stimuli. Patient became violent & administration of Keppra 3 g and midazolam, resulting in a code bridges and administration of Haldol 7.5 mg and diphenhydramine 50 mg. MRI brain with contrast on 08/19/2025 shows mild enhancement 2 mm in thickness in the anterior cerebral falx Treatment: Neurology consulted, appreciate recommendations MRI head with and without contrast ordered to rule out CVA and assess for metastasis to the brain, pending Patient made n.p.o. with aspiration precautions Lorazepam 2 mg every 4 hours as needed for agitation Keppra switched to Divalproex 750 mg po bid Neurochecks every 4 hours Seizure precautions - Plan: Most likely etiology for patient's acute encephalopathy is toxic from methamphetamine intoxication. We will group counselor patient once more improved. Lower suspicion for seizure although possible patient has focal seizures with retained awareness. We will order EEG and continue antiepileptics. Low suspicion for metabolic or infectious etiology for encephalopathy. Low suspicion for CVA although we will obtain MRI brain ordered to rule out CVA and brain mets. Continue frequent reorientation. Limit sedating medications. Swallow screen. #Obstructing metastatic rectal adenocarcinoma, invasive and well-differentiated, likely stage IVb #Status post diverting colostomy 08/21/2025 CRP over 10, likely secondary to his metastatic rectal adenocarcinoma Pathology report 07/19/2024 of rectal mass biopsied via colonoscopy shows well- differentiated invasive adenocarcinoma Pathology report 08/19/[address]-guided liver needle biopsy shows metastatic adenocarcinoma, consistent with colorectal primary CT chest/abdomen/pelvis shows 5.4 x 2.0 cm right lobe liver lesion and very large mass in the pelvis, at least 12 x 10 cm Plan: Pain management as needed. Patient will need to follow-up outpatient with oncology for metastatic adenocarcinoma. #bipolar disorder type I #depression and anxiety #insomnia - Plan: Continue home trazodone at night and fluoxetine. Will evaluate mental status once more improved. #Methamphetamine positive U tox Urine toxicology 09/02 noted to be positive for methamphetamine. [place] patient once alert and oriented. DVT Prophylaxis: Heparin GI Prophylaxis: Protonix Diet: NPO CODE STATUS: Full code Reason for Hospitalization: Acute encephalopathy Patient plan of care was discussed with the attending physician, Dr. Doshi & senior resident Dr. Dk Calvert MD PGY-1 Attending Provider Attestation/Addendum I have examined the patient, reviewed labs and imaging findings, discussed the case with the resident(s), and reviewed entered orders. I agree with the plan of care as outlined in this note. Dr. Tico MD
--- NOTE | 2025-09-04 13:39 | PD.VPROG1 ---
Telemedicine visit statement This visit was conducted with the use of interactive audio and video telecommunications system that permits real time communication between the patient and the provider. Patient's verbal consent for virtual visit was obtained on 09/04/25 at 1339. Documentation for date of: 09/04/25 Virtual exam Vital Signs Temp Pulse Resp BP Pulse Ox O2 Del Method O2 Flow Rate 98.3 F 88 16 86/81 L 98 Room Air 2 09/04/25 08:00 09/04/25 08:00 09/04/25 08:00 09/04/25 08:00 09/04/25 08:00 09/04/25 08:00 09/02/25 22:19 Objective Labs 09/04/25 06:22 09/04/25 06:22 Labs: Laboratory Results - last 24 hr 09/04/25 09/04/25 06:22 07:53 WBC 10.6 RBC 3.22 L Hgb 7.2 L Hct 23.0 L MCV 71 L MCH 22.4 L MCHC 31.3 RDW Std Deviation 43.3 Plt Count 534 H D Neut % (Auto) 76 Lymph % (Auto) 12 [place] % (Auto) 11 Eos % (Auto) 1 Baso % (Auto) 0 Neut # (Auto) 8.0 H Lymph # (Auto) 1.2 [place] # (Auto) 1.2 H Eos # (Auto) 0.1 Baso # (Auto) 0.0 Immature Gran # (Auto) 0.05 H Absolute Nucleated RBC 0.00 Immature Gran % 1 H Nucleated RBC % 0 PT 12.6 H INR 1.2 APTT 34.8 Sodium 139 Potassium 3.7 Chloride 102 Carbon Dioxide 27.1 Anion Gap 10 BUN 8 L Creatinine 0.7 Estim Creat Clear Calc Not Performed. eGFR > 60 BUN/Creatinine Ratio 11 L Glucose 100 Calculated Osmolality 275 Lactic Acid 1.9 Calcium 8.1 L Corrected Calcium 9.1 Phosphorus 2.9 Magnesium 2.0 Total Bilirubin 0.2 L AST 15 ALT 11 Alkaline Phosphatase 69 Total Protein 6.1 Albumin 2.7 L Globulin 3.4 Albumin/Globulin Ratio 0.8 L
[2025-09-04 14:01] LABS: HIV (1&2) Antibody Rapid Non-Reactive
[2025-09-04] MEDS: MORPHINE SULF INJ 4 MG/ML VIAL 2 MG IVP (14:13)
[2025-09-04 14:40] LABS: Syphilis Nonreactive (Nonreactive)
--- NOTE | 2025-09-04 19:46 | PD.IMCONS ---
HPI Data of Consult Requesting Physician: Jama Sesay MD Primary Care Provider: Physician No Primary/Family Consult Narrative Reason for consult: Rectal bleeding rectal mass ALOC History of present illness: 45 years old male evaluated earlier part of last year when on 07/20/2024 patient underwent a colonoscopy was found to have a large rectal mass semicircumferential starting at 15 cm going proximally for another 5 to 6 cm biopsies proved to be adenocarcinoma and patient also had a liver biopsy on 08/25/2025 which also showed metastatic adenocarcinoma of colorectal primary Patient since then has gone diverting colostomy and is followed by a local oncology group I have been consulted for drop in hemoglobin hematocrit as well as patient is being treated for seizure disorder as well as hepatic encephalopathy Rapid response this morning was for hypotension requiring IV fluids No history obtainable cc:: cc: Jama Sesay MD Review of Systems Review of Systems ROS Unobtainable: unobtainable due to medical condition Past Medical History Surgical History OTHER SURGICAL HX: Bipolar disorder Anxiety neurosis Meds Home Medications and Allergies Home Medications ?Medication ?Instructions ?Recorded ?Confirmed ?Type fluoxetine 20 mg capsule (Prozac) 10 mg PO QAM #0 caps 12/20/14 09/03/25 History trazodone 50 mg tablet 50 mg PO HS PRN Sleep #0 tabs 12/20/14 09/03/25 History levetiracetam 500 mg tablet 500 mg PO BID 07/20/24 09/03/25 History ([place]) Allergies Allergy/AdvReac Type Severity Reaction Status Date / Time coconut Allergy Severe Anaphylaxis Verified 09/02/25 20:15 Exam Vital Signs Temp Pulse Resp BP Pulse Ox O2 Del Method O2 Flow Rate 98.4 F 97 16 101/59 L 96 Room Air 2 09/04/25 16:00 09/04/25 16:00 09/04/25 16:00 09/04/25 16:00 09/04/25 16:00 09/04/25 16:00 09/02/25 22:19 Constitutional Comments: Chronically ill-appearing Routine Respiratory Exam Comments: Normal to auscultation Routine Abdominal Exam Comments: Colostomy in place Results Labs 09/04/25 06:22 09/04/25 06:22 Labs: Short CBC 09/04/25 Range/Units 06:22 WBC 10.6 (3.8-10.6) Thou/mm3 Hgb 7.2 L (13.5-16.0) g/dL Hct 23.0 L (41.0-53.0) % Plt Count 534 H D (140-440) Thou/mm3 BMP 09/04/25 06:22 Sodium 139 Potassium 3.7 Chloride 102 Carbon Dioxide 27.1 BUN 8 L Creatinine 0.7 Glucose 100 Calcium 8.1 L Liver Function 09/04/25 Range/Units 06:22 Total Bilirubin 0.2 L (0.3-1.2) mg/dL AST 15 (0-34) U/L ALT 11 (10-49) U/L Alkaline Phosphatase 69 (46-116) U/L Albumin 2.7 L (3.5-5.0) gm/dL Assessment and Plan Additional Assessment & Plan Additional Plan: # Anemia blood loss secondary to the chronic bleeding from the rectal adenocarcinoma for which not much can be done except radiation and chemo and hopefully that will help # Status post diverting colostomy # metabolic encephalopathy # Seizure disorder # Bipolar disorder # Poor p.o. intake Continue current management Patient has poor p.o. intake May consider PEG placement at some point for nutritional support No need for a repeat invasive GI workup Thank you for the opportunity to participate in the care of this patient
[2025-09-05] VITALS (7 sets, daily range): BP systolic 91–114; BP diastolic 48–74; PULSE 87–115; RESP 13–25; TEMP 36.6–37.7; O2SAT 95–100; BMI 15.5
--- NOTE | 2025-09-05 01:23 | PC.NURSE ---
Patient alert and oriented. order to draw post blood transfusion H&H. Patient refusing post blood transfusion lab draw. Patient states, I don't want to get poked twice, I'll wait for the morning lab draw. MD Lincoln notified of patient refusing post blood transfusion lab draw.
[2025-09-05] MEDS: ACETAMINOPHEN 325 MG TABLET 650 MG PO (02:24)
[2025-09-05] MEDS: MORPHINE SULF INJ 4 MG/ML VIAL 2 MG IVP (03:29)
[2025-09-05 05:38] LABS: Basophils # (Auto) 0.0 Thou/mm3 (0.0-0.2); Basophils % (Auto) 0 % (0-2.5); Eosinophils # (Auto) 0.0 Thou/mm3 (0.0-0.5); Eosinophils % (Auto) 0 % (0-10); Hematocrit 27.6 % (41.0-53.0); Immature Granulocytes Auto 0.05 Thou/mm3 (0.00-0.00); Lymphocytes # (Auto) 0.7 Thou/mm3 (1.0-4.8); Lymphocytes % (Auto) 6 % (10-50); Mean Corpuscular HGB Conc 31.2 g/dl (31.0-37.0); Mean Corpuscular Hemoglobin 22.2 pg (25.0-35.0); Mean Corpuscular Volume 71 fL (80-100); Monocytes # (Auto) 1.0 Thou/mm3 (0.0-0.8); Monocytes % (Auto) 9 % (0-12); Neutrophils # (Auto) 9.3 Thou/mm3 (1.8-7.7); Neutrophils % (Auto) 84 % (37-80); Nucleated Red Blood Cell # 0.00 Thou/mm3 (0.00-0.00); Nucleated Red Blood Cell % 0 /100 WBC (0); Platelet Count 529 Thou/mm3 (140-440); RDW Standard Deviation 43.2 fL (35.1-43.9); Red Blood Count 3.87 Miln/mm3 (4.50-5.90); White Blood Count 11.0 Thou/mm3 (3.8-10.6)
[2025-09-05 05:42] LABS: Hemoglobin 8.6 g/dL (13.5-16.0)
[2025-09-05 06:02] LABS: Alanine Aminotransferase 11 U/L (10-49); Albumin, Serum 2.8 gm/dL (3.5-5.0); Albumin/Globulin Ratio 0.8 (1.2-2.2); Alkaline Phosphatase 67 U/L (46-116); Anion Gap 10 (7-16); Aspartate Amino Transferase 15 U/L (0-34); BUN/Creatinine Ratio 12 Ratio (12-20); Bilirubin,Total 0.2 mg/dL (0.3-1.2); Blood Urea Nitrogen 6 mg/dL (9-23); Calcium 8.1 mg/dL (8.3-10.6); Calcium (Corrected) 9.1 mg/dL (8.5-10.1); Carbon Dioxide 25.9 mMol/L (20.0-31.0); Chloride 102 mMol/L (98-107); Creatinine (Component) 0.5 mg/dL (0.6-1.3); Estimated Creatinine Clearance 123.4 mL/min (>60); Globulin 3.4 gm/dL (2.3-3.5); Glucose 98 mg/dL (74-106); Magnesium 1.8 mg/dL (1.6-2.6); Osmolality,Calculated 273 (275-295); Phosphorous 2.7 mg/dL (2.4-5.1); Potassium 3.6 mMol/L (3.4-5.1); Sodium 138 mMol/L (136-145); Total Protein 6.2 gm/dL (5.7-8.2); eGFR > 60 See Note
[2025-09-05] MEDS: PANTOPRAZOLE 40 MG TABLET PO (09:48)
[2025-09-05] MEDS: THIAMINE INJ 100 MG/ML VIAL 2 ML IVP (09:48)
[2025-09-05] MEDS: MULTIVITAMINS TABLET 1 TAB PO (09:48)
[2025-09-05] MEDS: DIVALPROEX SOD EC 125 MG TABEC 750 MG PO ×2 (09:48→21:25)
[2025-09-05] MEDS: MIRTAZAPINE 15 MG TABLET PO (12:47)
--- NOTE | 2025-09-05 13:44 | PC.SS ---
cut out worker met with patient at bedside to discuss d/c planning. Patient requested that WATER RESOURCE CONSULTANT return at a later time.
--- NOTE | 2025-09-05 16:11 | ESPR_ITS ---
<Statement entered by Caden Root MD - 09/05/25 16:54> No acute overnight events. Seen and examined at bedside and resting comfortably in bed. Vital signs stable. CBC shows WBC of 11 and hemoglobin increased to 8.6 after being transfused 1 unit PRBC. CHEM panel largely unremarkable. Pending EEG read and neuro recommendations and will follow-up. ----- Note reviewed and agree with care plan as documented. Please refer to the note below for further details. Plan discussed with attending physician Dr. Tico Root MD PGY-2 Internal Medicine Documentation for date of: 09/05/25 Subjective Subjective Interval history: Pt seen this morning, at baseline. Has been refusing DVT Heparin prophylaxis, SCD's ordered. Otherwise Mr. Avery understands the plan for further neurological workup and counseled patient on methamphetamine cessation and oncology follow up. Exam Vital Signs Temp Pulse Resp BP Pulse Ox O2 Del Method O2 Flow Rate 98.7 F 87 14 92/52 L 97 Room Air 2 09/05/25 12:00 09/05/25 12:00 09/05/25 12:00 09/05/25 12:09/05/25 12:09/05/25 12:09/05/25 00:00 Narrative Exam General: alert and oriented to self/place/year, no acute distress, able to speak full sentences; cachectic HEENT: NC/AT, mucous membranes moist, bilateral sclera anicteric Cardiovascular: regular rate and rhythm, S1/S2 present, no murmurs appreciated Pulmonary: clear to auscultation bilaterally, no rales/rhonchi/wheezes Abdominal: soft, nontender, present bowel sounds; thin Musculoskeletal: no peripheral edema Skin: Warm, well-perfused Objective Labs 09/06/25 05:25 09/06/25 05:25 Labs: Laboratory Results - last 24 hr 09/04/25 09/05/25 15:46 05:09 WBC 11.0 H RBC 3.87 L Hgb 8.6 L Hct 27.6 L MCV 71 L MCH 22.2 L MCHC 31.2 RDW Std Deviation 43.2 Plt Count 529 H Neut % (Auto) 84 H Lymph % (Auto) [address] [place] % (Auto) 9 Eos % (Auto) 0 Baso % (Auto) 0 Neut # (Auto) 9.3 H Lymph # (Auto) 0.[address] [place] # (Auto) 1.0 H Eos # (Auto) 0.0 Baso # (Auto) 0.0 Immature Gran # (Auto) 0.05 H Absolute Nucleated RBC 0.00 Immature Gran % 1 H Nucleated RBC % 0 Sodium 138 Potassium 3.6 Chloride 102 Carbon Dioxide 25.9 Anion Gap 10 BUN 6 L Creatinine 0.5 L Estim Creat Clear Calc 123.4 eGFR > 60 BUN/Creatinine Ratio 12 Glucose 98 Calculated Osmolality 273 L Calcium 8.1 L Corrected Calcium 9.1 Phosphorus 2.7 Magnesium 1.8 Total Bilirubin 0.2 L AST 15 ALT 11 Alkaline Phosphatase 67 Total Protein 6.2 Albumin 2.8 L Globulin 3.4 Albumin/Globulin Ratio 0.8 L Blood Type O Positive Antibody Screen NEGATIVE Crossmatch See Detail Blood Bank Wristband ID Yes Quality Measures Quality Measures VTE prophylaxis Assessment & Plan Assessment Current Active Medications: Generic Name Dose Route Start Last Admin Trade Name Freq PRN Reason Stop Dose Admin Acetaminophen 650 mg 09/02/25 23:25 09/05/25 02:24 Acetaminophen 325 Mg Tablet PO 10/02/25 23:24 650 mg Q6H PRN Administration Fever >101.5 or pain 1-3 Divalproex Sodium 750 mg 09/03/25 21:00 09/05/25 09:48 Divalproex Sod Ec 125 Mg Tabec PO 10/03/25 20:59 750 mg BID DEEPA Administration Fluoxetine HCl 10 mg 09/04/25 09:00 09/05/25 09:48 Fluoxetine Hcl 10 Mg Capsule PO 10/04/25 08:59 10 mg QDAY DEEPA Administration Heparin Sodium (Porcine) 5,000 unit 09/02/25 23:30 09/05/25 11:56 Heparin Sod Inj 5000 Unit/Ml Vial SC 09/16/25 23:29 Not Given Q12H DEEPA Lorazepam 2 mg 09/02/25 23:30 Lorazepam 2 Mg/Ml Vial IVP 09/07/25 23:29 Q4H PRN AGITATION Mirtazapine 15 mg 09/05/25 12:45 09/05/25 12:47 Mirtazapine 15 Mg Tablet PO 10/05/25 12:44 15 mg QDAY DEEPA Administration Morphine Sulfate 2 mg 09/03/25 13:13 09/05/25 03:29 Morphine Sulf Inj 4 Mg/Ml Vial IVP 09/07/25 23:29 2 mg Q4HR PRN Administration BREAKTHROUGH PAIN Multivitamins 1 tab 09/05/25 09:00 09/05/25 09:48 Multivitamins Tablet PO 10/05/25 08:59 1 tab QDAY DEEPA Administration Ondansetron HCl 4 mg 09/02/25 23:25 Ondansetron Inj 2 Mg/Ml Inj 2 Ml IVP 10/02/25 23:24 Q6H PRN NAUSEA OR VOMITING Protocol Pantoprazole Sodium 40 mg 09/05/25 09:00 09/05/25 09:48 Pantoprazole 40 Mg Tablet PO 10/05/25 08:59 40 mg QDAY DEEPA Administration Thiamine HCl 100 mg 09/05/25 09:00 09/05/25 09:48 Thiamine Inj 100 Mg/Ml Vial 2 Ml IVP 10/05/25 08:59 100 mg QDAY DEEPA Administration Trazodone HCl 50 mg 09/03/25 21:00 09/04/25 20:42 Trazodone Hcl 50 Mg Tablet PO 10/03/25 20:59 50 mg HS DEEPA Administration Plan This patient is a 45-year-old male with history of metastatic rectal carcinoma (known spread to liver) status post diverting colostomy (08/16/2025), depression, anxiety, bipolar disorder type I, and seizure-like activity who presented to [facility] ED on 09/02 for altered mental status. The patient was admitted for management of acute encephalopathy. #Acute encephalopathy #Seizure Disorder Patient was found to be acutely altered, resulting in the patient being brought to [facility] ED. GCS was initially 7 upon EMS arrival, and when patient was brought to the ED, patient was completely unresponsive to all forms of stimuli. Patient became violent & administration of Keppra 3 g and midazolam, resulting in a code bridges and administration of Haldol 7.5 mg and diphenhydramine 50 mg. MRI brain with contrast on 08/19/2025 shows mild enhancement 2 mm in thickness in the anterior cerebral falx Treatment: Neurology consulted, appreciate recommendations MRI head with and without contrast ordered to rule out CVA and assess for metastasis to the brain, pending Patient made n.p.o. with aspiration precautions Lorazepam 2 mg every 4 hours as needed for agitation Keppra switched to Divalproex 750 mg po bid Neurochecks every 4 hours Seizure precautions - Plan: Most likely etiology for patient's acute encephalopathy is toxic from methamphetamine intoxication. We will group home counselor patient once more improved. Lower suspicion for seizure although possible patient has focal seizures with retained awareness. We will order EEG and continue antiepileptics. Low suspicion for metabolic or infectious etiology for encephalopathy. Low suspicion for CVA although we will obtain MRI brain ordered to rule out CVA and brain mets. Continue frequent reorientation. Limit sedating medications. Swallow screen. -Pending neurology evaluation and recommendations -Drop in Hgb 12.6 to 10 09/03 to 09/04, repeat H&H @ 1999 to evaluate Hgb #Obstructing metastatic rectal adenocarcinoma, invasive and well-differentiated, likely stage IVb #Status post diverting colostomy 08/21/2025 CRP over 10, likely secondary to his metastatic rectal adenocarcinoma Pathology report 07/19/2024 of rectal mass biopsied via colonoscopy shows well- differentiated invasive adenocarcinoma Pathology report 08/19/[address]-guided liver needle biopsy shows metastatic adenocarcinoma, consistent with colorectal primary CT chest/abdomen/pelvis shows 5.4 x 2.0 cm right lobe liver lesion and very large mass in the pelvis, at least 12 x 10 cm Plan: Pain management as needed. Patient will need to follow-up outpatient with oncology for metastatic adenocarcinoma. #Cachexia 2/2 metastatic cancer -Started on Mirtazipine for appetite stimulation #bipolar disorder type I #depression and anxiety #insomnia - Plan: Continue home trazodone at night and fluoxetine. Will evaluate mental status once more improved. #Methamphetamine positive U tox Urine toxicology 09/02 noted to be positive for methamphetamine. [place] patient once alert and oriented. DVT Prophylaxis: Heparin GI Prophylaxis: Protonix Diet: NPO CODE STATUS: Full code Reason for Hospitalization: Acute encephalopathy Patient plan of care was discussed with the attending physician, Dr. Doshi & senior resident Dr. Root Patient seen and discussed with attending physician Dr. Leonel Doshi and senior resident Dr. Caden Meza MD PGY-1 Attending Provider Attestation/Addendum I have examined the patient, reviewed labs and imaging findings, discussed the case with the resident(s), and reviewed entered orders. I agree with the plan of care as outlined in this note. Dr. Tico MD
--- NOTE | 2025-09-05 17:26 | ESPR_ITS ---
Documentation for date of: 09/05/25 Subjective Subjective Interval history: Hemoglobin hematocrit 8.6 and 27.6 with a platelet count of 549,000 Exam Vital Signs Temp Pulse Resp BP Pulse Ox O2 Del Method O2 Flow Rate 99.8 F 112 H 13 101/65 96 Room Air 2 09/05/25 16:00 09/05/25 16:00 09/05/25 16:00 09/05/25 16:00 09/05/25 16:00 09/05/25 16:00 09/05/25 00:00 Objective Labs 09/05/25 05:09 09/05/25 05:09 Labs: Laboratory Results - last 24 hr 09/04/25 09/05/25 15:46 05:09 WBC 11.0 H RBC 3.87 L Hgb 8.6 L Hct 27.6 L MCV 71 L MCH 22.2 L MCHC 31.2 RDW Std Deviation 43.2 Plt Count 529 H Neut % (Auto) 84 H Lymph % (Auto) 6 L [place] % (Auto) 9 Eos % (Auto) 0 Baso % (Auto) 0 Neut # (Auto) 9.3 H Lymph # (Auto) 0.7 L [place] # (Auto) 1.0 H Eos # (Auto) 0.0 Baso # (Auto) 0.0 Immature Gran # (Auto) 0.05 H Absolute Nucleated RBC 0.00 Immature Gran % 1 H Nucleated RBC % 0 Sodium 138 Potassium 3.6 Chloride 102 Carbon Dioxide 25.9 Anion Gap 10 BUN 6 L Creatinine 0.5 L Estim Creat Clear Calc 123.4 eGFR > 60 BUN/Creatinine Ratio 12 Glucose 98 Calculated Osmolality 273 L Calcium 8.1 L Corrected Calcium 9.1 Phosphorus 2.7 Magnesium 1.8 Total Bilirubin 0.2 L AST 15 ALT 11 Alkaline Phosphatase 67 Total Protein 6.2 Albumin 2.8 L Globulin 3.4 Albumin/Globulin Ratio 0.8 L Blood Type O Positive Antibody Screen NEGATIVE Crossmatch See Detail Blood Bank Wristband ID Yes Impressions Impression: Rectal bleeding due to rectal adenocarcinoma undergoing chemotherapy No need for any invasive GI workup Continue to monitor CBC and transfusion as needed if the hemoglobin drops below 7 g Assessment & Plan A&P Narrative # Anemia blood loss secondary to the chronic bleeding from the rectal adenocarcinoma for which not much can be done except radiation and chemo and hopefully that will help # Status post diverting colostomy # metabolic encephalopathy # Seizure disorder # Bipolar disorder # Poor p.o. intake Continue current management Patient has poor p.o. intake May consider PEG placement at some point for nutritional support No need for a repeat invasive GI workup Thank you for the opportunity to participate in the care of this patient Time Spent With Patient Time: Total time spent is greater than 50% in coordination of care (as documented) at patient's floor/unit and/or counseling patient:
[2025-09-05 21:04] LABS: Hematocrit 31.6 % (41.0-53.0); Hemoglobin 9.9 g/dL (13.5-16.0)
--- NOTE | 2025-09-05 23:54 | ESPR_ITS ---
Documentation for date of: 09/05/25 Subjective Subjective Interval history: Patient was seen in telemetry today, no sz reported after admission, mental status has improved to baseline. Slept well last night, He was able to sit up in bed. Exam - Neurology Vital Signs Temp Pulse Resp BP Pulse Ox O2 Del Method O2 Flow Rate 99.4 F 108 H 15 114/74 100 Room Air 2 09/05/25 20:00 09/05/25 20:00 09/05/25 20:00 09/05/25 20:00 09/05/25 20:00 09/05/25 20:00 09/05/25 00:00 Narrative Exam General: Alert, no acute distress. Significantly cachectic. Skin: Warm, dry, intact. Head: Normocephalic, atraumatic. Eye: Normal conjunctiva, PERRL. Cardiovascular: Tachycardic rate and regular rhythm, no murmur, +S1/S2. Respiratory: Lungs are clear to auscultation, respirations unlabored, no crackles, no wheezing. Gastrointestinal: abdomen soft, nt/nd, nbs heard. Colostomy present with visible camilo midline of colostomy. Extremities: No edema, no cyanosis, no clubbing. Neuro: No focal deficits observed. No overt cerebellar signs/incoordination. Psychiatric: flat affect Objective Labs 09/05/25 20:36 09/05/25 05:09 Labs: Laboratory Results - last 24 hr 09/04/25 09/05/25 09/05/25 15:46 05:09 20:36 WBC 11.0 H RBC 3.87 L Hgb 8.6 L 9.9 L Hct 27.6 L 31.6 L MCV 71 L MCH 22.2 L MCHC 31.2 RDW Std Deviation 43.2 Plt Count 529 H Neut % (Auto) 84 H Lymph % (Auto) 6 L [place] % (Auto) 9 Eos % (Auto) 0 Baso % (Auto) 0 Neut # (Auto) 9.3 H Lymph # (Auto) 0.7 L [place] # (Auto) 1.0 H Eos # (Auto) 0.0 Baso # (Auto) 0.0 Immature Gran # (Auto) 0.05 H Absolute Nucleated RBC 0.00 Immature Gran % 1 H Nucleated RBC % 0 Sodium 138 Potassium 3.6 Chloride 102 Carbon Dioxide 25.9 Anion Gap 10 BUN 6 L Creatinine 0.5 L Estim Creat Clear Calc 123.4 eGFR > 60 BUN/Creatinine Ratio 12 Glucose 98 Calculated Osmolality 273 L Calcium 8.1 L Corrected Calcium 9.1 Phosphorus 2.7 Magnesium 1.8 Total Bilirubin 0.2 L AST 15 ALT 11 Alkaline Phosphatase 67 Total Protein 6.2 Albumin 2.8 L Globulin 3.4 Albumin/Globulin Ratio 0.8 L Crossmatch See Detail Assessment & Plan Assessment and plan (1) AMS (altered mental status): Status: Resolved (2) Breakthrough seizure: Status: Acute Assessment and plan: none since admission Switched to Depakote for better alf SE profile Encouraged him to sit up and walk with PT tomorrow.
[2025-09-06] VITALS: BP 98/65; PULSE 111; PULSE 113; RESP 19; TEMP 37.1; O2SAT 98
[2025-09-06 04:00] VITALS: BP 114/69; PULSE 113; PULSE 114; RESP 16; TEMP 37.2; O2SAT 99
[2025-09-06] MEDS: MORPHINE SULF INJ 4 MG/ML VIAL 2 MG IVP ×2 (05:12→11:51)
[2025-09-06 06:00] VITALS: BMI 15.5
[2025-09-06 06:36] LABS: Alanine Aminotransferase 10 U/L (10-49); Albumin, Serum 2.9 gm/dL (3.5-5.0); Albumin/Globulin Ratio 0.8 (1.2-2.2); Alkaline Phosphatase 72 U/L (46-116); Anion Gap 10 (7-16); Aspartate Amino Transferase 14 U/L (0-34); BUN/Creatinine Ratio 10 Ratio (12-20); Bilirubin,Total 0.2 mg/dL (0.3-1.2); Blood Urea Nitrogen 6 mg/dL (9-23); Calcium 8.3 mg/dL (8.3-10.6); Calcium (Corrected) 9.2 mg/dL (8.5-10.1); Carbon Dioxide 26.8 mMol/L (20.0-31.0); Chloride 102 mMol/L (98-107); Creatinine (Component) 0.6 mg/dL (0.6-1.3); Estimated Creatinine Clearance 102.8 mL/min (>60); Globulin 3.6 gm/dL (2.3-3.5); Glucose 78 mg/dL (74-106); Magnesium 1.9 mg/dL (1.6-2.6); Osmolality,Calculated 274 (275-295); Phosphorous 2.9 mg/dL (2.4-5.1); Potassium 3.7 mMol/L (3.4-5.1); Sodium 139 mMol/L (136-145); Total Protein 6.5 gm/dL (5.7-8.2); eGFR > 60 See Note
[2025-09-06 06:57] LABS: Basophils # (Auto) 0.0 Thou/mm3 (0.0-0.2); Basophils % (Auto) 0 % (0-2.5); Eosinophils # (Auto) 0.0 Thou/mm3 (0.0-0.5); Eosinophils % (Auto) 0 % (0-10); Hematocrit 27.1 % (41.0-53.0); Immature Granulocytes Auto 0.05 Thou/mm3 (0.00-0.00); Lymphocytes # (Auto) 0.9 Thou/mm3 (1.0-4.8); Lymphocytes % (Auto) 9 % (10-50); Mean Corpuscular HGB Conc 31.0 g/dl (31.0-37.0); Mean Corpuscular Hemoglobin 22.5 pg (25.0-35.0); Mean Corpuscular Volume 73 fL (80-100); Monocytes # (Auto) 1.4 Thou/mm3 (0.0-0.8); Monocytes % (Auto) 14 % (0-12); Neutrophils # (Auto) 8.0 Thou/mm3 (1.8-7.7); Neutrophils % (Auto) 77 % (37-80); Nucleated Red Blood Cell # 0.00 Thou/mm3 (0.00-0.00); Nucleated Red Blood Cell % 0 /100 WBC (0); Platelet Count 644 Thou/mm3 (140-440); RDW Standard Deviation 44.7 fL (35.1-43.9); Red Blood Count 3.73 Miln/mm3 (4.50-5.90); White Blood Count 10.4 Thou/mm3 (3.8-10.6)
[2025-09-06 07:02] LABS: Hemoglobin 8.4 g/dL (13.5-16.0)
[2025-09-06 08:00] VITALS: BP 109/67; PULSE 108; PULSE 111; RESP 18; TEMP 36.9; O2SAT 96
[2025-09-06] MEDS: MIRTAZAPINE 15 MG TABLET PO (08:30)
[2025-09-06] MEDS: DIVALPROEX SOD EC 125 MG TABEC 750 MG PO ×2 (08:30→23:21)
[2025-09-06] MEDS: MULTIVITAMINS TABLET 1 TAB PO (08:31)
[2025-09-06] MEDS: PANTOPRAZOLE 40 MG TABLET PO (08:31)
[2025-09-06 09:47] VITALS: BMI 15.4
--- NOTE | 2025-09-06 10:41 | PC.SS ---
Addendum entered by Michelle Dueñas 09/06/25 16:13: f/u: SS spoke to wound care nurse who states patient has a new colostomy bag and will need home health services. At this time patient is homeless , no income, dx: cancer and does not have an established p.c.p. SS received phone call from patient's sister in law, Adri Avery. Sister in law states she would like to be patient's point of contact and alternate decision maker. SS spoke to patient who is agreeable. SS will submit inquiry to all local SnF's including [place]. Sister in law states their relative works at [facility] and she would like the referral sent to that facility. Patient states once he had colostomy bag placed on last admission he was discharged back to [facility] and then discharged and ended up back in hospital. SS upated Adri that if insurance does not approve SNF then we need to look at an alternate plan. Adri may consider taking patient in. Sister in law resides in [place]. Patient has a mother who also lives in [facility]. Alt medical decision maker: Adri Avery, sister in law, Original Note: Follow up note: PT eval was completed. SS spoke to PT who states patient ambulated over 200 feet without AD. SS will speak with patient about discharge plans. If patient is homeless, SS will provide information about homeless shelters as well as substance recovery resources.
[2025-09-06 12:00] VITALS: BP 117/69; PULSE 108; PULSE 115; RESP 19; TEMP 37; O2SAT 95
--- NOTE | 2025-09-06 12:23 | PD.RESDS ---
Planned Discharge Date 09/06/25 DS: Providers Provider Date of admission: 09/02/25 23:25 Primary care physician: Physician No Primary/Family Admitting Provider: Jama Sesay MD Attending Provider on Admission: Jama Sesay MD Consults: 09/02/25 19:56 Consult to Neurology / Tele-Neurology Routine Comment: Consulting Provider: [facility] 09/02/25 23:37 Consult to Neurology / Tele-Neurology Routine Comment: Consulting Provider: Gee Camacho 09/03/25 02:36 Referral Infection Control Routine Comment: Reason for Infection Control Referral: Readmitted within 30 days 09/04/25 10:36 Consult to Gastroenterology Routine Comment: Consulting Provider: Anette Martins 09/04/25 13:48 Referral [place] Routine Comment: 09/04/25 13:53 Referral Registered Dietitian Routine Comment: Referral Registered Dietitian Routine Comment: 09/06/25 09:11 Referral Physical Therapy Urgent Comment: Physician Instructions: Attending Provider on DC: Caden Root MD Discharging Provider: Caden Root MD Hospital Course Hospital Course Hospital course: Hemoglobin hematocrit 8.6 and 27.6 with a platelet count of 549,000 Time Spent with Patient Time attestation: Total time spent providing and/or coordinating discharge services: Exam Vital Signs Temp Pulse Resp BP Pulse Ox O2 Del Method O2 Flow Rate 98.5 F 111 H 18 109/67 96 Room Air 2 09/06/25 08:00 09/06/25 08:00 09/06/25 08:00 09/06/25 08:00 09/06/25 08:00 09/06/25 08:00 09/05/25 00:00 Discharge Plan Plan Patient Disposition: HOME (Self Care) Disposition Comment: Correction Prescriptions/Referrals Prescriptions/Med Rec: New divalproex 250 mg tablet,delayed release (DR/EC) 750 mg PO BID 30 Days Qty: 180 0RF multivitamin with folic acid [Tab-A-Radha] 400 mcg Tablet 1 tab PO QDAY 30 Days Qty: 30 0RF ferric citrate 210 mg iron tablet 210 mg PO .qod Qty: 14 0RF Rx Instructions: administer with a meal Continued trazodone 50 mg Tablet 50 mg PO HS PRN (Reason: Sleep) Qty: 0 fluoxetine [Prozac] 20 MG capsule 10 mg PO QAM Qty: 0 hydrocodone-acetaminophen 7.5-325 mg tablet 1 tab PO Q8H MDD 3 PRN (Reason: pain) Qty: 10 0RF Discontinued levetiracetam [Keppra] 500 mg Tablet 500 mg PO BID levetiracetam [Keppra] 750 mg tablet 750 mg PO BID MDD 2 Qty: 60 0RF Referrals: No Primary/Family,Physician [Primary Care Provider] Patient/Caregiver Discharge Instructions Print Language: Tunisian Stand Alone Forms: Tere Award Info., Patient Portal Info Letter Discharge Order Discharge Orders: Discharge (Routine); Ordered 09/06/25 Ordered By: Caden Root
--- NOTE | 2025-09-06 12:55 | PC.WOUND ---
Assisted Dr. Weldon at bedside for staple removal to midline abdomen. GCS of 15, tolerated well. Small full thickness wound to proximal end of surgical incision, clean beefy red with no s/s of infection. Ok per Dr. Weldon to discharge, to place home health for assistance with new colostomy and pouching system. Homeless, Plan to discharge to [facility] for [facility] term. Spoke with Michelle S/S aware of patients needs for colostomy care and supplies post discharge.
--- NOTE | 2025-09-06 13:27 | PC.PT ---
PT eval only. Patient is xI with bed mobility, transfers, and ambulation using no AD. Patient is safe to ambulate to the bathroom and in the halls with 1 staff for safety due to his history of seizures. RN made aware.
--- NOTE | 2025-09-06 14:47 | ESPR_ITS ---
<Statement entered by Caden Root MD - 09/06/25 14:57> No acute overnight events. Seen and examined at bedside and patient resting comfortably in bed. No complaints at this time but does state he had a bloody bowel movement this morning. Was evaluated by neurology last night and Keppra was changed to Depakote for long-term side effect profile and encouraged to sit up and walk with physical therapy. Vital signs show pulse of 115 but otherwise unremarkable. CBC showing resolved leukocytosis and slight drop in hemoglobin, consistent with bloody BM that is likely due to his rectal adenocarcinoma. CHEM panel largely unremarkable. Spoke to clinical social work therapist, states that due to new colostomy bag patient will require SNF for home health services. At this time, will reach out to SNF's and as a backup plan however he spoken to [id number] who is willing to assist. Otherwise, will follow-up on further neurology recommendations. ----- Note reviewed and agree with care plan as documented. Please refer to the note below for further details. Plan discussed with attending physician Dr. Tico Root MD PGY-2 Internal Medicine Documentation for date of: 09/06/25 Subjective Subjective Interval history: NAEO VSS. Mr. Avery understands the plan for potential discharge today w/ increased emphasis on following up with cancer center for treatment given his sharp decline while not on treatment. He demonstrated understanding during our talks. Plan was for patient to go back to care home but unfortunately logistics of his ostomy bag care and maintenance was an issue - needing supplies since he will not be discharged back to senior care where he was getting adequate care. Will stay one more night for monitoring and potential discharge after supply and care coordination done for discharge to care home. Physical Therapy intervention yesterday: patient is independent, ambulatory; no acute interventions necessary Exam Vital Signs Temp Pulse Resp BP Pulse Ox O2 Del Method O2 Flow Rate 98.6 F 115 H 19 117/69 95 Room Air 2 09/06/25 12:00 09/06/25 12:00 09/06/25 12:00 09/06/25 12:00 09/06/25 12:00 09/06/25 12:09/05/25 00:00 Narrative Exam General: alert and oriented to self/place/year, no acute distress, able to speak full sentences; cachectic HEENT: temporal wasting evident on physical exam Cardiovascular: regular rate and rhythm, S1/S2 present, no murmurs appreciated Pulmonary: clear to auscultation bilaterally, no rales/rhonchi/wheezes Abdominal: soft, nontender. Ostomy bag in place Musculoskeletal: no peripheral edema Skin: Warm, well-perfused Objective Labs 09/09/25 03:40 09/09/25 03:40 Labs: Laboratory Results - last 24 hr 09/05/25 09/06/25 20:36 05:25 WBC 10.4 RBC 3.73 L Hgb 9.9 L 8.4 L Hct 31.6 L 27.1 L MCV 73 L MCH 22.5 L MCHC 31.0 RDW Std Deviation 44.7 H Plt Count 644 H D Neut % (Auto) 77 Lymph % (Auto) 9 L [place] % (Auto) 14 H Eos % (Auto) 0 Baso % (Auto) 0 Neut # (Auto) 8.0 H Lymph # (Auto) 0.9 L [place] # (Auto) 1.4 H Eos # (Auto) 0.0 Baso # (Auto) 0.0 Immature Gran # (Auto) 0.05 H Absolute Nucleated RBC 0.00 Immature Gran % 1 H Nucleated RBC % 0 Sodium 139 Potassium 3.7 Chloride 102 Carbon Dioxide 26.8 Anion Gap 10 BUN 6 L Creatinine 0.6 Estim Creat Clear Calc 102.8 eGFR > 60 BUN/Creatinine Ratio 10 L Glucose 78 Calculated Osmolality 274 L Calcium 8.3 Corrected Calcium 9.2 Phosphorus 2.9 Magnesium 1.9 Total Bilirubin 0.2 L AST 14 ALT 10 Alkaline Phosphatase 72 Total Protein 6.5 Albumin 2.9 L Globulin 3.6 H Albumin/Globulin Ratio 0.8 L Quality Measures Quality Measures VTE prophylaxis Assessment & Plan Assessment Current Active Medications: Generic Name Dose Route Start Last Admin Trade Name Freq PRN Reason Stop Dose Admin Acetaminophen 650 mg 09/02/25 23:25 09/05/25 02:24 Acetaminophen 325 Mg Tablet PO 10/02/25 23:24 650 mg Q6H PRN Administration Fever >101.5 or pain 1-3 Divalproex Sodium 750 mg 09/03/25 21:00 09/06/25 08:30 Divalproex Sod Ec 125 Mg Tabec PO 10/03/25 20:59 750 mg BID DEEPA Administration Fluoxetine HCl 10 mg 09/04/25 09:00 09/06/25 08:30 Fluoxetine Hcl 10 Mg Capsule PO 10/04/25 08:59 10 mg QDAY DEEPA Administration Heparin Sodium (Porcine) 5,000 unit 09/02/25 23:30 09/06/25 11:51 Heparin Sod Inj 5000 Unit/Ml Vial SC 09/16/25 23:29 Not Given Q12H DEEPA Lorazepam 2 mg 09/02/25 23:30 Lorazepam 2 Mg/Ml Vial IVP 09/07/25 23:29 Q4H PRN AGITATION Mirtazapine 15 mg 09/05/25 12:45 09/06/25 08:30 Mirtazapine 15 Mg Tablet PO 10/05/25 12:44 15 mg QDAY DEEPA Administration Morphine Sulfate 2 mg 09/03/25 13:13 09/06/25 11:51 Morphine Sulf Inj 4 Mg/Ml Vial IVP 09/07/25 23:29 2 mg Q4HR PRN Administration BREAKTHROUGH PAIN Multivitamins 1 tab 09/05/25 09:00 09/06/25 08:31 Multivitamins Tablet PO 10/05/25 08:59 1 tab QDAY DEEPA Administration Ondansetron HCl 4 mg 09/02/25 23:25 Ondansetron Inj 2 Mg/Ml Inj 2 Ml IVP 10/02/25 23:24 Q6H PRN NAUSEA OR VOMITING Protocol Pantoprazole Sodium 40 mg 09/05/25 09:00 09/06/25 08:31 Pantoprazole 40 Mg Tablet PO 10/05/25 08:59 40 mg QDAY DEEPA Administration Thiamine HCl 100 mg 09/05/25 09:00 09/06/25 08:54 Thiamine Inj 100 Mg/Ml Vial 2 Ml IVP 10/05/25 08:59 Not Given QDAY DEEPA Trazodone HCl 50 mg 09/03/25 21:00 09/05/25 21:25 Trazodone Hcl 50 Mg Tablet PO 10/03/25 20:59 50 mg HS DEEPA Administration Plan This patient is a 45-year-old male with history of metastatic rectal carcinoma (known spread to liver) status post diverting colostomy (08/16/2025), depression, anxiety, bipolar disorder type I, and seizure-like activity who presented to [facility] ED on 09/02 for altered mental status. The patient was admitted for management of acute encephalopathy. #Acute encephalopathy #Seizure Disorder Patient was found to be acutely altered, resulting in the patient being brought to [facility] ED. GCS was initially 7 upon EMS arrival, and when patient was brought to the ED, patient was completely unresponsive to all forms of stimuli. Patient became violent & administration of Keppra 3 g and midazolam, resulting in a code bridges and administration of Haldol 7.5 mg and diphenhydramine 50 mg. MRI brain with contrast on 08/19/2025 shows mild enhancement 2 mm in thickness in the anterior cerebral falx Treatment: MRI 09/04: No abnormal enhancing cerebellar or cerebral lesions Neurology consulted, appreciate recommendations Lorazepam 2 mg every 4 hours as needed for agitation on cardiac diet and ensure Keppra switched to Divalproex 750 mg po bid Neurochecks every 4 hours Seizure precautions - Plan: Most likely etiology for patient's acute encephalopathy is toxic from methamphetamine intoxication. We will deputy county counsel patient once more improved. Lower suspicion for seizure although possible patient has focal seizures with retained awareness. We will order EEG and continue antiepileptics. Low suspicion for metabolic or infectious etiology for encephalopathy. Low suspicion for CVA although we will obtain MRI brain ordered to rule out CVA and brain mets. Continue frequent reorientation. Limit sedating medications. Swallow screen. -Neurology - to continue Depakote 750 mg PO BID for seizure prophylaxis -Drop in Hgb 12.6 to 10 09/03 to 09/04, repeat H&H @ 2000 to evaluate Hgb #Obstructing metastatic rectal adenocarcinoma, invasive and well-differentiated, likely stage IVb #Status post diverting colostomy 08/21/2025 Obstructive sx perviously, colostomy done by Dr. Win 07/2025 CRP over 10, likely secondary to his metastatic rectal adenocarcinoma Pathology report 07/19/2024 of rectal mass biopsied via colonoscopy shows well- differentiated invasive adenocarcinoma Pathology report 08/19/[address]-guided liver needle biopsy shows metastatic adenocarcinoma, consistent with colorectal primary CT chest/abdomen/pelvis shows 5.4 x 2.0 cm right lobe liver lesion and very large mass in the pelvis, at least 12 x 10 cm Plan: Pain management as needed. Patient will need to follow-up outpatient with oncology for metastatic adenocarcinoma. -Needs supplies for ostomy bag prior to discharge; to monitor overnight pending tentative DC 09/07 #Cachexia 2/2 metastatic cancer -Started on Mirtazipine for appetite stimulation #bipolar disorder type I #depression and anxiety #insomnia - Plan: Continue home trazodone at night and fluoxetine. Will evaluate mental status once more improved. #Methamphetamine positive U tox Urine toxicology 09/02 noted to be positive for methamphetamine. Counciled pt who demonstratd understanding DVT Prophylaxis: Heparin GI Prophylaxis: Protonix Diet: NPO CODE STATUS: Full code Reason for Hospitalization: Acute encephalopathy Patient plan of care was discussed with the attending physician, Dr. Doshi & senior resident Dr. Root Patient seen and discussed with attending physician Dr. Leonel Doshi and senior resident Dr. Caden Meza MD PGY-1 Attending Provider Attestation/Addendum I have examined the patient, reviewed labs and imaging findings, discussed the case with the resident(s), and reviewed entered orders. I agree with the plan of care as outlined in this note. Dr. Tico MD
[2025-09-06 16:00] VITALS: BP 106/63; PULSE 114; PULSE 119; RESP 19; TEMP 36.8; O2SAT 97
--- NOTE | 2025-09-06 16:38 | PD.RESPRO ---
Documentation for date of: 09/06/25 Subjective Subjective Interval history: Patient seen at bedside, reported feeling tired. He was oriented to person, place, and current year. Exam Vital Signs Temp Pulse Resp BP Pulse Ox O2 Del Method O2 Flow Rate 98.6 F 115 H 19 117/69 95 Room Air 2 09/06/25 12:00 09/06/25 12:00 09/06/25 12:00 09/06/25 12:00 09/06/25 12:00 09/06/25 12:00 09/05/25 00:00 Narrative Exam Physical Exam General: Awake and in no acute distress. Conversational and non-toxic appearing. HEENT: Normocephalic, atraumatic, mucous membranes moist. Heart: Regular rate and rhythm, normal S1 and S2, no murmurs. Lungs: Clear to auscultation with no wheezing or crackles. Abdomen: Soft, nondistended, nontender, positive bowel sounds. ?No guarding or rebound tenderness. Colostomy in place Neurologic: Alert and oriented x3, no gross neurological deficit, and patient able to move all 4 extremities. Extremities: No edema. Skin: No rash or ecchymoses. Objective Labs 09/08/25 05:29 09/08/25 05:29 Labs: Laboratory Results - last 24 hr 09/05/25 09/06/25 20:36 05:25 WBC 10.4 RBC 3.73 L Hgb 9.9 L 8.4 L Hct 31.6 L 27.1 L MCV 73 L MCH 22.5 L MCHC 31.0 RDW Std Deviation 44.7 H Plt Count 644 H D Neut % (Auto) 77 Lymph % (Auto) 9 L [place] % (Auto) 14 H Eos % (Auto) 0 Baso % (Auto) 0 Neut # (Auto) 8.0 H Lymph # (Auto) 0.9 L [place] # (Auto) 1.4 H Eos # (Auto) 0.0 Baso # (Auto) 0.0 Immature Gran # (Auto) 0.05 H Absolute Nucleated RBC 0.00 Immature Gran % 1 H Nucleated RBC % 0 Sodium 139 Potassium 3.7 Chloride 102 Carbon Dioxide 26.8 Anion Gap 10 BUN 6 L Creatinine 0.6 Estim Creat Clear Calc 102.8 eGFR > 60 BUN/Creatinine Ratio 10 L Glucose 78 Calculated Osmolality 274 L Calcium 8.3 Corrected Calcium 9.2 Phosphorus 2.9 Magnesium 1.9 Total Bilirubin 0.2 L AST 14 ALT 10 Alkaline Phosphatase 72 Total Protein 6.5 Albumin 2.9 L Globulin 3.6 H Albumin/Globulin Ratio 0.8 L Quality Measures Quality Measures VTE prophylaxis Assessment & Plan Assessment Current Active Medications: Generic Name Dose Route Start Last Admin Trade Name Freq PRN Reason Stop Dose Admin Acetaminophen 650 mg 09/02/25 23:25 09/05/25 02:24 Acetaminophen 325 Mg Tablet PO 10/02/25 23:24 650 mg Q6H PRN Administration Fever >101.5 or pain 1-3 Divalproex Sodium 750 mg 09/03/25 21:00 09/06/25 08:30 Divalproex Sod Ec 125 Mg Tabec PO 10/03/25 20:59 750 mg BID DEEPA Administration Fluoxetine HCl 10 mg 09/04/25 09:00 09/06/25 08:30 Fluoxetine Hcl 10 Mg Capsule PO 10/04/25 08:59 10 mg QDAY DEEPA Administration Heparin Sodium (Porcine) 5,000 unit 09/02/25 23:30 09/06/25 11:51 Heparin Sod Inj 5000 Unit/Ml Vial SC 09/16/25 23:29 Not Given Q12H DEEPA Lorazepam 2 mg 09/02/25 23:30 Lorazepam 2 Mg/Ml Vial IVP 09/07/25 23:29 Q4H PRN AGITATION Mirtazapine 15 mg 09/05/25 12:45 09/06/25 08:30 Mirtazapine 15 Mg Tablet PO 10/05/25 12:44 15 mg QDAY DEEPA Administration Morphine Sulfate 2 mg 09/03/25 13:13 09/06/25 11:51 Morphine Sulf Inj 4 Mg/Ml Vial IVP 09/07/25 23:29 2 mg Q4HR PRN Administration BREAKTHROUGH PAIN Multivitamins 1 tab 09/05/25 09:00 09/06/25 08:31 Multivitamins Tablet PO 10/05/25 08:59 1 tab QDAY DEEPA Administration Ondansetron HCl 4 mg 09/02/25 23:25 Ondansetron Inj 2 Mg/Ml Inj 2 Ml IVP 10/02/25 23:24 Q6H PRN NAUSEA OR VOMITING Protocol Pantoprazole Sodium 40 mg 09/05/25 09:00 09/06/25 08:31 Pantoprazole 40 Mg Tablet PO 10/05/25 08:59 40 mg QDAY DEEPA Administration Thiamine HCl 100 mg 09/05/25 09:00 09/06/25 08:54 Thiamine Inj 100 Mg/Ml Vial 2 Ml IVP 10/05/25 08:59 Not Given QDAY DEEPA Trazodone HCl 50 mg 09/03/25 21:00 09/05/25 21:25 Trazodone Hcl 50 Mg Tablet PO 10/03/25 20:59 50 mg HS DEEPA Administration Plan 45-year-old male with history of metastatic rectal carcinoma (known spread to liver) status post diverting colostomy (08/16/2025), depression, anxiety, bipolar disorder type I, and seizure-like activity who presented to [facility] ED on 09/02 for altered mental status. The patient was admitted for management of acute encephalopathy. #Acute encephalopathy, resolved #Seizure disorder MRI with and without contrast did not show brain mets at this time Keppra was switched due to agitation. -Continue Depakote 750 mg BID Rest of conditions to continue current management per primary team: #Obstructing metastatic rectal adenocarcinoma, invasive and well-differentiated, likely stage IVb #Status post diverting colostomy 08/21/2025 #Cachexia #Bipolar disorder type I #Depression and anxiety #Insomnia #Methamphetamine use Patient was discussed with the Neurology attending, Dr. Camacho. Thank you for allowing us to participate in the care of this patient. Kassandra Baez, PGY-3 Attending Provider Attestation/Addendum I personally have seen and examined the patient at the bedside and I agreed with the resident's findings, assessment and plan of care. Patient has been seizure-free on Depakote 750 twice a day. Will continue the same.
[2025-09-06 20:00] VITALS: BP 115/64; PULSE 116; PULSE 117; RESP 21; TEMP 37.3; O2SAT 96
--- NOTE | 2025-09-06 21:10 | PD.IMPROG ---
Documentation for date of: 09/06/25 Subjective Subjective Interval history: Hemoglobin hematocrit 8.4 and 27.1 Exam Vital Signs Temp Pulse Resp BP Pulse Ox O2 Del Method O2 Flow Rate 99.1 F 117 H 21 H 115/64 96 Room Air 2 09/06/25 20:00 09/06/25 20:00 09/06/25 20:00 09/06/25 20:00 09/06/25 20:00 09/06/25 20:00 09/05/25 00:00 Objective Labs 09/06/25 05:25 09/06/25 05:25 Labs: Laboratory Results - last 24 hr 09/06/25 05:25 WBC 10.4 RBC 3.73 L Hgb 8.4 L Hct 27.1 L MCV 73 L MCH 22.5 L MCHC 31.0 RDW Std Deviation 44.7 H Plt Count 644 H D Neut % (Auto) 77 Lymph % (Auto) 9 L [place] % (Auto) 14 H Eos % (Auto) 0 Baso % (Auto) 0 Neut # (Auto) 8.0 H Lymph # (Auto) 0.9 L [place] # (Auto) 1.4 H Eos # (Auto) 0.0 Baso # (Auto) 0.0 Immature Gran # (Auto) 0.05 H Absolute Nucleated RBC 0.00 Immature Gran % 1 H Nucleated RBC % 0 Sodium 139 Potassium 3.7 Chloride 102 Carbon Dioxide 26.8 Anion Gap 10 BUN 6 L Creatinine 0.6 Estim Creat Clear Calc 102.8 eGFR > 60 BUN/Creatinine Ratio 10 L Glucose 78 Calculated Osmolality 274 L Calcium 8.3 Corrected Calcium 9.2 Phosphorus 2.9 Magnesium 1.9 Total Bilirubin 0.2 L AST 14 ALT 10 Alkaline Phosphatase 72 Total Protein 6.5 Albumin 2.9 L Globulin 3.6 H Albumin/Globulin Ratio 0.8 L Impressions Impression: Rectal adenocarcinoma leading to rectal bleeding Continue to monitor his CBC Assessment & Plan A&P Narrative # Anemia blood loss secondary to the chronic bleeding from the rectal adenocarcinoma for which not much can be done except radiation and chemo and hopefully that will help # Status post diverting colostomy # metabolic encephalopathy # Seizure disorder # Bipolar disorder # Poor p.o. intake Continue current management Patient has poor p.o. intake May consider PEG placement at some point for nutritional support No need for a repeat invasive GI workup Thank you for the opportunity to participate in the care of this patient Time Spent With Patient Time: Total time spent is greater than 50% in coordination of care (as documented) at patient's floor/unit and/or counseling patient:
[2025-09-07] VITALS (7 sets, daily range): BP systolic 98–110; BP diastolic 54–72; PULSE 103–132; RESP 14–21; TEMP 36.3–36.9; O2SAT 96–99; BMI 15.5
[2025-09-07 06:17] LABS: Basophils # (Auto) 0.0 Thou/mm3 (0.0-0.2); Basophils % (Auto) 0 % (0-2.5); Eosinophils # (Auto) 0.0 Thou/mm3 (0.0-0.5); Eosinophils % (Auto) 0 % (0-10); Hematocrit 27.9 % (41.0-53.0); Immature Granulocytes Auto 0.08 Thou/mm3 (0.00-0.00); Lymphocytes # (Auto) 0.8 Thou/mm3 (1.0-4.8); Lymphocytes % (Auto) 6 % (10-50); Mean Corpuscular HGB Conc 31.2 g/dl (31.0-37.0); Mean Corpuscular Hemoglobin 22.3 pg (25.0-35.0); Mean Corpuscular Volume 71 fL (80-100); Monocytes # (Auto) 1.6 Thou/mm3 (0.0-0.8); Monocytes % (Auto) 12 % (0-12); Neutrophils # (Auto) 10.6 Thou/mm3 (1.8-7.7); Neutrophils % (Auto) 81 % (37-80); Nucleated Red Blood Cell # 0.00 Thou/mm3 (0.00-0.00); Nucleated Red Blood Cell % 0 /100 WBC (0); Platelet Count 421 Thou/mm3 (140-440); RDW Standard Deviation 44.1 fL (35.1-43.9); Red Blood Count 3.91 Miln/mm3 (4.50-5.90); White Blood Count 13.2 Thou/mm3 (3.8-10.6)
[2025-09-07 06:39] LABS: Hemoglobin 8.7 g/dL (13.5-16.0)
[2025-09-07 06:55] LABS: Alanine Aminotransferase 8 U/L (10-49); Albumin, Serum 2.8 gm/dL (3.5-5.0); Albumin/Globulin Ratio 0.7 (1.2-2.2); Alkaline Phosphatase 71 U/L (46-116); Anion Gap 10 (7-16); Aspartate Amino Transferase 12 U/L (0-34); BUN/Creatinine Ratio 11 Ratio (12-20); Bilirubin,Total 0.2 mg/dL (0.3-1.2); Blood Urea Nitrogen 9 mg/dL (9-23); Calcium 8.3 mg/dL (8.3-10.6); Calcium (Corrected) 9.3 mg/dL (8.5-10.1); Carbon Dioxide 27.8 mMol/L (20.0-31.0); Chloride 101 mMol/L (98-107); Creatinine (Component) 0.8 mg/dL (0.6-1.3); Estimated Creatinine Clearance 77.7 mL/min (>60); Globulin 4.0 gm/dL (2.3-3.5); Glucose 130 mg/dL (74-106); Magnesium 2.0 mg/dL (1.6-2.6); Osmolality,Calculated 278 (275-295); Phosphorous 4.5 mg/dL (2.4-5.1); Potassium 3.9 mMol/L (3.4-5.1); Sodium 139 mMol/L (136-145); Total Protein 6.8 gm/dL (5.7-8.2); eGFR > 60 See Note
[2025-09-07] MEDS: DIVALPROEX SOD EC 125 MG TABEC 750 MG PO ×2 (08:01→22:43)
[2025-09-07] MEDS: MULTIVITAMINS TABLET 1 TAB PO (08:01)
[2025-09-07] MEDS: PANTOPRAZOLE 40 MG TABLET PO (08:01)
[2025-09-07] MEDS: MIRTAZAPINE 15 MG TABLET PO (08:01)
[2025-09-07] MEDS: MORPHINE SULF INJ 4 MG/ML VIAL 2 MG IVP ×2 (08:15→15:49)
--- NOTE | 2025-09-07 12:44 | ESPR_ITS ---
<Statement entered by Caden Root MD - 09/07/25 14:50> No acute overnight events. Seen and examined at bedside and resting comfortably in bed. Continues to have bloody bowel movements but does not have any complaints at this time. Vitals show BP 104/51 pulse of 105 but otherwise stable. CBC showing slightly increased leukocytosis but hemoglobin stable at 8.7. CHEM panel unremarkable. EEG abnormal, consistent with seizure disorder. Touched base with social sciences department chair who states that patient has been declined from all SNF's and that [id number] would no longer be taking care of patient. At this time, disposition plan is for mother to help patient upon discharge. Port-A-Cath evaluated and appeared to have cellulitic changes and started on cefazolin per general surgery recommendations. ----- Note reviewed and agree with care plan as documented. Please refer to the note below for further details. Plan discussed with attending physician Dr. Abdullahi Root MD PGY-2 Internal Medicine Documentation for date of: 09/07/25 Subjective Subjective Interval history: Mr. Owens remains emaciated, with minimal activity although he has been ambulating. Nurses have noted minimal oral intake. Search ongoing for SNF in [place], and pending further talks betwen [id number] and SS. Otherwise VSS NAEO. Exam Vital Signs Temp Pulse Resp BP Pulse Ox O2 Del Method O2 Flow Rate 97.8 F 105 H 20 104/54 L 98 Room Air 2 09/07/25 12:00 09/07/25 12:00 09/07/25 12:00 09/07/25 12:00 09/07/25 12:00 09/07/25 12:09/05/25 00:00 Narrative Exam General: tired but alert and oriented; cachectic HEENT: NC/AT, mucous membranes moist, bilateral sclera anicteric; temporal wasting bilaterally Cardiovascular: regular rate and rhythm, S1/S2 present, no murmurs appreciated Pulmonary: clear to auscultation bilaterally, no rales/rhonchi/wheezes Abdominal: soft, nontender, present bowel sounds Musculoskeletal: no peripheral edema; emaciated; R port site from previous catheterization is exposed and skin is concerning for inflammation Skin: Warm, well-perfused Objective Labs 09/08/25 05:29 09/08/25 05:29 Labs: Laboratory Results - last 24 hr 09/07/25 05:31 WBC 13.2 H RBC 3.91 L Hgb 8.7 L Hct 27.9 L MCV 71 L MCH 22.3 L MCHC 31.2 RDW Std Deviation 44.1 H Plt Count 421 D Neut % (Auto) 81 H Lymph % (Auto) 6 L [place] % (Auto) 12 Eos % (Auto) 0 Baso % (Auto) 0 Neut # (Auto) 10.6 H Lymph # (Auto) 0.8 L [place] # (Auto) 1.6 H Eos # (Auto) 0.0 Baso # (Auto) 0.0 Immature Gran # (Auto) 0.08 H Absolute Nucleated RBC 0.00 Immature Gran % 1 H Nucleated RBC % 0 Sodium 139 Potassium 3.9 Chloride 101 Carbon Dioxide 27.8 Anion Gap 10 BUN 9 Creatinine 0.8 Estim Creat Clear Calc 77.7 eGFR > 60 BUN/Creatinine Ratio 11 L Glucose 130 H D Calculated Osmolality 278 Calcium 8.3 Corrected Calcium 9.3 Phosphorus 4.5 Magnesium 2.0 Total Bilirubin 0.2 L AST 12 ALT 8 L Alkaline Phosphatase 71 Total Protein 6.8 Albumin 2.8 L Globulin 4.0 H Albumin/Globulin Ratio 0.7 L Quality Measures Quality Measures VTE prophylaxis Assessment & Plan Assessment Current Active Medications: Generic Name Dose Route Start Last Admin Trade Name Freq PRN Reason Stop Dose Admin Acetaminophen 650 mg 09/02/25 23:25 09/05/25 02:24 Acetaminophen 325 Mg Tablet PO 10/02/25 23:24 650 mg Q6H PRN Administration Fever >101.5 or pain 1-3 Divalproex Sodium 750 mg 09/03/25 21:00 09/07/25 08:01 Divalproex Sod Ec 125 Mg Tabec PO 10/03/25 20:59 750 mg BID DEEPA Administration Heparin Sodium (Porcine) 5,000 unit 09/02/25 23:30 09/06/25 23:21 Heparin Sod Inj 5000 Unit/Ml Vial SC 09/16/25 23:29 Not Given Q12H DEEPA Lorazepam 2 mg 09/02/25 23:30 Lorazepam 2 Mg/Ml Vial IVP 09/07/25 23:29 Q4H PRN AGITATION Mirtazapine 15 mg 09/05/25 12:45 09/07/25 08:01 Mirtazapine 15 Mg Tablet PO 10/05/25 12:44 15 mg QDAY DEEPA Administration Morphine Sulfate 2 mg 09/03/25 13:13 09/07/25 08:15 Morphine Sulf Inj 4 Mg/Ml Vial IVP 09/07/25 23:29 2 mg Q4HR PRN Administration BREAKTHROUGH PAIN Multivitamins 1 tab 09/05/25 09:00 09/07/25 08:01 Multivitamins Tablet PO 10/05/25 08:59 1 tab QDAY DEEPA Administration Ondansetron HCl 4 mg 09/02/25 23:25 Ondansetron Inj 2 Mg/Ml Inj 2 Ml IVP 10/02/25 23:24 Q6H PRN NAUSEA OR VOMITING Protocol Pantoprazole Sodium 40 mg 09/05/25 09:00 09/07/25 08:01 Pantoprazole 40 Mg Tablet PO 10/05/25 08:59 40 mg QDAY DEEPA Administration Thiamine HCl 100 mg 09/05/25 09:00 09/07/25 08:01 Thiamine Inj 100 Mg/Ml Vial 2 Ml IVP 10/05/25 08:59 Not Given QDAY DEEPA Trazodone HCl 50 mg 09/03/25 21:00 09/06/25 23:21 Trazodone Hcl 50 Mg Tablet PO 10/03/25 20:59 50 mg HS DEEPA Administration Plan This patient is a 45-year-old male with history of metastatic rectal carcinoma (known spread to liver) status post diverting colostomy (08/16/2025), depression, anxiety, bipolar disorder type I, and seizure-like activity who presented to [facility] ED on 09/02 for altered mental status. The patient was admitted for management of acute encephalopathy. #Acute encephalopathy #Seizure Disorder Patient was found to be acutely altered, resulting in the patient being brought to [facility] ED. GCS was initially 7 upon EMS arrival, and when patient was brought to the ED, patient was completely unresponsive to all forms of stimuli. Patient became violent & administration of Keppra 3 g and midazolam, resulting in a code bridges and administration of Haldol 7.5 mg and diphenhydramine 50 mg. MRI brain with contrast on 08/19/2025 shows mild enhancement 2 mm in thickness in the anterior cerebral falx Treatment: MRI 09/04: No abnormal enhancing cerebellar or cerebral lesions Neurology consulted, appreciate recommendations Lorazepam 2 mg every 4 hours as needed for agitation on cardiac diet and ensure Keppra switched to Divalproex 750 mg po bid Neurochecks every 4 hours Seizure precautions H&H stable 09/07/2025 DDx Methamphetamine induced encephalopathy >>>>metabolic>>>>other swallow eval passed 09/03 -Per Neurology: to continue Depakote 750 mg PO BID for seizure prophylaxis #Obstructing metastatic rectal adenocarcinoma, invasive and well-differentiated, likely stage IVb #Status post diverting colostomy 08/21/2025 #Port Cath R Side for Chemotherapy Obstructive sx perviously, colostomy done by Dr. Win 07/2025 CRP over 10, likely secondary to his metastatic rectal adenocarcinoma Pathology report 07/19/2024 of rectal mass biopsied via colonoscopy shows well- differentiated invasive adenocarcinoma Pathology report 08/19/[address]-guided liver needle biopsy shows metastatic adenocarcinoma, consistent with colorectal primary CT chest/abdomen/pelvis shows 5.4 x 2.0 cm right lobe liver lesion and very large mass in the pelvis, at least 12 x 10 cm Has not followed up with tx w/ cancer center Port Cath R side appears superficially infected; evaluated by Dr. Weldon, who will continue to follow after dressing change -To evaluate disposition: home w/ [id number] vs [place] SNF -Ancef 1g q8h 7 days #Cachexia 2/2 metastatic cancer - on Mirtazipine for appetite stimulation -Continue urging PO intake #bipolar disorder type I #depression and anxiety #insomnia - Plan: Continue home trazodone at night. Will evaluate mental status once more improved. -DC fluoxetine while on mirtazipine #Methamphetamine positive U tox Urine toxicology 09/02 noted to be positive for methamphetamine. Counciled pt who demonstratd understanding #Homeless #Housing #Disposition Patient is homeless [id number]-fx-[id number] following w/ SS for talks about placement Placement: SNF vs with mother vs [id number](less likely) Patient seen and discussed with attending physician Dr. Jeanine Fernando and senior resident Dr. Caden Meza MD PGY-1 Attending Provider Attestation/Addendum I, Jeanine Fernando, DO, attest that I was physically present for the messina portions of the service and evaluated the patient with the resident and I reviewed and discussed the case with the resident and agree with the resident's findings and plans of care as documented above Patient seen and evaluated this AM. He states that he is doing well. Ostomy appears well healed. Renee were removed yesterday by surgeon. Upon further examination, patient has tenderness to palpation of right upper chest at location of port. Wound appears dehisced and piece of port can be visualized. Erythema and warmth noted over skin. Started on cefazolin and case discussed with surgeon.
--- NOTE | 2025-09-07 14:46 | PC.SS ---
Follow up note: SS re submitted inquiries throughout area through [facility] and [facility]. All SNF's declined for placement. SS left mssg for patient's sister in law, Adri, explaining that all surrounding facilities declined. SS inquired if family was able to take in patient to assist in care. No response from sister in law. SS will continue to find alternate placement.
[2025-09-07] MEDS: ceFAZolin/D5W 2 GM IV 2 GM/100 ML BAG IV ×2 (15:24→21:30)
--- NOTE | 2025-09-07 15:53 | PD.RESPRO ---
Documentation for date of: 09/07/25 Subjective Subjective Interval history: Patient seen at bedside in Tele, patient was endorsing abdominal pain and stating that he did not have a bowel movement through the colostomy in a few days. KUB was being taken. Patient otherwise has been eating and getting up to the shower. He reports poor sleep. Exam Vital Signs Temp Pulse Resp BP Pulse Ox O2 Del Method O2 Flow Rate 97.8 F 105 H 20 104/54 L 98 Room Air 2 09/07/25 12:09/07/25 12:09/07/25 12:09/07/25 12:09/07/25 12:09/07/25 12:09/05/25 00:00 Narrative Exam Physical Exam General: Awake and in no acute distress. Emaciated and chronically-ill appearing. Multiple tattoos all over body and face. Conversational but slow speech. HEENT: Normocephalic, atraumatic, mucous membranes moist. Heart: Regular rate and rhythm, normal S1 and S2, no murmurs. Lungs: Clear to auscultation with no wheezing or crackles. Abdomen: Soft, nondistended, nontender, positive bowel sounds. ?No guarding or rebound tenderness. Colostomy in place, pink ostomy stoma, with no stool output. Neurologic: Alert and oriented x3, no gross neurological deficit, and patient able to move all 4 extremities. Extremities: No edema. Skin: No rash or ecchymoses. Objective Labs 09/08/25 05:29 09/08/25 05:29 Labs: Laboratory Results - last 24 hr 09/04/25 09/07/25 15:46 05:31 WBC 13.2 H RBC 3.91 L Hgb 8.7 L Hct 27.9 L MCV 71 L MCH 22.3 L MCHC 31.2 RDW Std Deviation 44.1 H Plt Count 421 D Neut % (Auto) 81 H Lymph % (Auto) 6 L [place] % (Auto) 12 Eos % (Auto) 0 Baso % (Auto) 0 Neut # (Auto) 10.6 H Lymph # (Auto) 0.8 L [place] # (Auto) 1.6 H Eos # (Auto) 0.0 Baso # (Auto) 0.0 Immature Gran # (Auto) 0.08 H Absolute Nucleated RBC 0.00 Immature Gran % 1 H Nucleated RBC % 0 Sodium 139 Potassium 3.9 Chloride 101 Carbon Dioxide 27.8 Anion Gap 10 BUN 9 Creatinine 0.8 Estim Creat Clear Calc 77.7 eGFR > 60 BUN/Creatinine Ratio 11 L Glucose 130 H D Calculated Osmolality 278 Calcium 8.3 Corrected Calcium 9.3 Phosphorus 4.5 Magnesium 2.0 Total Bilirubin 0.2 L AST 12 ALT 8 L Alkaline Phosphatase 71 Total Protein 6.8 Albumin 2.8 L Globulin 4.0 H Albumin/Globulin Ratio 0.7 L Crossmatch See Detail Quality Measures Quality Measures VTE prophylaxis Assessment & Plan Assessment Current Active Medications: Generic Name Dose Route Start Last Admin Trade Name Freq PRN Reason Stop Dose Admin Acetaminophen 650 mg 09/02/25 23:25 09/05/25 02:24 Acetaminophen 325 Mg Tablet PO 10/02/25 23:24 650 mg Q6H PRN Administration Fever >101.5 or pain 1-3 Divalproex Sodium 750 mg 09/03/25 21:00 09/07/25 08:01 Divalproex Sod Ec 125 Mg Tabec PO 10/03/25 20:59 750 mg BID DEEPA Administration Heparin Sodium (Porcine) 5,000 unit 09/02/25 23:30 09/07/25 12:48 Heparin Sod Inj 5000 Unit/Ml Vial SC 09/16/25 23:29 Not Given Q12H DEEPA Cefazolin Sodium 2 gm in 100 mls @ 100 mls/hr 09/07/25 14:00 09/07/25 15:24 Ancef 2gm Ivpb IV 09/14/25 13:59 100 mls/hr Q8HR DEEPA Administration Lorazepam 2 mg 09/02/25 23:30 Lorazepam 2 Mg/Ml Vial IVP 09/07/25 23:29 Q4H PRN AGITATION Mirtazapine 15 mg 09/05/25 12:45 09/07/25 08:01 Mirtazapine 15 Mg Tablet PO 10/05/25 12:44 15 mg QDAY DEEPA Administration Morphine Sulfate 2 mg 09/03/25 13:13 09/07/25 15:49 Morphine Sulf Inj 4 Mg/Ml Vial IVP 09/07/25 23:29 2 mg Q4HR PRN Administration BREAKTHROUGH PAIN Multivitamins 1 tab 09/05/25 09:00 09/07/25 08:01 Multivitamins Tablet PO 10/05/25 08:59 1 tab QDAY DEEPA Administration Ondansetron HCl 4 mg 09/02/25 23:25 Ondansetron Inj 2 Mg/Ml Inj 2 Ml IVP 10/02/25 23:24 Q6H PRN NAUSEA OR VOMITING Protocol Pantoprazole Sodium 40 mg 09/05/25 09:00 09/07/25 08:01 Pantoprazole 40 Mg Tablet PO 10/05/25 08:59 40 mg QDAY DEEPA Administration Thiamine HCl 100 mg 09/08/25 09:00 Thiamine 100 Mg Tablet PO 10/08/25 08:59 DAILY DEEPA Protocol Trazodone HCl 50 mg 09/03/25 21:00 09/06/25 23:21 Trazodone Hcl 50 Mg Tablet PO 10/03/25 20:59 50 mg HS DEEPA Administration Plan 45-year-old male with history of metastatic rectal carcinoma (known spread to liver) status post diverting colostomy (08/16/2025), depression, anxiety, bipolar disorder type I, and seizure-like activity who presented to [facility] ED on 09/02 for altered mental status. The patient was admitted for management of acute encephalopathy and neurology was consulted for further recommendations. #Acute encephalopathy, resolved #Seizure disorder MRI with and without contrast did not show brain mets or other abnormalities at this time Keppra was switched to Depakote due to agitation. -Continue Depakote 750 mg BID Rest of conditions to continue current management per primary team: #Obstructing metastatic rectal adenocarcinoma, invasive and well-differentiated, likely stage IVb #Status post diverting colostomy 08/21/2025 #Cachexia #Bipolar disorder type I #Depression and anxiety #Insomnia #Methamphetamine use Patient was discussed with the Neurology attending, Dr. Camacho. Thank you for allowing us to participate in the care of this patient. Kassandra Baez, PGY-3 Attending Provider Attestation/Addendum I have seen and examined the patient at the bedside and agree with resident's findings, assessment and plan of care. Continue with Depakote and follow seizure precautions. The patient has not had any seizures since admission. Primary team is evaluating and treating him for intermittent abdominal pain.
[2025-09-07] MEDS: ONDANSETRON INJ 2 MG/ML INJ 2 ML 4 MG IVP (16:08)
--- NOTE | 2025-09-07 16:40 | XR_ITS ---
Examination: Abdomen AP single view Technique: AP portable supine abdomen, single view Exam date and time: September 07, 2025, 1653 hours, comparison August 19, 2025 INDICATIONS: Onset abdominal pain today FINDINGS: Large amounts of stool throughout the colon No free air Moderate osteopenia IMPRESSION: Large amounts of stool throughout the colon, no obstruction
[2025-09-07] MEDS: HYDROmorphone INJ 2 MG/ML VIAL 1 MG IVP (16:44)
[2025-09-07] MEDS: Milk Of Magnesia Susp 30 ML UDC PO (17:42)
[2025-09-07] MEDS: SENNOSIDES SYRUP 8.8 MG/5 ML UDC PO (17:44)
--- NOTE | 2025-09-07 18:26 | PC.NURSE ---
Pt requesting his daughters mom Doug be his new point of contact. Doug and pt's daughter are at bedside and agreeable to the change. Contact phone number for Doug [phone]
--- NOTE | 2025-09-07 21:03 | ESPR_ITS ---
Documentation for date of: 09/07/25 Subjective Subjective Interval history: Hemoglobin hematocrit 8.7 and 27.9 with a platelet count of 4 and 21,000 Exam Vital Signs Temp Pulse Resp BP Pulse Ox O2 Del Method O2 Flow Rate 97.5 F 108 H 14 104/62 97 Room Air 2 09/07/25 20:00 09/07/25 20:00 09/07/25 20:00 09/07/25 20:00 09/07/25 20:00 09/07/25 20:00 09/05/25 00:00 Objective Labs 09/07/25 05:31 09/07/25 05:31 Labs: Laboratory Results - last 24 hr 09/04/25 09/07/25 15:46 05:31 WBC 13.2 H RBC 3.91 L Hgb 8.7 L Hct 27.9 L MCV 71 L MCH 22.3 L MCHC 31.2 RDW Std Deviation 44.1 H Plt Count 421 D Neut % (Auto) 81 H Lymph % (Auto) 6 L [place] % (Auto) 12 Eos % (Auto) 0 Baso % (Auto) 0 Neut # (Auto) 10.6 H Lymph # (Auto) 0.8 L [place] # (Auto) 1.6 H Eos # (Auto) 0.0 Baso # (Auto) 0.0 Immature Gran # (Auto) 0.08 H Absolute Nucleated RBC 0.00 Immature Gran % 1 H Nucleated RBC % 0 Sodium 139 Potassium 3.9 Chloride 101 Carbon Dioxide 27.8 Anion Gap 10 BUN 9 Creatinine 0.8 Estim Creat Clear Calc 77.7 eGFR > 60 BUN/Creatinine Ratio 11 L Glucose 130 H D Calculated Osmolality 278 Calcium 8.3 Corrected Calcium 9.3 Phosphorus 4.5 Magnesium 2.0 Total Bilirubin 0.2 L AST 12 ALT 8 L Alkaline Phosphatase 71 Total Protein 6.8 Albumin 2.8 L Globulin 4.0 H Albumin/Globulin Ratio 0.7 L Crossmatch See Detail Impressions Impression: Rectal adenocarcinoma Lower GI bleed secondary to above Hemoglobin hematocrit 8.7 and 27.9 Continue to monitor Assessment & Plan A&P Narrative # Anemia blood loss secondary to the chronic bleeding from the rectal adenocarcinoma for which not much can be done except radiation and chemo and hopefully that will help # Status post diverting colostomy # metabolic encephalopathy # Seizure disorder # Bipolar disorder # Poor p.o. intake Continue current management Patient has poor p.o. intake May consider PEG placement at some point for nutritional support No need for a repeat invasive GI workup Thank you for the opportunity to participate in the care of this patient Time Spent With Patient Time: Total time spent is greater than 50% in coordination of care (as documented) at patient's floor/unit and/or counseling patient:
--- NOTE | 2025-09-07 23:20 | EKG_ITS ---
[facility] Test Date: 2025-09-07 Pat Name: CAIT ARMANDO [facility] Police Chief: MARVINRomanSammie : 1980 Requested By: Hardik Ontiveros Order Number: [id number] Reading MD: Hardik Ontiveros Measurements Intervals [place] Rate: 118 P: 72 [place]: 113 QRS: 85 QRSD: 70 T: 87 QT: 277 QTc: 389 Interpretive Statements SINUS TACHYCARDIA WITH SHORT OH INTERVAL NONSPECIFIC T-WAVE ABNORMALITY ABNORMAL RHYTHM ECG Compared to ECG 09/02/2025 20:29:20 Short OH interval now present T-wave abnormality now present /store/S0/[id number]
[2025-09-08] VITALS (7 sets, daily range): BP systolic 93–111; BP diastolic 53–71; PULSE 74–130; RESP 14–20; TEMP 35.9–37.2; O2SAT 94–98; BMI 15.1
[2025-09-08] MEDS: HYDROmorphone INJ 2 MG/ML VIAL 0.5 MG IVP (01:35)
[2025-09-08] MEDS: HYDROmorphone INJ 2 MG/ML VIAL 1 MG IVP ×2 (02:09→12:23)
[2025-09-08] MEDS: ceFAZolin/D5W 2 GM IV 2 GM/100 ML BAG IV ×3 (05:02→21:15)
[2025-09-08 06:21] LABS: Basophils # (Auto) 0.0 Thou/mm3 (0.0-0.2); Basophils % (Auto) 0 % (0-2.5); Eosinophils # (Auto) 0.0 Thou/mm3 (0.0-0.5); Eosinophils % (Auto) 0 % (0-10); Hematocrit 27.2 % (41.0-53.0); Immature Granulocytes Auto 0.09 Thou/mm3 (0.00-0.00); Lymphocytes # (Auto) 0.8 Thou/mm3 (1.0-4.8); Lymphocytes % (Auto) 5 % (10-50); Mean Corpuscular HGB Conc 31.3 g/dl (31.0-37.0); Mean Corpuscular Hemoglobin 22.3 pg (25.0-35.0); Mean Corpuscular Volume 71 fL (80-100); Monocytes # (Auto) 1.3 Thou/mm3 (0.0-0.8); Monocytes % (Auto) 8 % (0-12); Neutrophils # (Auto) 13.3 Thou/mm3 (1.8-7.7); Neutrophils % (Auto) 86 % (37-80); Nucleated Red Blood Cell # 0.00 Thou/mm3 (0.00-0.00); Nucleated Red Blood Cell % 0 /100 WBC (0); Platelet Count 342 Thou/mm3 (140-440); RDW Standard Deviation 43.6 fL (35.1-43.9); Red Blood Count 3.81 Miln/mm3 (4.50-5.90); White Blood Count 15.5 Thou/mm3 (3.8-10.6)
[2025-09-08 06:36] LABS: Hemoglobin 8.5 g/dL (13.5-16.0)
[2025-09-08 06:54] LABS: Alanine Aminotransferase < 7 U/L (10-49); Albumin, Serum 2.8 gm/dL (3.5-5.0); Albumin/Globulin Ratio 0.7 (1.2-2.2); Alkaline Phosphatase 68 U/L (46-116); Anion Gap 11 (7-16); Aspartate Amino Transferase 13 U/L (0-34); BUN/Creatinine Ratio 14 Ratio (12-20); Bilirubin,Total 0.2 mg/dL (0.3-1.2); Blood Urea Nitrogen 11 mg/dL (9-23); Calcium 8.1 mg/dL (8.3-10.6); Calcium (Corrected) 9.1 mg/dL (8.5-10.1); Carbon Dioxide 30.9 mMol/L (20.0-31.0); Chloride 98 mMol/L (98-107); Creatinine (Component) 0.8 mg/dL (0.6-1.3); Estimated Creatinine Clearance 75.6 mL/min (>60); Globulin 3.9 gm/dL (2.3-3.5); Glucose 117 mg/dL (74-106); Magnesium 2.2 mg/dL (1.6-2.6); Osmolality,Calculated 279 (275-295); Phosphorous 4.9 mg/dL (2.4-5.1); Potassium 4.1 mMol/L (3.4-5.1); Sodium 140 mMol/L (136-145); Total Protein 6.7 gm/dL (5.7-8.2); eGFR > 60 See Note
--- NOTE | 2025-09-08 07:19 | CHAP ---
Patient was visited by a Spiritual Care Volunteer on 09/07/2025 between 0900 and 1130 and reeived comfort, encouragement and/or prayer.
[2025-09-08] MEDS: VALPROATE SOD INJ 750 MG in SODIUM CHLORIDE 0.9% 50 ML 55 MG IV (09:33)
--- NOTE | 2025-09-08 09:49 | ESPR_ITS ---
<Statement entered by Caden Root MD - 09/08/25 14:26> No acute overnight events. However, yesterday patient started to experience significant abdominal pain and 1 episode of emesis for which an abdominal film was obtained and showed significant stool. Started on bowel regimen and given spot doses of Dilaudid. This morning patient was resting comfortably but upon evaluation during rounds patient was again in significant pain. Placed as needed Dilaudid and IV Tylenol and added lactulose as part of bowel regimen. Spoke to patient regarding hospice given his stage IV rectal adenocarcinoma and is in agreement with ex- to help at home for home hospice. Otherwise, vital signs stable. CBC shows uptrending leukocytosis, stable hemoglobin. CHEM panel unremarkable. ----- Note reviewed and agree with care plan as documented. Please refer to the note below for further details. Plan discussed with attending physician Dr. Abdullahi Root MD PGY-2 Internal Medicine Documentation for date of: 09/08/25 Subjective Subjective Interval history: Held NPO this morning after one vomiting episode in PM yesterday and large stool burden demonstrated on KUB. Mr. Avery is requesting food but I've counseled him on the need for passing stool. He is understanding. Otherwise plan is to increase bowel regimen w/ stool softeners and laxatives. Patient has been put on hospice and discussion with Dr. Letha Win regarding his port catheter has Mr. Avery in agreement with it's removal. Pain control increased as well 2/2 constipation. Exam Vital Signs Temp Pulse Resp BP Pulse Ox O2 Del Method O2 Flow Rate 96.7 F L 84 16 93/62 96 Room Air 2 09/08/25 04:00 09/08/25 04:00 09/08/25 04:00 09/08/25 04:51 09/08/25 04:00 09/08/25 04:00 09/05/25 00:00 Narrative Exam General: alert and oriented to self/place/year, no acute distress, able to speak full sentences; extremely cachectic HEENT: NC/AT, mucous membranes moist, bilateral sclera anicteric Cardiovascular: regular rate and rhythm, S1/S2 present, no murmurs appreciated Pulmonary: clear to auscultation bilaterally, no rales/rhonchi/wheezes Abdominal: soft, nontender, no evidence of distention despite recent KUB Musculoskeletal: no peripheral edema. Thin extremities Skin: Warm, well-perfused Objective Labs 09/08/25 05:29 09/08/25 05:29 Labs: Laboratory Results - last 24 hr 09/04/25 09/08/25 15:46 05:29 WBC 15.5 H RBC 3.81 L Hgb 8.5 L Hct 27.2 L MCV 71 L MCH 22.3 L MCHC 31.3 RDW Std Deviation 43.6 Plt Count 342 D Neut % (Auto) 86 H Lymph % (Auto) [address] % (Auto) 8 Eos % (Auto) 0 Baso % (Auto) 0 Neut # (Auto) 13.3 H Lymph # (Auto) 0.[address] # (Auto) 1.3 H Eos # (Auto) 0.0 Baso # (Auto) 0.0 Immature Gran # (Auto) 0.09 H Absolute Nucleated RBC 0.00 Immature Gran % 1 H Nucleated RBC % 0 Sodium 140 Potassium 4.1 Chloride 98 Carbon Dioxide 30.9 Anion Gap 11 BUN 11 Creatinine 0.8 Estim Creat Clear Calc 75.6 eGFR > 60 BUN/Creatinine Ratio 14 Glucose 117 H Calculated Osmolality 279 Calcium 8.1 L Corrected Calcium 9.1 Phosphorus 4.9 Magnesium 2.2 Total Bilirubin 0.2 L AST 13 ALT < 7 L Alkaline Phosphatase 68 Total Protein 6.7 Albumin 2.8 L Globulin 3.9 H Albumin/Globulin Ratio 0.7 L Crossmatch See Detail Quality Measures Quality Measures VTE prophylaxis Assessment & Plan Assessment Current Active Medications: Generic Name Dose Route Start Last Admin Trade Name Kyrieq PRN Reason Stop Dose Admin Acetaminophen 650 mg 09/02/25 23:25 09/05/25 02:24 Acetaminophen 325 Mg Tablet PO 10/02/25 23:24 650 mg Q6H PRN Administration Fever >101.5 or pain 1-3 Divalproex Sodium 750 mg 09/03/25 21:00 09/07/25 21:14 Divalproex Sod Ec 125 Mg Tabec PO 10/03/25 20:59 Not Given On Hold: 09/07/25 21:12 BID DEEPA Heparin Sodium (Porcine) 5,000 unit 09/02/25 23:30 09/07/25 22:44 Heparin Sod Inj 5000 Unit/Ml Vial SC 09/16/25 23:29 Not Given Q12H DEEPA Cefazolin Sodium 2 gm in 100 mls @ 100 mls/hr 09/07/25 14:00 09/08/25 05:02 Ancef 2gm Ivpb IV 09/14/25 13:59 100 mls/hr Q8HR DEEPA Administration Valproic Acid 750 mg/ Sodium 57.5 mls @ 55 mls/hr 09/08/25 09:15 09/08/25 09:33 Chloride IV 10/07/25 21:14 55 mls/hr BID DEEPA Administration Magnesium Hydroxide 30 ml 09/07/25 17:21 09/07/25 17:42 Milk Of Magnesia Susp 30 Ml Udc PO 10/07/25 17:20 30 ml QDAY PRN Administration CONSTIPATION Protocol Mirtazapine 15 mg 09/05/25 12:45 09/08/25 09:34 Mirtazapine 15 Mg Tablet PO 10/05/25 12:44 Not Given QDAY DEEPA Multivitamins 1 tab 09/05/25 09:00 09/08/25 09:34 Multivitamins Tablet PO 10/05/25 08:59 Not Given QDAY DEEPA Ondansetron HCl 4 mg 09/02/25 23:25 09/07/25 16:08 Ondansetron Inj 2 Mg/Ml Inj 2 Ml IVP 10/02/25 23:24 4 mg Q6H PRN Administration NAUSEA OR VOMITING Protocol Pantoprazole Sodium 40 mg 09/05/25 09:00 09/08/25 09:34 Pantoprazole 40 Mg Tablet PO 10/05/25 08:59 Not Given QDAY DEEPA Polyethylene Glycol 17 gm 09/09/25 09:00 Polyethylene Glycol 17 Gm Packet PO 10/09/25 08:59 QDAY [facility] Sennosides 1 tab 09/08/25 21:00 Senna/Docusate Sod 1 Tab Tablet PO 10/08/25 20:59 BID DEEPA Protocol Thiamine HCl 100 mg 09/08/25 09:00 09/08/25 09:34 Thiamine 100 Mg Tablet PO 10/08/25 08:59 Not Given DAILY DEEPA Protocol Trazodone HCl 50 mg 09/03/25 21:00 09/07/25 21:15 Trazodone Hcl 50 Mg Tablet PO 10/03/25 20:59 Not Given HS DEEPA Plan This patient is a 45-year-old male with history of metastatic rectal carcinoma (known spread to liver) status post diverting colostomy (08/16/2025), depression, anxiety, bipolar disorder type I, and seizure-like activity who presented to [facility] ED on 09/02 for altered mental status. The patient was admitted for management of acute encephalopathy. #Acute encephalopathy #Seizure Disorder Patient was found to be acutely altered, resulting in the patient being brought to [facility] ED. GCS was initially 7 upon EMS arrival, and when patient was brought to the ED, patient was completely unresponsive to all forms of stimuli. Patient became violent & administration of Keppra 3 g and midazolam, resulting in a code bridges and administration of Haldol 7.5 mg and diphenhydramine 50 mg. MRI brain with contrast on 08/19/2025 shows mild enhancement 2 mm in thickness in the anterior cerebral falx Treatment: MRI 09/04: No abnormal enhancing cerebellar or cerebral lesions Neurology consulted, appreciate recommendations Lorazepam 2 mg every 4 hours as needed for agitation on cardiac diet and ensure Keppra switched to Divalproex 750 mg po bid Neurochecks every 4 hours Seizure precautions H&H stable 09/07/2025 DDx Methamphetamine induced encephalopathy >>>>metabolic>>>>other swallow eval passed 09/03 -Per Neurology: to continue Depakote 750 mg PO BID for seizure prophylaxis #Obstructing metastatic rectal adenocarcinoma, invasive and well-differentiated, likely stage IVb #Status post diverting colostomy 08/21/2025 #Port Cath R Side for Chemotherapy Obstructive sx perviously, colostomy done by Dr. Win 07/2025 CRP over 10, likely secondary to his metastatic rectal adenocarcinoma Pathology report 07/19/2024 of rectal mass biopsied via colonoscopy shows well- differentiated invasive adenocarcinoma Pathology report 08/19/[address]-guided liver needle biopsy shows metastatic adenocarcinoma, consistent with colorectal primary CT chest/abdomen/pelvis shows 5.4 x 2.0 cm right lobe liver lesion and very large mass in the pelvis, at least 12 x 10 cm Has not followed up with ne w/ cancer center Port Cath R side appears superficially infected; evaluated by Dr. Weldon, who will continue to follow after dressing change 09/08: removal of port catheter to be done by Dr. Weldon -Ancef 1g q8h 7 days #Constipation #Abdominal Pain unable to pass stool for 1xday, KUB 09/07 significant burden -Increased bowel regimen: Senna/Docusate BID + Miralax q24h -Pain regiment increased: tylenol IV + dilaudid 1mg PRN pushes #Cachexia 2/2 metastatic cancer - on Mirtazipine for appetite stimulation -Continue urging PO intake #bipolar disorder type I #depression and anxiety #insomnia - Plan: Continue home trazodone at night. Will evaluate mental status once more improved. -DC fluoxetine while on mirtazipine #Methamphetamine positive U tox Urine toxicology 09/02 noted to be positive for methamphetamine. Counciled pt who demonstratd understanding #Homeless #Housing #Hospice Patient is homeless [id number]-[id number] following w/ SS for talks about placement Placement: SNF vs with mother vs [id number](less likely) 09/08 hospice orders in agreement w/ Mr Avery 09/08: Ex- has reportedly agreed to take in Mr. Avery for Hospice Care starting 09/10, to follow up with care coordinators Hospital management: Disposition: pending placement, stool burden relief Fluids: none Diet: NPO pending stool burden relief Lines: PIV DVT prophylaxis: Heparin 5000U sc injection CODE STATUS: full code/DNR Patient seen and discussed with attending physician Dr. Jeanine Fernando and senior resident Dr. Caden Meza MD PGY-1 Attending Provider Attestation/Addendum I, Jaenine Fernando, DO, attest that I was physically present for the messina portions of the service and evaluated the patient with the resident and I reviewed and discussed the case with the resident and agree with the resident's findings and plans of care as documented above Patient seen and evaluated this AM. He is complaining of significant abdominal pain. KUB done shows significant stool burden. No output noted from colostomy. Patient and ex- expressed that goal of treatment is comfort. Plan to dc pt on hospice on Saturday with ex-. Surgeon at bedside as well. Will start on dilaudid for pain control. Patient was NPO overnight due to vomiting overnight. hospice referral placed.
--- NOTE | 2025-09-08 10:20 | CHAP ---
Patient was sleeping. Prayed quietly by bed. As I was leaving his family entered and I talked briefly with the giving comfort and encouragement.
--- NOTE | 2025-09-08 11:38 | PC.SS ---
Follow up note: SS contacted patient's sister in law, Adri, to inquire if they discussed as a family assisting patient. She responded they have not. SS later received a call that family was present in room and wanted to speak with me. SS met with patient's daughter and ex glass installer technician, Serenity. Serenity states she's a RELIGION DEPARTMENT CHAIR and the mother of their daughter, Benjamin. They stated that patient has asked questions about hospice. SS provided information about hospice and asked patient if that's something he wants. Patient states he does want to do hospice at stay with his ex glass installer technician. Serenity agreed to house patient as she has an additional room for him to stay in. Serenity is familiar with hospice services and states they prefer [facility] as she has worked with them with her other patients. Patient states he's been in pain. He has not had a b.m. in 3 days per nursing. SS updated floor nurse and physician team. Physician to put in hospice order after they speak with patient and family today. Serenity, ex glass installer technician, D/c address: [address] [place]
[2025-09-08] MEDS: KETOROLAC INJ 30 MG/ML VIAL 15 MG IVP (12:22)
[2025-09-08] MEDS: LACTULOSE SYRUP 20 GM/30 ML UDC PO (12:22)
--- NOTE | 2025-09-08 12:24 | PC.SS ---
Update: Patient has verbalized he now wants his ex policy change clerk, Serenity Hall to be his POC and alt medical decision maker; [phone]
[2025-09-08] MEDS: ACETAMINOPHEN IVPB 1,000 MG/100 ML VIAL 250 MG IV ×2 (12:27→17:39)
--- NOTE | 2025-09-08 17:26 | ESPR_ITS ---
Documentation for date of: 09/08/25 Subjective Subjective Interval history: Patient reported feeling ok. He has opted for hospice care. Still has not has any bowel movements in the ostomy yet. No new seizures reported. Exam Vital Signs Temp Pulse Resp BP Pulse Ox O2 Del Method O2 Flow Rate 96.9 F 74 16 100/72 92 L Room Air 2 09/09/25 04:00 09/09/25 04:00 09/09/25 04:00 09/09/25 04:00 09/09/25 04:00 09/09/25 00:06 09/05/25 00:00 Narrative Exam Physical Exam General: Awake and in no acute distress. Emaciated and chronically-ill appearing. Multiple tattoos all over body and face. Conversational but slow speech. HEENT: Normocephalic, atraumatic, mucous membranes moist. Heart: Regular rate and rhythm, normal S1 and S2, no murmurs. Lungs: Clear to auscultation with no wheezing or crackles. Abdomen: Soft, nondistended, nontender, positive bowel sounds. ?No guarding or rebound tenderness. Colostomy in place, pink ostomy stoma, with no stool output. Neurologic: Alert and oriented x3, no gross neurological deficit, and patient able to move all 4 extremities. Extremities: No edema. Skin: No rash or ecchymoses. Objective Labs 09/09/25 03:40 09/09/25 03:40 Labs: Laboratory Results - last 24 hr 09/08/25 09/09/25 09/09/25 05:29 00:20 03:40 WBC 15.5 H 7.8 D RBC 3.81 L 3.59 L Hgb 8.5 L 8.0 L Hct 27.2 L 25.9 L MCV 71 L 72 L MCH 22.3 L 22.3 L MCHC 31.3 30.9 L RDW Std Deviation 43.6 43.8 Plt Count 342 D 292 D Neut % (Auto) 86 H 79 Lymph % (Auto) 5 L 8 L Morton % (Auto) 8 12 Eos % (Auto) 0 0 Baso % (Auto) 0 0 Neut # (Auto) 13.3 H 6.1 Lymph # (Auto) 0.8 L 0.6 L Morton # (Auto) 1.3 H 1.0 H Eos # (Auto) 0.0 0.0 Baso # (Auto) 0.0 0.0 Immature Gran # (Auto) 0.09 H 0.05 H Absolute Nucleated RBC 0.00 0.00 Immature Gran % 1 H 1 H Nucleated RBC % 0 0 Sodium 140 139 Potassium 4.1 3.9 Chloride 98 99 Carbon Dioxide 30.9 29.8 Anion Gap 11 10 BUN 11 16 Creatinine 0.8 0.7 Estim Creat Clear Calc 75.6 86.4 eGFR > 60 > 60 BUN/Creatinine Ratio 14 23 H Glucose 117 H 120 H Calculated Osmolality 279 279 Lactic Acid 3.7 H 2.1 H Calcium 8.1 L 8.2 L Corrected Calcium 9.1 9.1 Phosphorus 4.9 2.2 L Magnesium 2.2 2.3 Total Bilirubin 0.2 L < 0.2 L AST 13 20 ALT < 7 L < 7 L Alkaline Phosphatase 68 78 Total Protein 6.7 6.2 Albumin 2.8 L 2.9 L Globulin 3.9 H 3.3 Albumin/Globulin Ratio 0.7 L 0.9 L Quality Measures Quality Measures VTE prophylaxis Assessment & Plan Assessment Current Active Medications: Generic Name Dose Route Start Last Admin Trade Name Freq PRN Reason Stop Dose Admin Divalproex Sodium 750 mg 09/03/25 21:00 09/08/25 20:38 Divalproex Sod Ec 125 Mg Tabec PO 10/03/25 20:59 750 mg BID DEEPA Administration Heparin Sodium (Porcine) 5,000 unit 09/02/25 23:30 09/09/25 00:19 Heparin Sod Inj 5000 Unit/Ml Vial SC 09/16/25 23:29 Not Given Q12H DEEPA Hydromorphone HCl 1 mg 09/08/25 11:50 09/09/25 05:23 Hydromorphone Inj 2 Mg/Ml Vial IVP 09/13/25 11:46 1 mg Q3H PRN Administration PAIN SCALE 7-10 (Severe Cefazolin Sodium 2 gm in 100 mls @ 100 mls/hr 09/07/25 14:00 09/08/25 21:15 Ancef 2gm Ivpb IV 09/14/25 13:59 100 mls/hr Q8HR DEEPA Administration Acetaminophen 1,000 mg in 100 mls @ 250 mls/hr 09/08/25 18:00 09/09/25 05:20 Ofirmev Inj IV 09/09/25 06:23 250 mls/hr Q6HR DEEPA Administration Ketorolac Tromethamine 15 mg 09/08/25 11:51 09/09/25 04:36 Ketorolac Inj 30 Mg/Ml Vial IVP 09/13/25 11:50 15 mg Q6H PRN Administration PAIN SCALE 4-6 (Moderate Magnesium Hydroxide 30 ml 09/07/25 17:21 09/08/25 20:37 Milk Of Magnesia Susp 30 Ml Udc PO 10/07/25 17:20 30 ml QDAY PRN Administration CONSTIPATION Protocol Mirtazapine 15 mg 09/05/25 12:45 09/08/25 09:34 Mirtazapine 15 Mg Tablet PO 10/05/25 12:44 Not Given QDAY [facility] Multivitamins 1 tab 09/05/25 09:00 09/08/25 09:34 Multivitamins Tablet PO 10/05/25 08:59 Not Given QDAY [facility] Ondansetron HCl 4 mg 09/02/25 23:25 09/07/25 16:08 Ondansetron Inj 2 Mg/Ml Inj 2 Ml IVP 10/02/25 23:24 4 mg Q6H PRN Administration NAUSEA OR VOMITING Protocol Pantoprazole Sodium 40 mg 09/05/25 09:00 09/08/25 09:34 Pantoprazole 40 Mg Tablet PO 10/05/25 08:59 Not Given QDAY [facility] Polyethylene Glycol 17 gm 09/09/25 09:00 Polyethylene Glycol 17 Gm Packet PO 10/09/25 08:59 QDAY [facility] Sennosides 1 tab 09/08/25 21:00 09/08/25 20:37 Senna/Docusate Sod 1 Tab Tablet PO 10/08/25 20:59 1 tab BID DEEPA Administration Protocol Thiamine HCl 100 mg 09/08/25 09:00 09/08/25 09:34 Thiamine 100 Mg Tablet PO 10/08/25 08:59 Not Given DAILY DEEPA Protocol Trazodone HCl 50 mg 09/03/25 21:00 09/08/25 20:37 Trazodone Hcl 50 Mg Tablet PO 10/03/25 20:59 50 mg HS DEEPA Administration Plan 45-year-old male with history of metastatic rectal carcinoma (known spread to liver) status post diverting colostomy (08/16/2025), depression, anxiety, bipolar disorder type I, and seizure-like activity who presented to [facility] ED on 09/02 for altered mental status. The patient was admitted for management of acute encephalopathy and neurology was consulted for further recommendations. #Acute encephalopathy, resolved #Seizure disorder MRI with and without contrast did not show brain mets or other abnormalities at this time Keppra was switched to Depakote due to agitation. -Continue Depakote 750 mg BID Rest of conditions to continue current management per primary team: #Obstructing metastatic rectal adenocarcinoma, invasive and well-differentiated, likely stage IVb #Status post diverting colostomy 08/21/2025 #Cachexia #Bipolar disorder type I #Depression and anxiety #Insomnia #Methamphetamine use Patient was discussed with the Neurology attending, Dr. Camacho. Thank you for allowing us to participate in the care of this patient. Kassandra Baez, PGY-3 Attending Provider Attestation/Addendum I personally have seen and examined the patient at the bedside and I agreed with the resident's findings assessment and plan of care. Patient is tolerating Depakote well without any breakthrough seizures. EEG showed bitemporal epileptiform discharges. waiting for hospice placement.
--- NOTE | 2025-09-08 19:40 | PD.IMPROG ---
Documentation for date of: 09/08/25 Subjective Subjective Interval history: Hemoglobin hematocrit 8.5 and 27.2 pain is a major issue for this patient Abdominal x-ray reviewed shows a lot of stool impaction Exam Vital Signs Temp Pulse Resp BP Pulse Ox O2 Del Method O2 Flow Rate 97.5 F 75 19 95/64 96 Room Air 2 09/08/25 16:00 09/08/25 16:00 09/08/25 16:00 09/08/25 16:00 09/08/25 16:00 09/08/25 16:00 09/05/25 00:00 Objective Labs 09/08/25 05:29 09/08/25 05:29 Labs: Laboratory Results - last 24 hr 09/08/25 05:29 WBC 15.5 H RBC 3.81 L Hgb 8.5 L Hct 27.2 L MCV 71 L MCH 22.3 L MCHC 31.3 RDW Std Deviation 43.6 Plt Count 342 D Neut % (Auto) 86 H Lymph % (Auto) 5 L Stewart % (Auto) 8 Eos % (Auto) 0 Baso % (Auto) 0 Neut # (Auto) 13.3 H Lymph # (Auto) 0.8 L Stewart # (Auto) 1.3 H Eos # (Auto) 0.0 Baso # (Auto) 0.0 Immature Gran # (Auto) 0.09 H Absolute Nucleated RBC 0.00 Immature Gran % 1 H Nucleated RBC % 0 Sodium 140 Potassium 4.1 Chloride 98 Carbon Dioxide 30.9 Anion Gap 11 BUN 11 Creatinine 0.8 Estim Creat Clear Calc 75.6 eGFR > 60 BUN/Creatinine Ratio 14 Glucose 117 H Calculated Osmolality 279 Calcium 8.1 L Corrected Calcium 9.1 Phosphorus 4.9 Magnesium 2.2 Total Bilirubin 0.2 L AST 13 ALT < 7 L Alkaline Phosphatase 68 Total Protein 6.7 Albumin 2.8 L Globulin 3.9 H Albumin/Globulin Ratio 0.7 L Impressions Impression: Colorectal adenocarcinoma GI bleeding secondary to 1 Pain abdomen complicated by obstructing adenocarcinoma of the rectum as well as stool impaction Continue to monitor CBC Before patient goes on hospice recommend maybe giving the GoLytely to flush the colon out Assessment & Plan A&P Narrative # Anemia blood loss secondary to the chronic bleeding from the rectal adenocarcinoma for which not much can be done except radiation and chemo and hopefully that will help # Status post diverting colostomy # metabolic encephalopathy # Seizure disorder # Bipolar disorder # Poor p.o. intake Continue current management Patient has poor p.o. intake May consider PEG placement at some point for nutritional support No need for a repeat invasive GI workup Thank you for the opportunity to participate in the care of this patient Time Spent With Patient Time: Total time spent is greater than 50% in coordination of care (as documented) at patient's floor/unit and/or counseling patient:
[2025-09-08] MEDS: Milk Of Magnesia Susp 30 ML UDC PO (20:37)
[2025-09-08] MEDS: SENNA/DOCUSATE SOD 1 TAB TABLET PO (20:37)
[2025-09-08] MEDS: DIVALPROEX SOD EC 125 MG TABEC 750 MG PO (20:38)
--- NOTE | 2025-09-08 20:50 | PC.NURSE ---
PT WITH VAPE UNDER BLANKET. EDUCATED PT THAT WE DO NOT ALLOW PT'S TO VAPE, SMOKING EDUCATION GIVEN. PT VERBALIZES UNDERSTANIDNG. REQUESTED THAT HE SEND IT HOME WITH DAUGHTER AT BEDSIDE OR IT WILL BE PLACED WITH SECURITY UNTIL DISCHARGED. VAPE GIVEN TO DAUGHTER. ROOM SMELLS OF MARIJUANA. DAUGHTER STATES THAT IT IS HER SINCE SHE SMOKED BEFORE COMING TO VISIT. TATIANA OTERO MADE AWARE.
[2025-09-09] VITALS (11 sets, daily range): BP systolic 77–107; BP diastolic 51–72; PULSE 69–119; RESP 12–19; TEMP 36.1–36.7; O2SAT 90–99
[2025-09-09] MEDS: RINGERS LACTATED 1000 ML 1,000 ML 999 ML IV ×2 (00:14→01:44)
[2025-09-09] MEDS: ACETAMINOPHEN IVPB 1,000 MG/100 ML VIAL 250 MG IV ×2 (00:22→05:20)
[2025-09-09 00:23] LABS: Lactate (Lactic Acid) 3.7 mMol/L (0.4-2.0)
--- NOTE | 2025-09-09 00:28 | EVENTNT_ITS ---
<Statement entered by Chente Pires DO - 09/09/25 01:01> Rapid response called for hypotension. Pt seen at bedside- appears chronically ill and mildly somnolent. I agree with the resident's plan for administering 1L bolus and a dose of albumin and will monitor the BP response afterwards Documentation for date of: 09/09/25 Event Note Event Note: Rapid response was called for patient Roman Avery in room 269 at 12:08 AM on 09/09/2025 for hypotension. He was found to have a blood pressure of 71/51 with a MAP of 59. He was satting at 97% on room air with a heart rate of 99 and respiratory rate of 10-12. On physical exam the patient was awake alert and oriented. Lungs were clear to auscultation bilaterally and heart had a regular rate and rhythm with no murmurs. Pulses were 2+ bilaterally and there was no peripheral edema. There was no abdominal pain or distention. The patient received a 1 L bolus of LR and albumin 25 GM was ordered. Upon initiation of the LR bolus the patient's BP improved to 83/53 with a MAP of 63. Lactate was found to be 3.7. Plan is to administer 1 more liter of LR and recheck lactate. Patient was seen and discussed with my attending physician Dr. Pranay THIBODEAUX and my senior resident Dr. Rama FRAUSTO PGY-2. Kyle Lincoln DO PGY-1.
--- NOTE | 2025-09-09 00:33 | PC.NURSE ---
DR. BRISENO MADE AWARE OF LA 3.7. NO FURTHER ORDERS GIVEN. LR BOLUS CONTINUES TO INFUSE AT THIS TIME.
[2025-09-09] MEDS: ALBUMIN HUMAN-KJDA 25% IVPB 25 GM/100 ML BTL IV (00:40)
[2025-09-09] MEDS: MIDODRINE 5 MG TABLET 10 MG PO (02:57)
[2025-09-09 03:22] LABS: Reflex Lactate? Y
[2025-09-09 03:48] LABS: Lactate (Lactic Acid) 2.1 mMol/L (0.4-2.0)
[2025-09-09 03:54] LABS: Basophils # (Auto) 0.0 Thou/mm3 (0.0-0.2); Basophils % (Auto) 0 % (0-2.5); Eosinophils # (Auto) 0.0 Thou/mm3 (0.0-0.5); Eosinophils % (Auto) 0 % (0-10); Hematocrit 25.9 % (41.0-53.0); Immature Granulocytes Auto 0.05 Thou/mm3 (0.00-0.00); Lymphocytes # (Auto) 0.6 Thou/mm3 (1.0-4.8); Lymphocytes % (Auto) 8 % (10-50); Mean Corpuscular HGB Conc 30.9 g/dl (31.0-37.0); Mean Corpuscular Hemoglobin 22.3 pg (25.0-35.0); Mean Corpuscular Volume 72 fL (80-100); Monocytes # (Auto) 1.0 Thou/mm3 (0.0-0.8); Monocytes % (Auto) 12 % (0-12); Neutrophils # (Auto) 6.1 Thou/mm3 (1.8-7.7); Neutrophils % (Auto) 79 % (37-80); Nucleated Red Blood Cell # 0.00 Thou/mm3 (0.00-0.00); Nucleated Red Blood Cell % 0 /100 WBC (0); Platelet Count 292 Thou/mm3 (140-440); RDW Standard Deviation 43.8 fL (35.1-43.9); Red Blood Count 3.59 Miln/mm3 (4.50-5.90); White Blood Count 7.8 Thou/mm3 (3.8-10.6)
[2025-09-09 03:56] LABS: Hemoglobin 8.0 g/dL (13.5-16.0)
[2025-09-09 04:24] LABS: Alanine Aminotransferase < 7 U/L (10-49); Albumin, Serum 2.9 gm/dL (3.5-5.0); Albumin/Globulin Ratio 0.9 (1.2-2.2); Alkaline Phosphatase 78 U/L (46-116); Anion Gap 10 (7-16); Aspartate Amino Transferase 20 U/L (0-34); BUN/Creatinine Ratio 23 Ratio (12-20); Bilirubin,Total < 0.2 mg/dL (0.3-1.2); Blood Urea Nitrogen 16 mg/dL (9-23); Calcium 8.2 mg/dL (8.3-10.6); Calcium (Corrected) 9.1 mg/dL (8.5-10.1); Carbon Dioxide 29.8 mMol/L (20.0-31.0); Chloride 99 mMol/L (98-107); Creatinine (Component) 0.7 mg/dL (0.6-1.3); Estimated Creatinine Clearance 86.4 mL/min (>60); Globulin 3.3 gm/dL (2.3-3.5); Glucose 120 mg/dL (74-106); Magnesium 2.3 mg/dL (1.6-2.6); Osmolality,Calculated 279 (275-295); Phosphorous 2.2 mg/dL (2.4-5.1); Potassium 3.9 mMol/L (3.4-5.1); Sodium 139 mMol/L (136-145); Total Protein 6.2 gm/dL (5.7-8.2); eGFR > 60 See Note
[2025-09-09] MEDS: KETOROLAC INJ 30 MG/ML VIAL 15 MG IVP ×2 (04:36→19:16)
[2025-09-09] MEDS: HYDROmorphone INJ 2 MG/ML VIAL 1 MG IVP ×3 (05:23→23:31)
[2025-09-09] MEDS: ceFAZolin/D5W 2 GM IV 2 GM/100 ML BAG IV ×3 (05:45→21:23)
[2025-09-09 06:46] LABS: Reflex Lactate? Y
--- NOTE | 2025-09-09 07:47 | ESPR_ITS ---
<Statement entered by Caden Root MD - 09/09/25 13:24> Overnight patient noted to have rapid response for BP of 71/51 with MAP of 59, pulse 99. Patient was asymptomatic. Received 2 L IVF and BP improved. Seen and examined at bedside and resting comfortably in bed. States that he had a BM through his colostomy bag but also having bloody bowel movements through the rectum. Since having BMs states that his abdominal pain has improved. Plan is to discharge patient tomorrow on home hospice. Otherwise, vital signs now stable. CBC showing resolved leukocytosis, hemoglobin slightly dropped from 8.5 to 8.0. CHEM panel unremarkable other than electrolyte derangements that were repleted. Plan to discharge with home hospice tomorrow. ----- Note reviewed and agree with care plan as documented. Please refer to the note below for further details. Plan discussed with attending physician Dr. Tico Root MD PGY-2 Internal Medicine Documentation for date of: 09/09/25 Subjective Subjective Interval history: Mr. Avery doing well this AM, had 2x bowel movements and is not endorsing sever abdominal pain anymore. Understands the plan to proceed with hospice care w/ [facility]. To follow up with hospice planning. Hypotensive overnight to which 2L LR given, and now MAP >65. In AM VSS Exam Vital Signs Temp Pulse Resp BP Pulse Ox O2 Del Method O2 Flow Rate 96.9 F 74 16 100/72 92 L Room Air 2 09/09/25 04:00 09/09/25 04:00 09/09/25 04:00 09/09/25 04:00 09/09/25 04:00 09/09/25 00:06 09/05/25 00:00 Narrative Exam General: alert and oriented, quiet but responsive, cachectic HEENT: NC/AT, mucous membranes moist, bilateral sclera anicteric Cardiovascular: regular rate and rhythm, S1/S2 present, no murmurs appreciated Pulmonary: clear to auscultation bilaterally, no rales/rhonchi/wheezes Abdominal: soft, nontender Musculoskeletal: no peripheral edema Skin: Warm, well-perfused Objective Labs 09/10/25 04:33 09/10/25 04:33 Labs: Laboratory Results - last 24 hr 09/09/25 09/09/25 00:20 03:40 WBC 7.8 D RBC 3.59 L Hgb 8.0 L Hct 25.9 L MCV 72 L MCH 22.3 L MCHC 30.9 L RDW Std Deviation 43.8 Plt Count 292 D Neut % (Auto) 79 Lymph % (Auto) 8 L [place] % (Auto) 12 Eos % (Auto) 0 Baso % (Auto) 0 Neut # (Auto) 6.1 Lymph # (Auto) 0.6 L [place] # (Auto) 1.0 H Eos # (Auto) 0.0 Baso # (Auto) 0.0 Immature Gran # (Auto) 0.05 H Absolute Nucleated RBC 0.00 Immature Gran % 1 H Nucleated RBC % 0 Sodium 139 Potassium 3.9 Chloride 99 Carbon Dioxide 29.8 Anion Gap 10 BUN 16 Creatinine 0.7 Estim Creat Clear Calc 86.4 eGFR > 60 BUN/Creatinine Ratio 23 H Glucose 120 H Calculated Osmolality 279 Lactic Acid 3.7 H 2.1 H Calcium 8.2 L Corrected Calcium 9.1 Phosphorus 2.2 L Magnesium 2.3 Total Bilirubin < 0.2 L AST 20 ALT < 7 L Alkaline Phosphatase 78 Total Protein 6.2 Albumin 2.9 L Globulin 3.3 Albumin/Globulin Ratio 0.9 L Quality Measures Quality Measures VTE prophylaxis Assessment & Plan Assessment Current Active Medications: Generic Name Dose Route Start Last Admin Trade Name Freq PRN Reason Stop Dose Admin Divalproex Sodium 750 mg 09/03/25 21:00 09/08/25 20:38 Divalproex Sod Ec 125 Mg Tabec PO 10/03/25 20:59 750 mg BID DEEPA Administration Heparin Sodium (Porcine) 5,000 unit 09/02/25 23:30 09/09/25 00:19 Heparin Sod Inj 5000 Unit/Ml Vial SC 09/16/25 23:29 Not Given Q12H DEEPA Hydromorphone HCl 1 mg 09/08/25 11:50 09/09/25 05:23 Hydromorphone Inj 2 Mg/Ml Vial IVP 09/13/25 11:46 1 mg Q3H PRN Administration PAIN SCALE 7-10 (Severe Cefazolin Sodium 2 gm in 100 mls @ 100 mls/hr 09/07/25 14:00 09/09/25 05:45 Ancef 2gm Ivpb IV 09/14/25 13:59 100 mls/hr Q8HR DEEPA Administration Ketorolac Tromethamine 15 mg 12/17/25 11:51 09/09/25 04:36 Ketorolac Inj 30 Mg/Ml Vial IVP 09/13/25 11:50 15 mg Q6H PRN Administration PAIN SCALE 4-6 (Moderate Magnesium Hydroxide 30 ml 09/07/25 17:21 09/08/25 20:37 Milk Of Magnesia Susp 30 Ml Udc PO 10/07/25 17:20 30 ml QDAY PRN Administration CONSTIPATION Protocol Mirtazapine 15 mg 09/05/25 12:45 09/08/25 09:34 Mirtazapine 15 Mg Tablet PO 10/05/25 12:44 Not Given QDAY [facility] Multivitamins 1 tab 09/05/25 09:00 09/08/25 09:34 Multivitamins Tablet PO 10/05/25 08:59 Not Given QDAY DEEPA Ondansetron HCl 4 mg 09/02/25 23:25 09/07/25 16:08 Ondansetron Inj 2 Mg/Ml Inj 2 Ml IVP 10/02/25 23:24 4 mg Q6H PRN Administration NAUSEA OR VOMITING Protocol Pantoprazole Sodium 40 mg 09/05/25 09:00 09/08/25 09:34 Pantoprazole 40 Mg Tablet PO 10/05/25 08:59 Not Given QDAY DEEPA Polyethylene Glycol 17 gm 09/09/25 09:00 Polyethylene Glycol 17 Gm Packet PO 10/09/25 08:59 QDAY [facility] Sennosides 1 tab 09/08/25 21:00 09/08/25 20:37 Senna/Docusate Sod 1 Tab Tablet PO 10/08/25 20:59 1 tab BID DEEPA Administration Protocol Thiamine HCl 100 mg 09/08/25 09:00 09/08/25 09:34 Thiamine 100 Mg Tablet PO 10/08/25 08:59 Not Given DAILY DEEPA Protocol Trazodone HCl 50 mg 09/03/25 21:00 09/08/25 20:37 Trazodone Hcl 50 Mg Tablet PO 10/03/25 20:59 50 mg HS DEEPA Administration Plan This patient is a 45-year-old male with history of metastatic rectal carcinoma (known spread to liver) status post diverting colostomy (08/16/2025), depression, anxiety, bipolar disorder type I, and seizure-like activity who presented to [facility] ED on 09/02 for altered mental status. The patient was admitted for management of acute encephalopathy. #Homeless #Housing #Hospice Patient is homeless [id number] following w/ SS for talks about placement Placement: SNF vs with mother vs [id number](less likely) 09/08 hospice orders in agreement w/ Mr Avery 09/08: [facility] agreed to take in Mr. Avery for Hospice Care starting 09/10, to follow up with care coordinators -Pending tentative dc home w/ hospice care 09/10/2025 #Acute encephalopathy #Seizure Disorder Patient was found to be acutely altered, resulting in the patient being brought to [facility] ED. GCS was initially 7 upon EMS arrival, and when patient was brought to the ED, patient was completely unresponsive to all forms of stimuli. Patient became violent & administration of Keppra 3 g and midazolam, resulting in a code bridges and administration of Haldol 7.5 mg and diphenhydramine 50 mg. MRI brain with contrast on 08/19/2025 shows mild enhancement 2 mm in thickness in the anterior cerebral falx Treatment: MRI 09/04: No abnormal enhancing cerebellar or cerebral lesions Neurology consulted, appreciate recommendations Lorazepam 2 mg every 4 hours as needed for agitation on cardiac diet and ensure Keppra switched to Divalproex 750 mg po bid Neurochecks every 4 hours Seizure precautions H&H stable 09/07/2025 DDx Methamphetamine induced encephalopathy >>>>metabolic>>>>other swallow eval passed 09/03 -Per Neurology: to continue Depakote 750 mg PO BID for seizure prophylaxis #Obstructing metastatic rectal adenocarcinoma, invasive and well-differentiated, likely stage IVb #Status post diverting colostomy 08/21/2025 #Port Cath R Side for Chemotherapy Obstructive sx perviously, colostomy done by Dr. Win 07/2025 CRP over 10, likely secondary to his metastatic rectal adenocarcinoma Pathology report 07/19/2024 of rectal mass biopsied via colonoscopy shows well- differentiated invasive adenocarcinoma Pathology report 08/19/[address]-guided liver needle biopsy shows metastatic adenocarcinoma, consistent with colorectal primary CT chest/abdomen/pelvis shows 5.4 x 2.0 cm right lobe liver lesion and very large mass in the pelvis, at least 12 x 10 cm Has not followed up with tx w/ cancer center Port Cath R side appears superficially infected; evaluated by Dr. Weldon, who will continue to follow after dressing change -Ancef 1g q8h 09/07 ->09/14 -Follow up with Dr. Weldon regarding port catheter removal #Constipation #Abdominal Pain unable to pass stool for 1xday, KUB 09/07 significant burden -Increased bowel regimen: Senna/Docusate BID + Miralax q24h -Pain regiment: tylenol IV + dilaudid 1mg PRN pushes #Cachexia 2/2 metastatic cancer - on Mirtazipine for appetite stimulation -Continue urging PO intake #bipolar disorder type I #depression and anxiety #insomnia - Plan: Continue home trazodone at night. Will evaluate mental status once more improved. -DC fluoxetine while on mirtazipine #Methamphetamine positive U tox Urine toxicology 09/02 noted to be positive for methamphetamine. Counciled pt who demonstratd understanding #Homeless #Housing #Hospice Patient is homeless [id number] following w/ [facility] for talks about placement Placement: SNF vs with mother vs [id number](less likely) 09/08 hospice orders in agreement w/ Mr Avery 09/08: [facility] reportedly agreed to take in Mr. Avery for Hospice Care starting 09/10, to follow up with care coordinators Hospital management: Disposition: pending hospice placement Fluids: none Diet: Ensure + Cardiac Diet Lines: PIV DVT prophylaxis: Heparin 5000U sc injection CODE STATUS: full code/DNR Patient seen and discussed with attending physician Dr. Leonel Doshi and senior resident Dr. Caden Meza MD PGY-1 Attending Provider Attestation/Addendum I have examined the patient, reviewed labs and imaging findings, discussed the case with the resident(s), and reviewed entered orders. I agree with the plan of care as outlined in this note. Dr. Tico MD
[2025-09-09] MEDS: PANTOPRAZOLE 40 MG TABLET PO (09:32)
[2025-09-09] MEDS: POLYETHYLENE GLYCOL 17 GM PACKET PO (09:32)
[2025-09-09] MEDS: DIVALPROEX SOD EC 125 MG TABEC 750 MG PO ×2 (09:33→20:11)
[2025-09-09] MEDS: MIRTAZAPINE 15 MG TABLET PO (09:33)
[2025-09-09] MEDS: SENNA/DOCUSATE SOD 1 TAB TABLET PO ×2 (09:33→20:11)
[2025-09-09] MEDS: MULTIVITAMINS TABLET 1 TAB PO (09:33)
[2025-09-09] MEDS: THIAMINE 100 MG TABLET PO (09:33)
--- NOTE | 2025-09-09 14:35 | PC.NURSE ---
Patient arrived on the floor 13:47. Pt said he had a bag of jewelry when he was on the second floor. When I received report for the Sophie she said charge nurse is aware the jewelry bag is missing. Bag was not with the patient when patient arrived on same day surgery center.
--- NOTE | 2025-09-09 14:43 | PD.RESPRO ---
Documentation for date of: 09/09/25 Subjective Subjective Interval history: Patient seen at bedside, reports that he was finally able to have bowel movements through the ostomy. Patient is discharging on hospice, waiting for set up. No new seizures reported. Exam Vital Signs Temp Pulse Resp BP Pulse Ox O2 Del Method O2 Flow Rate 97.2 F 86 13 87/54 L 99 Room Air 2 09/09/25 12:00 09/09/25 12:09/09/25 12:09/09/25 12:09/09/25 12:09/09/25 12:09/05/25 00:00 Narrative Exam Physical Exam General: Awake and in no acute distress. Emaciated and chronically-ill appearing. Multiple tattoos all over body and face. Conversational but slow speech. HEENT: Normocephalic, atraumatic, mucous membranes moist. Heart: Regular rate and rhythm, normal S1 and S2, no murmurs. Lungs: Clear to auscultation with no wheezing or crackles. Abdomen: Soft, nondistended, nontender, positive bowel sounds. ?No guarding or rebound tenderness. Colostomy in place, pink ostomy stoma, with no stool output. Neurologic: Alert and oriented x3, no gross neurological deficit, and patient able to move all 4 extremities. Extremities: No edema. Skin: No rash or ecchymoses. Objective Labs 09/10/25 04:33 09/10/25 04:33 Labs: Laboratory Results - last 24 hr 09/09/25 09/09/25 00:20 03:40 WBC 7.8 D RBC 3.59 L Hgb 8.0 L Hct 25.9 L MCV 72 L MCH 22.3 L MCHC 30.9 L RDW Std Deviation 43.8 Plt Count 292 D Neut % (Auto) 79 Lymph % (Auto) 8 L [place] % (Auto) 12 Eos % (Auto) 0 Baso % (Auto) 0 Neut # (Auto) 6.1 Lymph # (Auto) 0.6 L [place] # (Auto) 1.0 H Eos # (Auto) 0.0 Baso # (Auto) 0.0 Immature Gran # (Auto) 0.05 H Absolute Nucleated RBC 0.00 Immature Gran % 1 H Nucleated RBC % 0 Sodium 139 Potassium 3.9 Chloride 99 Carbon Dioxide 29.8 Anion Gap 10 BUN 16 Creatinine 0.7 Estim Creat Clear Calc 86.4 eGFR > 60 BUN/Creatinine Ratio 23 H Glucose 120 H Calculated Osmolality 279 Lactic Acid 3.7 H 2.1 H Calcium 8.2 L Corrected Calcium 9.1 Phosphorus 2.2 L Magnesium 2.3 Total Bilirubin < 0.2 L AST 20 ALT < 7 L Alkaline Phosphatase 78 Total Protein 6.2 Albumin 2.9 L Globulin 3.3 Albumin/Globulin Ratio 0.9 L Quality Measures Quality Measures VTE prophylaxis Assessment & Plan Assessment Current Active Medications: Generic Name Dose Route Start Last Admin Trade Name Freq PRN Reason Stop Dose Admin Divalproex Sodium 750 mg 09/03/25 21:00 09/09/25 09:33 Divalproex Sod Ec 125 Mg Tabec PO 10/03/25 20:59 750 mg BID DEEPA Administration Heparin Sodium (Porcine) 5,000 unit 09/02/25 23:30 09/09/25 12:19 Heparin Sod Inj 5000 Unit/Ml Vial SC 09/16/25 23:29 Not Given Q12H DEEPA Hydromorphone HCl 1 mg 09/08/25 11:50 09/09/25 09:55 Hydromorphone Inj 2 Mg/Ml Vial IVP 09/13/25 11:46 1 mg Q3H PRN Administration PAIN SCALE 7-10 (Severe Cefazolin Sodium 2 gm in 100 mls @ 100 mls/hr 09/07/25 14:00 09/09/25 05:45 Ancef 2gm Ivpb IV 09/14/25 13:59 100 mls/hr Q8HR DEEPA Administration Ketorolac Tromethamine 15 mg 09/08/25 11:51 09/09/25 04:36 Ketorolac Inj 30 Mg/Ml Vial IVP 09/13/25 11:50 15 mg Q6H PRN Administration PAIN SCALE 4-6 (Moderate Magnesium Hydroxide 30 ml 09/07/25 17:21 09/08/25 20:37 Milk Of Magnesia Susp 30 Ml Udc PO 10/07/25 17:20 30 ml QDAY PRN Administration CONSTIPATION Protocol Mirtazapine 15 mg 09/05/25 12:45 09/09/25 09:33 Mirtazapine 15 Mg Tablet PO 10/05/25 12:44 15 mg QDAY DEEPA Administration Multivitamins 1 tab 09/05/25 09:00 09/09/25 09:33 Multivitamins Tablet PO 10/05/25 08:59 1 tab QDAY DEEPA Administration Ondansetron HCl 4 mg 09/02/25 23:25 09/07/25 16:08 Ondansetron Inj 2 Mg/Ml Inj 2 Ml IVP 10/02/25 23:24 4 mg Q6H PRN Administration NAUSEA OR VOMITING Protocol Pantoprazole Sodium 40 mg 09/05/25 09:00 09/09/25 09:32 Pantoprazole 40 Mg Tablet PO 10/05/25 08:59 40 mg QDAY DEEPA Administration Polyethylene Glycol 17 gm 09/09/25 09:00 09/09/25 09:32 Polyethylene Glycol 17 Gm Packet PO 10/09/25 08:59 17 gm QDAY DEEPA Administration Sennosides 1 tab 09/08/25 21:00 09/09/25 09:33 Senna/Docusate Sod 1 Tab Tablet PO 10/08/25 20:59 1 tab BID DEEPA Administration Protocol Thiamine HCl 100 mg 09/08/25 09:00 09/09/25 09:33 Thiamine 100 Mg Tablet PO 10/08/25 08:59 100 mg DAILY DEEPA Administration Protocol Trazodone HCl 50 mg 09/03/25 21:00 09/08/25 20:37 Trazodone Hcl 50 Mg Tablet PO 10/03/25 20:59 50 mg HS DEEPA Administration Plan 45-year-old male with history of metastatic rectal carcinoma (known spread to liver) status post diverting colostomy (08/16/2025), depression, anxiety, bipolar disorder type I, and seizure-like activity who presented to [facility] ED on 09/02 for altered mental status. The patient was admitted for management of acute encephalopathy and neurology was consulted for further recommendations. #Acute encephalopathy, resolved #Seizure disorder MRI with and without contrast did not show brain mets or other abnormalities at this time Keppra was switched to Depakote due to agitation. -Continue Depakote 750 mg BID Rest of conditions to continue current management per primary team: #Obstructing metastatic rectal adenocarcinoma, invasive and well-differentiated, likely stage IVb #Status post diverting colostomy 08/21/2025 #Cachexia #Bipolar disorder type I #Depression and anxiety #Insomnia #Methamphetamine use Patient was discussed with the Neurology attending, Dr. Camacho. Thank you for allowing us to participate in the care of this patient. Kassandra Baez, PGY-3 Attending Provider Attestation/Addendum I personally have seen and examined the patient at the bedside and I agreed with the resident's findings assessment and plan of care. Patient is tolerating Depakote well without any breakthrough seizures. EEG showed bitemporal epileptiform discharges. waiting for hospice placement.
--- NOTE | 2025-09-09 18:58 | ESPR_ITS ---
Documentation for date of: 09/09/25 Subjective Subjective Interval history: Rapid response today for hypotension requiring IV fluids and the blood pressure is much better now Had a bowel movement through the colostomy and passing blood through the rectum most likely from the rectosigmoid tumor Can's are being made for hospice care Exam Vital Signs Temp Pulse Resp BP Pulse Ox O2 Del Method O2 Flow Rate 97.3 F 114 H 16 107/66 96 Room Air 2 09/09/25 16:00 09/09/25 16:00 09/09/25 16:00 09/09/25 16:00 09/09/25 16:00 09/09/25 16:00 09/05/25 00:00 Objective Labs 09/09/25 03:40 09/09/25 03:40 Labs: Laboratory Results - last 24 hr 09/09/25 09/09/25 00:20 03:40 WBC 7.8 D RBC 3.59 L Hgb 8.0 L Hct 25.9 L MCV 72 L MCH 22.3 L MCHC 30.9 L RDW Std Deviation 43.8 Plt Count 292 D Neut % (Auto) 79 Lymph % (Auto) 8 L [place] % (Auto) 12 Eos % (Auto) 0 Baso % (Auto) 0 Neut # (Auto) 6.1 Lymph # (Auto) 0.6 L [place] # (Auto) 1.0 H Eos # (Auto) 0.0 Baso # (Auto) 0.0 Immature Gran # (Auto) 0.05 H Absolute Nucleated RBC 0.00 Immature Gran % 1 H Nucleated RBC % 0 Sodium 139 Potassium 3.9 Chloride 99 Carbon Dioxide 29.8 Anion Gap 10 BUN 16 Creatinine 0.7 Estim Creat Clear Calc 86.4 eGFR > 60 BUN/Creatinine Ratio 23 H Glucose 120 H Calculated Osmolality 279 Lactic Acid 3.7 H 2.1 H Calcium 8.2 L Corrected Calcium 9.1 Phosphorus 2.2 L Magnesium 2.3 Total Bilirubin < 0.2 L AST 20 ALT < 7 L Alkaline Phosphatase 78 Total Protein 6.2 Albumin 2.9 L Globulin 3.3 Albumin/Globulin Ratio 0.9 L Impressions Impression: Colorectal adenocarcinoma obstructing status post colostomy Stool impaction Continue current management Patient going on hospice care at home Assessment & Plan A&P Narrative # Anemia blood loss secondary to the chronic bleeding from the rectal adenocarcinoma for which not much can be done except radiation and chemo and hopefully that will help # Status post diverting colostomy # metabolic encephalopathy # Seizure disorder # Bipolar disorder # Poor p.o. intake Continue current management Patient has poor p.o. intake May consider PEG placement at some point for nutritional support No need for a repeat invasive GI workup Thank you for the opportunity to participate in the care of this patient Time Spent With Patient Time: Total time spent is greater than 50% in coordination of care (as documented) at patient's floor/unit and/or counseling patient:
[2025-09-10] VITALS: BP 116/84; PULSE 100; RESP 18; TEMP 36.3; O2SAT 98
[2025-09-10 04:00] VITALS: BP 104/61; PULSE 102; RESP 17; TEMP 36.1; O2SAT 95
[2025-09-10] MEDS: ceFAZolin/D5W 2 GM IV 2 GM/100 ML BAG IV (05:04)
[2025-09-10] MEDS: KETOROLAC INJ 30 MG/ML VIAL 15 MG IVP (05:08)
[2025-09-10] MEDS: Milk Of Magnesia Susp 30 ML UDC PO (05:12)
[2025-09-10 05:55] LABS: Basophils # (Auto) 0.0 Thou/mm3 (0.0-0.2); Basophils % (Auto) 0 % (0-2.5); Eosinophils # (Auto) 0.0 Thou/mm3 (0.0-0.5); Eosinophils % (Auto) 0 % (0-10); Hematocrit 28.2 % (41.0-53.0); Immature Granulocytes Auto 0.09 Thou/mm3 (0.00-0.00); Lymphocytes # (Auto) 0.6 Thou/mm3 (1.0-4.8); Lymphocytes % (Auto) 4 % (10-50); Mean Corpuscular HGB Conc 30.5 g/dl (31.0-37.0); Mean Corpuscular Hemoglobin 22.5 pg (25.0-35.0); Mean Corpuscular Volume 74 fL (80-100); Monocytes # (Auto) 1.1 Thou/mm3 (0.0-0.8); Monocytes % (Auto) 8 % (0-12); Neutrophils # (Auto) 13.2 Thou/mm3 (1.8-7.7); Neutrophils % (Auto) 88 % (37-80); Nucleated Red Blood Cell # 0.00 Thou/mm3 (0.00-0.00); Nucleated Red Blood Cell % 0 /100 WBC (0); Platelet Count 308 Thou/mm3 (140-440); RDW Standard Deviation 45.3 fL (35.1-43.9); Red Blood Count 3.83 Miln/mm3 (4.50-5.90); White Blood Count 15.0 Thou/mm3 (3.8-10.6)
[2025-09-10 05:56] LABS: Hemoglobin 8.6 g/dL (13.5-16.0)
[2025-09-10 06:00] VITALS: BMI 16.4
[2025-09-10 06:42] LABS: Alanine Aminotransferase < 7 U/L (10-49); Albumin, Serum 2.8 gm/dL (3.5-5.0); Albumin/Globulin Ratio 0.8 (1.2-2.2); Alkaline Phosphatase 77 U/L (46-116); Anion Gap 10 (7-16); Aspartate Amino Transferase 16 U/L (0-34); BUN/Creatinine Ratio 17 Ratio (12-20); Bilirubin,Total < 0.2 mg/dL (0.3-1.2); Blood Urea Nitrogen 12 mg/dL (9-23); Calcium 8.3 mg/dL (8.3-10.6); Calcium (Corrected) 9.3 mg/dL (8.5-10.1); Carbon Dioxide 30.1 mMol/L (20.0-31.0); Chloride 96 mMol/L (98-107); Creatinine (Component) 0.7 mg/dL (0.6-1.3); Estimated Creatinine Clearance 93.5 mL/min (>60); Globulin 3.7 gm/dL (2.3-3.5); Glucose 81 mg/dL (74-106); Magnesium 2.0 mg/dL (1.6-2.6); Osmolality,Calculated 270 (275-295); Phosphorous 2.9 mg/dL (2.4-5.1); Potassium 4.6 mMol/L (3.4-5.1); Sodium 136 mMol/L (136-145); Total Protein 6.5 gm/dL (5.7-8.2); eGFR > 60 See Note
[2025-09-10 08:00] VITALS: BP 92/63; PULSE 94; RESP 16; TEMP 36.2; O2SAT 92
[2025-09-10] MEDS: HYDROmorphone INJ 2 MG/ML VIAL 1 MG IVP (09:10)
[2025-09-10] MEDS: ACETAMINOPHEN IVPB 1,000 MG/100 ML VIAL 250 MG IV (09:21)
--- NOTE | 2025-09-10 09:50 | ESCONSULT_ITS ---
HPI Consult details History of present illness: 45M with seizures, metastatic rectal CA s/p diverting loop colostomy 08/21, and chemoport insertion 08/24 who was readmitted 09/02 with encephalopathy. In the last few days pt has noted more abdominal pain and less colostomy output, with the output being hard in nature. He denies any current nausea. During this hospitalization pt has decided to pursue hospice care but also prefers to keep his chemoport in for now Review of Systems Review of Systems ROS Unobtainable: All systems reviewed & no additional complaints except as documented Meds Home Medications and Allergies Home Medications ?Medication ?Instructions ?Recorded ?Confirmed ?Type fluoxetine 20 mg capsule (Prozac) 10 mg PO QAM #0 caps 12/20/14 09/03/25 History trazodone 50 mg tablet 50 mg PO HS PRN Sleep #0 tab s 12/20/14 09/03/25 History Allergies Allergy/AdvReac Type Severity Reaction Status Date / Time coconut Allergy Severe Anaphylaxis Verified 09/02/25 20:15 Exam Vital Signs Temp Pulse Resp BP Pulse Ox O2 Del Method O2 Flow Rate 96.9 F 102 H 17 104/61 95 Room Air 2 09/10/25 04:00 09/10/25 04:00 09/10/25 04:00 09/10/25 04:00 09/10/25 04:00 09/10/25 04:00 09/05/25 00:00 Constitutional Constitutional: no acute distress Routine Chest/Breast/Axilla Exam Comments: right chemoport incision with superficial dehiscence at the lateral aspect, fibrinous tissue excised from here and wound irrigated with betadine and saline, covered with silver dressing Routine Respiratory Exam Respiratory: Present no resp distress Routine Abdominal Exam Abdominal: Present soft and ostomy (colostomy pink with hard stool upon digitation); Absent tenderness or distended Results Results: Laboratory Laboratory results: results reviewed Results: Imaging Abdominal x-ray: report reviewed and image reviewed Assessment & Plan Plan 45M with seizures, metastatic rectal CA s/p diverting loop colostomy 08/21, and chemoport insertion 08/24, admitted with encephalopathy. His port site has a superficial infection, being managed with wound care and antibiotics and he is also experiencing hard stools. I offered to irrigate the colostomy with a fleet enema to which the pt agreed
[2025-09-10] MEDS: HEPARIN SOD INJ 5000 UNIT/ML VIAL SC (10:39)
[2025-09-10] MEDS: DIVALPROEX SOD EC 125 MG TABEC 750 MG PO (10:39)
[2025-09-10] MEDS: MIRTAZAPINE 15 MG TABLET PO (10:40)
[2025-09-10] MEDS: POLYETHYLENE GLYCOL 17 GM PACKET PO (10:40)
[2025-09-10] MEDS: PANTOPRAZOLE 40 MG TABLET PO (10:40)
[2025-09-10] MEDS: SENNA/DOCUSATE SOD 1 TAB TABLET PO (10:40)
[2025-09-10] MEDS: MULTIVITAMINS TABLET 1 TAB PO (10:40)
[2025-09-10] MEDS: THIAMINE 100 MG TABLET PO (10:40)
[2025-09-10 12:00] VITALS: BP 118/78; PULSE 93; RESP 18; TEMP 36.7; O2SAT 98
--- NOTE | 2025-09-10 15:15 | PC.SS ---
follow up note: Patient has d/c orders for today. [facility] coordinated with patient's [facility] and [facility]. Patient is set for gurney transport for 2p.m.
--- NOTE | 2025-09-10 16:34 | ESDS_ITS ---
<Statement entered by Laura Merchant MD - 09/10/25 16:35> Patient was seen and examined at bedside. Dressing was done by the neurosurgeon Dr. Win for his for cath, recommended to discharge the patient on 2 more days of antibiotics. Patient will be discharged on hospice. - Patient's plan and care discussed with my attending, Dr. Hector Merchant MD Internal Medicine PGY-3 Planned Discharge Date 09/10/25 DS: Providers Provider Date of admission: 09/02/25 23:25 Primary care physician: Physician No Primary/Family Admitting Provider: Jama Sesay MD Attending Provider on Admission: Jeanine Fernando DO Consults: 09/02/25 19:56 Consult to Neurology / Tele-Neurology Routine Comment: Consulting Provider: [facility] 09/02/25 23:37 Consult to Neurology / Tele-Neurology Routine Comment: Consulting Provider: Gee Camacho 09/03/25 02:36 Referral Infection Control Routine Comment: Reason for Infection Control Referral: Readmitted within 30 days 09/04/25 10:36 Consult to Gastroenterology Routine Comment: Consulting Provider: Anette Martins 09/04/25 13:48 Referral Juanpablo Routine Comment: 09/04/25 13:53 Referral Registered Dietitian Routine Comment: Referral Registered Dietitian Routine Comment: 09/06/25 09:11 Referral Physical Therapy Urgent Comment: Physician Instructions: 09/08/25 11:50 Referral Hospice Routine Comment: Attending Provider on DC: Laura Merchant MD Discharging Provider: Laura Merchant MD DS: Diagnosis Discharge Diagnosis (1) Gastrointestinal malignancy: Status: Acute (2) Breakthrough seizure: Status: Acute Problem List Completed Was Problem List Reviewed/Reconciled?: Yes Hospital Course Hospital Course Hospital course: 45 year old male with a past medical history of metastatic rectal carcinoma w/ mets to liver s/p diverting colostomy 08/21/2025, depression, anxiety, bipolar disorder type-1 and seizure disorder presented to [facility] on 09/02 for altered mental status. Patient came per ambulance and was somnolent, GCS 7; naloxone did not improve mentation. In the ED a stroke alert was called to which a CT head and CTA head/neck were largely unremarkable. Concerns for seizure-like activity prompted teleneurology to suggest keppra and benzodiazepine, which improved Mr. Gotti's mentation. He became violent s/p administration, and was given diphenhydramine and haloperidol. Throughout Mr. Gotti's stay at [facility], he was worked up for seizure disorders 2/2 to possible brain metastasis. EEG deferred outpatient per neurology. Mr. Avery was switched from Keppra to Depakote 750 mg PO BID for seizure prophylaxis. MRI was noncontributory for enhancing cerebellar nor cerebral lesions. He returned to mental baseline during the admission, and after a lengthy discussion with pt and family the decision to pursue hospice at home was initiated. Discussions about his R chemoport catheter were held and pt and family decided to leave the port catheter in, w/ cefalexin ordered for superficial cellulitis. The last two days of his admission at [facility] was notable for increasing constipation and abdominal pain, which was adequately treated with laxatives and pain medication. He was safely discharged home under hospice care on 09/10/2025. Status at Discharge Cognitive/behavioral status at discharge: at baseline Time Spent with Patient Time attestation: Total time spent providing and/or coordinating discharge services: Time spent: Greater than 30 minutes Exam Vital Signs Temp Pulse Resp BP Pulse Ox O2 Del Method O2 Flow Rate 98.1 F 93 18 118/78 98 Room Air 2 09/10/25 12:00 09/10/25 12:00 09/10/25 12:00 09/10/25 12:00 09/10/25 12:00 09/10/25 12:00 09/05/25 00:00 Narrative Exam General: alert and oriented to self/place/year, no acute distress, able to speak full sentences; quiet, cachectic HEENT: NC/AT, mucous membranes moist, bilateral sclera anicteric Cardiovascular: regular rate and rhythm, S1/S2 present, no murmurs appreciated Pulmonary: clear to auscultation bilaterally, no rales/rhonchi/wheezes Abdominal: soft nontender thin Musculoskeletal: no peripheral edema; thin extremities Skin: Warm, well-perfused Discharge Plan Plan Patient Disposition: Home w/HOSPICE Patient condition on transfer: Stable Care Plan Goals: You have been discharged with new medications including your depakote, as well as some pain medications; please take your depakote as prescribed and pain medications as needed If you have any further concerns regarding seizures, nausea, headache, vomiting or pain, please do not hesitate to return to the Emergency Department Please follow up with your PCP in 2 weeks Your hospice supplies have been delivered to Ms. Hall's residence, Wound care to right upper chest and midline abdomen: cleanse site with warm soap and water, pat dry. Cover with silver foam dressing every 2-3 days or as needed for falling off or saturating. Ostomy pouch apprx 30mm round. Change pouching system 2x weekly and as needed for leaking. Prescriptions/Referrals Prescriptions/Med Rec: New divalproex 250 mg tablet,delayed release (DR/EC) 750 mg PO BID 30 Days Qty: 180 0RF multivitamin with folic acid [Tab-A-Radha] 400 mcg Tablet 1 tab PO QDAY 30 Days Qty: 30 0RF ferrous sulfate 325 mg (65 mg iron) tablet 325 mg PO QDAY Qty: 30 0RF cephalexin 500 mg capsule 500 mg PO QID 3 Days Qty: 12 0RF morphine 20 mg capsule,extend.release pellets 20 mg PO QDAY MDD 20 Qty: 30 0RF Continued trazodone 50 mg Tablet 50 mg PO HS PRN (Reason: Sleep) Qty: 0 fluoxetine [Prozac] 20 MG capsule 10 mg PO QAM Qty: 0 hydrocodone-acetaminophen 7.5-325 mg tablet 1 tab PO Q8H MDD 3 PRN (Reason: pain) Qty: 10 0RF Discontinued levetiracetam [Keppra] 500 mg Tablet 500 mg PO BID levetiracetam [Keppra] 750 mg tablet 750 mg PO BID MDD 2 Qty: 60 0RF Referrals: No Primary/Family,Physician [Primary Care Provider] Patient/Caregiver Discharge Instructions Discharge Activity: activity as tolerated Education Materials: Colostomy: Changing Your Pouch, Colorectal Cancer, Discharge Instructions for ..., Discharge Instructions for Epilepsy, Wound Care Dc, Colostomy Dc Print Language: Czech Stand Alone Forms: Tere Award Info., Patient Portal Info Letter Discharge Order Discharge Orders: Discharge (Routine); Ordered 09/10/25 Ordered By: Caden Root Quality Discharge Quality Measures comfort care/end of life MD Attestestation MD Attestation I have examined the patient, reviewed labs and imaging findings, discussed the case with the resident(s), and reviewed entered orders. I agree with the plan of care as outlined in this note. Time Spent; [address] Tico MD
== END 2025-09-10 14:19 | disposition hospice, home (50) | DRG 240 ==
LOC: SERX 23:10 → SERHOLD 09-03 00:21 → S2NX 09-03 01:39 → S3NX 09-09 14:04
PROVIDERS: Student in an Organized Health Care Education/Training Program; Admitting Provider Student in an Organized Health Care Education/Training Program; Emergency Provider Emergency Medicine; Visit Provider Internal Medicine
DX: C19 Malignant neoplasm of rectosigmoid junction (principal); G93.41 Metabolic encephalopathy; Z93.3 Colostomy status; G40.909 Epilepsy, unspecified, not intractable, without status epilepticus; F15.129 Other stimulant abuse with intoxication, unspecified; F31.9 Bipolar disorder, unspecified; F41.9 Anxiety disorder, unspecified; D50.0 Iron deficiency anemia secondary to blood loss (chronic); K76.82 Hepatic encephalopathy; E88.A Wasting disease (syndrome) due to underlying condition; K56.41 Fecal impaction; G47.00 Insomnia, unspecified; Z51.5 Encounter for palliative care; Z59.00 Homelessness unspecified; Z66 Do not resuscitate; Z79.899 Other long term (current) drug therapy
CPT/HCPCS: 36415; 36600; 51701; 70450; 70496; 70498; 70553; 71045; 71260; 74018; 74177; 80053; 80307; 80320; 81001; 82010; 82140; 82248; 82550; 82803; 83036; 83605; 83690; 83735; 83880; 84100; 84145; 84443; 84484; 85014; 85018; 85025; 85610; 85652; 85730; 86140; 86703; 86780; 86850; 86900; 86901; 86923; 87040; 87081; 87502; 87635; 92610; 93005; 95816; 96361; 96374; 96375; 97162; 99291; 99292; A4649; A9577; J0131; J0689; J1171; J1200; J1630; J1644; J1885; J1953; J2250; J2270; J2312; J2405; J2470; J3411; J7120; P9016; P9047; Q9967; A9270; G0480